=== PATIENT | female | born 1985 | race Caucasian/White ===

== ENCOUNTER 2016-10-06 11:32 | Emergency (ER) | payer OTHER ==
[~2016-10-06] VITALS: Ht 157.5 cm; Wt 101.8 kg
[2016-10-06 11:32] VITALS: TEMP 36.9; Ht 157.5 cm; Wt 101.8 kg
[~2016-10-06 11:32] MED LIST: AMLO-110 PO; APR25 PO; CLON1TAB3 PO; FLUO40CA8 PO; LABE1TAB28 PO; LEVO150T9 PO; NRN600 PO; RXC5 PO; SM350 PO
[2016-10-06] MEDS ORDERED: OXYCODONE HCL IR 5 MG TAB (IMMEDIATE RELEASE) PO STA (12:50)
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
[2016-10-06] MEDS ORDERED: AMOX875T PO (14:43)
[2016-10-06] MEDS ORDERED: AMLODIPINE BESYLATE 5 MG TAB PO ONE (15:00)
[2016-10-06] MEDS ORDERED: LABETALOL HCL 100 MG TAB PO ONE (15:00)
[2016-10-06 15:27] VITALS: BP 172/124; PULSE 74; O2SAT 99
[2016-10-10] MEDS ORDERED: AMLO10TA2 PO (18:34)
[2016-10-10] MEDS ORDERED: LABE200T24 PO (18:34)
[2016-10-10] MEDS ORDERED: APR/25 PO (18:34)
[2016-10-10] MEDS ORDERED: FLUO20CA34 PO (18:34)
[2016-10-10] MEDS ORDERED: LSN20 PO (19:38)
[2016-11-21] MEDS ORDERED: VNCS250 PO (17:27)
[2016-11-29] MEDS ORDERED: VNCS250 PO (11:02)
[2016-11-29] MEDS ORDERED: FRCT/ PO ×2 (11:02→19:37)
[2016-11-29] MEDS ORDERED: APR25 PO ×2 (11:02→13:22)
[2016-11-29] MEDS ORDERED: LBT200 PO (13:19)
[2016-11-29] MEDS ORDERED: CTP1 PO ×3 (13:19→13:22)
[2016-11-29] MEDS ORDERED: METR-163 PO ×2 (13:23→19:48)
[2016-12-02] MEDS ORDERED: ZLF50 PO ×2 (08:57→09:30)
[2016-12-02] MEDS ORDERED: BSP5 PO (09:06)
[2016-12-02] MEDS ORDERED: HYDR-3126 PO (09:17)
[2017-02-01] MEDS ORDERED: NRV5 PO (16:43)
[2017-02-01] MEDS ORDERED: DXY100 PO (16:45)
[2017-02-01] MEDS ORDERED: NRN600 PO (18:14)
== END 2016-10-06 15:28 | disposition home or self-care (01) ==
LOC: EDBD 11:32 → C.EDA 11:33
DX: S16.1XXA Strain of muscle, fascia and tendon at neck level, initial encounter (principal); S30.0XXA Contusion of lower back and pelvis, initial encounter; J32.9 Chronic sinusitis, unspecified; S80.01XA Contusion of right knee, initial encounter; I10 Essential (primary) hypertension; R51 Headache; K21.9 Gastro-esophageal reflux disease without esophagitis; E03.9 Hypothyroidism, unspecified; K58.9 Irritable bowel syndrome, unspecified; Z91.14 Patient's other noncompliance with medication regimen; E66.01 Morbid (severe) obesity due to excess calories; Z68.41 Body mass index [BMI] 40.0-44.9, adult; G47.33 Obstructive sleep apnea (adult) (pediatric); M17.11 Unilateral primary osteoarthritis, right knee; Z87.891 Personal history of nicotine dependence; M51.86 Other intervertebral disc disorders, lumbar region; V49.50XA Passenger injured in collision with unspecified motor vehicles in traffic accident, initial encounter; Y93.89 Activity, other specified; Y92.89 Other specified places as the place of occurrence of the external cause; Y99.8 Other external cause status

== ENCOUNTER 2016-10-09 09:42 | Emergency (ER) | payer OTHER ==
[~2016-10-09] VITALS: Ht 157.5 cm; Wt 99.2 kg
[~2016-10-09 09:42] MED LIST changes: +AMOX875T PO
[2016-10-09 09:47] VITALS: TEMP 36.6; Ht 157.5 cm; Wt 99.2 kg
[2016-10-09] MEDS ORDERED: IBUPROFEN 200 MG TAB PO STA (10:07)
[2016-10-09] MEDS ORDERED: ACETAMINOPHEN 500 MG TAB PO STA (10:07)
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
[2016-10-09 10:35] LABS: BASO % 0.5 %; BASO ABS # 0.03 K/uL (0-0.2); COMPLETE YES; EOS % 3.3 %; HEMATOCRIT 40.9 % (37-47); IG% 0.4 %; LYMPH % 31.3 %; LYMPH ABS # 1.72 K/uL (1.2-3.4); MEAN CORPUSCULAR HEMOGLOBIN 28.5 pg (25-34); MEAN PLATELET VOLUME 10.9 fL (7.4-10.4); MONO % 15.1 %; NEUT % 49.4 %; PLATELET COUNT 195 K/uL (130-400); RED BLOOD COUNT 4.87 M/uL (4.2-5.4); WHITE BLOOD COUNT 5.49 K/uL (4.8-10.8)
[2016-10-09] MEDS ORDERED: SODIUM CHLORIDE 0.9% 1000ML 2,000 ML IV STA (10:44)
[2016-10-09 10:51] LABS: BUN/CREATININE RATIO 14.9 (10-20); CALCIUM 9.1 mg/dl (8.5-10.1); CREATININE 1.7 mg/dl (0.60-1.20); POTASSIUM 4.1 mmol/L (3.5-5.1)
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
[2016-10-09 13:43] LABS: URINE APPEARANCE CLOUDY (CLEAR); URINE BILIRUBIN NEG (NEG); URINE COLOR DK YELLOW; URINE EPITHELIAL CELL AUTO >30 /lpf (0-5); URINE NITRITE NEG (NEG); URINE SPECIFIC GRAVITY 1.029 (1.000-1.030); UROBILINOGEN NEG (NEG); ZZUR CULT IF INDIC CLEAN CATCH NO
[2016-10-09 13:46] LABS: MANUAL MICROSCOPIC REQUIRED? NO; REVIEW REQ? YES
[2016-10-09 13:53] VITALS: BP 127/85; PULSE 80; O2SAT 97
[2016-10-09 14:09] LABS: BENZODIAZEPINE, URINE NEG (NEG); COCAINE,URINE NEG (NEG); PHENCYCLIDINE, URINE NEG (NEG)
[2016-10-10] MEDS ORDERED: LABE200T24 PO (18:34)
[2016-10-10] MEDS ORDERED: APR/25 PO (18:34)
[2016-10-10] MEDS ORDERED: AMLO10TA2 PO (18:34)
[2016-10-10] MEDS ORDERED: FLUO20CA34 PO (18:34)
[2016-10-10] MEDS ORDERED: LSN20 PO (19:38)
[2016-11-21] MEDS ORDERED: VNCS250 PO (17:27)
[2016-11-29] MEDS ORDERED: VNCS250 PO (11:02)
[2016-11-29] MEDS ORDERED: FRCT/ PO ×2 (11:02→19:37)
[2016-11-29] MEDS ORDERED: APR25 PO ×2 (11:02→13:22)
[2016-11-29] MEDS ORDERED: LBT200 PO (13:19)
[2016-11-29] MEDS ORDERED: CTP1 PO ×3 (13:19→13:22)
[2016-11-29] MEDS ORDERED: METR-163 PO ×2 (13:23→19:48)
[2016-12-02] MEDS ORDERED: ZLF50 PO ×2 (08:57→09:30)
[2016-12-02] MEDS ORDERED: BSP5 PO (09:06)
[2016-12-02] MEDS ORDERED: HYDR-3126 PO (09:17)
[2017-02-01] MEDS ORDERED: NRV5 PO (16:43)
[2017-02-01] MEDS ORDERED: DXY100 PO (16:45)
[2017-02-01] MEDS ORDERED: NRN600 PO (18:14)
== END 2016-10-09 14:03 | disposition home or self-care (01) ==
LOC: C.EDB 09:44
DX: R51 Headache (principal); M54.2 Cervicalgia; V43.62XA Car passenger injured in collision with other type car in traffic accident, initial encounter; I95.1 Orthostatic hypotension; E86.0 Dehydration; I10 Essential (primary) hypertension; E03.9 Hypothyroidism, unspecified; F32.9 Major depressive disorder, single episode, unspecified; K21.9 Gastro-esophageal reflux disease without esophagitis; I25.10 Atherosclerotic heart disease of native coronary artery without angina pectoris; F41.9 Anxiety disorder, unspecified; K58.9 Irritable bowel syndrome, unspecified; G47.33 Obstructive sleep apnea (adult) (pediatric); E28.2 Polycystic ovarian syndrome; Z90.710 Acquired absence of both cervix and uterus; Z90.49 Acquired absence of other specified parts of digestive tract; Z98.890 Other specified postprocedural states; F17.200 Nicotine dependence, unspecified, uncomplicated; Z79.899 Other long term (current) drug therapy; Z88.2 Allergy status to sulfonamides; Z88.8 Allergy status to other drugs, medicaments and biological substances; Z80.9 Family history of malignant neoplasm, unspecified; Z83.3 Family history of diabetes mellitus; Z82.49 Family history of ischemic heart disease and other diseases of the circulatory system; Z83.79 Family history of other diseases of the digestive system; Z84.1 Family history of disorders of kidney and ureter

== ENCOUNTER 2016-11-19 06:37 | Observation (INO) | payer OTHER ==
[~2016-11-19] VITALS: Ht 157.5 cm; Wt 99.7 kg
[~2016-11-19 06:37] MED LIST changes: -AMLO-110 PO; +AMLO10TA2 PO; -AMOX875T PO; +APR/25 PO; -APR25 PO; +FLUO20CA34 PO; -FLUO40CA8 PO; -LABE1TAB28 PO; +LABE200T24 PO
[2016-11-19 06:46] VITALS: Ht 157.5 cm; Wt 99.7 kg
[2016-11-19] MEDS ORDERED: SODIUM CHLORIDE 0.9% 1000ML 1,000 ML IV STA (07:10)
[2016-11-19] MEDS ORDERED: PROMETHAZINE HCL INJ 25 MG/ML 1 ML VIAL IV STA (07:10)
[2016-11-19 07:37] LABS: BASO % 0.1 %; BASO ABS # 0.03 K/uL (0-0.2); COMPLETE YES; EOS % 9.8 %; HEMATOCRIT 43.7 % (37-47); IG% 0.4 %; LYMPH % 9.7 %; LYMPH ABS # 2.01 K/uL (1.2-3.4); MEAN CELL VOLUME 79.6 fL (80-100); MEAN CORPUSCULAR HEMOGLOBIN 28.8 pg (25-34); MEAN CORPUSCULAR HGB CONC 36.2 g/dl (32-36); MEAN PLATELET VOLUME 10.3 fL (7.4-10.4); MONO % 3.9 %; NEUT % 76.1 %; PLATELET COUNT 230 K/uL (130-400); RED BLOOD COUNT 5.49 M/uL (4.2-5.4); WHITE BLOOD COUNT 20.77 K/uL (4.8-10.8)
[2016-11-19 07:54] LABS: BUN/CREATININE RATIO 12.2 (10-20); CALCIUM 8.5 mg/dl (8.5-10.1); CREATININE 1.5 mg/dl (0.60-1.20); POTASSIUM 3.3 mmol/L (3.5-5.1)
[2016-11-19] MEDS ORDERED: PROMETHAZINE HCL INJ 25 MG in SODIUM CHLORIDE 0.9% 50ML 50 ML IV ONE (08:00)
[2016-11-19] MEDS ORDERED: HYDR-5688 PO (08:09)
[2016-11-19 08:33] LABS: MAGNESIUM 1.8 mg/dl (1.8-2.4); PHOSPHORUS 3.1 mg/dl (2.5-4.9)
[2016-11-19] MEDS ORDERED: OXYCODONE HCL IR 5 MG TAB (IMMEDIATE RELEASE) PO STA (08:48)
[2016-11-19] MEDS ORDERED: LABETALOL HCL 200 MG TAB PO STA (08:48)
[2016-11-19] MEDS ORDERED: AMLODIPINE BESYLATE 5 MG TAB PO ONE (09:00)
[2016-11-19] MEDS ORDERED: PROM25TA9 PO (10:54)
[2016-11-19 10:59] LABS: PREG INTERNAL NEGATIVE QC NEG CLEAR BACKGROUND; PREG INTERNAL POSITIVE QC POS CONTROL LINE
[2016-11-19] MEDS ORDERED: ZLF50 PO (11:39)
[2016-11-19] MEDS ORDERED: ATOR-54 PO (11:39)
[2016-11-19] MEDS ORDERED: NRN/300 PO (11:39)
[2016-11-19] MEDS ORDERED: POTASSIUM CHLORIDE 20 MEQ TABCR PO ONE (11:45)
[2016-11-19] MEDS ORDERED: ACETAMINOPHEN 325 MG TAB PO PRN (11:45)
--- NOTE | 2016-11-19 12:15 | History and Physical ---
History & Physical Date & Time of Service: Nov 19, 2016 at 11:48 Chief Complaint: Ibs,Diarrhea Primary Care Physician: Norah Bailey D.O. History of Present Illness Source: patient, clinic records, hospital records Patient seen and examined. 31 year old female with PMHx of HTN, HLD, IGNACIO, CKD stage 3, and depression presents to the ED complaining of vomiting and diarrhea x 1 day. Patient reports she has had 30+ episodes of diarrhea and at least 10 episodes of vomiting. She states she has associated lower abdominal pain described as crampy/sharp and rated as an 9/10. She tried Perkins and Soma with minimal relief. She denies fevers, chills, URI symptoms, chest pain, SOB, dysuria, calf pain and edema. She reports she vomited her morning meds this morning. She states she was on Augmentin about a month ago for a sinus infection. She denies history of C.diff. She denies sick contacts, new or unusual foods/water sources. She denies any other Abx use. In the ED patient was initially hypertensive and tachycardic. She was given her morning BP meds and VS have normalized. WBC count is 20K. She has not been able to give a stool sample. She received IVFs, Phenergan. She is resting comfortably. She will be observed for further workup and treatment. Past Medical/Surgical History Medical Problems: (1) Anxiety Status: Chronic (2) Anxiety and depression Status: Chronic (3) GERD (gastroesophageal reflux disease) Status: Chronic (4) Hypertension Status: Chronic (5) Hypothyroidism Status: Chronic (6) IBS (irritable bowel syndrome) Status: Chronic (7) Left ventricular hypertrophy Permanent Comment: severe concentric LVH, IVSd 2.3 cm 06/18/16 Status: Chronic (8) Lumbago Status: Chronic (9) Lumbar disc disorder Status: Chronic (10) Migraine Status: Chronic (11) Morbid Obesity Status: Chronic (12) Non-occlusive coronary artery disease Status: Chronic (13) Noncompliance with medications Status: Chronic (14) IGNACIO (obstructive sleep apnea) Status: Chronic (15) Polycystic ovarian syndrome Status: Chronic Surgical Problems: (1) Adrenal tumor removed Status: Chronic (2) H/O arthroscopic knee surgery Status: Chronic (3) H/O hemorrhoidectomy Status: Chronic (4) History of carpal tunnel surgery Status: Chronic (5) History of hysterectomy Status: Chronic (6) Hx of appendectomy Status: Chronic (7) Hx of cholecystectomy Status: Chronic (8) Hx of decompressive lumbar laminectomy Status: Chronic (9) Hx of hemorrhoidectomy Status: Chronic (10) Hx of partial thyroidectomy Status: Chronic (11) S/p removal adrenal gland tumor Status: Chronic (12) S/P tonsillectomy and adenoidectomy Status: Chronic Family History Cancer Diabetes mellitus FHx: ME FHx: blood clots FHx: heart disease Gallbladder disease Heart disease Hypertension Kidney disease Lung disease Social History Smoking Status: Never Smoker Alcohol Use: socially Drug Use: none Marital Status: single, in relationship Housing status: lives with significant other Occupational Status: disabled Immunizations History of Influenza Vaccine: Yes Influenza Vaccine Date: Jul 14, 2015 Allergies Coded Allergies: Sulfa Antibiotics (Verified Allergy, Severe, RASH, DIFFICULTY BREATHING, HAD LASIX OK PREV.ADM., 11/19/16) NSAIDs (Verified Adverse Reaction, Unknown, KIDNEY FAILURE, 11/19/16) PATIENT REPORTS ASSESSMENT EXPERT TOLD PATIENT TO STAY AWAY FROM DUE TO KIDNEY FUNCTION Tramadol (Verified Adverse Reaction, Unknown, "MAKES ME DIZZY", 11/19/16) Home Medications Scheduled Amlodipine Besylate (Norvasc), 10 MG PO DAILY Atorvastatin (Lipitor), 20 MG PO DAILY Gabapentin (Neurontin), 1 CAP PO TID Hydralazine HCl (Hydralazine HCl), 12.5 MG PO TID Labetalol Hcl (Labetalol Hcl), 200 MG PO TID Levothyroxine Sodium (Levothyroxine Sodium), 1 TAB PO 6XWK Levothyroxine Sodium (Levothyroxine Sodium), 300 MCG PO WK Sertraline HCl (Sertraline HCl), 1 TAB PO DAILY Scheduled PRN Carisoprodol (Carisoprodol), 350 MG PO TID PRN for Muscle Spasms Hydrocodone/Acetaminophen 5MG/325MG ([place] 5MG/325MG), 1 TABLET PO DAILY PRN for Pain Review of Systems Constitutional: No chills, No fever Eyes: No worsening of vision ENT: No nasal symptoms Respiratory: No cough, No shortness of breath Cardiovascular: No chest pain, No edema Abdomen: + diarrhea, + nausea, + pain, + vomiting, No GI bleeding, No constipation Musculoskeletal: No calf pain, No swelling Genitourinary - Female: No dysuria Neurologic: No numbness/tingling, No vertigo Psychiatric: No anxiety Endocrine: No excessive thirst, No fatigue Hematologic / Lymphatic: No abnormal bleeding/bruising, No clotting problems Integumentary: No itch, No rash Allergic / Immunologic: No environmental allergies Physical Exam Vital Signs Date Time Temp Pulse Resp B/P Pulse Ox O2 Delivery O2 Flow Rate FiO2 11/19/16 11:37 78 20 136/88 99 Room Air 11/19/16 10:14 104 20 160/117 94 Room Air 11/19/16 09:16 104 16 197/147 96 11/19/16 08:40 97 20 190/110 97 Room Air 11/19/16 07:51 107 16 168/117 100 11/19/16 06:46 37.0 117 20 178/133 96 Room Air General Appearance: + pertinent finding (WD/WN 31 year old female lying in bed in NAD ) Head: normocephalic, atraumatic Eyes: PERRL, EOMI, sclerae normal ENT: hearing grossly normal, pharynx normal Neck: supple, no JVD Respiratory/Chest: chest non-tender, lungs clear, normal breath sounds, no respiratory distress, no accessory muscle use Cardiovascular: regular rate, rhythm, no edema, no gallop, no JVD, no murmur, normal peripheral pulses Abdomen/GI: normal bowel sounds, non tender, soft Back: normal inspection, no CVA tenderness, no muscle spasm Extremities/Musculoskelatal: no calf tenderness, normal capillary refill, no pedal edema Neurologic/Psych: alert, oriented x 3, + pertinent finding (no motor or sensory deficits noted on gross exam ) Skin: normal color, warm/dry, no rash Lymphatic: no adenopathy Diagnostics Laboratory Results Results Past 24 Hours Test 11/19/16 07:25 11/19/16 07:35 Range/Units White Blood Count 20.77 4.8-10.8 K/uL Red Blood Count 5.49 4.2-5.4 M/uL Hemoglobin 15.8 12.0-16.0 g/dL Hematocrit 43.7 37-47 % Mean Corpuscular Volume 79.6 80-100 fL Mean Corpuscular Hemoglobin 28.8 25-34 pg Mean Corpuscular Hemoglobin Concent 36.2 32-36 g/dl Platelet Count 230 130-400 K/uL Mean Platelet Volume 10.3 7.4-10.4 fL Neutrophils (%) (Auto) 76.1 % Lymphocytes (%) (Auto) 9.7 % Monocytes (%) (Auto) 3.9 % Eosinophils (%) (Auto) 9.8 % Basophils (%) (Auto) 0.1 % Neutrophils # (Auto) 15.80 1.4-6.5 K/uL Lymphocytes # (Auto) 2.01 1.2-3.4 K/uL Monocytes # (Auto) 0.81 0.11-0.59 K/uL Eosinophils # (Auto) 2.03 0-0.5 K/uL Basophils # (Auto) 0.03 0-0.2 K/uL RDW Standard Deviation 41.8 36.4-46.3 fL RDW Coefficient of Variation 14.7 11.5-14.5 % Immature Granulocyte % (Auto) 0.4 % Immature Granulocyte # (Auto) 0.09 0.00-0.02 K/uL Sodium Level 139 136-145 mmol/L Potassium Level 3.3 3.5-5.1 mmol/L Chloride Level 104 98-107 mmol/L Carbon Dioxide Level 24 21-32 mmol/L Anion Gap 11.0 3-11 mmol/L Blood Urea Nitrogen 18 7-18 mg/dl Creatinine 1.50 0.60-1.20 mg/dl Est Creatinine Clear Calc Drug Dose 58.9 ml/min Estimated GFR () 52.5 Estimated GFR (Non- 45.3 BUN/Creatinine Ratio 12.2 10-20 Random Glucose 139 70-99 mg/dl Calcium Level 8.5 8.5-10.1 mg/dl Phosphorus Level 3.1 2.5-4.9 mg/dl Magnesium Level 1.8 1.8-2.4 mg/dl Total Bilirubin 0.6 0.2-1 mg/dl Direct Bilirubin 0.1 0-0.2 mg/dl Aspartate Amino Transf (AST/SGOT) 12 15-37 U/L Alanine Aminotransferase (ALT/SGPT) 21 12-78 U/L Alkaline Phosphatase 102 45-117 U/L Total Protein 7.1 6.4-8.2 gm/dl Albumin 3.4 3.4-5.0 gm/dl Lipase 297 73-393 U/L Human Chorionic Gonadotropin, Qual NEG NEG Impression Assessment and Plan 31 year old female presents to the ED complaining of 30 episodes of diarrhea, 10 episodes of vomiting in last 24 hours. Has not had vomiting or diarrhea since arrival. INTRACTABLE ABDOMINAL PAIN/NAUSEA/VOMITING -Observation med/surg -LFTs, lipase unremarkable -has not been able to give stool sample, -R/O C.diff was on Augmentin last month -stool culture -UA pending -IVF hydration -Zofran prn -morphine prn severe pain [place] prescription monitoring program reviewed- has used 3 pharmacies and 10 prescribers in the past -Check Tox screen -clear liquid diet -CBC, PRP, Mg in AM LEUKOCYTOSIS -20K, ? cause -check Stool culture, c.diff, UA -afebrile -no indication for Abx at this time HYPOKALEMIA -mild, likely secondary to GI losses replace -follow daily HTN -stable after home meds -continue Labetalol, hydralazine, amlodipine HYPOTHYROIDISM -continue Synthroid HLD -hold statin for GI upset IGNACIO -does not tolerate CPAP DEPRESSION -continue Zoloft CHRONIC PAIN -continue Perkins, Soma DVT PROPHYLAXIS: SCDs, Ambulation CODE STATUS: FULL CODE DISPO:observation pending further workup Patient seen in collaboration with Dr. Garcia VTE Prophylaxis VTE Risk Assessment Done? Y/N: Yes Risk Level: Low Given or contraindicated: SCD's Note ATTENDING ADDENDUM Record reviewed. Patient interviewed and examined. Care coordinated with Sweta Queen PA-C. Please refer to her documentation for patient's history. Briefly, 31 YO female who presented to ED with nausea, vomiting, several episodes of loose stools over past 24 hours. No fever. Crampy abdominal pain. Recent course of Augmentin. EXAM: General- no acute distress VS- as noted HEENT- anicteric Lungs- clear Heart- RRR Abdomen- + BS, soft, nondistended, nontender Extremities- no pretibial edema or calf tenderness Neuro- alert DATA: WBC 20,770. BUN / creat 18 / 1.5. K 3.3. LFT's normal. Other lab studies as noted. ASSESSMENT AND PLAN: Nausea, vomiting, diarrhea. Consider viral gastroenteritis, C diff, other enteric pathogens. IV fluids. Check stools for C diff and routine enteric pathogens. UA shows trace leukocyte esterase, 10-30 WBC's, 5-10 RBC's, hyaline casts, granular casts, many epithelial cells. Suspect that urine contaminated specimen. No urinary symptoms. Urine culture pending. Will not start antibiotics at this time in light of possible C diff and no definite UTI. Please refer to TRICIA Queen's documentation for discussion of other issues. David Garcia MD .
[2016-11-19 12:36] VITALS: O2SAT 96
[2016-11-19 12:52] LABS: URINE APPEARANCE TURBID (CLEAR); URINE COLOR DK YELLOW; URINE EPITHELIAL CELL AUTO >30 /lpf (0-5); URINE NITRITE NEG (NEG); URINE PH 5.5 (4.5-7.5); URINE SPECIFIC GRAVITY 1.038 (1.000-1.030); UROBILINOGEN NEG (NEG); ZZUR CULT IF INDIC CLEAN CATCH YES
[2016-11-19 13:05] LABS: MANUAL MICROSCOPIC REQUIRED? NO; REVIEW REQ? YES; URINE BILIRUBIN NEG (NEG)
[2016-11-19 13:29] LABS: URINE PATH CASTS 0-3 GRANULAR CASTS /lpf (0)
--- NOTE | 2016-11-19 13:43 | EMERGENCY ROOM VISIT NOTE ---
History First contact with patient: 07:03 Chief Complaint: DIARRHEA Stated Complaint: IBS,DIARRHEA History of Present Illness The patient is a 31 year old female who presents to the Emergency Room with complaints of an IBS flare with nausea, vomiting and profuse watery diarrhea since midnight. The patient denies eating any unusual foods. She denies any other known sick contacts. Rates her overall discomfort an 10 out of 10. Review of Systems HEENT: Denies dizziness, visual problems, hearing loss, tinnitus. Denies difficulty swallowing or oral lesions. PULMONARY: Denies cough, shortness of breath, sputum production or hemoptysis. CARDIOVASCULAR: Denies chest pain, palpitations, dyspnea on exertion, orthopnea or peripheral edema. GASTROINTESTINAL: See history of present illness. GENITOURINARY: Denies dysuria, frequency, urgency or nocturia. NEUROLOGIC: Denies history of epilepsy, CVA, TIA or chronic headaches. MUSCULOSKELETAL: Denies history of joint tenderness/swelling. SKIN: Denies rashes or lesions. PSYCHIATRIC: History of anxiety and depression. ENDOCRINE: Denies history of diabetes. Patient has a history of hypothyroidism. Past Medical/Surgical History Medical Problems: (1) Abdominal pain (2) Anxiety (3) Anxiety and depression (4) Depression (5) Depression (6) Dizzy (7) GERD (gastroesophageal reflux disease) (8) GERD (gastroesophageal reflux disease) (9) Headache (10) HTN (hypertension) (11) Hypertension (12) Hypothyroidism (13) Hypothyroidism (14) IBS (irritable bowel syndrome) (15) Left ventricular hypertrophy (16) Lumbago (17) Lumbar disc disorder (18) Migraine (19) Migraine (20) Morbid Obesity (21) Non-occlusive coronary artery disease (22) Noncompliance with medications (23) IGNACIO (obstructive sleep apnea) (24) IGNACIO (obstructive sleep apnea) (25) Polycystic ovarian syndrome Surgical Problems: (1) Adrenal tumor removed (2) H/O arthroscopic knee surgery (3) H/O arthroscopic knee surgery (4) H/O hemorrhoidectomy (5) H/O: hysterectomy (6) History of carpal tunnel surgery (7) History of carpal tunnel surgery (8) History of hysterectomy (9) Hx of appendectomy (10) Hx of cholecystectomy (11) Hx of decompressive lumbar laminectomy (12) Hx of hemorrhoidectomy (13) Hx of partial thyroidectomy (14) S/P appendectomy (15) S/P cholecystectomy (16) S/p removal adrenal gland tumor (17) S/P tonsillectomy and adenoidectomy (18) S/P tonsillectomy and adenoidectomy Family History Cancer Diabetes mellitus FHx: [place] FHx: blood clots FHx: heart disease Gallbladder disease Heart disease Hypertension Kidney disease Lung disease Social History Smoking Status: Never Smoker Alcohol Use: none Drug Use: none Marital Status: single, in relationship Housing Status: lives with family Occupation Status: disabled Current/Historical Medications Scheduled Amlodipine Besylate (Norvasc), 10 MG PO DAILY Atorvastatin (Lipitor), 20 MG PO DAILY Gabapentin (Neurontin), 1 CAP PO TID Hydralazine HCl (Hydralazine HCl), 12.5 MG PO TID Labetalol Hcl (Labetalol Hcl), 200 MG PO TID Levothyroxine Sodium (Levothyroxine Sodium), 1 TAB PO 6XWK Levothyroxine Sodium (Levothyroxine Sodium), 300 MCG PO WK Sertraline HCl (Sertraline HCl), 1 TAB PO DAILY Scheduled PRN Carisoprodol (Carisoprodol), 350 MG PO TID PRN for Muscle Spasms Hydrocodone/Acetaminophen 5MG/325MG ([place] 5MG/325MG), 1 TABLET PO DAILY PRN for Pain Allergies Coded Allergies: Sulfa Antibiotics (Verified Allergy, Severe, RASH, DIFFICULTY BREATHING, HAD LASIX OK PREV.ADM., 11/19/16) NSAIDs (Verified Adverse Reaction, Unknown, KIDNEY FAILURE, 11/19/16) PATIENT REPORTS ENVIRONMENTAL FIELD SERVICES TECHNICIAN TOLD PATIENT TO STAY AWAY FROM DUE TO KIDNEY FUNCTION Tramadol (Verified Adverse Reaction, Unknown, "MAKES ME DIZZY", 11/19/16) Physical Exam Vital Signs Date Time Temp Pulse Resp B/P Pulse Ox O2 Delivery O2 Flow Rate FiO2 11/19/16 11:37 78 20 136/88 99 Room Air 11/19/16 10:14 104 20 160/117 94 Room Air 11/19/16 09:16 104 16 197/147 96 11/19/16 08:40 97 20 190/110 97 Room Air 11/19/16 07:51 107 16 168/117 100 11/19/16 06:46 37.0 117 20 178/133 96 Room Air Physical Exam CONSTITUTIONAL: Healthy and well nourished. Alert and oriented X 3 with a flat affect. HEENT: Normocephalic, atraumatic. Pupils equal, round and reactive. Ears and nares are clear. OROPHARYNX: Mucous memories are moist. No tonsillar hypertrophy or exudates. NECK: Full active range of motion without discomfort. RESPIRATORY: Clear to auscultation bilaterally with no wheezing, crackles, rhonchi or stridor. CARDIOVASCULAR: Regular rate and rhythm with no murmurs, rubs or gallops. GASTROINTESTINAL: Bowel sounds present in all quadrants. And has diffuse, generalized and nonfocal tenderness to palpation. Negative CVA tenderness. No rigidity, guarding or rebound. MUSCULOSKELETAL: Full range of motion of all joints without discomfort. INTEGUMENTARY: No rash or other significant dermatologic conditions noted. HEMATOLOGIC: No ecchymosis or petechiae appreciated. NEUROLOGIC: No focal neurologic deficits noted. Medical Decision & Procedures Laboratory Results 11/19/16 07:25 Red Blood Count 5.49, Mean Corpuscular Volume 79.6, Mean Corpuscular Hemoglobin 28.8, Mean Corpuscular Hemoglobin Concent 36.2, Mean Platelet Volume 10.3, Neutrophils (%) (Auto) 76.1, Lymphocytes (%) (Auto) 9.7, Monocytes (%) (Auto) 3.9, Eosinophils (%) (Auto) 9.8, Basophils (%) (Auto) 0.1, Neutrophils # (Auto) 15.80, Lymphocytes # (Auto) 2.01, Monocytes # (Auto) 0.81, Eosinophils # (Auto) 2.03, Basophils # (Auto) 0.03 11/19/16 07:25 Test 11/19/16 07:25 11/19/16 07:35 White Blood Count 20.77 K/uL (4.8-10.8) Red Blood Count 5.49 M/uL (4.2-5.4) Hemoglobin 15.8 g/dL (12.0-16.0) Hematocrit 43.7 % (37-47) Mean Corpuscular Volume 79.6 fL (80-100) Mean Corpuscular Hemoglobin 28.8 pg (25-34) Mean Corpuscular Hemoglobin Concent 36.2 g/dl (32-36) Platelet Count 230 K/uL (130-400) Mean Platelet Volume 10.3 fL (7.4-10.4) Neutrophils (%) (Auto) 76.1 % Lymphocytes (%) (Auto) 9.7 % Monocytes (%) (Auto) 3.9 % Eosinophils (%) (Auto) 9.8 % Basophils (%) (Auto) 0.1 % Neutrophils # (Auto) 15.80 K/uL (1.4-6.5) Lymphocytes # (Auto) 2.01 K/uL (1.2-3.4) Monocytes # (Auto) 0.81 K/uL (0.11-0.59) Eosinophils # (Auto) 2.03 K/uL (0-0.5) Basophils # (Auto) 0.03 K/uL (0-0.2) RDW Standard Deviation 41.8 fL (36.4-46.3) RDW Coefficient of Variation 14.7 % (11.5-14.5) Immature Granulocyte % (Auto) 0.4 % Immature Granulocyte # (Auto) 0.09 K/uL (0.00-0.02) Anion Gap 11.0 mmol/L (3-11) Est Creatinine Clear Calc Drug Dose 58.9 ml/min Estimated GFR () 52.5 Estimated GFR (Non- 45.3 BUN/Creatinine Ratio 12.2 (10-20) Calcium Level 8.5 mg/dl (8.5-10.1) Phosphorus Level 3.1 mg/dl (2.5-4.9) Magnesium Level 1.8 mg/dl (1.8-2.4) Total Bilirubin 0.6 mg/dl (0.2-1) Direct Bilirubin 0.1 mg/dl (0-0.2) Aspartate Amino Transf (AST/SGOT) 12 U/L (15-37) Alanine Aminotransferase (ALT/SGPT) 21 U/L (12-78) Alkaline Phosphatase 102 U/L (45-117) Total Protein 7.1 gm/dl (6.4-8.2) Albumin 3.4 gm/dl (3.4-5.0) Lipase 297 U/L (73-393) Urine Color DK YELLOW Urine Appearance TURBID (CLEAR) Urine pH 5.5 (4.5-7.5) Urine Specific [place] 1.038 (1.000-1.030) Urine Protein 3+ (NEG) Urine Glucose (UA) NEG (NEG) Urine Ketones NEG (NEG) Urine Occult Blood NEG (NEG) Urine Nitrite NEG (NEG) Urine Bilirubin NEG (NEG) Urine Urobilinogen NEG (NEG) Urine Leukocyte Esterase TRACE (NEG) Urine WBC (Auto) 10-30 /hpf (0-5) Urine RBC (Auto) 5-10 /hpf (0-4) Urine Hyaline Casts (Auto) 10-30 /lpf (0-5) Urine Epithelial Cells (Auto) >30 /lpf (0-5) Urine Bacteria (Auto) 4+ (NEG) Urine Renal Epithelial Cells 0-5 /lpf (0-5) Urine Crystals URIC ACID (NONE PRSENT) Urine Pathogenic Casts 0-3 GRANULAR CASTS /lpf (0) Human Chorionic Gonadotropin, Qual NEG (NEG) The above labs were reviewed. The patient has a markedly leukocytosis with left shift and bandemia. Creatinine is 1.5. Potassium 3.3. LFTs and lipase are normal. Urine is negative. Urinalysis shows a contaminated sample without hematuria or nitrites. Urine culture was ordered and is pending. Medications Administered Medications (Trade) Dose Ordered Sig/Randi Route Start Time Stop Time Status Last Admin Dose Admin Sodium Chloride 1,000 ml @ 999 mls/hr Q1H1M STAT IV 11/19/16 07:10 11/19/16 08:10 DC 11/19/16 07:45 999 MLS/HR Promethazine HCl/ Sodium Chloride (Phenergan Inj/ Nss 50ml) 51 ml @ 204 mls/hr TODAY@0800 ONCE IV 11/19/16 08:00 11/19/16 08:14 DC 11/19/16 07:45 204 MLS/HR Oxycodone HCl (Roxicodone Immediate Rel Tab) 5 mg NOW STAT PO 11/19/16 08:48 11/19/16 08:50 DC 11/19/16 09:14 5 MG Amlodipine Besylate (Norvasc Tab) 10 mg NOW ONCE PO 11/19/16 09:00 11/19/16 09:01 DC 11/19/16 09:13 10 MG Labetalol HCl (Normodyne Tab) 200 mg ONE STAT PO 11/19/16 08:48 11/19/16 08:50 DC 11/19/16 09:14 200 MG Hydralazine HCl (Apresoline Tab) 25 mg NOW STAT PO 11/19/16 08:48 11/19/16 08:50 DC 11/19/16 09:15 25 MG Procedure 1. IV hydration: The patient received a liter normal saline bolus 2. IV medications: The patient was initially administered Phenergan 25 mg IVP. ED Course Patient history and physical exam were performed. Nurse's notes were reviewed. Vital signs were reviewed, showing an elevated blood pressure of 178/133. She is tachycardic. The patient is afebrile. IV access was established, and labs were drawn. The patient was hydrated with normal saline, and received IV medications as discussed in the previous Procedure section. Review of labs shows a markedly leukocytosis with left shift and bandemia. Creatinine 1.5 with potassium 3.3. Urinalysis is not suggestive of infection. Urine cultures were ordered. Urine is negative. After the patient received IV Phenergan, she slept through the remainder of her ER evaluation. Upon reevaluation, the patient still continued to complain of abdominal pain. When the patient denied any further nausea, she was administered her typical morning hypertension medications, along with OxyIR 5 mg orally. The patient continued to sleep in her room. I did discuss hospitalist evaluation with the patient. She initially agreed to this. When [facility] hospitalist service evaluated the patient, she refused admission. The patient was then evaluated by Dr. Holliday, and the patient changed her mind yet again, and agreed to hospice reevaluation. Please see hospitalist notes for further treatment and final disposition. Medical Decision Patient presents to the emergency department for evaluation of nausea, vomiting , diarrhea and abdominal pain. The patient's pain did seem to be exaggerated throughout her evaluation as she was sleeping comfortably the remainder of her time in the emergency department. The patient does have a significant leukocytosis with bandemia and left shift. The patient has had multiple imaging studies in the past, therefore I don't feel that the patient needs a CT at this time. She also does not have a bowel obstruction given her profuse diarrhea. The patient is status post appendectomy, cholecystectomy and hysterectomy. She has no peritoneal signs on exam. Clinical exam is not suggestive of pyelonephritis. Remaining labs are not suggestive of pancreatitis or hepatitis. Impression Primary Impression: Nausea, vomiting, and diarrhea Additional Impression: Abdominal pain Departure Information Referrals No Doctor, Assigned (PCP) Patient Instructions [facility] Problem Qualifiers Additional Impression: Abdominal pain Abdominal location: generalized Qualified Codes: R10.84 - Generalized abdominal pain
[2016-11-19] MEDS: NSS + 20MEQ KCL 1000ML 1,000 ML IV SCH ×2 (13:45→22:25)
[2016-11-19] MEDS ORDERED: IV FLUIDS COMPLETED PRN (13:45)
[2016-11-19] MEDS: LABETALOL HCL 200 MG TAB PO SCH ×2 (13:46→19:50)
[2016-11-19] MEDS: HYDROCODONE/ACETAMOPHEN 5/325MG TAB PO PRN (13:46)
[2016-11-19] MEDS: GABAPENTIN 300 MG CAP PO SCH ×2 (13:46→19:45)
[2016-11-19] MEDS ORDERED: PANTOprazole INJ 40 MG in SYRINGE 0 ML IV ONE (15:00)
[2016-11-19 15:01] VITALS: BP 128/89; PULSE 99; TEMP 36.7; O2SAT 97
[2016-11-19] MEDS: MoRPHine SULFATE 2 MG/ML CARP IV PRN ×2 (15:03→19:42)
--- NOTE | 2016-11-19 15:05 | EMERGENCY ROOM VISIT NOTE ---
ED Visit Note First contact with patient: 07:03 I have personally evaluated this patient examined her and reviewed the pertinent labs and data. I have discussed the case with Phani Leal, the physician computer assistant and agree with the plan. Please refer to the PA note. This patient comes in with diarrhea and abdominal discomfort she's also had some nausea. IV access established her abdomen is mildly diffusely tender and I am concerned that her white count is 20,000. She's had multiple admissions and visits before for various infections and other etiologies. She was feeling better after receiving fluids but still not well nothing to home. I do think that it is reasonable to observe her in the hospital and hydrate her did a urine her elevated white count. The [facility] group saw her in the ER.
[2016-11-19] MEDS: ONDANSETRON INJ 2 MG/ML 2 ML VIAL IV PRN (15:08)
[2016-11-19] MEDS: CARISOPRODOL 350 MG TAB PO PRN (18:37)
[2016-11-19 23:49] VITALS: BP 149/74; PULSE 79; TEMP 36.5; O2SAT 100
[2016-11-20] MEDS ORDERED: ZOLPIDEM TARTRATE 5 MG TAB PO ONE (01:00)
[2016-11-20] MEDS: MoRPHine SULFATE 2 MG/ML CARP IV PRN ×5 (01:05→19:48)
[2016-11-20] MEDS ORDERED: VANCOMYCIN HCL 250 MG/5 ML SOLN PO ONE (04:00)
[2016-11-20] MEDS ORDERED: RASPBERRY SYRUP 5 ML UDP PO ONE (04:00)
[2016-11-20] MEDS: NSS + 20MEQ KCL 1000ML 1,000 ML IV SCH ×3 (05:05→19:55)
[2016-11-20] MEDS: LEVOTHYROXINE 150 MCG TAB PO SCH (05:39)
[2016-11-20] MEDS: ONDANSETRON INJ 2 MG/ML 2 ML VIAL IV PRN ×3 (05:39→21:57)
[2016-11-20 06:23] LABS: HEMATOCRIT 37.2 % (37-47); MEAN CELL VOLUME 84.9 fL (80-100); MEAN CORPUSCULAR HGB CONC 34.1 g/dl (32-36); MEAN PLATELET VOLUME 10.6 fL (7.4-10.4); PLATELET COUNT 231 K/uL (130-400); RED BLOOD COUNT 4.38 M/uL (4.2-5.4); WHITE BLOOD COUNT 12.25 K/uL (4.8-10.8)
[2016-11-20 06:49] LABS: BUN/CREATININE RATIO 8.8 (10-20); CALCIUM 7.5 mg/dl (8.5-10.1); CREATININE 1.3 mg/dl (0.60-1.20); MAGNESIUM 1.8 mg/dl (1.8-2.4); POTASSIUM 3.7 mmol/L (3.5-5.1)
[2016-11-20 07:29] VITALS: BP 162/88; PULSE 83; TEMP 36.3; O2SAT 95
[2016-11-20] MEDS: LABETALOL HCL 200 MG TAB PO SCH ×3 (07:58→19:54)
[2016-11-20] MEDS: AMLODIPINE BESYLATE 5 MG TAB PO SCH (07:58)
[2016-11-20] MEDS: SERTRALINE HCL 50 MG TAB PO SCH (07:59)
[2016-11-20] MEDS: PANTOprazole SOD 40 MG TAB PO SCH (07:59)
[2016-11-20] MEDS: RASPBERRY SYRUP 5 ML UDP PO SCH ×4 (07:59→19:47)
[2016-11-20] MEDS: GABAPENTIN 300 MG CAP PO SCH ×3 (07:59→19:51)
[2016-11-20] MEDS: VANCOMYCIN HCL 250 MG/5 ML SOLN PO SCH ×4 (08:00→19:46)
[2016-11-20] MEDS: CARISOPRODOL 350 MG TAB PO PRN (09:56)
[2016-11-20 15:02] VITALS: BP 134/83; PULSE 79; TEMP 36.7; O2SAT 93
[2016-11-20] MEDS: HYDROmorphone INJ 0.5 MG/0.5 ML SYR IV PRN (21:57)
--- NOTE | 2016-11-20 22:04 | Progress Note ---
Internal Med Progress Note Date of Service: Nov 20, 2016. Provider Documentation: SUBJECTIVE: complains of rt upper quadrant pain sharp 7/10 cramps no nausea diarrhea has improved no fever or chills OBJECTIVE: Vital Signs-as noted below Exam: General-no sign of distress, Eyes-sclera non icteric ENT-NAD Neck-no thyromegaly Lungs-CTA Heart-regular S1/S2 Abdomen-soft, RUQ tenderness, no rebound, bowel sound active Extremities-trace bilat lower ext edema Neuro-AAO x3, no focal deficit Lab data as noted below. ASSESSMENT & PLAN: C DIFF COLITIS : presented with abdominal pain nausea , diarrhea leukocytosis stool + ve C diff started on PO vancomycin , complete total 10 days course -able to keep clear liquid down ok to advance diet to solid LEUKOCYTOSIS -due to above -improved cont IV hydration , PO Vanco - HYPOKALEMIA replaced -mild, likely secondary to GI losses replace -follow daily HTN -stable -continue Labetalol, hydralazine, amlodipine HYPOTHYROIDISM -continue Synthroid JAVED : due to dehydration , nausea , diarrhea cont IV hydration follow PRP IGNACIO -does not tolerate CPAP DEPRESSION -continue Zoloft CHRONIC PAIN -continue [place], [place] DVT PROPHYLAXIS: SCDs, Ambulation CODE STATUS: FULL CODE DISPOSITION Discharge home when medically stable Vital Signs: Date Time Temp Pulse Resp B/P Pulse Ox O2 Delivery O2 Flow Rate FiO2 11/20/16 16:00 Room Air 11/20/16 15:02 36.7 79 18 134/83 93 11/20/16 08:00 Room Air 11/20/16 07:29 36.3 83 18 162/88 95 11/20/16 00:00 Room Air 11/19/16 23:49 36.5 79 20 149/74 100 Room Air Lab Results: Results Past 24 Hours Test 11/20/16 05:18 Range/Units White Blood Count 12.25 4.8-10.8 K/uL Red Blood Count 4.38 4.2-5.4 M/uL Hemoglobin 12.7 12.0-16.0 g/dL Hematocrit 37.2 37-47 % Mean Corpuscular Volume 84.9 80-100 fL Mean Corpuscular Hemoglobin 29.0 25-34 pg Mean Corpuscular Hemoglobin Concent 34.1 32-36 g/dl RDW Standard Deviation 48.6 36.4-46.3 fL RDW Coefficient of Variation 15.9 11.5-14.5 % Platelet Count 231 130-400 K/uL Mean Platelet Volume 10.6 7.4-10.4 fL Sodium Level 145 136-145 mmol/L Potassium Level 3.7 3.5-5.1 mmol/L Chloride Level 111 98-107 mmol/L Carbon Dioxide Level 25 21-32 mmol/L Anion Gap 9.0 3-11 mmol/L Blood Urea Nitrogen 11 7-18 mg/dl Creatinine 1.30 0.60-1.20 mg/dl Est Creatinine Clear Calc Drug Dose 68.0 ml/min Estimated GFR () 62.4 Estimated GFR (Non- 53.9 BUN/Creatinine Ratio 8.8 10-20 Random Glucose 91 70-99 mg/dl Calcium Level 7.5 8.5-10.1 mg/dl Magnesium Level 1.8 1.8-2.4 mg/dl
[2016-11-20 23:20] VITALS: BP 150/85; PULSE 73; TEMP 36.7; O2SAT 93
[2016-11-21] MEDS: MoRPHine SULFATE 2 MG/ML CARP IV PRN ×3 (00:27→15:08)
[2016-11-21] MEDS ORDERED: ZOLPIDEM TARTRATE 5 MG TAB PO PRN (01:45)
[2016-11-21] MEDS: NSS + 20MEQ KCL 1000ML 1,000 ML IV SCH ×2 (03:38→13:16)
[2016-11-21] MEDS: LEVOTHYROXINE 150 MCG TAB PO SCH (05:20)
[2016-11-21] MEDS: HYDROmorphone INJ 0.5 MG/0.5 ML SYR IV PRN ×2 (05:20→11:34)
[2016-11-21 06:17] LABS: HEMATOCRIT 36.1 % (37-47); MEAN CELL VOLUME 86.6 fL (80-100); MEAN CORPUSCULAR HEMOGLOBIN 28.3 pg (25-34); MEAN CORPUSCULAR HGB CONC 32.7 g/dl (32-36); MEAN PLATELET VOLUME 10.5 fL (7.4-10.4); PLATELET COUNT 192 K/uL (130-400); RED BLOOD COUNT 4.17 M/uL (4.2-5.4); WHITE BLOOD COUNT 10.45 K/uL (4.8-10.8)
[2016-11-21 06:53] LABS: BUN/CREATININE RATIO 4.7 (10-20); CALCIUM 8.1 mg/dl (8.5-10.1); CREATININE 1.3 mg/dl (0.60-1.20); MAGNESIUM 1.8 mg/dl (1.8-2.4); POTASSIUM 3.9 mmol/L (3.5-5.1)
[2016-11-21 07:28] VITALS: BP 154/85; PULSE 86; TEMP 36.8; O2SAT 99
[2016-11-21] MEDS: AMLODIPINE BESYLATE 5 MG TAB PO SCH (07:36)
[2016-11-21] MEDS: LABETALOL HCL 200 MG TAB PO SCH ×2 (07:37→15:07)
[2016-11-21] MEDS: LACTOBACILLUS ACIDOPHILUS (FLORANEX) TAB PO SCH ×2 (07:37→11:33)
[2016-11-21] MEDS: SERTRALINE HCL 50 MG TAB PO SCH (07:37)
[2016-11-21] MEDS: GABAPENTIN 300 MG CAP PO SCH ×2 (07:38→15:07)
[2016-11-21] MEDS: PANTOprazole SOD 40 MG TAB PO SCH (07:38)
[2016-11-21] MEDS: RASPBERRY SYRUP 5 ML UDP PO SCH ×2 (07:38→11:35)
[2016-11-21] MEDS: VANCOMYCIN HCL 250 MG/5 ML SOLN PO SCH ×2 (07:39→11:42)
[2016-11-21] MEDS: CARISOPRODOL 350 MG TAB PO PRN ×2 (07:39→15:09)
[2016-11-21] MEDS: HYDROCODONE/ACETAMOPHEN 5/325MG TAB PO PRN (07:40)
[2016-11-21] MEDS: ONDANSETRON INJ 2 MG/ML 2 ML VIAL IV PRN (07:41)
[2016-11-21] MEDS ORDERED: LORAZEPAM 2 MG/ML 1 ML VIAL ONE (11:28)
[2016-11-21] MEDS ORDERED: LORAZEPAM 2 MG/ML 1 ML VIAL IV PRN (11:30)
[2016-11-21] MEDS ORDERED: HYDROCODONE/ACETAMOPHEN 5/325MG TAB PO PRN (12:00)
[2016-11-21 14:51] VITALS: BP 139/85; PULSE 82; TEMP 36.6; O2SAT 98
[2016-11-21] MEDS ORDERED: VNCS250 PO (17:27)
[2016-11-21 17:30] VITALS: BP 139/85; PULSE 82; TEMP 36.6; O2SAT 98
--- NOTE | 2016-11-21 17:30 | Discharge Instructions ---
Discharge Instructions Admission Reason for Admission: Abdominal Pain, Nausea, Vomiting, And Diarrhea Discharge Discharge Diagnosis / Problem: ABDOMINAL PAIN /C DIFF COLITIS /DEHYDRATION / ACUTE RENAL FAILURE Discharge Goals Goal(s): Decrease discomfort Activity Recommendations Activity Limitations: resume your previous activity . Instructions / Follow-Up Instructions / Follow-Up HOSPITAL FOLLOW UP WITH DR ALICEA IN A WEEK , OFFICE WILL CALL WITH APPOINTMENT DRINK PLENTY OF FLUID DO NOT TAKE , ADVIL , MOTRIN , NAPROXEN , IBUPROFEN TILL YOUR RENAL FUNCTION NORMALIZES LAB WORK : BASIC METABOLIC PANEL WITH NEXT PHYSICIAN VISIT Current Hospital Diet Patient's current hospital diet: Low Lactose Diet Discharge Diet Recommended Diet: Regular Diet Pending Studies Studies pending at discharge: no Medical Emergencies . Who to Call and When: Medical Emergencies: If at any time you feel your situation is an emergency, please call 911 immediately. . Non-Emergent Contact Non-Emergency issues call your: Primary Care Provider . . "Provider Documentation" section prepared by Carmella Adams. VTE Core Measure Inpt VTE Proph given/why not?: SCD's
[2016-11-24] MEDS ORDERED: LEVOTHYROXINE 150 MCG TAB PO SCH (06:30)
--- NOTE | 2016-11-27 07:16 | Discharge Summary ---
Discharge Summary Date of Service Nov 27, 2016. Discharge Summary Admission Date: Nov 19, 2016 at 11:41 Discharge Date: Nov 21, 2016 Discharge Disposition: Home Principal Diagnosis: ABDOMINAL PAIN /C DIFF COLITIS /DEHYDRATION /ACUTE RENAL FAILURE Medication Reconciliation Continued Medications: Amlodipine Besylate (Norvasc) 10 Mg Tab 10 MG PO DAILY, TAB Atorvastatin (Lipitor) 20 Mg Tab 20 MG PO DAILY, TAB Carisoprodol (Carisoprodol) 350 Mg Tab 350 MG PO TID PRN for Muscle Spasms Gabapentin (Neurontin) 300 Mg Cap 1 CAP PO TID for 30 Days, #90 CAP 3 Refills Hydralazine HCl (Hydralazine HCl) 25 Mg Tab 12.5 MG PO TID Hydrocodone/Acetaminophen 5MG/325MG ([place] 5MG/325MG) Tab 1 TABLET PO DAILY PRN for Pain, TAB PRN PAIN Labetalol Hcl (Labetalol Hcl) 200 Mg Tab 200 MG PO TID, TAB Levothyroxine Sodium (Levothyroxine Sodium) 150 Mcg Tab 1 TAB PO 6XWK, TAB 3 Refills EVERY DAY EXCEPT TUESDAY Levothyroxine Sodium (Levothyroxine Sodium) 150 Mcg Tab 300 MCG PO WK EVERY TUESDAY Sertraline HCl (Sertraline HCl) 50 Mg Tab 1 TAB PO DAILY for 30 Days, #30 TAB 5 Refills Admission Information HPI (per Admitting provider): Patient seen and examined. 31 year old female with PMHx of HTN, HLD, IGNACIO, CKD stage 3, and depression presents to the ED complaining of vomiting and diarrhea x 1 day. Patient reports she has had 30+ episodes of diarrhea and at least 10 episodes of vomiting. She states she has associated lower abdominal pain described as crampy/sharp and rated as an 9/10. She tried [place] and Soma with minimal relief. She denies fevers, chills, URI symptoms, chest pain, SOB, dysuria, calf pain and edema. She reports she vomited her morning meds this morning. She states she was on Augmentin about a month ago for a sinus infection. She denies history of C.diff. She denies sick contacts, new or unusual foods/water sources. She denies any other Abx use. In the ED patient was initially hypertensive and tachycardic. She was given her morning BP meds and VS have normalized. WBC count is 20K. She has not been able to give a stool sample. She received IVFs, Phenergan. She is resting comfortably. She will be observed for further workup and treatment. Physical Exam (per Admitting): General Appearance: + pertinent finding (WD/WN 31 year old female lying in bed in NAD ) Head: normocephalic, atraumatic Eyes: PERRL, EOMI, sclerae normal ENT: hearing grossly normal, pharynx normal Neck: supple, no JVD Respiratory/Chest: chest non-tender, lungs clear, normal breath sounds, no respiratory distress, no accessory muscle use Cardiovascular: regular rate, rhythm, no edema, no gallop, no JVD, no murmur , normal peripheral pulses Abdomen/GI: normal bowel sounds, non tender, soft Back: normal inspection, no CVA tenderness, no muscle spasm Extremities/Musculoskelatal: no calf tenderness, normal capillary refill, no pedal edema Neurologic/Psych: alert, oriented x 3, + pertinent finding (no motor or sensory deficits noted on gross exam ) Skin: normal color, warm/dry, no rash Lymphatic: no adenopathy Hospital Course C DIFF COLITIS : presented with abdominal pain nausea , diarrhea leukocytosis , improved stool + ve C diff started on PO vancomycin , complete total 10 days course diet advanced to solid -tolerating well LEUKOCYTOSIS -due to above -improved cont IV hydration , PO Vanco - HYPOKALEMIA replaced -mild, likely secondary to GI losses replace -follow daily HTN -stable -continue Labetalol, hydralazine, amlodipine HYPOTHYROIDISM -continue Synthroid JAVED : due to dehydration , nausea , diarrhea renal function improved with IV fluids follow PRP IGNACIO -does not tolerate CPAP DEPRESSION -continue Zoloft CHRONIC PAIN -continue [place], Soma DVT PROPHYLAXIS: SCDs, Ambulation CODE STATUS: FULL CODE DISPOSITION Discharge home today Discharge Instructions DI: Medical v4 Discharge Instructions Admission Reason for Admission: Abdominal Pain, Nausea, Vomiting, And Diarrhea Discharge Discharge Diagnosis / Problem: ABDOMINAL PAIN /C DIFF COLITIS /DEHYDRATION / ACUTE RENAL FAILURE Discharge Goals Goal(s): Decrease discomfort Activity Recommendations Activity Limitations: resume your previous activity . Instructions / Follow-Up Instructions / Follow-Up HOSPITAL FOLLOW UP WITH DR ALICEA IN A WEEK , OFFICE WILL CALL WITH APPOINTMENT DRINK PLENTY OF FLUID DO NOT TAKE , ADVIL , MOTRIN , NAPROXEN , IBUPROFEN TILL YOUR RENAL FUNCTION NORMALIZES LAB WORK : BASIC METABOLIC PANEL WITH NEXT PHYSICIAN VISIT Current Hospital Diet Patient's current hospital diet: Low Lactose Diet Discharge Diet Recommended Diet: Regular Diet Pending Studies Studies pending at discharge: no Medical Emergencies . Who to Call and When: Medical Emergencies: If at any time you feel your situation is an emergency, please call 911 immediately. . Non-Emergent Contact Non-Emergency issues call your: Primary Care Provider . . "Provider Documentation" section prepared by Carmella Adams. VTE Core Measure Inpt VTE Proph given/why not?: SCD's
[2016-12-02] MEDS ORDERED: ZLF50 PO ×2 (08:57→09:30)
[2016-12-02] MEDS ORDERED: BSP5 PO (09:06)
[2016-12-02] MEDS ORDERED: HYDR-3126 PO (09:17)
[2017-01-30] MEDS ORDERED: BUSP-8 PO (19:23)
[2017-01-30] MEDS ORDERED: TIZA4CAP PO (19:26)
[2017-04-24] MEDS ORDERED: NRN600 PO (16:57)
[2017-05-14] MEDS ORDERED: APR25 PO (08:31)
[2017-06-24] MEDS ORDERED: SERT-234 PO (08:13)
[2017-06-24] MEDS ORDERED: KLN1X PO (08:13)
== END 2016-11-21 19:10 | disposition home or self-care (01) ==
LOC: ENRESERVDT → ENRESERVTM → C.EDB 06:38 → C.4E 11:41 → EDBEDREQ 11:58
PROVIDERS: ADMIT Hospitalist; ATTEND Hospitalist
DX: A04.7 Enterocolitis due to Clostridium difficile (principal); E87.6 Hypokalemia; E03.9 Hypothyroidism, unspecified; N17.9 Acute kidney failure, unspecified; G47.33 Obstructive sleep apnea (adult) (pediatric); F32.9 Major depressive disorder, single episode, unspecified; G89.29 Other chronic pain; Z83.3 Family history of diabetes mellitus; Z82.49 Family history of ischemic heart disease and other diseases of the circulatory system; I12.9 Hypertensive chronic kidney disease with stage 1 through stage 4 chronic kidney disease, or unspecified chronic kidney disease; E86.0 Dehydration

== ENCOUNTER 2016-11-25 18:20 | Inpatient (IN) | payer OTHER ==
[~2016-11-25] VITALS: Ht 157.5 cm; Wt 110.0 kg
[~2016-11-25 18:20] MED LIST changes: +ATOR-54 PO; -CLON1TAB3 PO; -FLUO20CA34 PO; +HYDR-5688 PO; +NRN/300 PO; -NRN600 PO; -RXC5 PO; +VNCS250 PO; +ZLF50 PO
[2016-11-25] MEDS ORDERED: HALOPERIDOL LACTATE 5 MG/ML 1 ML VIAL ONE (18:29)
[2016-11-25] MEDS ORDERED: LORAZEPAM 2 MG/ML 1 ML VIAL ONE (18:29)
[2016-11-25] MEDS ORDERED: SODIUM CHLORIDE 0.9% 1000ML 500 ML IV STA (18:30)
[2016-11-25] MEDS ORDERED: SODIUM CHLORIDE 0.9% 1000ML 1,000 ML IV STA (18:30)
--- NOTE | 2016-11-25 18:37 | EMERGENCY ROOM VISIT NOTE ---
History Report prepared by Gabriele: Phani Norman Under the Supervision of: Dr. Bashir Gallardo M.D. First contact with patient: 18:30 Chief Complaint: OVERDOSE (INTENTIONAL) Stated Complaint: OVERDOSE/ MEDS History of Present Illness The patient is a 31 year old female who presents to the Emergency Room with complaints of an episode of intentional overdose occurring about 40 minutes ago. Per the nurse and the police, she took 12 Ambien 5 mg, and 12 Gabapentin 600 mg, and has been combative and uncooperative. The patient's boyfriend summoned the police. She has been awake since the police arrived. History is limited secondary to the patient's uncooperative state. Source of History: police, nursing staff Onset: about 40 minutes ago Position: other (global) Quality: other (intentional overdose) Timing: other (episode) Review of Systems ROS limited secondary to patient's uncooperative state. Past Medical & Surgical Medical Problems: (1) Abdominal pain (2) Anxiety (3) Anxiety and depression (4) Depression (5) Depression (6) GERD (gastroesophageal reflux disease) (7) GERD (gastroesophageal reflux disease) (8) Headache (9) HTN (hypertension) (10) Hypertension (11) Hypothyroidism (12) Hypothyroidism (13) IBS (irritable bowel syndrome) (14) Left ventricular hypertrophy (15) Lumbago (16) Lumbar disc disorder (17) Migraine (18) Migraine (19) Morbid Obesity (20) Non-occlusive coronary artery disease (21) Noncompliance with medications (22) IGNACIO (obstructive sleep apnea) (23) IGNACIO (obstructive sleep apnea) (24) Polycystic ovarian syndrome Surgical Problems: (1) Adrenal tumor removed (2) H/O arthroscopic knee surgery (3) H/O arthroscopic knee surgery (4) H/O hemorrhoidectomy (5) H/O: hysterectomy (6) History of carpal tunnel surgery (7) History of carpal tunnel surgery (8) History of hysterectomy (9) Hx of appendectomy (10) Hx of cholecystectomy (11) Hx of decompressive lumbar laminectomy (12) Hx of hemorrhoidectomy (13) Hx of partial thyroidectomy (14) S/P appendectomy (15) S/P cholecystectomy (16) S/p removal adrenal gland tumor (17) S/P tonsillectomy and adenoidectomy (18) S/P tonsillectomy and adenoidectomy Family History Cancer Diabetes mellitus FHx: IN FHx: blood clots FHx: heart disease Gallbladder disease Heart disease Hypertension Kidney disease Lung disease Social History Smoking Status: Never Smoker Alcohol Use: none Drug Use: none Marital Status: single, in relationship Housing Status: lives with family Occupation Status: disabled Current/Historical Medications Scheduled Amlodipine Besylate (Norvasc), 10 MG PO DAILY Atorvastatin (Lipitor), 20 MG PO DAILY Gabapentin (Neurontin), 1 CAP PO TID Hydralazine HCl (Hydralazine HCl), 12.5 MG PO TID Labetalol Hcl (Labetalol Hcl), 200 MG PO TID Levothyroxine Sodium (Levothyroxine Sodium), 1 TAB PO 6XWK Levothyroxine Sodium (Levothyroxine Sodium), 300 MCG PO WK Sertraline HCl (Sertraline HCl), 1 TAB PO DAILY Zolpidem Tartrate (Ambien), 5 MG PO HS Scheduled PRN Carisoprodol (Carisoprodol), 350 MG PO TID PRN for Muscle Spasms Hydrocodone/Acetaminophen 5MG/325MG ([place] 5MG/325MG), 1 TABLET PO DAILY PRN for Pain Allergies Coded Allergies: Sulfa Antibiotics (Verified Allergy, Severe, RASH, DIFFICULTY BREATHING, HAD LASIX OK PREV.ADM., 11/25/16) NSAIDs (Verified Adverse Reaction, Unknown, KIDNEY FAILURE, 11/25/16) PATIENT REPORTS FILM PRODUCER TOLD PATIENT TO STAY AWAY FROM DUE TO KIDNEY FUNCTION Tramadol (Verified Adverse Reaction, Unknown, "MAKES ME DIZZY", 11/25/16) Physical Exam Vital Signs Date Time Temp Pulse Resp B/P Pulse Ox O2 Delivery O2 Flow Rate FiO2 11/25/16 22:07 127 24 219/169 11/25/16 21:59 248/182 11/25/16 21:44 130 22 245/153 11/25/16 21:40 125 24 95 Nasal Cannula 3.0 11/25/16 21:20 249/176 11/25/16 21:19 135 22 261/182 93 Nasal Cannula 3.0 11/25/16 20:29 129 21 93 Nasal Cannula 3.0 11/25/16 20:19 164 18 285/195 92 Nasal Cannula 3.0 11/25/16 20:04 142 27 88 11/25/16 19:54 140 23 265/185 93 Room Air 11/25/16 19:45 146 24 262/181 95 Room Air 11/25/16 19:37 145 23 251/178 92 Room Air 11/25/16 19:30 147 26 240/217 91 Room Air 11/25/16 19:25 133 25 91 Room Air 11/25/16 19:20 137 22 94 Room Air 11/25/16 19:15 151 16 94 Room Air 11/25/16 19:10 134 26 98 Room Air 11/25/16 19:05 134 18 96 Room Air 11/25/16 19:04 236/143 11/25/16 19:00 134 22 96 Room Air 11/25/16 18:58 216/203 11/25/16 18:50 130 22 216/203 96 Nasal Cannula 2.0 11/25/16 18:47 144 11/25/16 18:46 Nasal Cannula 2.0 11/25/16 18:45 214/180 11/25/16 18:25 36.9 143 22 214/180 94 Room Air Physical Exam GENERAL: Patient is uncooperative, combative, and being help by the police. HEENT: No acute trauma, normocephalic atraumatic, mucous membranes moist, no nasal congestion, no scleral icterus. NECK: No stridor, no adenopathy, no meningismus, trachea is midline. LUNGS: Clear to auscultation bilaterally, no wheeze, no rhonchi, breath sounds equal. HEART: Without murmurs gallops or rubs, regular rate and rhythm. ABDOMEN: Soft, nontender, bowel sounds positive, no hernias, no peritonitis. EXTREMITIES: No cyanosis or edema, full range of motion of all the joints without pain or difficulty, no signs for acute trauma. NEUROLOGIC: Oriented x 3, no acute motor or sensory deficits, no focal weakness. SKIN: No rash, no jaundice, no diaphoresis. PSYCH: Patient is uncooperative and combative. By report, the patient overdosed on multiple medications prior to arrival. Medical Decision & Procedures Laboratory Results 11/25/16 20:46 11/25/16 19:13 Test 11/25/16 19:13 11/25/16 20:46 Anion Gap 12.0 mmol/L (3-11) Estimated GFR () 45.1 Estimated GFR (Non- 38.9 BUN/Creatinine Ratio 11.7 (10-20) Calcium Level 9.8 mg/dl (8.5-10.1) Total Bilirubin 0.5 mg/dl (0.2-1) Aspartate Amino Transf (AST/SGOT) 17 U/L (15-37) Alanine Aminotransferase (ALT/SGPT) 22 U/L (12-78) Alkaline Phosphatase 97 U/L (45-117) Total Protein 7.8 gm/dl (6.4-8.2) Albumin 3.8 gm/dl (3.4-5.0) Globulin 4.0 gm/dl (2.5-4.0) Albumin/Globulin Ratio 1.0 (0.9-2) Free Thyroxine 0.91 ng/dl (0.80-1.60) Salicylates Level < 1.7 mg/dl (2.8-20) Acetaminophen Level < 2 ug/ml (10-30) Ethyl Alcohol mg/dL < 3.0 mg/dl (0-3) Red Blood Count 5.16 M/uL (4.2-5.4) Mean Corpuscular Volume 79.8 fL (80-100) Mean Corpuscular Hemoglobin 28.7 pg (25-34) Mean Corpuscular Hemoglobin Concent 35.9 g/dl (32-36) RDW Standard Deviation 40.9 fL (36.4-46.3) RDW Coefficient of Variation 14.2 % (11.5-14.5) Mean Platelet Volume 10.4 fL (7.4-10.4) Prothrombin Time 10.7 SECONDS (9.0-12.0) Prothromb Time International Ratio 1.0 (0.9-1.1) Activated Partial Thromboplast Time 26.1 SECONDS (21.0-31.0) Partial Thromboplastin Ratio 1.0 Human Chorionic Gonadotropin, Qual NEG (NEG) Laboratory results reviewed by me. Medications Administered Medications (Trade) Dose Ordered Sig/Randi Route Start Time Stop Time Status Last Admin Dose Admin Lorazepam (Ativan Inj) 2 mg STK-MED ONCE .ROUTE 11/25/16 18:29 11/25/16 18:31 DC 11/25/16 18:35 2 MG Haloperidol Lactate 10 mg 10 mg STK-MED ONCE .ROUTE 11/25/16 18:29 11/25/16 18:31 DC 11/25/16 18:35 10 MG Sodium Chloride 500 ml @ 999 mls/hr Q31M STAT IV 11/25/16 18:30 11/25/16 19:00 DC 11/25/16 19:30 999 MLS/HR Sodium Chloride (Nss 1000ml) 1,000 ml @ 125 mls/hr Q8H STAT IV 11/25/16 18:30 11/26/16 00:36 DC 11/25/16 21:30 125 MLS/HR Labetalol HCl (Normodyne IV) 20 mg NOW STAT IV 11/25/16 22:08 11/25/16 22:09 DC 11/25/16 22:25 20 MG ECG Indication: other (overdose) Rate (beats per minute): 132 Rhythm: sinus tachycardia Findings: T-wave inversion (diffuse, possibly consistent with rate), no ectopy , other (no acute IN) Comparison ECG Date: October 13, 2016 Change: T wave change appears chronic, but rate has increase. ED Course 1827: The patient was evaluated in room A9. A complete history and physical exam was performed. 1829:Ordered NSS 1,000 ml @ 125 mls/hr IV, and NSS 500 ml @ 999 mls/hr IV. 1836: I spoke with Poison Control. They noted any drowsiness and hypotension should be corrected with fluids. They questioned what she took as she should be drowsy, and I am in agreement. 1951: I reassessed the patient, and she is currently snoring. 2039: I updated Poison Control 2102: Discussed the patient's case with Dr. Prince. The patient will be evaluated for further management. Medical Decision Differentials include suicidal ideation, depression or anxiety, alcohol or drug abuse, electrolyte imbalance, anemia, and thyroid disorder. There is a mild leukocytosis which could be consistent with infection or the stress of her presentation. No concerning anemia. Renal panel testing shows some mild renal insufficiency/dehydration. There was no hepatitis. The patient appears to be in a euthyroid state. testing is negative. Urinalysis does not show infection. Aspirin, Tylenol and alcohol levels were undetectable. Urine tox is pending. EKG shows a sinus tachycardia with some T- wave changes which seem chronic. ABG did not show acidosis or hypoxia, CO2 was slightly elevated. The patient presents with a possible multidrug overdose. I did contact the poison center, no specific recommendations other than symptom control were advised. The patient received IV saline, because of her combative nature, she was briefly placed in restraints, she was given IM Haldol and IM Ativan for chemical sedation. The patient has remained tachycardic and hypertensive. Initially, I felt the vital sign abnormalities may have been from her agitation and combative nature. As she has become more sedate from the meds given, her vital signs have improved slightly but she remains quite hypertensive and somewhat tachycardic. Admission/observation is warranted. I did speak with case management and the on -call hospitalist. A 302 petition has been filled out, the warrant is not signed. The patient requires a medical admission for now, the psychiatric aspect of this case can be addressed once she is medically clear. Consults Time Called: 1834 Consulting Physician: Poison Control Returned Call: 1836 I spoke with Poison Control. They noted any drowsiness and hypotension should be corrected with fluids. They questioned what she took as she should be drowsy , and I am in agreement. Additional Consults: Time Called: [phone] Consulted Physician: Dr. Prince - [facility] Returned Call: [phone] Additional Comments: Discussed the patient's case with Dr. Prince. The patient will be evaluated for further management. Impression Primary Impression: Suicidal ideation Additional Impressions: Multiple drug overdose Combative behavior Critical Care I have personally spent greater than 35 minutes of critical care time in the direct management of this patient. This includes bedside care, interpretation of diagnostic studies, and testing, discussion with consultants, patient, and family members, and other required patient management activities. This 35 minutes is in excess of all separately billable procedures. Scribe Attestation The scribe's documentation has been prepared under my direction and personally reviewed by me in its entirety. I confirm that the note above accurately reflects all work, treatment, procedures, and medical decision making performed by me. Departure Information Dispostion Being Evaluated By Hospitalist Referrals Norah Bailey D.O. (PCP) Patient Instructions [facility] Problem Qualifiers
[2016-11-25] MEDS ORDERED: ZOLP5TAB PO (19:00)
[2016-11-25 19:49] LABS: ACETAMINOPHEN < 2 ug/ml (10-30)
[2016-11-25 20:33] LABS: ALT/SGPT 22 U/L (12-78); AST/SGOT 17 U/L (15-37); BLOOD UREA NITROGEN 20 mg/dl (7-18); BUN/CREATININE RATIO 11.7 (10-20); CALCIUM 9.8 mg/dl (8.5-10.1); CARBON DIOXIDE 27 mmol/L (21-32); CHLORIDE 102 mmol/L (98-107); GLUCOSE 124 mg/dl (70-99); POTASSIUM 3.7 mmol/L (3.5-5.1); SODIUM 141 mmol/L (136-145)
[2016-11-25 20:36] LABS: ALKALINE PHOSPHATASE 97 U/L (45-117)
[2016-11-25 21:01] LABS: HEMATOCRIT 41.2 % (37-47); MEAN CELL VOLUME 79.8 fL (80-100); MEAN CORPUSCULAR HEMOGLOBIN 28.7 pg (25-34); MEAN CORPUSCULAR HGB CONC 35.9 g/dl (32-36); MEAN PLATELET VOLUME 10.4 fL (7.4-10.4); PLATELET COUNT 194 K/uL (130-400); RED BLOOD COUNT 5.16 M/uL (4.2-5.4); WHITE BLOOD COUNT 13.09 K/uL (4.8-10.8)
[2016-11-25 21:17] LABS: PROTHROMBIN TIME (PATIENT) 10.7 SECONDS (9.0-12.0)
[2016-11-25 21:51] LABS: PREG INTERNAL NEGATIVE QC NEG CLEAR BACKGROUND; PREG INTERNAL POSITIVE QC POS CONTROL LINE
--- NOTE | 2016-11-25 21:59 | History and Physical ---
History & Physical Date & Time of Service: Nov 25, 2016 at 21:59 . Chief Complaint: overdose . Primary Care Physician: Dr. Bailey . History of Present Illness Source: clinic records, hospital records 31 [address]O female followed by Dr[address] Bailey. History of hypertension, anxiety, depression. Admitted to [facility] 11/19/16 with C difficile colitis. Discharged to home on 11/21/16. Reportedly had a fight with her boyfriend today and reportedly ingested twelve 5 mg tablets of zolpidem and twelve 300 mg capsules of gabapentin. Brought to ED. Very agitated in ED. Received IV lorazepam and IM haloperidol. Very sedated at time of my assessment and unable to provide any additional history. . Past Medical/Surgical History Chronic and Resolved Medical Problems: (1) Anxiety Status: Chronic (3) Depression Status: Chronic (5) GERD (gastroesophageal reflux disease) Status: Chronic (8) Hypertension Status: Chronic (9) Hypothyroidism Status: Chronic (11) IBS (irritable bowel syndrome) Status: Chronic (12) Left ventricular hypertrophy Permanent Comment: severe concentric LVH, IVSd 2.3 cm 06/18/16 Status: Chronic (14) Lumbar disc disorder Status: Chronic (15) Migraine Status: Chronic (17) Morbid Obesity Status: Chronic (18) Non-occlusive coronary artery disease Status: Chronic (20) IGNACIO (obstructive sleep apnea) Status: Chronic (22) Polycystic ovarian syndrome Status: Chronic Surgical Problems: (1) Adrenal tumor removed Status: Chronic (2) H/O arthroscopic knee surgery Status: Chronic (3) H/O arthroscopic knee surgery Status: Chronic (4) H/O hemorrhoidectomy Status: Chronic (5) H/O: hysterectomy Status: Chronic (6) History of carpal tunnel surgery Status: Chronic (7) History of carpal tunnel surgery Status: Chronic (8) History of hysterectomy Status: Chronic (9) Hx of appendectomy Status: Chronic (10) Hx of cholecystectomy Status: Chronic (11) Hx of decompressive lumbar laminectomy Status: Chronic (12) Hx of hemorrhoidectomy Status: Chronic (13) Hx of partial thyroidectomy Status: Chronic (14) S/P appendectomy Status: Chronic (15) S/P cholecystectomy Status: Chronic (16) S/p removal adrenal gland tumor Status: Chronic (17) S/P tonsillectomy and adenoidectomy Status: Chronic (18) S/P tonsillectomy and adenoidectomy Status: Chronic . Family History Cancer Diabetes mellitus FHx: [place] FHx: blood clots FHx: heart disease Gallbladder disease Heart disease Hypertension Kidney disease Lung disease Social History Smoking Status: Current Every Day Smoker Drug Use: none Marital Status: single, in relationship Housing status: lives with significant other Occupational Status: disabled Immunizations History of Influenza Vaccine: Yes Allergies Coded Allergies: Sulfa Antibiotics (Verified Allergy, Severe, RASH, DIFFICULTY BREATHING, HAD LASIX OK PREV.ADM., 11/25/16) NSAIDs (Verified Adverse Reaction, Unknown, KIDNEY FAILURE, 11/25/16) PATIENT REPORTS MERCHANT TAILOR TOLD PATIENT TO STAY AWAY FROM DUE TO KIDNEY FUNCTION Tramadol (Verified Adverse Reaction, Unknown, "MAKES ME DIZZY", 11/25/16) Home Medications Scheduled Amlodipine Besylate (Norvasc), 10 MG PO DAILY Atorvastatin (Lipitor), 20 MG PO DAILY Gabapentin (Neurontin), 1 CAP PO TID Hydralazine HCl (Hydralazine HCl), 12.5 MG PO TID Labetalol Hcl (Labetalol Hcl), 200 MG PO TID Levothyroxine Sodium (Levothyroxine Sodium), 1 TAB PO 6XWK Levothyroxine Sodium (Levothyroxine Sodium), 300 MCG PO WK Sertraline HCl (Sertraline HCl), 1 TAB PO DAILY Zolpidem Tartrate (Ambien), 5 MG PO HS Scheduled PRN Carisoprodol (Carisoprodol), 350 MG PO TID PRN for Muscle Spasms Hydrocodone/Acetaminophen 5MG/325MG ([place] 5MG/325MG), 1 TABLET PO DAILY PRN for Pain Review of Systems Unable to obtain due to patient's condition. . Physical Exam Vital Signs Date Time Temp Pulse Resp B/P Pulse Ox O2 Delivery O2 Flow Rate FiO2 11/25/16 21:20 249/176 11/25/16 21:19 135 22 261/182 93 Nasal Cannula 3.0 11/25/16 20:29 129 21 93 Nasal Cannula 3.0 11/25/16 20:19 164 18 285/195 92 Nasal Cannula 3.0 11/25/16 20:04 142 27 88 11/25/16 19:54 140 23 265/185 93 Room Air 11/25/16 19:45 146 24 262/181 95 Room Air 11/25/16 19:37 145 23 251/178 92 Room Air 11/25/16 19:30 147 26 240/217 91 Room Air 11/25/16 19:25 133 25 91 Room Air 11/25/16 19:20 137 22 94 Room Air 11/25/16 19:15 151 16 94 Room Air 11/25/16 19:10 134 26 98 Room Air 11/25/16 19:05 134 18 96 Room Air 11/25/16 19:04 236/143 11/25/16 19:00 134 22 96 Room Air 11/25/16 18:58 216/203 11/25/16 18:50 130 22 216/203 96 Nasal Cannula 2.0 11/25/16 18:47 144 11/25/16 18:46 Nasal Cannula 2.0 11/25/16 18:45 214/180 11/25/16 18:25 36.9 143 22 214/180 94 Room Air General Appearance: + obese, + pertinent finding (obtunded) Head: normocephalic, atraumatic, + pertinent finding (several piercings) Eyes: normal inspection, PERRL (pupils ~ 3 mm, reactive), sclerae normal, + pertinent finding (patient unable to cooperate with funduscopic exam) ENT: + pertinent finding (patient unable to cooperate with exam) Neck: supple, no adenopathy, thyroid normal, trachea midline, + pertinent finding (superficial lacerations) Respiratory/Chest: + rhonchi, + pertinent finding (transmitted upper airway sounds) Cardiovascular: regular rate, rhythm, no JVD, + tachycardia, + gallop/S4, + pertinent finding Abdomen/GI: non tender, soft, no organomegaly, + pertinent finding (obese, quiet bowel sounds) Extremities/Musculoskelatal: no calf tenderness, normal capillary refill, no pedal edema, + pertinent finding (superfical lacerations LUE and LLE) Neurologic/Psych: section maintainer II-XII nml as tested (pupils reactive), + pertinent finding (obtunded; unable to cooperate with exam) Skin: normal color, warm/dry, no rash, + pertinent finding (superfical lacerations neck, LUE, LLE; multiple tatoos ) Lymphatic: no adenopathy Diagnostics Laboratory Results Results Past 24 Hours Test 11/25/16 18:30 11/25/16 19:13 11/25/16 20:46 Range/Units Sodium Level 141 136-145 mmol/L Potassium Level 3.7 3.5-5.1 mmol/L Chloride Level 102 98-107 mmol/L Carbon Dioxide Level 27 21-32 mmol/L Anion Gap 12.0 3-11 mmol/L Blood Urea Nitrogen 20 7-18 mg/dl Creatinine 1.70 0.60-1.20 mg/dl Estimated GFR () 45.1 Estimated GFR (Non- 38.9 BUN/Creatinine Ratio 11.7 10-20 Random Glucose 124 70-99 mg/dl Calcium Level 9.8 8.5-10.1 mg/dl Total Bilirubin 0.5 0.2-1 mg/dl Aspartate Amino Transf (AST/SGOT) 17 15-37 U/L Alanine Aminotransferase (ALT/SGPT) 22 12-78 U/L Alkaline Phosphatase 97 45-117 U/L Total Protein 7.8 6.4-8.2 gm/dl Albumin 3.8 3.4-5.0 gm/dl Globulin 4.0 2.5-4.0 gm/dl Albumin/Globulin Ratio 1.0 0.9-2 Free Thyroxine 0.91 0.80-1.60 ng/dl Salicylates Level < 1.7 2.8-20 mg/dl Acetaminophen Level < 2 10-30 ug/ml Ethyl Alcohol mg/dL < 3.0 0-3 mg/dl White Blood Count 13.09 4.8-10.8 K/uL Red Blood Count 5.16 4.2-5.4 M/uL Hemoglobin 14.8 12.0-16.0 g/dL Hematocrit 41.2 37-47 % Mean Corpuscular Volume 79.8 80-100 fL Mean Corpuscular Hemoglobin 28.7 25-34 pg Mean Corpuscular Hemoglobin Concent 35.9 32-36 g/dl RDW Standard Deviation 40.9 36.4-46.3 fL RDW Coefficient of Variation 14.2 11.5-14.5 % Platelet Count 194 130-400 K/uL Mean Platelet Volume 10.4 7.4-10.4 fL Prothrombin Time 10.7 9.0-12.0 SECONDS Prothromb Time International Ratio 1.0 0.9-1.1 Activated Partial Thromboplast Time 26.1 21.0-31.0 SECONDS Partial Thromboplastin Ratio 1.0 Human Chorionic Gonadotropin, Qual NEG NEG Diagnostic Radiology Chest x-ray (preliminary interpretation by undersigned): cardiomegaly; no infiltrates, effusions, CHF . EKG EKG performed at 19:[address] at 130 / minute, QTc 586 msec, LVH, inverted T-waves I, avL, V1-V6, 1-[address] depression inferolaterally. Compared to tracing performed 10/13/16, T-wave changes more pronounced, rate increased. . Impression Assessment and Plan REPORTED POLYDRUG OVERDOSE / SUICIDAL BEHAVIOR Reported ingestion of about twelve 5 mg tablets of zolpidem and twelve 300 mg capsules of gabapentin. Ingestion, however, neither witnessed nor confirmed. Tox screen pending. Multiple superficial lacerations. ED staff discussed case with Poison Control Center. Monitoring. Supportive care. Lorazepam PRN recommended. HYPERTENSIVE URGENCY History of hypertension, sometimes labile. Managed with labetalol and hydralazine at home. Uncertain when last doses of antihypertensive meds were taken. BP's markedly elevated in ED, although some were felt not to be accurate due to movement. Initial management will consist of labetalol boluses + infusion and topical NTG ointment. Follow and titrate Rx. PROLONGED QTc Avoid QT-prolonging meds when possible. ACUTE KIDNEY INJURY Serum creatinine 1.7, compared to recent baseline of 1.3. Management of hypertensive urgency as noted above. IV fluids. Follow. DEPRESSION / SUICIDAL BEHAVIOR Suicide precautions. Consult Psychiatry when medically stable and able to interact with staff. RECENT C DIFFICILE COLITIS Contact precautions. Resume enteral vancomycin when able to take PO meds. HYPOTHYROIDISM Resume levothyroxine when able to take PO meds. GI PROPHYLAXIS Pantoprazole. VTE PROPHYLAXIS No anticoagulants due to markedly elevated BP's. SCD's. Ambulate when able. DISPOSITION Admit to ICU. Discharge disposition to be determined. Family Medicine follow-up with Dr. Bailey. . VTE Prophylaxis Given or contraindicated: SCD's Note Total Time: Critical Care 30 - 74 minutes (At least 45 min critical care time spent on direct patient care.)
[2016-11-25] MEDS ORDERED: LABETALOL HCL IV 5 MG/ML 20ML IV STA (22:08)
[2016-11-25] MEDS ORDERED: LORAZEPAM 2 MG/ML 1 ML VIAL IV PRN ×2 (22:15→23:19)
--- NOTE | 2016-11-25 22:16 | DIAGNOSTIC IMAGING REPORT ---
CHEST ONE VIEW PORTABLE CLINICAL HISTORY: overdose COMPARISON STUDY: 10/10/2016 FINDINGS: The heart is enlarged. There is no lobar consolidation. Mild vascular prominence, likely relates to technical factors given the patient's body habitus. There are no significant pleural effusions.[ IMPRESSION: Cardiomegaly. No evidence of focal pulmonary consolidation. Electronically signed by: Romain Valencia M.D. 11/25/2016 10:15 PM Dictated Date/Time: 11/25/2016 10:14 PM
[2016-11-25 23:43] LABS: ALLEN TEST POS (POS); ARTERIAL BLD GAS O2 SATURATION 97.9 % (90-95); ARTERIAL BLOOD GAS BASE EXCESS 4.7 mEq/L (-9-1.8); ARTERIAL BLOOD GAS HCO3 31 mmol/L (19-24); ARTERIAL BLOOD GAS PO2 109 mm/Hg (80-95); ARTERIAL BLOOD GAS pH 7.39 (7.35-7.45); O2 ADMINISTRATION 3L
[2016-11-26] VITALS (28 sets, daily range): BP systolic 112–211; BP diastolic 63–152; PULSE 77–103; TEMP 36.7–37.2; O2SAT 92–99; Ht 157.5 cm; Wt 110.0 kg
[2016-11-26 00:32] LABS: URINE APPEARANCE CLEAR (CLEAR); URINE BILIRUBIN NEG (NEG); URINE COLOR YELLOW; URINE EPITHELIAL CELL AUTO >30 /lpf (0-5); URINE NITRITE NEG (NEG); URINE SPECIFIC GRAVITY 1.011 (1.000-1.030); UROBILINOGEN NEG (NEG); ZZURINE CULT IF INDIC CATH NO
[2016-11-26 00:35] LABS: MANUAL MICROSCOPIC REQUIRED? NO; REVIEW REQ? YES
[2016-11-26] MEDS ORDERED: NITROGLYCERIN OINT 2% 1GM PACKET EXT STA (00:37)
[2016-11-26] MEDS: D5W AND LACTATED RINGERS 1,000 ML IV SCH ×2 (00:51→11:00)
[2016-11-26] MEDS: LABETALOL HCL IV PRN ×2 (00:56→03:33)
[2016-11-26] MEDS: DEXTROSE 5% IV PRN ×2 (00:56→03:33)
[2016-11-26 01:06] LABS: BENZODIAZEPINE, URINE NEG (NEG); COCAINE,URINE NEG (NEG); PHENCYCLIDINE, URINE NEG (NEG)
[2016-11-26 05:47] LABS: BASO % 0.2 %; BASO ABS # 0.02 K/uL (0-0.2); COMPLETE YES; EOS % 7.1 %; IG% 0.2 %; LYMPH % 20.5 %; LYMPH ABS # 2.27 K/uL (1.2-3.4); MEAN CELL VOLUME 82.4 fL (80-100); MEAN CORPUSCULAR HGB CONC 35.1 g/dl (32-36); MEAN PLATELET VOLUME 10.2 fL (7.4-10.4); MONO % 7.9 %; NEUT % 64.1 %; PLATELET COUNT 202 K/uL (130-400); RED BLOOD COUNT 4.49 M/uL (4.2-5.4); WHITE BLOOD COUNT 11.08 K/uL (4.8-10.8)
[2016-11-26 06:23] LABS: BUN/CREATININE RATIO 12.2 (10-20); CALCIUM 8.4 mg/dl (8.5-10.1); CREATININE 1.5 mg/dl (0.60-1.20); POTASSIUM 3.6 mmol/L (3.5-5.1)
[2016-11-26] MEDS: NITROGLYCERIN OINT 2% 1GM PACKET EXT SCH ×2 (06:28→11:00)
[2016-11-26] MEDS ORDERED: PANTOprazole INJ 40 MG in SYRINGE 0 ML IV SCH (09:00)
--- NOTE | 2016-11-26 10:03 | Psychiatric Progress Notes ---
Psychiatric Progress Note Date of Service Nov 26, 2016. Notes attempted to see patient to complete consult but she is quite sedated. Chart reviewed as well as 302 petition by boyfriend. Patient brought to ED by police based content assistant from boyfriend. She had repeated attempts to self harm (cut) in 24-48 hours leading up to OD of 5 Ambien and 12 of 300 mg Neurontin and presented with acute agitation in ED requiring Ativan and Haldol. QTc prolonged at 507 so if in need or prn for agitation in ICU would recommend Ativan. If patient should attempt to leave hospital, she should be held pending [facility] warrant as likely need for involuntary commitment for significant suicide attempt/repeated gestures.
--- NOTE | 2016-11-26 13:20 | CRITICAL CARE CONSULTATION ---
DATE OF CONSULTATION: 11/26/2016 CHIEF COMPLAINT: Overdose. HISTORY OF PRESENT ILLNESS: Kayleen St is a 31-year-old woman with multiple medical problems including anxiety and depression. She presented to the Emergency Department yesterday after her boyfriend called police and there was a report of overdose with Ambien and gabapentin. Per Emergency Department report, she took 12 tablets of Ambien 5 mg and 12 tablets of gabapentin 600 mg. She was very agitated when she arrived in the Emergency Department and received 10 mg of IM Haldol and 2 mg of IM Ativan. She also had an EKG done and was given normal saline. A 302 petition was started. When I talked to her today, she tells me that she and her boyfriend had a fight and that she "just wanted to go to sleep." She denies taking any gabapentin and says she took a handful of Ambien. She denies suicidal ideation or suicidal attempt. In the Emergency Department, her blood pressure was 214/180 initially and eventually, she was started on labetalol and fusion. She tells me that she does not take her blood pressure medications at home because when she takes them, her blood pressure drops and she ends up in the hospital. She was recently hospitalized between November 19 and November 21, at which time she was diagnosed with C. diff colitis and was discharged on a 10-day course of vancomycin. She does not have any specific complaints today. She denies chest pain and is drowsy. She denies shortness of breath or abdominal pain. She denies intentional overdose. PAST MEDICAL HISTORY: Hypertension, depression, anxiety, hypothyroidism, gastroesophageal reflux disease, severe chronic obstructive pulmonary disease, intolerant to CPAP, chronic pain, migraine headaches, and noncompliance. PAST SURGICAL HISTORY: Status post hysterectomy, carpal tunnel release, appendectomy, cholecystectomy, lumbar laminectomy, partial thyroidectomy, tonsillectomy and adenoidectomy, and adrenal gland removal. ALLERGIES: NSAIDS, SULFA ANTIBIOTICS AND TRAMADOL. OUTPATIENT MEDICATIONS: Amlodipine 10 mg daily, Lipitor 20 mg daily, carisoprodol 350 mg p.o. t.i.d. p.r.n., gabapentin 300 mg t.i.d., hydralazine 12.5 mg t.i.d., [place] 1 tablet daily as needed, labetalol 200 mg t.i.d., levothyroxine 150 mcg 1 tab p.o. 6 times per week, levothyroxine 300 mcg every Tuesday, sertraline 50 mg daily, and Ambien 5 mg at bedtime. SOCIAL HISTORY: She drinks alcohol socially and does not smoke. FAMILY HISTORY: Significant for cancer and diabetes. REVIEW OF SYSTEMS: Somewhat limited by her drowsiness, although I think she really just does not want to talk to me because she can carry on a conversation if she wants to. She essentially denies any symptoms that I asked her. PHYSICAL EXAMINATION: VITAL SIGNS: Temperature 36.9, heart rate 80, respiratory rate 24, blood pressure 144/103, and oxygen saturation 95% on room air. GENERAL: She will awaken and open her eyes to talk to me. She was around the bed without difficulty. HEENT: Pupils are approximately 10 mm, round and reactive bilaterally. Oral mucosa is moist. She has a big face and neck. NECK: No adenopathy. LUNGS: Clear to auscultation bilaterally. No rales, rhonchi or wheezes. HEART: Distant regular rate and rhythm. ABDOMEN: Obese, firm, nondistended, and nontender. Active bowel sounds. EXTREMITIES: Warm. No edema. SKIN: Shows multiple superficial lateral cuts over both anterior thighs. LABORATORY DATA: White blood cell count 11.08, hemoglobin 13, hematocrit 37, and platelet 202. Sodium 142, potassium 3.6, chloride 104, CO2 of 30, BUN 15, and creatinine 1.5. PT, PTT, and INR are within normal limits. ABG reviewed. Toxicology screen negative. Salicylate less than 1.7. Acetaminophen less than 2. Alcohol less than 3. Urinalysis with trace blood and greater than 30 epithelial cells. Chest x-ray shows cardiomegaly and no evidence of infiltrate. PRESENT MEDICATIONS: D5LR 100 mL per hour, labetalol as needed, Ativan as needed, nitroglycerin ointment q. 6 hours, and Protonix 10 mg daily. EKGs were reviewed. Most recent EKG shows normal sinus rhythm, left ventricular hypertrophy, nonspecific ST-T wave changes, and prolonged corrected QT interval. IMPRESSION: 1. Possible overdose with Ambien and gabapentin. It's peculiar to me that she was agitated rather than somnolent. She required restraints for a short period of time in the Emergency Department as well. She is not the best of historians. Nonetheless, her mental status has certainly improved compared to what it was last night after her Haldol and Ativan. 2. Hypertensive urgency treated with labetalol, now improved. 3. Acute agitation, resolved. 4. Prolonged corrected QT interval, which supports the possibility of drug toxicity. 5. Possible acute kidney injury. Creatinine is better today. It seems to run between 1.2 and 1.4. 6. Possible suicide attempt. 7. History of hypothyroidism. 8. Severe obstructive sleep apnea. PLAN: 1. Avoid sedatives. 2. Follow up the corrected QT interval. 3. Use Ativan if she becomes agitated, particularly secondary to the prolonged QTc. 4. Provided diet. 5. Provide DVT and GI prophylaxis. 6. Resume outpatient antihypertensives. 7. Psychiatry consult. Many thanks to them for their assistance in her care. Right now if she were to try to leave, we are to hold her until the 302 is formally addressed. 8. Begin oral vancomycin. I will check with pharmacy to see how many doses she received prior to her discharge. I think she will be stable for transfer from the intensive care unit later today. The [place] has been discontinued. MTDD
[2016-11-26] MEDS ORDERED: NURSING VERBAL MED ORDER ONE ×2 (14:00→16:45)
[2016-11-26] MEDS: HYDROCODONE/ACETAMOPHEN 5/325MG TAB PO PRN (14:29)
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
[2016-11-26] MEDS: VANCOMYCIN HCL 250 MG/5 ML SOLN PO SCH ×2 (16:39→21:06)
[2016-11-26] MEDS: RASPBERRY SYRUP 5 ML UDP PO SCH ×2 (16:39→21:06)
[2016-11-26] MEDS: AMLODIPINE BESYLATE 5 MG TAB PO SCH (17:52)
[2016-11-26] MEDS: LABETALOL HCL IV 5 MG/ML 20ML IV PRN ×3 (20:01→22:07)
[2016-11-26] MEDS ORDERED: LABETALOL HCL 200 MG TAB PO SCH (21:00)
[2016-11-26] MEDS ORDERED: LABETALOL HCL 200 MG TAB PO ONE (23:15)
[2016-11-27] VITALS (9 sets, daily range): BP systolic 131–189; BP diastolic 80–109; PULSE 69–93; TEMP 36.4–37; O2SAT 92–97
[2016-11-27 05:53] LABS: BASO % 0.3 %; BASO ABS # 0.04 K/uL (0-0.2); COMPLETE YES; EOS % 12.9 %; HEMATOCRIT 37.2 % (37-47); IG% 0.2 %; LYMPH % 21.2 %; LYMPH ABS # 2.57 K/uL (1.2-3.4); MEAN CELL VOLUME 83.4 fL (80-100); MEAN CORPUSCULAR HEMOGLOBIN 29.4 pg (25-34); MEAN CORPUSCULAR HGB CONC 35.2 g/dl (32-36); MEAN PLATELET VOLUME 10.8 fL (7.4-10.4); MONO % 8.9 %; NEUT % 56.5 %; PLATELET COUNT 173 K/uL (130-400); RED BLOOD COUNT 4.46 M/uL (4.2-5.4); WHITE BLOOD COUNT 12.12 K/uL (4.8-10.8)
[2016-11-27 06:15] LABS: BUN/CREATININE RATIO 10.9 (10-20); CALCIUM 8.2 mg/dl (8.5-10.1); CREATININE 1.4 mg/dl (0.60-1.20); MAGNESIUM 2.3 mg/dl (1.8-2.4); POTASSIUM 3.8 mmol/L (3.5-5.1)
[2016-11-27 06:26] LABS: THYROID STIMULATING HORMONE 1.46 uIu/ml (0.300-4.500)
[2016-11-27] MEDS ORDERED: LEVOTHYROXINE 150 MCG TAB PO SCH (06:30)
--- NOTE | 2016-11-27 07:32 | DIAGNOSTIC IMAGING REPORT ---
CHEST ONE VIEW PORTABLE CLINICAL HISTORY: overdose, hypertensive urgency COMPARISON STUDY: 11/25/2016 FINDINGS: The heart remains enlarged. There is no lobar consolidation. There is mild central vascular prominence a finding which may be accentuated by the patient's body habitus. There are no significant pleural effusions.[ IMPRESSION: Stable mild cardiomegaly. No evidence of focal pulmonary consolidation Electronically signed by: Romain Valencia M.D. 11/27/2016 7:31 AM Dictated Date/Time: 11/27/2016 7:30 AM
[2016-11-27] MEDS ORDERED: CLONIDINE HCL 0.1 MG TAB PO PRN (08:00)
[2016-11-27] MEDS ORDERED: CLONIDINE HCL 0.1 MG TAB PO ONE (08:00)
[2016-11-27] MEDS: LABETALOL HCL 200 MG TAB PO SCH ×3 (08:01→21:49)
[2016-11-27] MEDS: PANTOprazole SOD 40 MG TAB PO SCH (08:01)
[2016-11-27] MEDS: RASPBERRY SYRUP 5 ML UDP PO SCH ×4 (08:03→21:50)
[2016-11-27] MEDS: VANCOMYCIN HCL 250 MG/5 ML SOLN PO SCH ×4 (08:04→21:51)
[2016-11-27] MEDS: ACETAMINOPHEN 325 MG TAB PO PRN (08:05)
[2016-11-27] MEDS: AMLODIPINE BESYLATE 5 MG TAB PO SCH (09:24)
[2016-11-27] MEDS: HYDROCODONE/ACETAMOPHEN 5/325MG TAB PO PRN (09:29)
--- NOTE | 2016-11-27 10:10 | Psychiatric Consultation ---
Consultation Identifying Data 31 yo female from [place] who was admitted on 11/25/16, unable to complete consult yesterday due to sedation. 302 petition by boyfriend. Patient brought to ED by police based ground operations superintendent from boyfriend. Boyfriend reported she had repeated attempts to self harm (cut) in 24-48 hours leading up to OD of 5 Ambien and 12 of 300 mg Neurontin and presented with acute agitation in ED requiring Ativan and Haldol. QTc prolonged at 507. Chief Complaint "I'm angry at my aunt". History of Present Illness Cassandra notes significant stressor of 10 yo daughter being under custody of aunt since age 1 and tries to control their interactions during visits or makes comments about her not visiting enough when weeks ago her car didn't work and doesn't have transportation to pick her up. She states that she has a history of scratching herself to relieve stress and has superficial abrasions several inches long (vertical) on her left forearm. She states that she wasn't suicidal at the time of the cuts. She admits that she doesn't remember much about her OD. She states she wanted to sleep and for her boyfriend to leave her alone as he had given her an ultimatum about leaving. Reviewed that her BP has been persistently elevated. She tells me her psychiatrist is Dr. Dawson and that she usually takes Klonopin 1 mg TID. Reviewed that not on her med req and hasn't been receiving here so likely having some withdrawal. She denies misuse of other substances. Past Psychiatric History Current OP Treatment: psychiatrist ([facility]) Prior Psych Hospitalizations: [facility] (1999), other ([facility] 1 year ago) hx of cutting as suicidal gesture states diagnoses of depression, anxiety and Borderline personality disorder Past Medical/Surgical History Problem List: (1) IGNACIO (obstructive sleep apnea) (2) Left ventricular hypertrophy (3) Non-occlusive coronary artery disease (4) IBS (irritable bowel syndrome) (5) Lumbar disc disorder (6) GERD (gastroesophageal reflux disease) (7) Hypothyroidism (8) Migraine (9) Hypertension (10) Polycystic ovarian syndrome (11) Hypertensive urgency (12) S/P appendectomy (13) H/O: hysterectomy (14) S/P cholecystectomy (15) S/P tonsillectomy and adenoidectomy (16) H/O hemorrhoidectomy (17) H/O arthroscopic knee surgery (18) History of carpal tunnel surgery (19) S/p removal adrenal gland tumor (20) Hx of partial thyroidectomy Allergies Allergies: Coded Allergies: Sulfa Antibiotics (Verified Allergy, Severe, RASH, DIFFICULTY BREATHING, HAD LASIX OK PREV.ADM., 11/25/16) NSAIDs (Verified Adverse Reaction, Unknown, KIDNEY FAILURE, 11/25/16) PATIENT REPORTS DIGESTER CAPPER TOLD PATIENT TO STAY AWAY FROM DUE TO KIDNEY FUNCTION Tramadol (Verified Adverse Reaction, Unknown, "MAKES ME DIZZY", 11/25/16) Home Medications Scheduled Amlodipine Besylate (Norvasc), 10 MG PO DAILY Atorvastatin (Lipitor), 20 MG PO DAILY Gabapentin (Neurontin), 1 CAP PO TID Hydralazine HCl (Hydralazine HCl), 12.5 MG PO TID Labetalol Hcl (Labetalol Hcl), 200 MG PO TID Levothyroxine Sodium (Levothyroxine Sodium), 1 TAB PO 6XWK Levothyroxine Sodium (Levothyroxine Sodium), 300 MCG PO WK Sertraline HCl (Sertraline HCl), 1 TAB PO DAILY Zolpidem Tartrate (Ambien), 5 MG PO HS Scheduled PRN Carisoprodol (Carisoprodol), 350 MG PO TID PRN for Muscle Spasms Hydrocodone/Acetaminophen 5MG/325MG (Stanley 5MG/325MG), 1 TABLET PO DAILY PRN for Pain Family History Cancer Diabetes mellitus FHx: NH FHx: blood clots FHx: heart disease Gallbladder disease Heart disease Hypertension Kidney disease Lung disease denies family psych history Alcohol Use Alcohol Use In Past 12 Months: No Substance History denies but does smoke daily and takes norco at times chronically for back pain Personal History Work History: on disability Relationship History: never Children: 2--son age 14 lives with her mother, mando 12 with aunt Spiritual Affiliation: denied Legal History: none (denied) Abuse History: none (denied) Review of Systems Psych: denies symptoms other than stated above Constitutional: denied Cardiovascular: denied GI: denied Neurologic: denied Remainder of 10 body systems also reviewed and denied other than noted above. Examination Vital Signs Vital Signs Past 12 Hours Date Time Temp Pulse Resp B/P Pulse Ox O2 Delivery O2 Flow Rate FiO2 2/25/17 04:00 Room Air 11/27/16 04:00 37.0 79 18 172/103 94 Room Air 11/27/16 01:00 78 163/104 92 Room Air 11/26/16 23:45 Room Air 11/26/16 22:55 94 185/121 11/26/16 22:00 94 197/119 Laboratory Results Last 24 Hours Test 11/27/16 05:36 White Blood Count 12.12 K/uL Red Blood Count 4.46 M/uL Hemoglobin 13.1 g/dL Hematocrit 37.2 % Mean Corpuscular Volume 83.4 fL Mean Corpuscular Hemoglobin 29.4 pg Mean Corpuscular Hemoglobin Concent 35.2 g/dl Platelet Count 173 K/uL Mean Platelet Volume 10.8 fL Neutrophils (%) (Auto) 56.5 % Lymphocytes (%) (Auto) 21.2 % Monocytes (%) (Auto) 8.9 % Eosinophils (%) (Auto) 12.9 % Basophils (%) (Auto) 0.3 % Neutrophils # (Auto) 6.84 K/uL Lymphocytes # (Auto) 2.57 K/uL Monocytes # (Auto) 1.08 K/uL Eosinophils # (Auto) 1.56 K/uL Basophils # (Auto) 0.04 K/uL RDW Standard Deviation 43.6 fL RDW Coefficient of Variation 14.2 % Immature Granulocyte % (Auto) 0.2 % Immature Granulocyte # (Auto) 0.03 K/uL Sodium Level 140 mmol/L Potassium Level 3.8 mmol/L Chloride Level 103 mmol/L Carbon Dioxide Level 32 mmol/L Anion Gap 5.0 mmol/L Blood Urea Nitrogen 15 mg/dl Creatinine 1.40 mg/dl Est Creatinine Clear Calc Drug Dose 66.8 ml/min Estimated GFR () 57.1 Estimated GFR (Non- 49.2 BUN/Creatinine Ratio 10.9 Random Glucose 103 mg/dl Calcium Level 8.2 mg/dl Magnesium Level 2.3 mg/dl Thyroid Stimulating Hormone (TSH) 1.460 uIu/ml Mental Examination During interview pt is: alert and oriented Appearance: appropriately groomed Eye contact is: fair Motor behavior is: no abnormal motor movements Speech: normal in rate, rhythm & volume Affect: constricted Mood is: other ("I'm fine now") Thought process: clear, coherent Thought content: reality based without delusions Suicidal thought are: denied Homicidal thoughts are: denied Hallucinations: denies auditory, denies visual Cognition: attention grossly intact, language grossly intact Intelligence estimated to be: average Insight: limited Judgement: limited Impression / Recommendations Impression 31 yo female with history of recurrent SIB, prior dx of unspecified depression and personality disorder, presents on 302 warrant s/p Ambien and Neurontin OD. Now denies SI but reports relationship stressors, possible homelessness and risks also include chronic rx of benzo and norco. Risk Factors Assessment Access to guns: No (denied) Recommendations after meeting with patient I attempted to confirm her Klonopin rx on the [place] database--query showed Klonopin 1 mg TID filled on 11/16 by a TR[facility]IA Ames in [place]. No prescriptions from Dr. Dawson since June as well as hydrocoone and carisoprodol from various prescribers in past few months. Liaison to complete ROIs for Klonopin prescriber and Dr. Dawson. patient would benefit from inpatient mental health admission, she is minimizing her issues as would prefer to leave when medically cleared. Reviewed that given self harm gesture she would likely be committed involuntarily if unwilling to sign 201. She agreed that she would rather sign in. Again, if would attempt to leave prior to medical clearance, commitment process should be completed immediately. no female bed current available at [facility], unclear when would be medically cleared given HTN which is likely benzodiazepine withdrawal. Would also need to confirm level of contact precautions needed given recent Cdif. Denies active diarrhea but may require MNPR and/or status complicate bedsearch. Should not resume Ambien. Zoloft can be reinitiated at 50 mg when QTc trending down. Resume Klonopin 1 mg BID now, only to address withdrawal and then taper due to risks of respiratory depression with opiates.
[2016-11-27] MEDS: CLONAZEPAM 1 MG TAB PO SCH ×2 (10:27→21:49)
--- NOTE | 2016-11-27 18:51 | Progress Note ---
Internal Med Progress Note Date of Service: Nov 27, 2016. Provider Documentation: SUBJECTIVE: awake and alert offers no complain mentions that she only took /overdosed on Ambien to seek attention form her Boyfriend understands that it could have been a life threatening episode willing to go to Psych unit when bed available no diarrhea OBJECTIVE: Vital Signs-as noted below Exam: General-no sign of distress Eyes-sclera non icteric ENT-NAD Neck-no thyromegaly Lungs-CTA Heart-regular S1/S2 Abdomen-soft, non tender Extremities-no lower ext rash or deformity Neuro-no focal deficit Lab data as noted below. ASSESSMENT & PLAN: Intentional Overdose/Suicidal Ideation ingested multiple tablets of Ambien and Neurontin intentionally after argument with boyfriend u-tox negative pt is awake and alert denies of a taking Neurontin mentions that she took multiple dose of Ambien after having and Argument with her Boyfriend psychiatry consulted and appreciate their input pt will be transferred to [address] [place] [address] for further psychiatric eval and therapy pt is willing to go to Psych unit voluntarily Hypertensive Urgency resolved possibly due to BDZ withdrawl pt 's out pt dose resumed -Klonopin 1 mg PO BID on multiple antihypertensives -Norvasc , Hydralazine , Labetalol BP improved to 130;s stable to be transferred to medical floor cont to monitor Hypothyroidism resumed out pt meds Prolonged QTc Avoid QT-prolonging meds when possible. daily EKG Acute Kidney Injury on CKD stage 3 possible hypertensive kidney disease cr improved to baseline after IV fluids avoid nephrotoxic agents when able Recent C. Diff Colitis no diarrhea on PO vancomycin repeat Stool C diff assay ordered DVT ppx SCDs DISPOSITION Transfer to [address] [place] [address] Unit when medically stable Vital Signs: Date Time Temp Pulse Resp B/P Pulse Ox O2 Delivery O2 Flow Rate FiO2 11/27/16 19:50 36.4 80 16 150/91 97 Room Air 11/27/16 16:00 Room Air 11/27/16 16:00 36.9 79 20 152/92 94 Room Air 11/27/16 13:30 69 131/80 11/27/16 12:00 36.9 70 20 133/91 93 Room Air 11/27/16 12:00 Room Air 11/27/16 10:40 72 166/102 11/27/16 09:10 83 189/109 11/27/16 08:00 Room Air 11/27/16 08:00 36.9 93 18 189/103 97 Room Air 11/27/16 04:00 Room Air 11/27/16 04:00 37.0 79 18 172/103 94 Room Air 11/27/16 01:00 78 163/104 92 Room Air 11/26/16 23:45 Room Air 11/26/16 22:55 94 185/121 11/26/16 22:00 94 197/119 11/26/16 21:00 85 180/107 94 Room Air Lab Results: Results Past 24 Hours Test 11/27/16 05:36 Range/Units White Blood Count 12.12 4.8-10.8 K/uL Red Blood Count 4.46 4.2-5.4 M/uL Hemoglobin 13.1 12.0-16.0 g/dL Hematocrit 37.2 37-47 % Mean Corpuscular Volume 83.4 80-100 fL Mean Corpuscular Hemoglobin 29.4 25-34 pg Mean Corpuscular Hemoglobin Concent 35.2 32-36 g/dl Platelet Count 173 130-400 K/uL Mean Platelet Volume 10.8 7.4-10.4 fL Neutrophils (%) (Auto) 56.5 % Lymphocytes (%) (Auto) 21.2 % Monocytes (%) (Auto) 8.9 % Eosinophils (%) (Auto) 12.9 % Basophils (%) (Auto) 0.3 % Neutrophils # (Auto) 6.84 1.4-6.5 K/uL Lymphocytes # (Auto) 2.57 1.2-3.4 K/uL Monocytes # (Auto) 1.08 0.11-0.59 K/uL Eosinophils # (Auto) 1.56 0-0.5 K/uL Basophils # (Auto) 0.04 0-0.2 K/uL RDW Standard Deviation 43.6 36.4-46.3 fL RDW Coefficient of Variation 14.2 11.5-14.5 % Immature Granulocyte % (Auto) 0.2 % Immature Granulocyte # (Auto) 0.03 0.00-0.02 K/uL Sodium Level 140 136-145 mmol/L Potassium Level 3.8 3.5-5.1 mmol/L Chloride Level 103 98-107 mmol/L Carbon Dioxide Level 32 21-32 mmol/L Anion Gap 5.0 3-11 mmol/L Blood Urea Nitrogen 15 7-18 mg/dl Creatinine 1.40 0.60-1.20 mg/dl Est Creatinine Clear Calc Drug Dose 66.8 ml/min Estimated GFR () 57.1 Estimated GFR (Non- 49.2 BUN/Creatinine Ratio 10.9 10-20 Random Glucose 103 70-99 mg/dl Calcium Level 8.2 8.5-10.1 mg/dl Magnesium Level 2.3 1.8-2.4 mg/dl Thyroid Stimulating Hormone (TSH) 1.460 0.300-4.500 uIu/ml
[2016-11-27] MEDS: LORAZEPAM INJ 1 MG in SYRINGE 0.5 ML IV PRN (19:32)
[2016-11-27] MEDS ORDERED: ONDANSETRON INJ 2 MG/ML 2 ML VIAL IV PRN (20:30)
[2016-11-27] MEDS: BUTALBITAL/ACETAMIN/CAFFEINE TAB PO PRN (22:11)
[2016-11-28] MEDS: LORAZEPAM INJ 1 MG in SYRINGE 0.5 ML IV PRN (04:09)
[2016-11-28] MEDS: ACETAMINOPHEN 325 MG TAB PO PRN ×3 (04:09→17:18)
[2016-11-28] MEDS ORDERED: LEVOTHYROXINE 150 MCG TAB PO SCH (06:30)
[2016-11-28 06:47] LABS: BASO % 0.4 %; BASO ABS # 0.04 K/uL (0-0.2); COMPLETE YES; EOS % 20.5 %; HEMATOCRIT 35.9 % (37-47); IG% 0.2 %; LYMPH ABS # 2.54 K/uL (1.2-3.4); MEAN CELL VOLUME 82.5 fL (80-100); MEAN CORPUSCULAR HEMOGLOBIN 28.7 pg (25-34); MEAN CORPUSCULAR HGB CONC 34.8 g/dl (32-36); MEAN PLATELET VOLUME 11.1 fL (7.4-10.4); MONO % 6.1 %; NEUT % 46.8 %; PLATELET COUNT 172 K/uL (130-400); RED BLOOD COUNT 4.35 M/uL (4.2-5.4); WHITE BLOOD COUNT 9.76 K/uL (4.8-10.8)
[2016-11-28 07:15] LABS: BUN/CREATININE RATIO 13.3 (10-20); CALCIUM 8.7 mg/dl (8.5-10.1); CREATININE 1.2 mg/dl (0.60-1.20); POTASSIUM 3.8 mmol/L (3.5-5.1)
[2016-11-28 07:36] VITALS: BP 145/96; PULSE 74; TEMP 36.5; O2SAT 95
[2016-11-28] MEDS: CLONAZEPAM 1 MG TAB PO SCH ×2 (08:11→20:26)
[2016-11-28] MEDS: VANCOMYCIN HCL 250 MG/5 ML SOLN PO SCH ×4 (08:11→20:30)
[2016-11-28] MEDS: LABETALOL HCL 200 MG TAB PO SCH ×3 (08:12→20:30)
[2016-11-28] MEDS: PANTOprazole SOD 40 MG TAB PO SCH (08:12)
[2016-11-28] MEDS: AMLODIPINE BESYLATE 5 MG TAB PO SCH (08:12)
[2016-11-28] MEDS: RASPBERRY SYRUP 5 ML UDP PO SCH ×4 (08:12→20:29)
[2016-11-28] MEDS: HYDROCODONE/ACETAMOPHEN 5/325MG TAB PO PRN (09:29)
[2016-11-28] MEDS: LORAZEPAM 0.5 MG TAB PO PRN ×2 (10:20→16:23)
[2016-11-28 13:18] VITALS: BP 134/87; PULSE 76
--- NOTE | 2016-11-28 14:49 | Progress Note ---
Internal Med Progress Note Date of Service: Nov 28, 2016. Provider Documentation: SUBJECTIVE: remains anxious wants to have some pain meds for her chronic back pain Tylenol not working pt is counselled to avoid narcotic pain medication ordered for Lidoderm patch OBJECTIVE: Vital Signs-as noted below Exam: General-no sign of distress , awake and alert Eyes-sclera non icteric ENT-NAD Neck-no thyromegaly Lungs-CTA Heart-regular S1/S2 Abdomen-soft, non tender Extremities-no lower ext rash or deformity Neuro-no focal deficit Lab data as noted below. ASSESSMENT & PLAN: Intentional Overdose/Suicidal Ideation ingested multiple tablets of Ambien and Neurontin intentionally after argument with boyfriend urine -tox negative pt is awake and alert denies of a taking Neurontin mentions that she took multiple dose of Ambien after having and Argument with her Boyfriend psychiatry consulted and appreciate their input pt will be transferred to [address] [place] [address] for further psychiatric eval and therapy pt is willing to go to Psych unit voluntarily Hypertensive Urgency resolved possible due to anxiety /agitation has known Hypertension with multiple antihypertensive , difficult to control BP at baseline pt remains asymptomatic no chest pain or SOB , no dizzy spell BP stable in 120-130's pt 's out pt dose resumed -Klonopin 1 mg PO BID for ongoing anxiety on multiple antihypertensives -Norvasc , Hydralazine dose increased , cont on Labetalol 200 mg TID prn PO Clonidine added cont to monitor Hypothyroidism resumed out pt meds Prolonged QTc Avoid QT-prolonging meds Zofran D /patrick avoid Haldol EKG today shows improvement of Qtc 484 ( Qtc 507 on 11/26/16 ) repeat EKG in AM Acute Kidney Injury on CKD stage 3 possible underlying hypertensive kidney disease resolved cr 1.2 -baseline given IV fluids avoid nephrotoxic agents when able Recent C. Diff Colitis stoo C diff + ve on 11/19/16 no diarrhea was on PO vancomycin for total 10 days ( last day of tx 11/29/16 ) repeat Stool C diff assay returns positive concerned for compliance of PO vanco on discharge cont PO Abx 5 more days Changed to PO Flagyl as pt mentions her insurance does not cover for PO Flagyl cont contact precaution pt is counselled for hand hygiene -wash hand with soap and water after using bathroom and before eating DVT ppx SCDs DISPOSITION Transfer to [address] [place] [address] when bed available Vital Signs: Date Time Temp Pulse Resp B/P Pulse Ox O2 Delivery O2 Flow Rate FiO2 11/29/16 12:51 36.3 78 22 135/80 98 Room Air 11/29/16 11:29 36.3 75 18 98 Room Air 11/29/16 11:04 164/119 11/29/16 08:00 Room Air 11/29/16 07:05 36.3 75 18 171/102 98 11/29/16 00:22 36.9 75 18 154/106 98 Room Air 11/28/16 23:59 Room Air 11/28/16 20:31 81 148/103 11/28/16 20:00 Room Air 11/28/16 16:05 36.7 75 18 140/90 97 Room Air 11/28/16 15:11 Room Air Lab Results: Results Past 24 Hours Test 11/29/16 05:00 Range/Units White Blood Count 10.27 4.8-10.8 K/uL Red Blood Count 4.63 4.2-5.4 M/uL Hemoglobin 13.2 12.0-16.0 g/dL Hematocrit 38.3 37-47 % Mean Corpuscular Volume 82.7 80-100 fL Mean Corpuscular Hemoglobin 28.5 25-34 pg Mean Corpuscular Hemoglobin Concent 34.5 32-36 g/dl Platelet Count 195 130-400 K/uL Mean Platelet Volume 10.8 7.4-10.4 fL Neutrophils (%) (Auto) 55.0 % Lymphocytes (%) (Auto) 23.1 % Monocytes (%) (Auto) 5.9 % Eosinophils (%) (Auto) 15.3 % Basophils (%) (Auto) 0.5 % Neutrophils # (Auto) 5.65 1.4-6.5 K/uL Lymphocytes # (Auto) 2.37 1.2-3.4 K/uL Monocytes # (Auto) 0.61 0.11-0.59 K/uL Eosinophils # (Auto) 1.57 0-0.5 K/uL Basophils # (Auto) 0.05 0-0.2 K/uL RDW Standard Deviation 42.9 36.4-46.3 fL RDW Coefficient of Variation 14.3 11.5-14.5 % Immature Granulocyte % (Auto) 0.2 % Immature Granulocyte # (Auto) 0.02 0.00-0.02 K/uL Sodium Level 135 136-145 mmol/L Potassium Level 4.2 3.5-5.1 mmol/L Chloride Level 98 98-107 mmol/L Carbon Dioxide Level 32 21-32 mmol/L Anion Gap 5.0 3-11 mmol/L Blood Urea Nitrogen 18 7-18 mg/dl Creatinine 1.40 0.60-1.20 mg/dl Est Creatinine Clear Calc Drug Dose 66.8 ml/min Estimated GFR () 57.1 Estimated GFR (Non- 49.2 BUN/Creatinine Ratio 12.5 10-20 Random Glucose 96 70-99 mg/dl Calcium Level 9.0 8.5-10.1 mg/dl Microbiology Results 11/28/16 C.difficile Toxin B Gene (PCR) - Final, Complete Positive for C. difficile toxin B gene
[2016-11-28 16:05] VITALS: BP 140/90; PULSE 75; TEMP 36.7; O2SAT 97
[2016-11-28] MEDS: BUTALBITAL/ACETAMIN/CAFFEINE TAB PO PRN (16:24)
[2016-11-28 20:31] VITALS: BP 148/103; PULSE 81
[2016-11-28] MEDS ORDERED: LORAZEPAM 2 MG/ML 1 ML VIAL IV PRN (22:00)
[2016-11-28] MEDS: LIDODERM (LIDOCAINE) PATCH 5% TD SCH (22:45)
[2016-11-28] MEDS: LORAZEPAM INJ 0.5 MG in SYRINGE 0.75 ML IV PRN (22:45)
[2016-11-29 00:22] VITALS: BP 154/106; PULSE 75; TEMP 36.9; O2SAT 98
[2016-11-29] MEDS: LORAZEPAM INJ 0.5 MG in SYRINGE 0.75 ML IV PRN (04:37)
[2016-11-29 06:12] LABS: BASO % 0.5 %; BASO ABS # 0.05 K/uL (0-0.2); COMPLETE YES; EOS % 15.3 %; HEMATOCRIT 38.3 % (37-47); IG% 0.2 %; LYMPH % 23.1 %; LYMPH ABS # 2.37 K/uL (1.2-3.4); MEAN CELL VOLUME 82.7 fL (80-100); MEAN CORPUSCULAR HEMOGLOBIN 28.5 pg (25-34); MEAN CORPUSCULAR HGB CONC 34.5 g/dl (32-36); MEAN PLATELET VOLUME 10.8 fL (7.4-10.4); MONO % 5.9 %; PLATELET COUNT 195 K/uL (130-400); RED BLOOD COUNT 4.63 M/uL (4.2-5.4); WHITE BLOOD COUNT 10.27 K/uL (4.8-10.8)
--- NOTE | 2016-11-29 06:18 | Clinical Documentation Query ---
Dr. LADD [facility] : CLINICAL DOCUMENTATION QUERY Patient is a 31 year old female admitted for evaluation and treatment of an intentional overdose of Ambien and Neurontin. Patient described as "combative" and "uncooperative" by ED provider, requiring Ativan, Haldol, and restraints. She has been treated symptomatically, monitored in ICU, and seen by consultation by psychiatry. Mental status has returned to baseline and anticipate discharge and voluntary admission to the mental health unit. In your clinical opinion is this patient being managed for: (x ) Toxic encephalopathy POA, secondary to intentional overdose of Ambien and Neurontin, resolved. ( ) Other explanation of clinical findings (Please Explain) ( ) Unable to determine (Please Define) ( ) Need to Discuss ( ) Not Agree The medical record reflects the following clinical findings, treatment, and risk factors. Clinical Indicators: As above Treatment: Supportive care; IVF, serial assessments, labs, psychiatric and chief lock operator consultation. Risk Factors: Anxiety, depression, access to drugs Please clarify and document your clinical opinion in the progress notes and discharge summary. Terms such as "probable", "suspected", "likely", "questionable", "possible", or "still to be ruled out" are acceptable. IF IN AGREEMENT, YOU MUST DOCUMENT ABOVE DIAGNOSTIC STATEMENT IN DAILY PROGRESS NOTES AND DISCHARGE SUMMARY. This document is not part of the patient's record. Thank You, Phani Valdez RN [phone]
[2016-11-29 06:36] LABS: BUN/CREATININE RATIO 12.5 (10-20); CREATININE 1.4 mg/dl (0.60-1.20); POTASSIUM 4.2 mmol/L (3.5-5.1)
[2016-11-29 07:05] VITALS: BP 171/102; PULSE 75; TEMP 36.3; O2SAT 98
[2016-11-29] MEDS: CLONAZEPAM 1 MG TAB PO SCH (08:31)
[2016-11-29] MEDS: LABETALOL HCL 200 MG TAB PO SCH (08:31)
[2016-11-29] MEDS: AMLODIPINE BESYLATE 5 MG TAB PO SCH (08:32)
[2016-11-29] MEDS: PANTOprazole SOD 40 MG TAB PO SCH (08:33)
[2016-11-29] MEDS: VANCOMYCIN HCL 250 MG/5 ML SOLN PO SCH ×2 (08:34→12:13)
[2016-11-29] MEDS: RASPBERRY SYRUP 5 ML UDP PO SCH ×2 (08:34→12:13)
[2016-11-29] MEDS: LIDODERM (LIDOCAINE) PATCH 5% TD SCH (09:34)
--- NOTE | 2016-11-29 10:41 | Psychiatric Progress Notes ---
Psychiatric Progress Note Date of Service Nov 29, 2016. Notes ID: Patient reviewed with liaison nurse. Interim progress reviewed following initial consult on 11/27/16. CC: "I just want to go home, I'll be fine" HPI: seen with liaison nurse, 1-on-1 at bedside. Continues to deny SI, represents that boyfriend wants her home and will secure meds. Liaison spoke with boyfriend after obtaining ARNEL as reviewed with patient I remain concerned about her benzo use and suspect she is minimizing access to pain medications as well as hx of self mutilation leading up to attempt with seems to have worsened underlying QTc issue and BP remains elevated even with restart of Klonopin at lower dose (2 mg day rather than 3 mg). ARNEL completed for Dr. Dawson, she confirms that she sees his PA here in [place], not [place]. willing to add outpatient therapy. ROS: denies D. MSE: alert, cooperative, affect remains blunted, thoughts organized, denies SI/ HI/baez Imp: unspecified depression, borderline personality disorder Plan: I continue to recommend inpatient psychiatric hospitalization when medically cleared (stable BP, clarification of necessary contact precautions to determine if MNPR) liaison suspects boyfriend coached and/or no longer wants to be 302 petitioner, if unwilling to sign 201 will consider 2 physician 302.
[2016-11-29] MEDS ORDERED: FRCT/ PO ×2 (11:02→19:37)
[2016-11-29] MEDS ORDERED: APR25 PO ×2 (11:02→13:22)
[2016-11-29] MEDS ORDERED: VNCS250 PO (11:02)
[2016-11-29 11:04] VITALS: BP 164/119
--- NOTE | 2016-11-29 11:04 | Discharge Instructions ---
Discharge Instructions Admission Reason for Admission: Hypertensive Urgency, Multiple Drug Overdose Discharge Discharge Diagnosis / Problem: INTENTIONAL DRUG OVERDOSE/HTN /C DIFF Discharge Goals Goal(s): Increase independence, Improve disease control, Therapeutic intervention Activity Recommendations Activity Limitations: resume your previous activity . Instructions / Follow-Up Instructions / Follow-Up FOLLOW UP WITH FAMILY PHYSICIAN AFTER DISCHARGE [facility] COMPLETE 5 MORE DAYS OF PO FLAGYL CONTACT PRECAUTION FOR 7 MORE DAYS PLEASE WASH YOUR HAND WITH SOAP AND WATER EVERY TIME AFTER USING BATHROOM REPEAT EKG TOMORROW AM TO ASSESS IMPROVEMENT OF QTc QTc today 483 AVOID MEDICATIONS THAT CAN CAUSE QTc PROLONGATION Current Hospital Diet Patient's current hospital diet: Regular Diet Discharge Diet Recommended Diet: AHA Diet (Heart Healthy), Low Sodium Diet (2gm Na) Pending Studies Studies pending at discharge: no Medical Emergencies . Who to Call and When: Medical Emergencies: If at any time you feel your situation is an emergency, please call 911 immediately. . Non-Emergent Contact Non-Emergency issues call your: Primary Care Provider . . "Provider Documentation" section prepared by Carmella Adams. VTE Core Measure Inpt VTE Proph given/why not?: Patrica Whyte, SCD's
[2016-11-29 11:29] VITALS: BP 164/119; PULSE 75; TEMP 36.3; O2SAT 98
[2016-11-29] MEDS ORDERED: CLONIDINE HCL 0.1 MG TAB PO PRN (12:00)
[2016-11-29 12:51] VITALS: BP 135/80; PULSE 78; TEMP 36.3; O2SAT 98
[2016-11-29] MEDS ORDERED: LBT200 PO (13:19)
[2016-11-29] MEDS ORDERED: CTP1 PO ×3 (13:19→13:22)
[2016-11-29] MEDS ORDERED: METR-163 PO ×2 (13:23→19:48)
--- NOTE | 2016-11-29 13:44 | Progress Note ---
Internal Med Progress Note Date of Service: Nov 29, 2016. Provider Documentation: SUBJECTIVE: was anxious this AM last night got agitated -locked herself in bathroom 1: 1 sitter present no diarrhea or abdominal pain no fever or chills BP was elevated improved to 130's after getting Ativan and PRN Clonidine OBJECTIVE: Vital Signs-as noted below Exam: General-no sign of distress , awake and alert Eyes-sclera non icteric ENT-NAD Neck-no thyromegaly Lungs-CTA Heart-regular S1/S2 Abdomen-soft, non tender Extremities-no lower ext rash or deformity Neuro-no focal deficit Lab data as noted below. ASSESSMENT & PLAN: Intentional Overdose/Suicidal Ideation ingested multiple tablets of Ambien and Neurontin intentionally after argument with boyfriend urine -tox negative pt is awake and alert denies of a taking Neurontin mentions that she took multiple dose of Ambien after having and Argument with her Boyfriend psychiatry consulted and appreciate their input pt will be transferred to [address] [place] [address] for further psychiatric eval and therapy pt is willing to go to Psych unit voluntarily Hypertensive Urgency possible due to anxiety /agitation has known Hypertension with multiple antihypertensive , difficult to control BP at baseline pt remains asymptomatic no chest pain or SOB , no dizzy spell pt 's out pt dose resumed -Klonopin 1 mg PO BID for ongoing anxiety on multiple antihypertensives -Norvasc , Hydralazine dose increased , cont on Labetalol 200 mg TID prn PO Clonidine added Hypothyroidism resumed out pt meds Prolonged QTc Avoid QT-prolonging meds Zofran D /patrick avoid Haldol EKG today s of Qtc 483 ( Qtc 507 on 11/26/16 ) repeat EKG in AM Acute Kidney Injury on CKD stage 3 possible underlying hypertensive kidney disease resolved cr 1.2 -baseline given IV fluids avoid nephrotoxic agents when able Recent C. Diff Colitis stoo C diff + ve on 11/19/16 no diarrhea was on PO vancomycin for total 10 days ( last day of tx 11/29/16 ) repeat Stool C diff assay returns positive concerned for compliance of PO vanco on discharge cont PO Abx 5 more days Changed to PO Flagyl as pt mentions her insurance does not cover for PO Flagyl cont contact precaution pt is counselled for hand hygiene -wash hand with soap and water after using bathroom and before eating DVT ppx SCDs DISPOSITION Transfer to [address] [place] [address] today Vital Signs: Date Time Temp Pulse Resp B/P Pulse Ox O2 Delivery O2 Flow Rate FiO2 11/29/16 12:51 36.3 78 22 135/80 98 Room Air 11/29/16 11:29 36.3 75 18 98 Room Air 11/29/16 11:04 164/119 11/29/16 08:00 Room Air 11/29/16 07:05 36.3 75 18 171/102 98 11/29/16 00:22 36.9 75 18 154/106 98 Room Air 11/28/16 23:59 Room Air 11/28/16 20:31 81 148/103 11/28/16 20:00 Room Air 11/28/16 16:05 36.7 75 18 140/90 97 Room Air 11/28/16 15:11 Room Air Lab Results: Results Past 24 Hours Test 11/29/16 05:00 Range/Units White Blood Count 10.27 4.8-10.8 K/uL Red Blood Count 4.63 4.2-5.4 M/uL Hemoglobin 13.2 12.0-16.0 g/dL Hematocrit 38.3 37-47 % Mean Corpuscular Volume 82.7 80-100 fL Mean Corpuscular Hemoglobin 28.5 25-34 pg Mean Corpuscular Hemoglobin Concent 34.5 32-36 g/dl Platelet Count 195 130-400 K/uL Mean Platelet Volume 10.8 7.4-10.4 fL Neutrophils (%) (Auto) 55.0 % Lymphocytes (%) (Auto) 23.1 % Monocytes (%) (Auto) 5.9 % Eosinophils (%) (Auto) 15.3 % Basophils (%) (Auto) 0.5 % Neutrophils # (Auto) 5.65 1.4-6.5 K/uL Lymphocytes # (Auto) 2.37 1.2-3.4 K/uL Monocytes # (Auto) 0.61 0.11-0.59 K/uL Eosinophils # (Auto) 1.57 0-0.5 K/uL Basophils # (Auto) 0.05 0-0.2 K/uL RDW Standard Deviation 42.9 36.4-46.3 fL RDW Coefficient of Variation 14.3 11.5-14.5 % Immature Granulocyte % (Auto) 0.2 % Immature Granulocyte # (Auto) 0.02 0.00-0.02 K/uL Sodium Level 135 136-145 mmol/L Potassium Level 4.2 3.5-5.1 mmol/L Chloride Level 98 98-107 mmol/L Carbon Dioxide Level 32 21-32 mmol/L Anion Gap 5.0 3-11 mmol/L Blood Urea Nitrogen 18 7-18 mg/dl Creatinine 1.40 0.60-1.20 mg/dl Est Creatinine Clear Calc Drug Dose 66.8 ml/min Estimated GFR () 57.1 Estimated GFR (Non- 49.2 BUN/Creatinine Ratio 12.5 10-20 Random Glucose 96 70-99 mg/dl Calcium Level 9.0 8.5-10.1 mg/dl Microbiology Results 11/28/16 C.difficile Toxin B Gene (PCR) - Final, Complete Positive for C. difficile toxin B gene
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
[2016-11-29] MEDS ORDERED: CTP1X PO ×2 (19:41→19:42)
[2016-11-29] MEDS ORDERED: HYDR-4717 PO (19:48)
[2016-12-02] MEDS ORDERED: ZLF50 PO ×2 (08:57→09:30)
[2016-12-02] MEDS ORDERED: BSP5 PO (09:06)
[2016-12-02] MEDS ORDERED: HYDR-3126 PO (09:17)
[2017-01-30] MEDS ORDERED: BUSP-8 PO (19:23)
[2017-01-30] MEDS ORDERED: TIZA4CAP PO (19:26)
[2017-04-24] MEDS ORDERED: NRN600 PO (16:57)
[2017-05-14] MEDS ORDERED: APR25 PO (08:31)
[2017-06-24] MEDS ORDERED: KLN1X PO (08:13)
[2017-06-24] MEDS ORDERED: SERT-234 PO (08:13)
== END 2016-11-29 13:30 | DRG 918 ==
LOC: ENRESERVTM → ENRESERVDT → CANRESERV → EDBD 18:20 → C.EDA 18:22 → C.MSICU 22:10 → UNDOADMIN 22:10 → CANBEDREQ 11-26 18:21 → C.4E 11-27 19:02
PROVIDERS: ADMIT Hospitalist; ATTEND Hospitalist
DX: T42.6X2A Poisoning by other antiepileptic and sedative-hypnotic drugs, intentional self-harm, initial encounter (principal); R45.851 Suicidal ideations; A04.7 Enterocolitis due to Clostridium difficile; N17.9 Acute kidney failure, unspecified; Z68.41 Body mass index [BMI] 40.0-44.9, adult; Q61.3 Polycystic kidney, unspecified; T42.6X1A Poisoning by other antiepileptic and sedative-hypnotic drugs, accidental (unintentional), initial encounter; F41.9 Anxiety disorder, unspecified; E03.9 Hypothyroidism, unspecified; F32.9 Major depressive disorder, single episode, unspecified; F17.210 Nicotine dependence, cigarettes, uncomplicated; G47.33 Obstructive sleep apnea (adult) (pediatric); N18.3 Chronic kidney disease, stage 3 (moderate); I16.0 Hypertensive urgency; K21.9 Gastro-esophageal reflux disease without esophagitis; J44.9 Chronic obstructive pulmonary disease, unspecified; I13.10 Hypertensive heart and chronic kidney disease without heart failure, with stage 1 through stage 4 chronic kidney disease, or unspecified chronic kidney disease; I45.81 Long QT syndrome; F60.3 Borderline personality disorder; G43.909 Migraine, unspecified, not intractable, without status migrainosus; K58.9 Irritable bowel syndrome, unspecified; M54.5 Low back pain; M51.36 Other intervertebral disc degeneration, lumbar region; E66.01 Morbid (severe) obesity due to excess calories; I25.10 Atherosclerotic heart disease of native coronary artery without angina pectoris; R45.1 Restlessness and agitation; G89.29 Other chronic pain; Z91.19 Patient's noncompliance with other medical treatment and regimen; Z91.5 Personal history of self-harm; Z79.899 Other long term (current) drug therapy; Z79.891 Long term (current) use of opiate analgesic

== ENCOUNTER 2016-11-29 14:30 | Inpatient (IN) | payer OTHER ==
[~2016-11-29] VITALS: Ht 158.8 cm; Wt 99.6 kg
[~2016-11-29 14:30] MED LIST changes: +APR25 PO; +CTP1 PO; +FRCT/ PO; +LBT200 PO; +METR-163 PO; +ZOLP5TAB PO
[2016-11-29] MEDS ORDERED: CLONIDINE HCL 0.1 MG TAB PO PRN (15:15)
[2016-11-29] MEDS ORDERED: SODIUM CHLORIDE 0.65% NA SOLN 45 ML (OCEAN) PRN (15:15)
[2016-11-29] MEDS ORDERED: MAGNESIUM HYDROXIDE SUSP 30 ML UDC PO PRN (15:15)
[2016-11-29] MEDS ORDERED: BISMUTH SUBSALICYLATE PER ML OMNICELL CHARGE PO PRN (15:15)
[2016-11-29] MEDS ORDERED: ALUMINUM/MAGNESIUM SUSP 30 ML UDC PO PRN (15:15)
[2016-11-29] MEDS ORDERED: ACETAMINOPHEN 325 MG TAB PO PRN (15:15)
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
[2016-11-29 16:50] VITALS: BP 151/93; PULSE 95; TEMP 36.4; Ht 158.8 cm; Wt 99.6 kg
[2016-11-29] MEDS ORDERED: FRCT/ PO (19:37)
[2016-11-29] MEDS ORDERED: CTP1X PO ×2 (19:41→19:42)
[2016-11-29] MEDS ORDERED: HYDR-4717 PO (19:48)
[2016-11-29] MEDS ORDERED: METR-163 PO (19:48)
[2016-11-29 21:07] VITALS: BP 175/136; PULSE 91
[2016-11-29] MEDS: CARISOPRODOL 350 MG TAB PO PRN (21:48)
[2016-11-29] MEDS: CLONAZEPAM 0.5 MG TAB PO SCH (21:48)
[2016-11-29] MEDS: CLONIDINE HCL 0.1 MG TAB PO SCH (21:49)
[2016-11-29] MEDS: LABETALOL HCL 200 MG TAB PO SCH (21:49)
[2016-11-29] MEDS: METRONIDAZOLE 500 MG TAB PO SCH (21:49)
[2016-11-29] MEDS ORDERED: LABETALOL HCL 200 MG TAB PO SCH (22:00)
[2016-11-30] MEDS: hydrOXYzine HCL 25 MG TAB PO PRN ×4 (00:43→21:45)
[2016-11-30 06:57] VITALS: BP_SYST 157; BP_SYST 161; BP_DIAS 105; BP_DIAS 92; PULSE 90; PULSE 93; TEMP 36.6
[2016-11-30] MEDS: CARISOPRODOL 350 MG TAB PO PRN ×2 (07:32→21:45)
[2016-11-30] MEDS: LEVOTHYROXINE 150 MCG TAB PO SCH (07:35)
[2016-11-30] MEDS: CLONIDINE HCL 0.1 MG TAB PO SCH ×2 (08:22→21:45)
[2016-11-30] MEDS: METRONIDAZOLE 500 MG TAB PO SCH ×3 (08:22→21:45)
[2016-11-30] MEDS: LABETALOL HCL 200 MG TAB PO SCH ×3 (08:23→21:45)
[2016-11-30] MEDS: CLONAZEPAM 0.5 MG TAB PO SCH ×3 (08:23→21:45)
[2016-11-30] MEDS: ATORVASTATIN 20 MG TAB PO SCH (08:23)
[2016-11-30] MEDS: AMLODIPINE BESYLATE 5 MG TAB PO SCH (08:24)
[2016-11-30 09:34] VITALS: BP 139/82; PULSE 102
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
[2016-11-30] MEDS ORDERED: SERTRALINE HCL 50 MG TAB PO ONE (10:45)
[2016-11-30 13:53] VITALS: BP 125/81; PULSE 106
[2016-11-30] MEDS: BUTALBITAL/ACETAMIN/CAFFEINE TAB PO PRN (19:30)
[2016-11-30 21:38] VITALS: BP 163/113; PULSE 83
[2016-11-30 22:35] VITALS: BP 155/103; PULSE 86
[2016-11-30] MEDS ORDERED: BUTALBITAL/ACETAMIN/CAFFEINE TAB PO ONE (22:45)
[2016-11-30] MEDS ORDERED: NURSING VERBAL MED ORDER ONE (22:45)
[2016-12-01] MEDS: hydrOXYzine HCL 25 MG TAB PO PRN ×3 (00:48→22:02)
[2016-12-01 01:05] VITALS: BP 152/108; PULSE 76
[2016-12-01] MEDS ORDERED: NURSING VERBAL MED ORDER ONE (02:00)
[2016-12-01] MEDS ORDERED: ONDANSETRON 4 MG TAB PO ONE (02:45)
[2016-12-01 07:09] VITALS: BP_SYST 139; BP_SYST 140; BP_DIAS 85; BP_DIAS 88; PULSE 92; PULSE 93; TEMP 36.8
[2016-12-01] MEDS ORDERED: LEVOTHYROXINE 150 MCG TAB PO SCH (08:00)
[2016-12-01] MEDS: LABETALOL HCL 200 MG TAB PO SCH ×3 (08:12→21:13)
[2016-12-01] MEDS: AMLODIPINE BESYLATE 5 MG TAB PO SCH (08:12)
[2016-12-01] MEDS: SERTRALINE HCL 50 MG TAB PO SCH (08:12)
[2016-12-01] MEDS: ATORVASTATIN 20 MG TAB PO SCH (08:12)
[2016-12-01] MEDS: CLONAZEPAM 0.5 MG TAB PO SCH ×3 (08:12→21:12)
[2016-12-01] MEDS: CLONIDINE HCL 0.1 MG TAB PO SCH ×2 (08:13→21:12)
[2016-12-01] MEDS: METRONIDAZOLE 500 MG TAB PO SCH ×3 (08:13→21:12)
[2016-12-01] MEDS: BUTALBITAL/ACETAMIN/CAFFEINE TAB PO PRN ×3 (10:08→22:03)
[2016-12-01] MEDS: CARISOPRODOL 350 MG TAB PO PRN ×2 (10:08→18:40)
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
[2016-12-01 13:54] VITALS: BP 127/82; PULSE 94
[2016-12-01 20:59] VITALS: BP 138/97; PULSE 83
[2016-12-02] MEDS: hydrOXYzine HCL 25 MG TAB PO PRN (01:37)
[2016-12-02 07:04] VITALS: BP_SYST 124; BP_SYST 131; BP_DIAS 79; BP_DIAS 83; PULSE 73; PULSE 78; TEMP 36.6
[2016-12-02] MEDS: LEVOTHYROXINE 150 MCG TAB PO SCH (07:33)
[2016-12-02] MEDS: CLONIDINE HCL 0.1 MG TAB PO SCH (07:34)
[2016-12-02] MEDS: ATORVASTATIN 20 MG TAB PO SCH (07:34)
[2016-12-02] MEDS: CLONAZEPAM 0.5 MG TAB PO SCH (07:34)
[2016-12-02] MEDS: METRONIDAZOLE 500 MG TAB PO SCH (07:34)
[2016-12-02] MEDS: LABETALOL HCL 200 MG TAB PO SCH (07:35)
[2016-12-02] MEDS: AMLODIPINE BESYLATE 5 MG TAB PO SCH (07:35)
[2016-12-02] MEDS: SERTRALINE HCL 50 MG TAB PO SCH (07:36)
[2016-12-02] MEDS ORDERED: ZLF50 PO ×2 (08:57→09:30)
[2016-12-02] MEDS ORDERED: BSP5 PO (09:06)
[2016-12-02] MEDS ORDERED: HYDR-3126 PO (09:17)
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
[2016-12-02] MEDS ORDERED: DESTROY THIS MEDICATION ONE (09:30)
[2016-12-02] MEDS: CARISOPRODOL 350 MG TAB PO PRN (09:48)
[2016-12-02] MEDS ORDERED: DESTROY THIS MEDICATION SCH (10:41)
[2017-01-30] MEDS ORDERED: BUSP-8 PO (19:23)
[2017-01-30] MEDS ORDERED: TIZA4CAP PO (19:26)
[2017-02-01] MEDS ORDERED: NRV5 PO (16:43)
[2017-02-01] MEDS ORDERED: DXY100 PO (16:45)
[2017-02-01] MEDS ORDERED: NRN600 PO (18:14)
[2017-04-24] MEDS ORDERED: NRN600 PO (16:57)
[2017-05-14] MEDS ORDERED: APR25 PO (08:31)
[2017-06-24] MEDS ORDERED: SERT-234 PO (08:13)
[2017-06-24] MEDS ORDERED: KLN1X PO (08:13)
== END 2016-12-02 10:41 | disposition home or self-care (01) | DRG 918 ==
LOC: C.MHU 14:30
PROVIDERS: ADMIT Psychiatry & Neurology Psychiatry; ATTEND Psychiatry & Neurology Psychiatry
DX: T42.6X2A Poisoning by other antiepileptic and sedative-hypnotic drugs, intentional self-harm, initial encounter (principal); A04.7 Enterocolitis due to Clostridium difficile; F32.9 Major depressive disorder, single episode, unspecified; R00.0 Tachycardia, unspecified; G43.909 Migraine, unspecified, not intractable, without status migrainosus; F60.3 Borderline personality disorder; F41.9 Anxiety disorder, unspecified; F19.10 Other psychoactive substance abuse, uncomplicated; I12.9 Hypertensive chronic kidney disease with stage 1 through stage 4 chronic kidney disease, or unspecified chronic kidney disease; N18.9 Chronic kidney disease, unspecified; E03.9 Hypothyroidism, unspecified; E78.5 Hyperlipidemia, unspecified; M51.9 Unspecified thoracic, thoracolumbar and lumbosacral intervertebral disc disorder; I25.10 Atherosclerotic heart disease of native coronary artery without angina pectoris; G47.33 Obstructive sleep apnea (adult) (pediatric); E66.9 Obesity, unspecified; Z68.39 Body mass index [BMI] 39.0-39.9, adult; Z91.5 Personal history of self-harm; Z79.899 Other long term (current) drug therapy

== ENCOUNTER 2017-01-30 18:12 | Inpatient (IN) | payer OTHER ==
[~2017-01-30] VITALS: Ht 157.5 cm; Wt 105.7 kg
[~2017-01-30 18:12] MED LIST changes: -APR/25 PO; -APR25 PO; +BSP5 PO; -CTP1 PO; +CTP1X PO; +HYDR-3126 PO; +HYDR-4717 PO; -HYDR-5688 PO; -LBT200 PO; -NRN/300 PO; -VNCS250 PO; -ZOLP5TAB PO
[2017-01-30] MEDS ORDERED: MoRPHine SULFATE 10 MG/ML CARP/VIAL IV STA (18:32)
[2017-01-30] MEDS ORDERED: ONDANSETRON INJ 2 MG/ML 2 ML VIAL IV STA (18:32)
--- NOTE | 2017-01-30 18:57 | DIAGNOSTIC IMAGING REPORT ---
CHEST ONE VIEW PORTABLE CLINICAL HISTORY: Evaluate for pneumonia. COMPARISON STUDY: Chest radiograph November 27, 2016. FINDINGS: Moderate cardiomegaly is unchanged. No pneumothorax or pleural effusion is present. There are no areas of consolidation to suggest pneumonia. There is no evidence of pulmonary edema. IMPRESSION: 1. No acute cardiopulmonary findings. 2. Stable moderate cardiomegaly. Electronically signed by: Pancho Altman M.D. 01/30/2017 6:56 PM Dictated Date/Time: 01/30/2017 6:55 PM
[2017-01-30 18:59] LABS: BASO % 0.2 %; BASO ABS # 0.02 K/uL (0-0.2); COMPLETE YES; EOS % 2.5 %; HEMATOCRIT 41.7 % (37-47); IG% 0.5 %; LYMPH % 23.8 %; LYMPH ABS # 2.94 K/uL (1.2-3.4); MEAN CELL VOLUME 81.6 fL (80-100); MEAN CORPUSCULAR HEMOGLOBIN 29.4 pg (25-34); MEAN PLATELET VOLUME 10.6 fL (7.4-10.4); MONO % 5.5 %; NEUT % 67.5 %; PLATELET COUNT 182 K/uL (130-400); RED BLOOD COUNT 5.11 M/uL (4.2-5.4); WHITE BLOOD COUNT 12.36 K/uL (4.8-10.8)
[2017-01-30 19:09] LABS: PROTHROMBIN TIME (PATIENT) 10.5 SECONDS (9.0-12.0)
[2017-01-30 19:16] LABS: BUN/CREATININE RATIO 10.4 (10-20); CALCIUM 9.4 mg/dl (8.5-10.1); CREATININE 1.6 mg/dl (0.60-1.20); POTASSIUM 3.9 mmol/L (3.5-5.1)
[2017-01-30] MEDS ORDERED: AMOX500C3 PO (19:17)
[2017-01-30] MEDS ORDERED: SERT50TA PO (19:17)
[2017-01-30] MEDS ORDERED: LABETALOL HCL IV 5 MG/ML 20ML IV STA ×2 (19:19→20:33)
[2017-01-30] MEDS ORDERED: ABL/5 PO (19:26)
[2017-01-30] MEDS ORDERED: OPTIRAY 320 IV PRN (19:30)
[2017-01-30] MEDS ORDERED: MoRPHine SULFATE 4 MG/ML 1 ML CARP\\VIAL IV STA (19:44)
[2017-01-30] MEDS ORDERED: SODIUM CHLORIDE 0.9% 1000ML 1,000 ML IV STA (20:03)
--- NOTE | 2017-01-30 20:50 | DIAGNOSTIC IMAGING REPORT ---
CT ANGIOGRAPHY OF THE CHEST, PULMONARY EMBOLUS PROTOCOL CLINICAL HISTORY: Chest pain. Elevated d-dimer. Congestion. COMPARISON STUDY: Chest CT June 16, 2016. TECHNIQUE: Following IV administration of 84 mL of Optiray-320, helical axial images of the chest were obtained utilizing the pulmonary embolus protocol. Maximal intensity projections and sagittal and coronal reformats were viewed on an independent 3D workstation. IV contrast was administered without complication. CT DOSE: 730.74 mGy.cm FINDINGS: No pulmonary emboli are identified. There is moderate to marked cardiomegaly with marked concentric left ventricular hypertrophy. There is a trace pericardial effusion. Central airways are patent. There is no pneumothorax or pleural effusion. There are scattered tree-in-bud nodular densities within the lungs, most pronounced within the right upper lobe. There is no significant abnormalities of the bony thorax. The gallbladder is surgically absent. There is no evidence for thoracic aortic dissection. IMPRESSION: 1. No pulmonary emboli identified. 2. Scattered tree-in-bud nodules within the lungs which represent an infectious process and could reflect bronchopneumonia or bronchiolitis. 3. No change in moderate to marked cardiomegaly with marked concentric left ventricular hypertrophy. Electronically signed by: Pancho Altman M.D. 01/30/2017 8:48 PM Dictated Date/Time: 01/30/2017 8:41 PM
[2017-01-30] MEDS ORDERED: LEVAQUIN 750MG / 150ML D5W IV STA (20:53)
--- NOTE | 2017-01-30 20:53 | EMERGENCY ROOM VISIT NOTE ---
History Report prepared by Gabriele: Rei Gary Under the Supervision of: Dr. Fidencio Cowart M.D. First contact with patient: 18:21 Chief Complaint: CONGESTION Stated Complaint: CHEST PAIN,CLAMY SWEATS,NAUSEA,HEAD/NECK PAIN History of Present Illness The patient is a 31 year old female who presents to the Emergency Room with complaints of intermittent left-sided chest pain beginning two days prior to arrival. She describes the pain as tightness and currently rates her discomfort as an 8/10 in severity. The patient states she is on amoxicillin for a cold that she began six days ago. She notes she had a follow up appointment with her PCP, and her provider attributed her chest pain to a pulled muscle. The patient denies having an EKG or chest x-ray at that time. She associates a cough, intermittent dizziness, and intermittent diaphoresis with today's symptoms. The patient notes she experiences the dizziness and diaphoresis with exertion. She states her blood pressure was 130/80 at the doctor's office two days ago, and it was 190/100 today. The patient notes she has experienced improved cold symptoms except for her chest pain. She states she has been taking her blood pressure medication. The patient notes she experienced a pain in her left arm with her chest pain yesterday. She states her son was recently diagnosed with mono but she tested negative for this. The patient denies a history of a blood clot in her leg or lung. She denies a fever, leg swelling, and recent long travel or immobility. 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 Review of Systems See HPI for pertinent positives & negatives. A total of 10 systems reviewed and were otherwise negative. Past Medical & Surgical Medical Problems: (1) Abdominal pain (2) Anxiety (3) Anxiety and depression (4) Borderline personality disorder (5) C. difficile colitis (6) Depression (7) Depression (8) Drug overdose, intentional (9) GERD (gastroesophageal reflux disease) (10) GERD (gastroesophageal reflux disease) (11) Headache (12) HTN (hypertension) (13) Hyperlipidemia (14) Hypertension (15) Hypothyroidism (16) Hypothyroidism (17) IBS (irritable bowel syndrome) (18) Left ventricular hypertrophy (19) Lumbago (20) Lumbar disc disorder (21) Migraine (22) Migraine (23) Morbid Obesity (24) Non-occlusive coronary artery disease (25) Noncompliance with medications (26) Obesity (27) IGNACIO (obstructive sleep apnea) (28) IGNACIO (obstructive sleep apnea) (29) Overdose (30) Past Psych Med (31) Polycystic ovarian syndrome Surgical Problems: (1) Adrenal tumor removed (2) H/O arthroscopic knee surgery (3) H/O arthroscopic knee surgery (4) H/O hemorrhoidectomy (5) H/O: hysterectomy (6) History of carpal tunnel surgery (7) History of carpal tunnel surgery (8) History of hysterectomy (9) Hx of appendectomy (10) Hx of cholecystectomy (11) Hx of decompressive lumbar laminectomy (12) Hx of hemorrhoidectomy (13) Hx of partial thyroidectomy (14) S/P appendectomy (15) S/P cholecystectomy (16) S/p removal adrenal gland tumor (17) S/P tonsillectomy and adenoidectomy (18) S/P tonsillectomy and adenoidectomy Family History Cancer Diabetes mellitus FHx: ME FHx: blood clots FHx: heart disease Gallbladder disease Heart disease Hypertension Kidney disease Lung disease Social History Smoking Status: Current Every Day Smoker Alcohol Use: none Drug Use: none Marital Status: single, in relationship Housing Status: lives with family Occupation Status: disabled Current/Historical Medications Scheduled Amoxicillin (Amoxil), 500 MG PO TID Aripiprazole (Abilify), 1 TAB PO DAILY Buspirone Hcl (Buspirone Hcl), 10 MG PO BID Hydralazine Hcl (Apresoline), 0.5 TAB PO TID Labetalol Hcl (Labetalol Hcl), 200 MG PO TID Levothyroxine Sodium (Levothyroxine Sodium), 1 TAB PO 6XWK Levothyroxine Sodium (Levothyroxine Sodium), 300 MCG PO WK Sertraline (Zoloft), 75 MG PO DAILY Scheduled PRN Clonidine HCl (Clonidine HCl), 0.1 TAB PO BID PRN for Blood Pressure Hydroxyzine Hcl (Atarax), 2 TAB PO HS PRN for Insomnia Tizanidine (Zanaflex), 4 MG PO TID PRN for Muscle Spasms Allergies Coded Allergies: Sulfa Antibiotics (Verified Allergy, Severe, RASH, DIFFICULTY BREATHING, HAD LASIX OK PREV.ADM., 11/25/16) NSAIDs (Verified Adverse Reaction, Unknown, KIDNEY FAILURE, 11/25/16) 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 Hypertensive 230/170. Eyes: Pupils are equal round reactive to light. Conjunctiva are noninjected. ENT: Pharynx is clear without erythema or exudate. Mucous membranes are moist. Neck supple without meningeal signs. Respiratory: Clear to auscultation bilaterally. Breath sounds are equal bilaterally. Cardiovascular: Tachycardic rate and rhythm. No rubs or gallops. GI: Soft, nondistended and nontender. Bowel sounds are present. Musculoskeletal: No peripheral edema. No lower extremity tenderness. Integumentary: No cyanosis. Neurological: The patient is awake and alert. No focal deficits. Psychiatric: Normal affect. Medical Decision & Procedures ER Provider Diagnostic Interpretation: Radiology results as stated below per my review and the radiologist's interpretation: CHEST ONE VIEW PORTABLE CLINICAL HISTORY: Evaluate for pneumonia. COMPARISON STUDY: Chest radiograph November 27, 2016. FINDINGS: Moderate cardiomegaly is unchanged. No pneumothorax or pleural effusion is present. There are no areas of consolidation to suggest pneumonia. There is no evidence of pulmonary edema. IMPRESSION: 1. No acute cardiopulmonary findings. 2. Stable moderate cardiomegaly. Electronically signed by: Pancho Altman M.D. 01/30/2017 6:[address] ANGIOGRAPHY OF THE CHEST, PULMONARY EMBOLUS PROTOCOL CLINICAL HISTORY: Chest pain. Elevated d-dimer. Congestion. COMPARISON STUDY: Chest CT June 16, 2016. TECHNIQUE: Following IV administration of 84 mL of [id number]-320, helical axial images of the chest were obtained utilizing the pulmonary embolus protocol. Maximal intensity projections and sagittal and coronal reformats were viewed on an independent 3D workstation. IV contrast was administered without complication. CT DOSE: 730.74 mGy.cm FINDINGS: No pulmonary emboli are identified. There is moderate to marked cardiomegaly with marked concentric left ventricular hypertrophy. There is a trace pericardial effusion. Central airways are patent. There is no pneumothorax or pleural effusion. There are scattered tree-in-bud nodular densities within the lungs, most pronounced within the right upper lobe. There is no significant abnormalities of the bony thorax. The gallbladder is surgically absent. There is no evidence for thoracic aortic dissection. IMPRESSION: 1. No pulmonary emboli identified. 2. Scattered tree-in-bud nodules within the lungs which represent an infectious process and could reflect bronchopneumonia or bronchiolitis. 3. No change in moderate to marked cardiomegaly with marked concentric left ventricular hypertrophy. Laboratory Results 01/30/17 18:38 Red Blood Count 5.11, Mean Corpuscular Volume 81.6, Mean Corpuscular Hemoglobin 29.4, Mean Corpuscular Hemoglobin Concent 36.0, Mean Platelet Volume 10.6, Neutrophils (%) (Auto) 67.5, Lymphocytes (%) (Auto) 23.8, Monocytes (%) (Auto) 5.5, Eosinophils (%) (Auto) 2.5, Basophils (%) (Auto) 0.2, Neutrophils # (Auto) 8.35, Lymphocytes # (Auto) 2.94, Monocytes # (Auto) 0.68, Eosinophils # (Auto) 0.31, Basophils # (Auto) 0.02 01/30/17 18:38 Test 01/30/17 18:38 01/30/17 18:48 White Blood Count 12.36 K/uL (4.8-10.8) Red Blood Count 5.11 M/uL (4.2-5.4) Hemoglobin 15.0 g/dL (12.0-16.0) Hematocrit 41.7 % (37-47) Mean Corpuscular Volume 81.6 fL (80-100) Mean Corpuscular Hemoglobin 29.4 pg (25-34) Mean Corpuscular Hemoglobin Concent 36.0 g/dl (32-36) Platelet Count 182 K/uL (130-400) Mean Platelet Volume 10.6 fL (7.4-10.4) Neutrophils (%) (Auto) 67.5 % Lymphocytes (%) (Auto) 23.8 % Monocytes (%) (Auto) 5.5 % Eosinophils (%) (Auto) 2.5 % Basophils (%) (Auto) 0.2 % Neutrophils # (Auto) 8.35 K/uL (1.4-6.5) Lymphocytes # (Auto) 2.94 K/uL (1.2-3.4) Monocytes # (Auto) 0.68 K/uL (0.11-0.59) Eosinophils # (Auto) 0.31 K/uL (0-0.5) Basophils # (Auto) 0.02 K/uL (0-0.2) RDW Standard Deviation 40.0 fL (36.4-46.3) RDW Coefficient of Variation 13.5 % (11.5-14.5) Immature Granulocyte % (Auto) 0.5 % Immature Granulocyte # (Auto) 0.06 K/uL (0.00-0.02) Prothrombin Time 10.5 SECONDS (9.0-12.0) Prothromb Time International Ratio 1.0 (0.9-1.1) Activated Partial Thromboplast Time 24.8 SECONDS (21.0-31.0) Partial Thromboplastin Ratio 1.0 Anion Gap 7.0 mmol/L (3-11) Est Creatinine Clear Calc Drug Dose 56.0 ml/min Estimated GFR () 48.6 Estimated GFR (Non- 41.9 BUN/Creatinine Ratio 10.4 (10-20) Calcium Level 9.4 mg/dl (8.5-10.1) Bedside D-Dimer > 450 ng/mlFEU (0-450) Bedside Troponin I 0.040 ng/ml (0-0.045) Laboratory results as reviewed by me. Medications Administered Medications (Trade) Dose Ordered Sig/Randi Route Start Time Stop Time Status Last Admin Dose Admin Morphine Sulfate (MoRPHine SULFATE INJ) 6 mg NOW STAT IV 01/30/17 18:32 01/30/17 18:33 DC 01/30/17 18:43 6 MG Ondansetron HCl (Zofran Inj) 4 mg NOW STAT IV 01/30/17 18:32 01/30/17 18:33 DC 01/30/17 18:43 4 MG Labetalol HCl (Normodyne IV) 10 mg NOW STAT IV 01/30/17 19:19 01/30/17 19:20 DC 01/30/17 19:28 10 MG Morphine Sulfate 4 mg 4 mg NOW STAT IV 01/30/17 19:44 01/30/17 19:45 DC 01/30/17 20:34 4 MG Sodium Chloride (Nss 1000ml) 1,000 ml @ 999 mls/hr Q1H1M STAT IV 01/30/17 20:03 01/30/17 21:03 01/30/17 20:34 999 MLS/HR Labetalol HCl (Normodyne IV) 10 mg NOW STAT IV 01/30/17 20:33 01/30/17 20:34 DC 01/30/17 20:39 10 MG ECG Indication: chest pain Rate (beats per minute): 113 Rhythm: sinus tachycardia Findings: T-wave inversion (V4-V6 and one in aVL and lead II), no ectopy, other (LVH) Comparison ECG Date: 11/29/2016 Change: no significant change ED Course 1823: The patient was evaluated in room B9. A complete history and physical exam was performed. 1831: Ordered Zofran Inj 4 mg IV, Morphine Sulfate 6 mg IV. 1916: Reevaluated and updated the patient at this time, and talked about her elevated D-Dimer. She agrees to a CT scan and understands there is a risk of kidney problems with the dye. The patient is still tachycardic and her blood pressure is 240/160. 1918: Ordered Labetalol HCl 10 mg IV. 1942: Reevaluated the patient at this time, and she is requesting more pain medication. 1943: Ordered Morphine Sulfate 4 mg IV. 2002: Ordered Sodium Chloride 1,000 ml @ 999 mls/hr IV. 2029: Reevaluated the patient at this time, and her blood pressure is 207/159. 2032: Ordered Labetalol HCl 10 mg IV. 2042: I spoke to Dr. Ramila Hartmann (Hospitalist) about the patient's case, and he will follow the patient for further evaluation. Medical Decision This is a 31-year-old female who presents with hypertension, chest pain and cold symptoms. Differential diagnosis includes pneumonia, bronchitis, medication noncompliance, hypertensive urgency, myocarditis, pericarditis, pulmonary embolism. I did perform a limited focused review of portions of the patient's old chart on the electronic medical record. The patient was admitted in August 2016 for chest pain and hypertensive urgency with headaches. Mildly elevated troponin was seen by cardiology, who felt her pain was likely pleuritic. A cardiac cath in March revealed mild nonobtrusive disease. CT of chest, abdomen, and pelvis did not show any acute abnormality of the vasculature. I did evaluate the patient as noted above. IV access was established. The patient was placed on a continuous campus monitor. The patient is severely hypertensive. She complains of left sided chest pain. She was given IV morphine and Zofran. I did also treat her with IV labetalol. She had continued pain and was given IV morphine again. I did order and personally review the patient's 12-lead EKG and chest x-ray as described above. She has an abnormal EKG but no significant change from her prior EKG. Her chest x-ray does not show pneumonia. I did order and review the patient's blood work as noted in the electronic medical record. Troponin is not elevated. Her d-dimer is elevated. Creatinine is 1.6 which is baseline. I did have a discussion with her regarding her test results. I did discuss risks and benefits of CT scanning of the chest to rule out PE given she has had chest pain short of breath and tachycardia. She did agree to the CAT scan. I did order a CT of the chest. I did review the images myself as well as the radiology report as described above. The patient remained persistently hypertensive. She is given a additional labetalol IV. The patient was given IV antibiotics and will be hospitalized. Consults Time Called: 2037 Consulting Physician: Dr. Ramila Hartmann (Hospitalist) Returned Call: [address] Ramila Hartmann (Hospitalist) about the patient's case, and he will follow the patient for further evaluation. Impression Primary Impression: Hypertensive emergency Additional Impressions: Left sided chest pain Pneumonia Scribe Attestation The scribe's documentation has been prepared under my direct and personally reviewed by me in its entirety. I confirm that the note above accurately reflects all work, treatment, procedures, and medical decision making performed by me. Departure Information Dispostion Being Evaluated By Hospitalist (Dr. Ramila Hartmann (Hospitalist)) Referrals No Doctor, Assigned (PCP) Problem Qualifiers Additional Impressions: Pneumonia Pneumonia type: due to unspecified organism Laterality: unspecified laterality Lung location: unspecified part of lung Qualified Codes: J18.9 - Pneumonia, unspecified organism
[2017-01-30] MEDS ORDERED: ATOR-54 PO (21:12)
[2017-01-30] MEDS ORDERED: METOPROLOL TARTRATE 1 MG/ML VIAL IV PRN (21:30)
[2017-01-30] MEDS ORDERED: NITROGLYCERIN OINT 2% 1GM PACKET EXT STA (21:41)
[2017-01-30] MEDS ORDERED: hydrOXYzine HCL 25 MG TAB PO PRN (21:45)
--- NOTE | 2017-01-30 22:01 | History and Physical ---
History & Physical Date & Time of Service: Jan 30, 2017 at 21:11 Chief Complaint: Chest Pain,Clamy Sweats,Nausea,Head/Neck Pain Primary Care Physician: No Doctor, Assigned History of Present Illness Source: patient, clinic records, hospital records Patient seen and examined. 31 year old female with PMHx of IGNACIO, HTN, CKD stage 3 , HLD, hypothyroidism, anxiety/depression presents to the ED complaining of chest pain x 2 days. She states she has been having off and on chest pain described as tightness with occasional sharp qualities. She states it will last for about 20 minutes and then go away. She reports associated "cold clammy sweaty feeling." She also reports occasional radiation to the left arm. She also reports nausea, and cough with yellow sputum production. She reports headache not different from her migraines. She denies fevers, chills, SOB, vomiting, diarrhea, dysuria, calf pain and edema. She denies illicit drug use. She saw her PCP 2 days ago at which time her BP was 130/80. She was given amoxicillin for a respiratory infection. In the ED BP >200/150, she is tachycardic, EKG is unchanged, Troponin is negative, DDimer is elevated CTA chest is negative for PE but shows possible pneumonia. She received IV labetalol 10mg x 2 doses, and 10mg total of IV morphine. Elevated BP persists. She will be admitted for further workup and treatment. Past Medical/Surgical History Medical Problems: (1) Anxiety Status: Chronic (2) Anxiety and depression Status: Chronic (3) Depression Status: Chronic (4) Depression Status: Chronic (5) GERD (gastroesophageal reflux disease) Status: Chronic (6) GERD (gastroesophageal reflux disease) Status: Chronic (7) HTN (hypertension) Status: Chronic (8) Hypertension Status: Chronic (9) Hypothyroidism Status: Chronic (10) Hypothyroidism Status: Chronic (11) IBS (irritable bowel syndrome) Status: Chronic (12) Left ventricular hypertrophy Permanent Comment: severe concentric LVH, IVSd 2.3 cm 06/18/16 Status: Chronic (13) Lumbago Status: Chronic (14) Lumbar disc disorder Status: Chronic (15) Migraine Status: Chronic (16) Migraine Status: Chronic (17) Morbid Obesity Status: Chronic (18) Non-occlusive coronary artery disease Status: Chronic (19) Noncompliance with medications Status: Chronic (20) Obesity Status: Chronic (21) IGNACIO (obstructive sleep apnea) Status: Chronic (22) IGNACIO (obstructive sleep apnea) Status: Chronic (23) Polycystic ovarian syndrome Status: Chronic Surgical Problems: (1) Adrenal tumor removed Status: Chronic (2) H/O arthroscopic knee surgery Status: Chronic (3) H/O arthroscopic knee surgery Status: Chronic (4) H/O hemorrhoidectomy Status: Chronic (5) H/O: hysterectomy Status: Chronic (6) History of carpal tunnel surgery Status: Chronic (7) History of carpal tunnel surgery Status: Chronic (8) History of hysterectomy Status: Chronic (9) Hx of appendectomy Status: Chronic (10) Hx of cholecystectomy Status: Chronic (11) Hx of decompressive lumbar laminectomy Status: Chronic (12) Hx of hemorrhoidectomy Status: Chronic (13) Hx of partial thyroidectomy Status: Chronic (14) S/P appendectomy Status: Chronic (15) S/P cholecystectomy Status: Chronic (16) S/p removal adrenal gland tumor Status: Chronic (17) S/P tonsillectomy and adenoidectomy Status: Chronic (18) S/P tonsillectomy and adenoidectomy Status: Chronic Family History Cancer Diabetes mellitus FHx: IA FHx: blood clots FHx: heart disease Gallbladder disease Heart disease Hypertension Kidney disease Lung disease Social History Smoking Status: Current Every Day Smoker Drug Use: none Marital Status: single, in relationship Housing status: lives with significant other Occupational Status: disabled Immunizations History of Influenza Vaccine: Yes Allergies Coded Allergies: Sulfa Antibiotics (Verified Allergy, Severe, RASH, DIFFICULTY BREATHING, HAD LASIX OK PREV.ADM., 11/25/16) NSAIDs (Verified Adverse Reaction, Unknown, KIDNEY FAILURE, 11/25/16) 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 STAY AWAY FROM DUE TO KIDNEY FUNCTION Tramadol (Verified Adverse Reaction, Unknown, "MAKES ME DIZZY", 11/25/16) Home Medications Scheduled Amoxicillin (Amoxil), 500 MG PO TID Aripiprazole (Abilify), 5 MG PO DAILY Atorvastatin (Lipitor), 20 MG PO DAILY Buspirone Hcl (Buspirone Hcl), 10 MG PO BID Hydralazine Hcl (Apresoline), 0.5 TAB PO TID Labetalol Hcl (Labetalol Hcl), 200 MG PO TID Levothyroxine Sodium (Levothyroxine Sodium), 1 TAB PO [id number] Levothyroxine Sodium (Levothyroxine Sodium), 300 MCG PO WK Sertraline (Zoloft), 50 MG PO DAILY Scheduled PRN Clonidine HCl (Clonidine HCl), 0.1 TAB PO BID PRN for Blood Pressure Hydroxyzine Hcl (Atarax), 2 TAB PO HS PRN for Insomnia Tizanidine (Zanaflex), 4 MG PO TID PRN for Muscle Spasms Review of Systems Constitutional: + sweats, No chills, No fever Eyes: No worsening of vision ENT: No nasal symptoms Respiratory: + cough, + sputum, No shortness of breath Cardiovascular: + chest pain, No edema, No palpitations Abdomen: No constipation, No diarrhea, No nausea, No pain, No vomiting Musculoskeletal: No swelling Genitourinary - Female: + urinary frequency, No dysuria Neurologic: No numbness/tingling, No vertigo Psychiatric: No anxiety Endocrine: No excessive thirst, No fatigue Hematologic / Lymphatic: No abnormal bleeding/bruising, No clotting problems Integumentary: No itch, No rash Allergic / Immunologic: No environmental allergies Physical Exam Vital Signs Date Time Temp Pulse Resp B/P Pulse Ox O2 Delivery O2 Flow Rate FiO2 01/30/17 20:37 97 19 207/159 01/30/17 19:45 95 14 236/156 96 Room Air 01/30/17 19:33 96 21 223/152 92 Room Air 01/30/17 19:15 240/160 01/30/17 18:49 113 01/30/17 18:37 95 Room Air 01/30/17 18:25 230/170 01/30/17 18:15 36.7 118 20 97 Room Air General Appearance: + pertinent finding (Obese 31 year old female sitting in bed in NAD ) Head: normocephalic, atraumatic Eyes: EOMI, sclerae normal ENT: hearing grossly normal, pharynx normal Neck: supple, no JVD Respiratory/Chest: chest non-tender, lungs clear, normal breath sounds, no respiratory distress, no accessory muscle use Cardiovascular: no edema, no gallop, no JVD, no murmur, normal peripheral pulses, + tachycardia Abdomen/GI: normal bowel sounds, non tender, soft (obese) Extremities/Musculoskelatal: no calf tenderness, normal capillary refill, no pedal edema Neurologic/Psych: no motor/sensory deficits, alert, oriented x 3 Skin: normal color, warm/dry, no rash Lymphatic: no adenopathy Diagnostics Laboratory Results Results Past 24 Hours Test 01/30/17 18:38 01/30/17 18:48 Range/Units White Blood Count 12.36 4.8-10.8 K/uL Red Blood Count 5.11 4.2-5.4 M/uL Hemoglobin 15.0 12.0-16.0 g/dL Hematocrit 41.7 37-47 % Mean Corpuscular Volume 81.6 80-100 fL Mean Corpuscular Hemoglobin 29.4 25-34 pg Mean Corpuscular Hemoglobin Concent 36.0 32-36 g/dl Platelet Count 182 130-400 K/uL Mean Platelet Volume 10.6 7.4-10.4 fL Neutrophils (%) (Auto) 67.5 % Lymphocytes (%) (Auto) 23.8 % Monocytes (%) (Auto) 5.5 % Eosinophils (%) (Auto) 2.5 % Basophils (%) (Auto) 0.2 % Neutrophils # (Auto) 8.35 1.4-6.5 K/uL Lymphocytes # (Auto) 2.94 1.2-3.4 K/uL Monocytes # (Auto) 0.68 0.11-0.59 K/uL Eosinophils # (Auto) 0.31 0-0.5 K/uL Basophils # (Auto) 0.02 0-0.2 K/uL RDW Standard Deviation 40.0 36.4-46.3 fL RDW Coefficient of Variation 13.5 11.5-14.5 % Immature Granulocyte % (Auto) 0.5 % Immature Granulocyte # (Auto) 0.06 0.00-0.02 K/uL Prothrombin Time 10.5 9.0-12.0 SECONDS Prothromb Time International Ratio 1.0 0.9-1.1 Activated Partial Thromboplast Time 24.8 21.0-31.0 SECONDS Partial Thromboplastin Ratio 1.0 Sodium Level 144 136-145 mmol/L Potassium Level 3.9 3.5-5.1 mmol/L Chloride Level 102 98-107 mmol/L Carbon Dioxide Level 35 21-32 mmol/L Anion Gap 7.0 3-11 mmol/L Blood Urea Nitrogen 17 7-18 mg/dl Creatinine 1.60 0.60-1.20 mg/dl Est Creatinine Clear Calc Drug Dose 56.0 ml/min Estimated GFR () 48.6 Estimated GFR (Non- 41.9 BUN/Creatinine Ratio 10.4 10-20 Random Glucose 112 70-99 mg/dl Calcium Level 9.4 8.5-10.1 mg/dl Bedside D-Dimer > 450 0-450 ng/mlFEU Bedside Troponin I 0.040 0-0.045 ng/ml Microbiology Results 01/30/17 Blood Culture, Xavier Batch Pending 01/30/17 Blood Culture, Xavier Batch Pending Diagnostic Radiology CXR Per radiologist read: IMPRESSION: 1. No acute cardiopulmonary findings. 2. Stable moderate cardiomegaly. CTA CHEST Per radiologist read: IMPRESSION: 1. No pulmonary emboli identified. 2. Scattered tree-in-bud nodules within the lungs which represent an infectious process and could reflect bronchopneumonia or bronchiolitis. 3. No change in moderate to marked cardiomegaly with marked concentric left ventricular hypertrophy. EKG Sinus Tachycardia 113 BPM, LVH, T wave inversion noted, QTc 485 Impression Assessment and Plan 31 year old female presents to the ED complaining of chest pain x 2 days. BP > 200/150s. HYPERTENSIVE URGENCY -Admit to tele -? cause, has history of noncompliance in the past, ? secondary hypertension as patient is young and on multiple agents. Noncompliance with CPAP in IGNACIO likely major contributing factor -Receive Labetalol 10mg IV x 2 dose in ED -No signs of end-organ damage, Crea 1.6 which is baseline -Continue home po Labetalol, Hydralazine -Resume po Amlodipine - unsure when this was stopped, patient unsure about most of her home meds -Add nitropaste 1in q6h -IV Lopressor 5mg prn SBP >180, HR >110 -Will hold prn clonidine for now as patient has not been taking this at home so doubtful that withdrawal is causing rebound hypertension -Check for secondary causes - Renal artery US pending to r/o stenosis -Plasma Metanephrine ordered- reference lab -Check echo -Monitor closely in tele -CBC, PRP, Mg daily COMMUNITY ACQUIRED PNEUMONIA -mild leukocytosis 12K, afebrile -check sputum culture, blood culture -empirically treat with Levaquin CHEST PAIN -likely secondary to hypertensive urgency, R/O ACS -No PE on CTA -Troponin negative x 1 -Serial JUSTIN, EKGs -update echo -Nitro-paste 1in q6h -monitor in tele ELEVATED DDIMER -CTA chest negative for PE -check BLLE dopplers IGNACIO -noncompliant with CPAP d/t intolerance -likely contributing to HTN CKD STAGE 3 -Crea 1.6 which is near baseline -avoid nephrotoxic agents as able -follow PRP HLD -continue Statin HYPOTHYROIDISM -check TSH -continue Synthroid ANXIETY/DEPRESSION -continue Abilify, Zoloft DVT PROPHYLAXIS: Sq heparin CODE STATUS: FULL CODE DISPO:In my clinical judgment this beneficiary meets acute admission criteria, established by [facility], that includes being hospitalized through two midnights. Patient seen in collaboration with Dr. Mcgrath Attending Note: Patient is a 31 yr old female with PMH of HTN, CKD III, IGNACIO (not on CPAP secondary to intolerance) and other problems presents with history of intermittent, self limiting left sided chest pain since 2 days. Associated with nausea, diaphoresis and intermittent dizziness. Also has yellowish productive cough and is being treated by her PCP for possible URI since 5 days. In ED patient was found to have hypertensive Urgency. Physical Exam: Vitals signs as noted above General Appearance:Obese, mild distress Head: normocephalic, Atraumatic Eyes: normal inspection, EOMI, PERRL Neck: supple, Trachea midline Respiratory/Chest: Normal breath sounds, CTA Cardiovascular: S1, S2, + sinus tachycardia, No murmur Abdomen/GI:Soft, Non tender, Bowel sounds present Extremities/Musculoskelatal:normal inspection, no edema Neurologic/Psych:AAOX3, grossly no focal neurological deficits Skin:normal color,warm Assessment and Plan: Hypertensive Urgency: Rule out secondary causes: Renal artery stenosis, Pheo ? Compliance check ECHO Restart home meds Lopressor PRN, Nitropaste Q6H Elevated D-dimer: No PE on CTA Check Venous Doppler I personally reviewed the record. Patient is interviewed and examined at bedside. Patient's care is coordinated with wSeta Queen PA-C. Please refer to the documentation above for details of patient's presentation and for discussion of other issues.
[2017-01-30 22:27] VITALS: BP 191/141; PULSE 94; TEMP 36.7; O2SAT 94; Ht 157.5 cm; Wt 105.7 kg
[2017-01-30 23:59] VITALS: O2SAT 94
[2017-01-31] VITALS (7 sets, daily range): BP systolic 125–201; BP diastolic 79–139; PULSE 81–91; TEMP 36.5–37; O2SAT 94–96
[2017-01-31 00:52] LABS: CKMB/CK RATIO 1.7 (0-3.0)
[2017-01-31] MEDS: ACETAMINOPHEN 325 MG TAB PO PRN ×3 (00:55→15:48)
[2017-01-31] MEDS: ONDANSETRON INJ 2 MG/ML 2 ML VIAL IV PRN ×4 (01:31→23:57)
[2017-01-31] MEDS ORDERED: HYDROmorphone INJ 1 MG/ML SYR IV ONE (01:45)
[2017-01-31] MEDS: NITROGLYCERIN OINT 2% 1GM PACKET EXT SCH ×2 (03:48→10:00)
[2017-01-31] MEDS ORDERED: ENALAPRILAT IV 2.5 MG in DEXTROSE 5% 25ML 25 ML IV ONE (05:00)
[2017-01-31] MEDS ORDERED: HYDROmorphone INJ 0.5 MG/0.5 ML SYR IV ONE (05:15)
[2017-01-31] MEDS: LEVOTHYROXINE 150 MCG TAB PO SCH (06:00)
[2017-01-31] MEDS ORDERED: HEPARIN SOD 5000 UNIT/0.5 ML CARP SQ SCH (06:00)
--- NOTE | 2017-01-31 06:40 | DIAGNOSTIC IMAGING REPORT ---
CT HEAD WITHOUT CONTRAST (CT) CLINICAL HISTORY: Severe headache, possible stroke. COMPARISON STUDY: 10/10/2016 TECHNIQUE: Axial CT of the brain is performed from the vertex to the skull base. IV contrast was not administered for this examination. CT DOSE: 537.48 mGy.cm FINDINGS: No intra or extra-axial mass lesions are visualized. There is no CT evidence of acute cortical infarction. There is no evidence of midline shift. There is no acute hemorrhage. No calvarial fractures are visualized. There is no evidence of pathologic ventricular dilatation. There is no evidence of acute sinusitis IMPRESSION: No acute intracranial findings Electronically signed by: Romain Valencia M.D. 01/31/2017 6:39 AM Dictated Date/Time: 01/31/2017 6:29 AM
--- NOTE | 2017-01-31 06:40 | DIAGNOSTIC IMAGING REPORT ---
BILATERAL LOWER EXTREMITY VENOUS DOPPLER HISTORY: Chest pain. Dyspnea. elevated ddi claudia COMPARISON STUDY: None. FINDINGS: There is normal compressibility, flow, and augmentation within the bilateral lower extremity deep venous systems. IMPRESSION: No DVT within the right or left lower extremity. Electronically signed by: Virgilio Garcia M.D. 01/31/2017 6:39 AM Dictated Date/Time: 01/31/2017 6:39 AM
--- NOTE | 2017-01-31 06:57 | DIAGNOSTIC IMAGING REPORT ---
RENAL ARTERY DUPLEX ULTRASOUND CLINICAL HISTORY: hypertensive urgency COMPARISON STUDY: CT scan dated 08/12/2016 FINDINGS: The right kidney measures 11.3 cm in length. The left kidney measured 10.6 cm in length. The peak systolic velocity within the aorta was 119 cm/s. The peak systolic velocity within the left renal artery was 173 cm/s. Peak systolic velocity within the left renal artery was 113 cm/s. IMPRESSION: No evidence of renal artery stenosis. Electronically signed by: Romain Valencia M.D. 01/31/2017 6:55 AM Dictated Date/Time: 01/31/2017 6:54 AM
[2017-01-31 07:00] LABS: HEMATOCRIT 39.7 % (37-47); MEAN CELL VOLUME 82.9 fL (80-100); MEAN CORPUSCULAR HEMOGLOBIN 28.4 pg (25-34); MEAN CORPUSCULAR HGB CONC 34.3 g/dl (32-36); MEAN PLATELET VOLUME 10.3 fL (7.4-10.4); PLATELET COUNT 165 K/uL (130-400); RED BLOOD COUNT 4.79 M/uL (4.2-5.4); WHITE BLOOD COUNT 13.51 K/uL (4.8-10.8)
[2017-01-31 07:49] LABS: BUN/CREATININE RATIO 14.8 (10-20); CALCIUM 8.8 mg/dl (8.5-10.1); CREATININE 1.4 mg/dl (0.60-1.20); MAGNESIUM 2.4 mg/dl (1.8-2.4); POTASSIUM 4.3 mmol/L (3.5-5.1)
[2017-01-31 07:55] LABS: CHOLESTEROL/HDL RATIO 6.5; CKMB/CK RATIO 1.5 (0-3.0)
[2017-01-31] MEDS: LABETALOL HCL 200 MG TAB PO SCH ×3 (08:08→19:27)
[2017-01-31] MEDS: ATORVASTATIN 20 MG TAB PO SCH (08:09)
[2017-01-31] MEDS: AMLODIPINE BESYLATE 5 MG TAB PO SCH (08:09)
[2017-01-31] MEDS: SERTRALINE HCL 50 MG TAB PO SCH (08:09)
[2017-01-31] MEDS: ARIPIprazole TAB 5 MG TAB PO SCH (08:10)
[2017-01-31] MEDS ORDERED: PERFLUTREN LIPID MICROSPHERE (DEFINITY) IV ONE (09:08)
--- NOTE | 2017-01-31 09:51 | Progress Note ---
Medicine Progress Note Date & Time of Visit: January 31, 2017 at 09:36. Subjective patient seen with NISHA Santana at bedside sleeping but easily rousable reports left sided chest discomfort, improving compared to last night denies shortness of breath, nausea, dizziness denies cough, sputum production but reports chills at home reports generalized headache that started last night, no focal neuro symptoms Objective Last 8 Hrs Date Time Temp Pulse Resp B/P Pulse Ox O2 Delivery O2 Flow Rate FiO2 01/31/17 09:26 125/80 01/31/17 08:01 36.7 88 18 155/117 94 Room Air 01/31/17 04:02 36.8 84 22 201/139 96 Room Air 01/31/17 04:00 94 Room Air Physical Exam: General- oriented x 3, not in distress, speaks in sentences with no effort Eyes- PERRL, EOMI, anicteric ENT- oropharynx clear Neck- supple, no JVD, no adenopathy, no thyromegaly;no bruits appreciated Lungs- clear breath sounds bilaterally,no rales/wheezes Heart- regular rhythm; no murmur, normal rate Abdomen- normal bowel sounds, soft, nontender Extremities- no pretibial edema, no calf tenderness Neuro- alert, oriented x 3; no gross focal deficits Skin- warm & dry Laboratory Results: Last 24 Hours Test 01/30/17 18:38 01/30/17 18:48 01/30/17 21:45 01/31/17 00:16 White Blood Count 12.36 K/uL Red Blood Count 5.11 M/uL Hemoglobin 15.0 g/dL Hematocrit 41.7 % Mean Corpuscular Volume 81.6 fL Mean Corpuscular Hemoglobin 29.4 pg Mean Corpuscular Hemoglobin Concent 36.0 g/dl Platelet Count 182 K/uL Mean Platelet Volume 10.6 fL Neutrophils (%) (Auto) 67.5 % Lymphocytes (%) (Auto) 23.8 % Monocytes (%) (Auto) 5.5 % Eosinophils (%) (Auto) 2.5 % Basophils (%) (Auto) 0.2 % Neutrophils # (Auto) 8.35 K/uL Lymphocytes # (Auto) 2.94 K/uL Monocytes # (Auto) 0.68 K/uL Eosinophils # (Auto) 0.31 K/uL Basophils # (Auto) 0.02 K/uL RDW Standard Deviation 40.0 fL RDW Coefficient of Variation 13.5 % Immature Granulocyte % (Auto) 0.5 % Immature Granulocyte # (Auto) 0.06 K/uL Prothrombin Time 10.5 SECONDS Prothromb Time International Ratio 1.0 Activated Partial Thromboplast Time 24.8 SECONDS Partial Thromboplastin Ratio 1.0 Sodium Level 144 mmol/L Potassium Level 3.9 mmol/L Chloride Level 102 mmol/L Carbon Dioxide Level 35 mmol/L Anion Gap 7.0 mmol/L Blood Urea Nitrogen 17 mg/dl Creatinine 1.60 mg/dl Est Creatinine Clear Calc Drug Dose 56.0 ml/min Estimated GFR () 48.6 Estimated GFR (Non- 41.9 BUN/Creatinine Ratio 10.4 Random Glucose 112 mg/dl Calcium Level 9.4 mg/dl Magnesium Level 2.4 mg/dl Thyroid Stimulating Hormone (TSH) 3.900 uIu/ml Bedside D-Dimer > 450 ng/mlFEU Bedside Troponin I 0.040 ng/ml Total Creatine Kinase 99 U/L Creatine Kinase MB 1.7 ng/ml Creatine Kinase MB Ratio 1.7 Troponin I 0.052 ng/ml Test 01/31/17 06:24 01/31/17 09:23 White Blood Count 13.51 K/uL Red Blood Count 4.79 M/uL Hemoglobin 13.6 g/dL Hematocrit 39.7 % Mean Corpuscular Volume 82.9 fL Mean Corpuscular Hemoglobin 28.4 pg Mean Corpuscular Hemoglobin Concent 34.3 g/dl RDW Standard Deviation 40.8 fL RDW Coefficient of Variation 13.6 % Platelet Count 165 K/uL Mean Platelet Volume 10.3 fL Sodium Level 138 mmol/L Potassium Level 4.3 mmol/L Chloride Level 101 mmol/L Carbon Dioxide Level 33 mmol/L Anion Gap 4.0 mmol/L Blood Urea Nitrogen 21 mg/dl Creatinine 1.40 mg/dl Est Creatinine Clear Calc Drug Dose 65.3 ml/min Estimated GFR () 57.1 Estimated GFR (Non- 49.2 BUN/Creatinine Ratio 14.8 Random Glucose 128 mg/dl Calcium Level 8.8 mg/dl Magnesium Level 2.4 mg/dl Total Creatine Kinase 123 U/L Creatine Kinase MB 1.9 ng/ml Creatine Kinase MB Ratio 1.5 Troponin I 0.043 ng/ml Triglycerides Level 267 mg/dl Cholesterol Level 242 mg/dl HDL Cholesterol 37 mg/dl LDL Cholesterol, Calculated 152 mg/dl VLDL Cholesterol, Calculated 53 mg/dl Cholesterol/HDL Ratio 6.5 Date/Time Source Procedure Growth Status 01/30/17 21:10 Blood Blood Culture Pending Received 01/30/17 21:05 Blood Blood Culture Pending Received Assessment & Plan 31 year old female with Hypertension, CKD, IGNACIO presenting with chest pain. HYPERTENSIVE URGENCY - patient apparently not aware that she needs to also take Amlodipine, taking PRN Clonidine instead has history of IGNACIO - presented with systolic bp 230 - given Nitropaste, PRN Enalaprilat, Labetalol -- Amlodipine resumed Labetalol, Hydralazine continued - BP now improved to systolic 125 d/c Nitropaste continue PO Amlodipine, Hydralazine, Labetalol -- plasma metanephrine, echo ordered renal US: no renal artery stenosis CHEST PAIN -likely secondary to hypertensive urgency, R/O ACS -No PE on CTA - had 1 troponin level of 0.05 ekg: non specific t wave depression in the inferior lead echo pending - last cath in 2016 - diffuse atherosclerosis 20%, severe LVH - Cardiology consulted HEADACHE likely from Hypertensive Urgency, Nitropaste, Underlying Pneumonia also has history of chronic headaches, possible migraine - d/c Nitropaste - avoid Narcotics to prevent precipitous drop in BP, rebound headache, also has history of drug seeking behavior PRN Tylenol for now no NSAIDs due to CKD per Neurology notes in 2016, may use Gabapentin for headache prophylaxis COMMUNITY ACQUIRED PNEUMONIA - afebrile, but WBC 13k - CT chest: (+) right upper and lower lobe pneumonia - continue Levaquin Day 2 ELEVATED DDIMER -CTA chest negative for PE -BLLE dopplers: negative IGNACIO -noncompliant with CPAP d/t intolerance -likely contributing to HTN CKD STAGE 3 -Crea 1.4-1.6which is near baseline HLD -continue Statin HYPOTHYROIDISM -normal TSH -continue Synthroid ANXIETY/DEPRESSION -continue Abilify, Zoloft mood stable as per patient DVT PROPHYLAXIS: heparin on hold due to hypertensive urgency resume when BP stable CODE STATUS: FULL CODE DISPO pending anticipate d/c home when medically stable Current Inpatient Medications: Current Inpatient Medications Medications (Trade) Dose Ordered Sig/Randi Route Start Time Stop Time Status Last Admin Dose Admin Ioversol (Optiray 320) 100 ml UD PRN IV 01/30/17 19:30 02/03/17 19:29 Acetaminophen (Tylenol Tab) 650 mg Q4H PRN PO 01/30/17 21:30 03/01/17 21:29 01/31/17 07:33 650 MG Ondansetron HCl (Zofran Inj) 4 mg Q6H PRN IV 01/30/17 21:30 03/01/17 21:29 01/31/17 07:34 4 MG Nitroglycerin (Nitroglycerin 2% Oint) 1 inch Q6H EXT 01/31/17 04:00 03/02/17 03:59 01/31/17 03:48 1 INCH Metoprolol Tartrate (Lopressor Iv) 5 mg Q6 PRN IV 01/30/17 21:30 03/01/17 21:29 01/31/17 00:16 5 MG Atorvastatin Calcium (Lipitor Tab) 20 mg DAILY PO 01/31/17 09:00 03/02/17 08:59 01/31/17 08:09 20 MG Hydralazine HCl (Apresoline Tab) 25 mg TID PO 01/31/17 09:00 03/02/17 08:59 01/31/17 08:11 25 MG Hydroxyzine HCl (Vistaril Tab) 100 mg HS PRN PO 01/30/17 21:45 03/01/17 21:44 Labetalol HCl (Normodyne Tab) 200 mg TID PO 01/31/17 09:00 03/02/17 08:59 01/31/17 08:08 200 MG Levothyroxine Sodium (Synthroid Tab) 150 mcg SuMoTuThFrSa@0600 PO 01/31/17 06:00 03/02/17 05:59 Levothyroxine Sodium (Synthroid Tab) 300 mcg We@0600 PO 02/02/17 06:00 03/04/17 05:59 Sertraline HCl (Zoloft Tab) 50 mg DAILY PO 01/31/17 09:00 03/02/17 08:59 01/31/17 08:09 50 MG Aripiprazole (Abilify Tab) 5 mg DAILY PO 01/31/17 09:00 03/02/17 08:59 01/31/17 08:10 5 MG Buspirone HCl (Buspar Tab) 10 mg BID PO 01/31/17 09:00 03/02/17 08:59 01/31/17 04:43 10 MG Tizanidine HCl (Zanaflex Tab) 4 mg TID PRN PO 01/30/17 21:45 03/01/17 21:44 01/31/17 04:12 4 MG Amlodipine Besylate 10 mg 10 mg QAM PO 01/31/17 09:00 03/02/17 08:59 01/31/17 08:09 10 MG Levofloxacin/Prmx (Levaquin / D5W/ Premixed D5W) 150 ml @ 100 mls/hr Q24H IV 01/31/17 22:00 02/06/17 21:59
[2017-01-31 10:03] LABS: URINE APPEARANCE CLEAR (CLEAR); URINE BILIRUBIN NEG (NEG); URINE COLOR YELLOW; URINE EPITHELIAL CELL AUTO >30 /lpf (0-5); URINE NITRITE NEG (NEG); URINE PH 5.5 (4.5-7.5); URINE SPECIFIC GRAVITY 1.037 (1.000-1.030); UROBILINOGEN NEG (NEG); ZZUR CULT IF INDIC CLEAN CATCH NO
[2017-01-31 10:12] LABS: MANUAL MICROSCOPIC REQUIRED? NO; REVIEW REQ? NO
--- NOTE | 2017-01-31 10:50 | Cardiology Consultation ---
Cardiology Consultation Date of Consultation: January 31, 2017 Requesting Physician: Garrett Attending Steam Drier Tender: Josy (Virgilio Keenan PA-C) History of Present Illness History of Present Illness: Cassandra St is a complex 31 year old female who is being seen at the request of Dr. Tucker. Reason for consultation is chest pain. Ms. St presented to the [facility] ER on 01/30/2017 with complaints of chest pain, diaphoresis, nausea, and migraine headache. Blood pressure on presentation was 240/160. She notes having a tightness and/or sharp discomfort in her left chest for the past two days. Symptoms are similar to her prior episodes of hypertensive urgency. Symptoms are not brought on by activity , seemingly radiating to the left arm transiently on Tuesday, without aggravating or alleviating factors identified. She notes having a migraine, feeling cold and clammy. She notes seeing Dr. Rosa on 01/27/2017, prescribed amoxicillin 500 mg twice a day for a URI, son recently with strep throat and mono. EKG on presentation showed no acute changes from her baseline. Initial point of care troponin was negative at 0.040 ng/mL. Troponin I 0.052 ng/mL then normalizing to 0.043 ng/mL. Given the tachycardia on presentation along with an elevated DDimer she was referred for a CTA of the chest which was negative for PE, possibly revealing bronchopneumonia or bronchiolitis. There was no change in moderate to marked cardiomegaly with marked concentric left ventricular hypertrophy. There was no evidence of pericardial effusion on chest CT. The patient received IV labetalol and nitro past along with reinstitution of her prior antihypertensive regimen resulting in normalization of her blood pressure this morning. At the time of my evaluation she notes ongoing issues with a migraine headache. (Virgilio Keenan PA-C) History Past Medical/Surgical History Severe hypertension Hypertensive heart disease. Stage III chronic kidney disease Mild nonobstructive coronary artery disease Obstructive sleep apnea Anxiety and depression Gastroesophageal reflux disease Hypothyroidism Irritable bowel syndrome Lumbar disc disorder, lumbago, status post lumbar laminectomy Migraine headaches Morbid Obesity Chart history of noncompliance with medications Polycystic ovarian syndrome Adrenal tumor removed Arthroscopic right knee surgery in October 2016 Hemorrhoidectomy Hysterectomy Bilateral carpal tunnel surgery Appendectomy Cholecystectomy Partial thyroidectomy Tonsillectomy and adenoidectomy x 2. Family History: Father with CAD, ICD. Mother is without cardiac issues. Only child. Social History: Reformed smoker, quit in 2001. Boyfriend smokes. No alcohol. Denies illegal drug use. Disabled secondary to anxiety and depression. (Virgilio Keenan PA-C) Review Of Systems General: + Headaches. Chills. Mild sweats. No soaking night sweats. Denies fever. Head: Migraine headaches. No head trauma. Cardiovascular: See above. Stable MASON. No orthopnea. No edema. No syncope. Pulmonary: + Cough. + Chest congestion. No hemoptysis. See above. Gastrointestinal: Nausea. No vomiting. No diarrhea. Skin: No rash. No recent tattoos or piercings. Tattoos on left ankle and both shoulders. Right eyebrow, chin, tongue, and nipple piercing bilaterally. Musculoskeletal: Back pain. Knee pain. Neurological: Denies history of stroke or seizure Complete review of systems is as stated above, negative, or noncontributory. 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 TOLD PATIENT TO STAY AWAY FROM DUE TO KIDNEY FUNCTION Tramadol (Verified Adverse Reaction, Unknown, "MAKES ME DIZZY", 11/25/16) Medications Reported Home Medications Medications Dose Route/Sig Max Daily Dose Days Date Category Dose Instructions Lipitor (Atorvastatin) 20 Mg Tab 20 Mg PO DAILY 01/30/17 Reported Abilify (Aripiprazole) Unknown Strength Tab 5 Mg PO DAILY 01/30/17 Reported Zanaflex (Tizanidine HCl) 4 Mg Cap 4 Mg PO TID PRN 01/30/17 Reported Buspirone Hcl 10 Mg Tab 10 Mg PO BID 01/30/17 Reported Zoloft (Sertraline HCl) 50 Mg Tab 50 Mg PO DAILY 01/30/17 Reported Amoxil (Amoxicillin) 500 Mg Cap 500 Mg PO TID 01/30/17 Reported Atarax (Hydroxyzine Hcl) 50 Mg Tab 2 Tab PO HS PRN 15 12/02/16 Rx Apresoline (Hydralazine Hcl) 50 Mg Tab 0.5 Tab PO TID 30 11/29/16 Reported Clonidine HCl 0.1 Mg Tab 0.1 Tab PO BID PRN 11/29/16 Reported Labetalol Hcl 200 Mg Tab 200 Mg PO TID 10/10/16 Reported Levothyroxine Sodium 150 Mcg Tab 300 Mcg PO WK 08/07/16 Reported EVERY TUESDAY Levothyroxine Sodium 150 Mcg Tab 1 Tab PO [id number] 08/07/16 Reported EVERY DAY EXCEPT TUESDAY (Virgilio Keenan PA-C) Physical Exam Vital Signs (Last 8hrs): Last 8 Hrs Date Time Temp Pulse Resp B/P Pulse Ox O2 Delivery O2 Flow Rate FiO2 01/31/17 09:26 125/80 01/31/17 08:01 36.7 88 18 155/117 94 Room Air 01/31/17 08:00 Room Air 01/31/17 04:02 36.8 84 22 201/139 96 Room Air 01/31/17 04:00 94 Room Air General Appearance: Older than physiologic age. Alert and Oriented x3. NAD. Elevated BMI. Head: Normocephalic Atraumatic. Eyes: PER, EOMI, Conjunctiva and sclera injected. No icterus. Neck: No carotid bruits. No JVD. Respiratory: Clear anteriorly. Cardiovascular: RRR, 76 bpm. Soft systolic ejection murmur. No diastolic murmur. No rub. Abdomen: +BS. No abdominal bruits. Soft. Nontender. Extremities: No clubbing, cyanosis, or peripheral edema, Distal pulses 2-3/4 bilaterally. Neuro: No focal deficits. Psychiatric: Flat affect. (Virgilio Keenan PA-C) Data Last 24 Hours Test 01/30/17 18:38 01/30/17 18:48 01/30/17 21:45 01/31/17 00:16 White Blood Count 12.36 K/uL Red Blood Count 5.11 M/uL Hemoglobin 15.0 g/dL Hematocrit 41.7 % Mean Corpuscular Volume 81.6 fL Mean Corpuscular Hemoglobin 29.4 pg Mean Corpuscular Hemoglobin Concent 36.0 g/dl Platelet Count 182 K/uL Mean Platelet Volume 10.6 fL Neutrophils (%) (Auto) 67.5 % Lymphocytes (%) (Auto) 23.8 % Monocytes (%) (Auto) 5.5 % Eosinophils (%) (Auto) 2.5 % Basophils (%) (Auto) 0.2 % Neutrophils # (Auto) 8.35 K/uL Lymphocytes # (Auto) 2.94 K/uL Monocytes # (Auto) 0.68 K/uL Eosinophils # (Auto) 0.31 K/uL Basophils # (Auto) 0.02 K/uL RDW Standard Deviation 40.0 fL RDW Coefficient of Variation 13.5 % Immature Granulocyte % (Auto) 0.5 % Immature Granulocyte # (Auto) 0.06 K/uL Prothrombin Time 10.5 SECONDS Prothromb Time International Ratio 1.0 Activated Partial Thromboplast Time 24.8 SECONDS Partial Thromboplastin Ratio 1.0 Sodium Level 144 mmol/L Potassium Level 3.9 mmol/L Chloride Level 102 mmol/L Carbon Dioxide Level 35 mmol/L Anion Gap 7.0 mmol/L Blood Urea Nitrogen 17 mg/dl Creatinine 1.60 mg/dl Est Creatinine Clear Calc Drug Dose 56.0 ml/min Estimated GFR () 48.6 Estimated GFR (Non- 41.9 BUN/Creatinine Ratio 10.4 Random Glucose 112 mg/dl Calcium Level 9.4 mg/dl Magnesium Level 2.4 mg/dl Thyroid Stimulating Hormone (TSH) 3.900 uIu/ml Bedside D-Dimer > 450 ng/mlFEU Bedside Troponin I 0.040 ng/ml Total Creatine Kinase 99 U/L Creatine Kinase MB 1.7 ng/ml Creatine Kinase MB Ratio 1.7 Troponin I 0.052 ng/ml Test 01/31/17 06:24 01/31/17 08:00 White Blood Count 13.51 K/uL Red Blood Count 4.79 M/uL Hemoglobin 13.6 g/dL Hematocrit 39.7 % Mean Corpuscular Volume 82.9 fL Mean Corpuscular Hemoglobin 28.4 pg Mean Corpuscular Hemoglobin Concent 34.3 g/dl RDW Standard Deviation 40.8 fL RDW Coefficient of Variation 13.6 % Platelet Count 165 K/uL Mean Platelet Volume 10.3 fL Sodium Level 138 mmol/L Potassium Level 4.3 mmol/L Chloride Level 101 mmol/L Carbon Dioxide Level 33 mmol/L Anion Gap 4.0 mmol/L Blood Urea Nitrogen 21 mg/dl Creatinine 1.40 mg/dl Est Creatinine Clear Calc Drug Dose 65.3 ml/min Estimated GFR () 57.1 Estimated GFR (Non- 49.2 BUN/Creatinine Ratio 14.8 Random Glucose 128 mg/dl Calcium Level 8.8 mg/dl Magnesium Level 2.4 mg/dl Total Creatine Kinase 123 U/L Creatine Kinase MB 1.9 ng/ml Creatine Kinase MB Ratio 1.5 Troponin I 0.043 ng/ml Triglycerides Level 267 mg/dl Cholesterol Level 242 mg/dl HDL Cholesterol 37 mg/dl LDL Cholesterol, Calculated 152 mg/dl VLDL Cholesterol, Calculated 53 mg/dl Cholesterol/HDL Ratio 6.5 Urine Color YELLOW Urine Appearance CLEAR Urine pH 5.5 Urine Specific [place] 1.037 Urine Protein 2+ Urine Glucose (UA) NEG Urine Ketones NEG Urine Occult Blood NEG Urine Nitrite NEG Urine Bilirubin NEG Urine Urobilinogen NEG Urine Leukocyte Esterase NEG Urine WBC (Auto) 1-5 /hpf Urine RBC (Auto) 0-4 /hpf Urine Hyaline Casts (Auto) 1-5 /lpf Urine Epithelial Cells (Auto) >30 /lpf Urine Bacteria (Auto) NEG November 20, 2015 diagnostic cardiac catheterization by Dr. Walters at [facility] revealed right dominant coronary anatomy with mild diffuse coronary atherosclerosis of 20% or less throughout all major vessels. Small vessel disease with distal narrowing of branch vessels and competitive flow within the left ventricular septal branches consistent with severe left ventricular hypertrophy. Hyperdynamic ejection fractions, EF greater than 70%. Elevated left ventricular end diastolic pressures. Admission CXR: No acute cardiopulmonary findings. Stable moderate cardiomegaly. As per Dr. Altman EKG on presentation was poor in data quality, revealing sinus tachycardia at 113 bpm, left atrial enlargement, left ventricular hypertrophy with repolarization abnormality. Cannot rule out Septal infarct. EKG this morning reveals sinus rhythm at [address]-T wave abnormality consistent with history of severe LVH. QTc 508 ms. Telemetry: Sinus/sinus tachycardia. No pauses. No atrial or ventricular arrhythmias. Chest CTA: See above. Renal duplex showed no evidence of renal artery stenosis as per Dr. Valencia. Venous duplex was negative for DVT bilaterally as per Dr. Garcia Head CT showed no acute intracranial findings as per Dr. Valencia. (Virgilio Keenan PA-C) Assessment & Plan Complex 31 year old female with history of marked hypertension, severe hypertensive heart disease, multiple underlying medical issues listed above. Patient presents this admission with chest pain associated with hypertensive urgency, responding well to initial treatments in the ER as well as resumption of her prior antihypertensive regimen. Elevated troponin observed transiently, likely in association with marked hypertension in the setting of severe hypertensive heart disease, suspect medication noncompliance, less likely rebound from PRN Clonidine use. Agree with use of labetalol and amlodipine. Would advise caution with the use of afterload reduction agents, hydralazine as well as diuretics, noting observed hyperdynamic systolic function on prior echocardiography. Evaluation for secondary causes ordered. Aggressive medical therapy advised including risk factor and life style modification. No further cardiac workup anticipated this admission though resting echo is pending as is evaluation by Dr. Ferris. (Virgilio Keenan PA-C) CARDIOLOGY ATTENDING ADDENDUM: The patient was seen and personally examined. Agree with Virgilio Keenan PA-C's findings and plans as documented above. I discussed with the patient the need for lifestyle changes which she desperately needs. (Jeronimo Ferris, DO)
[2017-01-31] MEDS ORDERED: GABAPENTIN 600 MG TAB PO ONE (12:00)
[2017-01-31] MEDS ORDERED: NURSING VERBAL MED ORDER ONE (12:00)
--- NOTE | 2017-01-31 15:10 | ECHOCARDIOGRAM REPORT ---
*NOTICE TO RECEIVING [employer] AGENCY This information is strictly Confidential and protected under [place] law. [place] law prohibits you from making any further disclosure of this information unless further disclosure is expressly permitted by the written consent of the person to whom it pertains or is authorized by law. A general authorization for the release of medical or other information is not sufficient for this purpose. Hospital accepts no responsibility if the information is made available to any other person, INCLUDING THE PATIENT. Interpretation Summary * Name: YANA CUBA Study Date: 01/31/2017 08:20 AM BP: 155/117 mmHg * Patient Location: .2E\S\E208\S\1 HR: 88 * : 1985 (M/d/yyyy) Gender: Female Height: 62 in * Age: 31 yrs Ethnicity: CA Weight: 225 lb * Ordering Physician: Sweta Queen * Referring Physician: Self, Referred * Performed By: Kelsie Garcia RDCS * * Reason For Study: HTN URGENCY * BSA: 2.0 m2 * -- Conclusions -- * There is severe concentric left ventricular hypertrophy. * The left ventricular cavity is small. * Echo findings are not consistent with left ventricular outflow obstruction. * Ejection Fraction = >70 %. * Grade I diastolic dysfunction, (abnormal relaxation pattern). * The right ventricular systolic function is normal. * The left atrial size is normal. * Right atrial size is normal. * No systolic anterior motion of the mitral valve. Procedure Details * A contrast injection of Definity was performed to improve assessment of LV function. * Contrast was injected into an intravenous site in the left arm. * One vial of Definity ultrasound contrast was diluted in normal saline to a total volume of 10 ml. A total of '2' ml of solution was administered during imaging. * Lot # [id number] of Definity utilized for procedure. * Expiration date JAN 18. * The attending nurse who injected the contrast agent was KEVAN RIOS RN. Left Ventricle * The left ventricular cavity is small. * There is severe concentric left ventricular hypertrophy. * Echo findings are not consistent with left ventricular outflow obstruction. * Ejection Fraction = >70 %. Right Ventricle * The right ventricle is normal size. * The right ventricular systolic function is normal. Atria * The left atrial size is normal. * Right atrial size is normal. * The interatrial septum is intact with no evidence for an atrial septal defect. Mitral Valve * The mitral valve anatomy is normal. * No systolic anterior motion of the mitral valve. * Significant mitral regurgitation is absent. Tricuspid Valve * The tricuspid valve anatomy is normal. * Significant tricuspid regurgitation is absent. Aortic Valve * The aortic valve is tricuspid. The leaflet thickness if normal. There is no aortic stenosis, and no significant insufficiency. * Aortic stenosis is absent. * There is no significant aortic regurgitation. Pulmonic Valve * The pulmonic valve is not well visualized. * There is no significant pulmonary regurgitation. Pericardium/Pleural * There is no pericardial effusion. Left Ventricular Diastolic Function * Grade I diastolic dysfunction, (abnormal relaxation pattern). MMode 2D Measurements and Calculations IVSd 2.2 cm IVSs 2.4 cm LVIDd 3.7 cm LVIDs 2.2 cm LVPWd 2.7 cm LVPWs 3.2 cm IVS/LVPW 0.82 FS 40.6 % EDV(Teich) 59.3 ml ESV(Teich) 16.5 ml EF(Teich) 72.2 % EDV(cubed) 51.9 ml ESV(cubed) 10.9 ml EF(cubed) 79.0 % % IVS thick 11.6 % % LVPW thick 20.0 % LV mass(C)d 481.1 grams LV mass(C)dI 239.4 grams/m\S\2 LV mass(C)s 392.5 grams LV mass(C)sI 195.3 grams/m\S\2 SV(Teich) 42.8 ml SI(Teich) 21.3 ml/m\S\2 SV(cubed) 41.0 ml SI(cubed) 20.4 ml/m\S\2 Ao root diam 3.1 cm Ao root area 7.8 cm\S\2 LA dimension 4.2 cm LA/Ao 1.3 LVAd ap4 27.8 cm\S\2 LVLd ap4 9.0 cm EDV(MOD-sp4) 71.0 ml LVAs ap4 12.6 cm\S\2 LVLs ap4 6.7 cm ESV(MOD-sp4) 22.0 ml EF(MOD-sp4) 69.0 % LVAd ap2 24.8 cm\S\2 LVLd ap2 9.4 cm EDV(MOD-sp2) 56.9 ml LVAs ap2 11.0 cm\S\2 LVLs ap2 7.4 cm ESV(MOD-sp2) 15.3 ml EF(MOD-sp2) 73.1 % SV(MOD-sp4) 49.0 ml SI(MOD-sp4) 24.4 ml/m\S\2 SV(MOD-sp2) 41.6 ml SI(MOD-sp2) 20.7 ml/m\S\2 Doppler Measurements and Calculations MV E max álvaro 65.0 cm/sec MV A max álvaro 77.6 cm/sec MV E/A 0.84 MV dec time 0.15 sec Ao V2 max 199.1 cm/sec Ao max PG 15.9 mmHg Ao max PG (full) 2.3 mmHg LV V1 max PG 13.5 mmHg LV V1 max 183.9 cm/sec
[2017-01-31] MEDS ORDERED: NITROGLYCERIN 2% OINTMENT 30GM TUBE EXT SCH (16:00)
[2017-01-31] MEDS: GABAPENTIN 600 MG TAB PO SCH (18:06)
[2017-01-31] MEDS ORDERED: HYDROmorphone INJ 0.5 MG/0.5 ML SYR IV STA (20:58)
[2017-01-31] MEDS ORDERED: LEVOFLOXACIN / D5W 750 MG in PREMIXED IN D5W 150 ML IV SCH (22:00)
[2017-02-01] VITALS: BP 137/91; PULSE 85; TEMP 36.7; O2SAT 95
[2017-02-01 03:41] VITALS: BP 135/84; PULSE 75; TEMP 36.7; O2SAT 95
[2017-02-01] MEDS: LEVOTHYROXINE 150 MCG TAB PO SCH (05:56)
[2017-02-01 08:07] VITALS: BP 129/58; PULSE 79; TEMP 36.9; O2SAT 99
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
[2017-02-01] MEDS: GABAPENTIN 600 MG TAB PO SCH ×2 (09:28→13:23)
[2017-02-01] MEDS: ARIPIprazole TAB 5 MG TAB PO SCH (09:29)
[2017-02-01] MEDS: LABETALOL HCL 200 MG TAB PO SCH ×2 (09:30→13:23)
[2017-02-01] MEDS: SERTRALINE HCL 50 MG TAB PO SCH (09:30)
[2017-02-01] MEDS: AMLODIPINE BESYLATE 5 MG TAB PO SCH (09:30)
[2017-02-01] MEDS: ATORVASTATIN 20 MG TAB PO SCH (09:30)
[2017-02-01 11:36] VITALS: BP 120/78; PULSE 69; TEMP 36.8; O2SAT 95
[2017-02-01 15:31] VITALS: BP 146/95; PULSE 81; TEMP 37.1; O2SAT 95
[2017-02-01] MEDS ORDERED: NRV5 PO (16:43)
[2017-02-01] MEDS ORDERED: DXY100 PO (16:45)
--- NOTE | 2017-02-01 16:46 | Progress Note ---
Internal Med Progress Note Date of Service: February 01, 2017. Provider Documentation: SUBJECTIVE: feels fine today . no SOB or MASON BP much improved SBP in 130-140 mentions having occasional achy sensation on left side of chest , but thinks it is due to muscle pull eager to go home OBJECTIVE: Vital Signs-as noted below Exam: General-young female , no sign of discomfort Eyes-sclera non icteric Lungs-CTA Heart-regular S1/S2 Abdomen-soft, non tender Extremities-no lower ext edema Neuro-AAO x3 ,no focal neurological deficit Lab data as noted below. ASSESSMENT & PLAN: 31 year old female with hx of chronic Hypertension poorly controlled , CKD stage 3 , hx of depression , chronic migraine headache IGNACIO presented with chest pain. in the ED found to be in Hypertensive urgency SBP > 200 HYPERTENSIVE URGENCY -possible due to not taking antihypertensives appropriately - patient was apparently not aware that she needs to also take Amlodipine, was taking PRN Clonidine instead has history of IGNACIO - presented with systolic bp 230 - given Nitrosate, PRN Enalaprilat, Labetalol -- Amlodipine resumed-on Norvasc 10 mg daily Labetalol, Hydralazine -home medications continued - BP now improved to systolic 125-130 continue PO Amlodipine, Hydralazine, Labetalol renal US: no renal artery stenosis -- plasma metanephrine ordered-reference lab ECHO shows : There is severe concentric left ventricular hypertrophy. The left ventricular cavity is small. Echo findings are not consistent with left ventricular outflow obstruction. Ejection Fraction = >70 %. Grade I diastolic dysfunction, (abnormal relaxation pattern). The right ventricular systolic function is normal. appreciate input from Cardiology hypertensive urgency resolved with reinstitution of her previously prescribed antihypertensive regimen pt can be discharged home with prior home medications in agreement with Norvasc 10 mg /Labetalol 200 mg TID dose given evidence of severe Hypertensive Heart disease /with hyperdynamic systolic function Caution with the use of afterload reduction agents, hydralazine as well as diuretics CHEST PAIN symptom has resolved -likely secondary to hypertensive urgency, no evidence of ACS -No PE on CTA on cheat - mild elevation of troponin due to cardiac strain , CKD stge 3 - last cath in 2016 - diffuse atherosclerosis 20%, severe LVH ECHO as above ; no wall motion abnormality noted - Cardiology consulted-appreciate input pt to continue all her out pt BP meds -out pt follow up with Dr Noel as per schedule HEADACHE likely from Hypertensive Urgency, Nitropaste, Underlying Pneumonia -symptom has resoled after Nitropaste D/patrick has history of chronic headaches/ migraine - follows with [facility] Neurology pt was seen by Valerie HERNANDEZ -was given detail information regarding migranine headache , prophylaxis pt does not have insurance coverage for Fioricet not a candidate for Imitrex due to risk of multiple drug interaction /has chronic prolong Qtc per Neurology notes in 2016, may use Gabapentin for headache prophylaxis pt started on Gabapentin 600 mg TID will need continued follow up with Neurology COMMUNITY ACQUIRED PNEUMONIA - afebrile, no cough - CT chest: (+) right upper and lower lobe pneumonia - will D/c Levaquin; Qtc > 500 -PO Doxycycline for 5 more days ELEVATED DDIMER -due to above -infection /pneumonia -CTA chest negative for PE -BLLE dopplers: negative IGNACIO -noncompliant with CPAP d/t intolerance -likely contributing to HTN CKD STAGE 3 due to hypertensive nephrosclerosis -Crea 1.4-1.6 which is near baseline HLD -continue Statin HYPOTHYROIDISM -normal TSH -continue Synthroid ANXIETY/DEPRESSION -continue Abilify, Zoloft mood stable as per patient DVT PROPHYLAXIS: low risk ambulate CODE STATUS: FULL CODE DISPOSITION discharge home today Vital Signs: Date Time Temp Pulse Resp B/P Pulse Ox O2 Delivery O2 Flow Rate FiO2 02/01/17 15:31 37.1 81 20 146/95 95 Room Air 02/01/17 12:00 Room Air 02/01/17 12:00 Room Air 02/01/17 11:36 36.8 69 16 120/78 95 02/01/17 08:07 36.9 79 18 129/58 99 02/01/17 08:00 Room Air 02/01/17 04:00 Room Air 02/01/17 03:41 36.7 75 22 135/84 95 Room Air 02/01/17 00:00 36.7 85 22 137/91 95 Room Air 01/31/17 23:59 Room Air 01/31/17 20:00 Room Air 01/31/17 19:29 37.0 91 18 152/98 96 Room Air
--- NOTE | 2017-02-01 16:54 | Discharge Instructions ---
Discharge Instructions Date of Service February 01, 2017. Admission Reason for Admission: Hypertensive Urgency Discharge Discharge Diagnosis / Problem: HYPERTENSIVE URGENCY Discharge Goals Goal(s): Decrease discomfort, Improve disease control, Learn about illness, Diagnostic testing Activity Recommendations Activity Limitations: resume your previous activity . Instructions / Follow-Up Instructions / Follow-Up HOSPITAL FOLLOW UP ON 02/07/2017 @ 2:[address] Norah Bailey, DO [facility] CARDIOLOGY FOLLOW UP ON 02/11/2017 @9:[address] Drake Noel Jr., DO Cardiology, [facility] IT IS VERY IMPORTANT TO TAKE ALL YOUR MEDICATIONS INCLUDING FOR BLOOD PRESSURE CONTROL PRESCRIBED PLEASE CHECK BLOOD PRESSURE AT LEAST 2 -3 TIMES A WEEK AND KEEP LOG TO BRING IN NEXT APPOINTMENT AVOID SALT IN YOUR DIET -WILL CAUSE BLOOD PRESSURE TO GO HIGH PLEASE CHECK BLOOD PRESSURE IN MORNING FOR ACCURATE MEASUREMENT CHECK BLOOD PRESSURES AFTER HAVING BREAKFAST , TAKE ALL YOUR MEDICATIONS , AFTER RESTING FOR [address] BAILEY'S OFFICE IF YOUR BLOOD PRESSURE SYSTOLIC /UPPER NUMBER IS ABOVE 160 OR HAVING CHEST HEAVINESS, SHORTNESS OF BREATH OR DIASTOLIC PRESSURE /BELOW NUMBER ABOVE 100 AND HAVING SIMILAR SYMPTOMS Current Hospital Diet Patient's current hospital diet: AHA Diet (Heart Healthy) Discharge Diet Recommended Diet: AHA Diet (Heart Healthy) Pending Studies Studies pending at discharge: no Laboratory Results Lipid Panel Test 01/31/17 06:24 Range/Units Triglycerides Level 267 H 0-150 mg/dl Cholesterol Level 242 H 0-200 mg/dl HDL Cholesterol 37 mg/dl Cholesterol/HDL Ratio 6.5 LDL Cholesterol, Calculated 152 mg/dl Medical Emergencies . Who to Call and When: Medical Emergencies: If at any time you feel your situation is an emergency, please call 911 immediately. . Non-Emergent Contact Non-Emergency issues call your: Primary Care Provider, Machine Greaser . . "Provider Documentation" section prepared by Carmella Adams. . VTE Core Measure Inpt VTE Proph given/why not?: Enoxaparin (Lovenox)SQ
[2017-02-01] MEDS ORDERED: DOXYCYCLINE HYCLATE 100 MG CAP PO ONE (17:00)
[2017-02-01] MEDS ORDERED: NRN600 PO (18:14)
--- NOTE | 2017-02-01 18:21 | Discharge Summary ---
Discharge Summary Date of Service February 01, 2017. Discharge Summary Admission Date: Jan 30, 2017 at 21:27 Discharge Date: February 01, 2017 Discharge Disposition: Home Principal Diagnosis: HYPERTENSIVE URGENCY Procedures: CARDIAC MONITORING ECHO 01/31/17 : There is severe concentric left ventricular hypertrophy. The left ventricular cavity is small. Echo findings are not consistent with left ventricular outflow obstruction. Ejection Fraction = >70 %. Grade I diastolic dysfunction, (abnormal relaxation pattern). The right ventricular systolic function is normal. The left atrial size is normal. Right atrial size is normal. No systolic anterior motion of the mitral valve. CT CHEST WITH CONTRAST : 1. No pulmonary emboli identified. 2. Scattered tree-in-bud nodules within the lungs which represent an infectious process and could reflect bronchopneumonia or bronchiolitis. 3. No change in moderate to marked cardiomegaly with marked concentric left ventricular hypertrophy. Consultations: [facility] CARDIOLOGY Medication Reconciliation New Medications: Doxycycline Hyclate (Doxycycline Hyclate) 100 Mg Cap 1 CAP PO BID for 5 Days, #10 CAP Amlodipine Besylate (Amlodipine Besylate) 5 Mg Tab 10 MG PO QAM for 30 Days, #60 TAB 1 Refill Gabapentin (Gabapentin) 600 Mg Tab 600 MG PO TID for 30 Days, #90 TAB 2 Refills Continued Medications: Aripiprazole (Abilify) Unknown Strength Tab 5 MG PO DAILY, TAB Atorvastatin (Lipitor) 20 Mg Tab 20 MG PO DAILY, TAB Buspirone Hcl (Buspirone Hcl) 10 Mg Tab 10 MG PO BID, TAB Hydralazine Hcl (Apresoline) 50 Mg Tab 0.5 TAB PO TID for 30 Days, #90 TAB 5 Refills Hydroxyzine Hcl (Atarax) 50 Mg Tab 2 TAB PO HS PRN for Insomnia for 15 Days, #30 TAB Labetalol Hcl (Labetalol Hcl) 200 Mg Tab 200 MG PO TID, TAB Levothyroxine Sodium (Levothyroxine Sodium) 150 Mcg Tab 1 TAB PO 6XWK, TAB 3 Refills EVERY DAY EXCEPT TUESDAY Levothyroxine Sodium (Levothyroxine Sodium) 150 Mcg Tab 300 MCG PO WK EVERY TUESDAY Sertraline (Zoloft) 50 Mg Tab 50 MG PO DAILY, TAB Tizanidine (Zanaflex) 4 Mg Cap 4 MG PO TID PRN for Muscle Spasms, CAP Discontinued Medications: Amoxicillin (Amoxil) 500 Mg Cap 500 MG PO TID, #20 Clonidine HCl (Clonidine HCl) 0.1 Mg Tab 0.1 TAB PO BID PRN for Blood Pressure Referrals At Discharge Follow up Referrals: Business Solutions Architect Referral - 02/11/17 with Drake Noel D.O. Physician Referral - 02/07/17 with Norah Bailey D.O. Admission Information HPI (per Admitting provider): Patient seen and examined. 31 year old female with PMHx of IGNACIO, HTN, CKD stage 3 , HLD, hypothyroidism, anxiety/depression presents to the ED complaining of chest pain x 2 days. She states she has been having off and on chest pain described as tightness with occasional sharp qualities. She states it will last for about 20 minutes and then go away. She reports associated "cold clammy sweaty feeling." She also reports occasional radiation to the left arm. She also reports nausea, and cough with yellow sputum production. She reports headache not different from her migraines. She denies fevers, chills, SOB, vomiting, diarrhea, dysuria, calf pain and edema. She denies illicit drug use. She saw her PCP 2 days ago at which time her BP was 130/80. She was given amoxicillin for a respiratory infection. In the ED BP >200/150, she is tachycardic, EKG is unchanged, Troponin is negative, DDimer is elevated CTA chest is negative for PE but shows possible pneumonia. She received IV labetalol 10mg x 2 doses, and 10mg total of IV morphine. Elevated BP persists. She will be admitted for further workup and treatment. Physical Exam (per Admitting): General Appearance: + pertinent finding (Obese 31 year old female sitting in bed in NAD ) Head: normocephalic, atraumatic Eyes: EOMI, sclerae normal ENT: hearing grossly normal, pharynx normal Neck: supple, no JVD Respiratory/Chest: chest non-tender, lungs clear, normal breath sounds, no respiratory distress, no accessory muscle use Cardiovascular: no edema, no gallop, no JVD, no murmur, normal peripheral pulses, + tachycardia Abdomen/GI: normal bowel sounds, non tender, soft (obese) Extremities/Musculoskelatal: no calf tenderness, normal capillary refill, no pedal edema Neurologic/Psych: no motor/sensory deficits, alert, oriented x 3 Skin: normal color, warm/dry, no rash Lymphatic: no adenopathy Hospital Course 31 year old female with hx of chronic Hypertension poorly controlled , CKD stage 3 , hx of depression , chronic migraine headache IGNACIO presented with chest pain. in the ED found to be in Hypertensive urgency SBP > 200 HYPERTENSIVE URGENCY -possible due to not taking antihypertensives appropriately - patient was apparently not aware that she needs to also take Amlodipine, was taking PRN Clonidine instead has history of IGNACIO - presented with systolic bp 230 - given Nitrosate, PRN Enalaprilat, Labetalol -- Amlodipine resumed-on Norvasc 10 mg daily Labetalol, Hydralazine -home medications continued - BP now improved to systolic 125-130 continue PO Amlodipine, Hydralazine, Labetalol renal US: no renal artery stenosis -- plasma metanephrine ordered-reference lab ECHO shows : There is severe concentric left ventricular hypertrophy. The left ventricular cavity is small. Echo findings are not consistent with left ventricular outflow obstruction. Ejection Fraction = >70 %. Grade I diastolic dysfunction, (abnormal relaxation pattern). The right ventricular systolic function is normal. appreciate input from Cardiology hypertensive urgency resolved with reinstitution of her previously prescribed antihypertensive regimen pt can be discharged home with prior home medications in agreement with Norvasc 10 mg /Labetalol 200 mg TID dose given evidence of severe Hypertensive Heart disease /with hyperdynamic systolic function Caution with the use of afterload reduction agents, hydralazine as well as diuretics CHEST PAIN symptom has resolved -likely secondary to hypertensive urgency, no evidence of ACS -No PE on CTA on cheat - mild elevation of troponin due to cardiac strain , CKD stge 3 - last cath in 2016 - diffuse atherosclerosis 20%, severe LVH ECHO as above ; no wall motion abnormality noted - Cardiology consulted-appreciate input pt to continue all her out pt BP meds -out pt follow up with Dr Noel as per schedule HEADACHE likely from Hypertensive Urgency, Nitropaste, Underlying Pneumonia -symptom has resoled after Nitropaste D/patrick has history of chronic headaches/ migraine - follows with [facility] Neurology pt was seen by Valerie HERNANDEZ -was given detail information regarding migranine headache , prophylaxis pt does not have insurance coverage for Fioricet not a candidate for Imitrex due to risk of multiple drug interaction /has chronic prolong Qtc per Neurology notes in 2016, may use Gabapentin for headache prophylaxis pt started on Gabapentin 600 mg TID will need continued follow up with Neurology COMMUNITY ACQUIRED PNEUMONIA - afebrile, no cough - CT chest: (+) right upper and lower lobe pneumonia - will D/c Levaquin; Qtc > 500 -PO Doxycycline for 5 more days ELEVATED DDIMER -due to above -infection /pneumonia -CTA chest negative for PE -BLLE dopplers: negative IGNACIO -noncompliant with CPAP d/t intolerance -likely contributing to HTN CKD STAGE 3 due to hypertensive nephrosclerosis -Crea 1.4-1.6 which is near baseline HLD -continue Statin HYPOTHYROIDISM -normal TSH -continue Synthroid ANXIETY/DEPRESSION -continue Abilify, Zoloft mood stable as per patient DVT PROPHYLAXIS: low risk ambulate CODE STATUS: FULL CODE DISPOSITION discharge home today Total time spent on discharge = 40 MINS This includes examination of the patient, discharge planning, medication reconciliation, and communication with other providers. Discharge Instructions Discharge Instructions Date of Service February 01, 2017. Admission Reason for Admission: Hypertensive Urgency Discharge Discharge Diagnosis / Problem: HYPERTENSIVE URGENCY Discharge Goals Goal(s): Decrease discomfort, Improve disease control, Learn about illness, Diagnostic testing Activity Recommendations Activity Limitations: resume your previous activity . Instructions / Follow-Up Instructions / Follow-Up HOSPITAL FOLLOW UP ON 02/07/2017 @ 2:[address] Norah Bailey, [facility] CARDIOLOGY FOLLOW UP ON 02/11/2017 @9:[address] Drake Noel Jr., DO Cardiology, [facility] IT IS VERY IMPORTANT TO TAKE ALL YOUR MEDICATIONS INCLUDING FOR BLOOD PRESSURE CONTROL PRESCRIBED PLEASE CHECK BLOOD PRESSURE AT LEAST 2 -3 TIMES A WEEK AND KEEP LOG TO BRING IN NEXT APPOINTMENT AVOID SALT IN YOUR DIET -WILL CAUSE BLOOD PRESSURE TO GO HIGH PLEASE CHECK BLOOD PRESSURE IN MORNING FOR ACCURATE MEASUREMENT CHECK BLOOD PRESSURES AFTER HAVING BREAKFAST , TAKE ALL YOUR MEDICATIONS , AFTER RESTING FOR [address] BAILEY'S OFFICE IF YOUR BLOOD PRESSURE SYSTOLIC /UPPER NUMBER IS ABOVE 160 OR HAVING CHEST HEAVINESS, SHORTNESS OF BREATH OR DIASTOLIC PRESSURE /BELOW NUMBER ABOVE 100 AND HAVING SIMILAR SYMPTOMS Current Hospital Diet Patient's current hospital diet: AHA Diet (Heart Healthy) Discharge Diet Recommended Diet: AHA Diet (Heart Healthy) Pending Studies Studies pending at discharge: no Laboratory Results Lipid Panel Test 01/31/17 06:24 Range/Units Triglycerides Level 267 H 0-150 mg/dl Cholesterol Level 242 H 0-200 mg/dl HDL Cholesterol 37 mg/dl Cholesterol/HDL Ratio 6.5 LDL Cholesterol, Calculated 152 mg/dl Medical Emergencies . Who to Call and When: Medical Emergencies: If at any time you feel your situation is an emergency, please call 911 immediately. . Non-Emergent Contact Non-Emergency issues call your: Primary Care Provider, Business Solutions Architect . . "Provider Documentation" section prepared by Carmella Adams. . VTE Core Measure Inpt VTE Proph given/why not?: Enoxaparin (Lovenox)SQ Additional Copies To Norah Bailey D.O. Drake Noel D.O.
[2017-02-01 18:25] VITALS: BP 146/95; PULSE 81; TEMP 37.1; O2SAT 95
[2017-02-02] MEDS ORDERED: LEVOTHYROXINE 150 MCG TAB PO SCH (06:00)
[2017-02-03 14:29] LABS: NORMETANEPHRINE PLASMA 282 pg/mL (<=148); TOTAL METANEPHRINE PLASMA 309 pg/mL (<=205)
== END 2017-02-01 19:07 | disposition home or self-care (01) | DRG 304 ==
LOC: ENRESERVDT → ENRESERVTM → C.EDB 18:12 → C.2E 21:27
PROVIDERS: ADMIT Internal Medicine; ATTEND Hospitalist
DX: I16.0 Hypertensive urgency (principal); J18.9 Pneumonia, unspecified organism; Z68.41 Body mass index [BMI] 40.0-44.9, adult; R07.9 Chest pain, unspecified; G43.909 Migraine, unspecified, not intractable, without status migrainosus; R79.1 Abnormal coagulation profile; G47.33 Obstructive sleep apnea (adult) (pediatric); E66.01 Morbid (severe) obesity due to excess calories; I51.7 Cardiomegaly; N18.3 Chronic kidney disease, stage 3 (moderate); E78.5 Hyperlipidemia, unspecified; E03.9 Hypothyroidism, unspecified; E28.2 Polycystic ovarian syndrome; I12.9 Hypertensive chronic kidney disease with stage 1 through stage 4 chronic kidney disease, or unspecified chronic kidney disease; F41.9 Anxiety disorder, unspecified; F17.210 Nicotine dependence, cigarettes, uncomplicated; F32.9 Major depressive disorder, single episode, unspecified; I25.10 Atherosclerotic heart disease of native coronary artery without angina pectoris; K21.9 Gastro-esophageal reflux disease without esophagitis; K58.9 Irritable bowel syndrome, unspecified; M54.5 Low back pain; Z98.1 Arthrodesis status; Z91.14 Patient's other noncompliance with medication regimen; Z91.19 Patient's noncompliance with other medical treatment and regimen; Z79.899 Other long term (current) drug therapy

== ENCOUNTER 2017-04-24 16:18 | Emergency (ER) | payer OTHER ==
[~2017-04-24] VITALS: Ht 157.5 cm; Wt 108.2 kg
[~2017-04-24 16:18] MED LIST changes: +ABL/5 PO; -AMLO10TA2 PO; -BSP5 PO; -CTP1X PO; +DXY100 PO; -FRCT/ PO; -METR-163 PO; +NRN600 PO; +NRV5 PO; +SERT50TA PO; -SM350 PO; -ZLF50 PO
[2017-04-24 16:25] VITALS: TEMP 37.1; Ht 157.5 cm; Wt 108.2 kg
[2017-04-24] MEDS ORDERED: MoRPHine SULFATE 10 MG/ML CARP/VIAL IV STA (16:35)
[2017-04-24] MEDS ORDERED: SODIUM CHLORIDE 0.9% 1000ML 2,000 ML IV STA (16:35)
[2017-04-24] MEDS ORDERED: ONDANSETRON INJ 2 MG/ML 2 ML VIAL IV STA (16:35)
[2017-04-24] MEDS ORDERED: AMLO-110 PO (16:57)
[2017-04-24] MEDS ORDERED: DOXY100C76 PO (16:57)
[2017-04-24] MEDS ORDERED: HYDR-3126 PO (16:57)
[2017-04-24 16:58] LABS: BASO % 0.1 %; BASO ABS # 0.01 K/uL (0-0.2); COMPLETE YES; EOS % 8.9 %; HEMATOCRIT 40.7 % (37-47); IG% 0.4 %; LYMPH % 20.5 %; LYMPH ABS # 2.36 K/uL (1.2-3.4); MEAN CORPUSCULAR HEMOGLOBIN 29.3 pg (25-34); MEAN CORPUSCULAR HGB CONC 36.6 g/dl (32-36); MEAN PLATELET VOLUME 9.9 fL (7.4-10.4); NEUT % 64.1 %; PLATELET COUNT 213 K/uL (130-400); RED BLOOD COUNT 5.09 M/uL (4.2-5.4); WHITE BLOOD COUNT 11.51 K/uL (4.8-10.8)
[2017-04-24 17:19] LABS: URINE APPEARANCE CLOUDY (CLEAR); URINE BILIRUBIN NEG (NEG); URINE COLOR DK YELLOW; URINE EPITHELIAL CELL AUTO >30 /lpf (0-5); URINE NITRITE NEG (NEG); URINE SPECIFIC GRAVITY 1.024 (1.000-1.030); UROBILINOGEN NEG (NEG); ZZUR CULT IF INDIC CLEAN CATCH YES
[2017-04-24 17:22] LABS: MANUAL MICROSCOPIC REQUIRED? NO; REVIEW REQ? NO
[2017-04-24 17:36] LABS: BUN/CREATININE RATIO 9.7 (10-20); CALCIUM 8.8 mg/dl (8.5-10.1); CREATININE 1.5 mg/dl (0.60-1.20); POTASSIUM 3.9 mmol/L (3.5-5.1)
[2017-04-24] MEDS ORDERED: MoRPHine SULFATE 4 MG/ML 1 ML CARP\\VIAL IV STA (17:36)
[2017-04-24] MEDS ORDERED: LABETALOL HCL IV 5 MG/ML 20ML IV STA (17:50)
[2017-04-24] MEDS ORDERED: OPTIRAY 320 IV PRN (18:00)
--- NOTE | 2017-04-24 18:09 | DIAGNOSTIC IMAGING REPORT ---
CT ABD/PELVIS IV CONTRAST ONLY CLINICAL HISTORY: Diffuse lower abdominal pain, vomiting, cramping. COMPARISON STUDY: 08/12/2016 TECHNIQUE: Following the IV administration of 93 mL of Optiray-320, CT scan of the abdomen and pelvis was performed from the lung bases to the proximal femurs. Images are reviewed in the axial, sagittal, and coronal planes. IV contrast was administered without complication. A dose lowering technique was utilized adhering to the principles of ALARA. CT DOSE: 1627.46 mGy.cm FINDINGS: Lower chest: The heart is borderline enlarged. There is no focal pulmonary consolidation. There is trace pericardial fluid. Liver: There is mild hepatic steatosis. No focal masses are visualized. Gallbladder: Surgically absent Spleen: The spleen is mildly enlarged measuring 12.5 cm Pancreas: Unremarkable. Adrenal glands: Unremarkable. Kidneys: There is a lower pole left renal scar versus 1 cm angiomyolipoma Bowel: There are no transition zones to indicate bowel obstruction. There is no acute diverticulitis. The appendix is surgically absent. Peritoneum: There is no intraperitoneal free air or abdominal ascites. Vasculature: The abdominal aorta is normal in course and caliber. Adenopathy: None. Pelvic viscera: The uterus is surgically absent. There is a stable vaginal wall cyst Skeletal structures: There are postsurgical changes of a lumbar spinal fusion IMPRESSION: 1. No evidence of bowel obstruction. No evidence of free air 2. No acute inflammatory changes 3. Mild splenomegaly 4. 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 Stable right-sided vaginal wall cyst Electronically signed by: Romain Valencia M.D. 04/24/2017 6:08 PM Dictated Date/Time: 04/24/2017 6:02 PM
[2017-04-24 18:18] VITALS: O2SAT 96
[2017-04-24] MEDS ORDERED: ONDA4TAB65 PO (18:34)
[2017-04-24 18:48] VITALS: BP 172/113; PULSE 90; O2SAT 92
--- NOTE | 2017-04-24 19:32 | EMERGENCY ROOM VISIT NOTE ---
History Report prepared by Lilianaibmariza: Gurvinder Troy Under the Supervision of: Dr. Te Rose D.O. First contact with patient: 16:29 Chief Complaint: GI ASSESSMENT Stated Complaint: VOMITING,ABD CRAMPS,BLOOD IN STOOL History of Present Illness The patient is a 31 year old female who presents to the Emergency Room with complaints of persistent abdominal "cramping" beginning four days ago. The patient states that her pain radiates into her lower back. Pain is diffuse throughout the entirety of her lower abdomen. She admits to a history of a previous appendectomy, cholecystectomy and hysterectomy. She also complains of rectal bleeding and vomiting. She notes that over the past 4 days she has noticed a small amount of blood on the toilet paper when she wipes. . Her vomiting began yesterday. Today when she had a bowel movement she noticed a small amount of clot in the toilet bowl. There is no blood in her stool. No dark tarry stool. She denies any vaginal bleeding. Pt denies headache, change in vision, fevers, chest pain, shortness of breath, diarrhea, or pain with urination. Source of History: patient Onset: Four days ago Position: abdomen Timing: other (persistent) Associated Symptoms: + vomiting, No fevers, No headache, No chest pain, No SOB, No urinary symptoms Note: The patient also complains of rectal bleeding. Review of Systems See HPI for pertinent positives & negatives. A total of 10 systems reviewed and were otherwise negative. Past Medical & Surgical Medical Problems: (1) Abdominal pain (2) Anxiety (3) Anxiety and depression (4) Borderline personality disorder (5) C. difficile colitis (6) Depression (7) Depression (8) Drug overdose, intentional (9) GERD (gastroesophageal reflux disease) (10) GERD (gastroesophageal reflux disease) (11) Headache (12) HTN (hypertension) (13) Hyperlipidemia (14) Hypertension (15) Hypothyroidism (16) Hypothyroidism (17) IBS (irritable bowel syndrome) (18) Left ventricular hypertrophy (19) Lumbago (20) Lumbar disc disorder (21) Migraine (22) Migraine (23) Morbid Obesity (24) Non-occlusive coronary artery disease (25) Noncompliance with medications (26) Obesity (27) IGNACIO (obstructive sleep apnea) (28) IGNACIO (obstructive sleep apnea) (29) Overdose (30) Past Psych Med (31) Polycystic ovarian syndrome Surgical Problems: (1) Adrenal tumor removed (2) H/O arthroscopic knee surgery (3) H/O arthroscopic knee surgery (4) H/O hemorrhoidectomy (5) H/O: hysterectomy (6) History of carpal tunnel surgery (7) History of carpal tunnel surgery (8) History of hysterectomy (9) Hx of appendectomy (10) Hx of cholecystectomy (11) Hx of decompressive lumbar laminectomy (12) Hx of hemorrhoidectomy (13) Hx of partial thyroidectomy (14) S/P appendectomy (15) S/P cholecystectomy (16) S/p removal adrenal gland tumor (17) S/P tonsillectomy and adenoidectomy (18) S/P tonsillectomy and adenoidectomy Family History Cancer Diabetes mellitus FHx: NE FHx: blood clots FHx: heart disease Gallbladder disease Heart disease Hypertension Kidney disease Lung disease Social History Smoking Status: Never Smoker Alcohol Use: none Drug Use: none Marital Status: single, in relationship Housing Status: lives with family Occupation Status: disabled Current/Historical Medications Scheduled Amlodipine (Norvasc), 10 MG PO QAM Aripiprazole (Abilify), 5 MG PO DAILY Buspirone Hcl (Buspirone Hcl), 10 MG PO TID Doxycycline Monohydrate (Monodox), 100 MG PO BID Gabapentin (Gabapentin), 600 MG PO TID Labetalol Hcl (Labetalol Hcl), 200 MG PO TID Levothyroxine Sodium (Levothyroxine Sodium), 1 TAB PO [id number] Levothyroxine Sodium (Levothyroxine Sodium), 300 MCG PO WK Ondansetron Hcl (Zofran), 4 MG PO PRN Sertraline (Zoloft), 50 MG PO DAILY Scheduled PRN Hydroxyzine Hcl (Atarax), 100 MG PO HS PRN for Insomnia Tizanidine (Zanaflex), 4 MG PO TID PRN for Muscle Spasms Allergies Coded Allergies: Sulfa Antibiotics (Verified Allergy, Severe, RASH, DIFFICULTY BREATHING, HAD LASIX OK PREV.ADM., 04/24/17) NSAIDs (Verified Adverse Reaction, Unknown, KIDNEY FAILURE, 04/24/17) PATIENT REPORTS BUFFING WHEEL FORMER MACHINE TOLD PATIENT TO STAY AWAY FROM DUE TO KIDNEY FUNCTION Tramadol (Verified Adverse Reaction, Unknown, "MAKES ME DIZZY", 04/24/17) Physical Exam Vital Signs Date Time Temp Pulse Resp B/P (MAP) Pulse Ox O2 Delivery O2 Flow Rate FiO2 04/24/17 18:48 90 16 172/113 92 04/24/17 18:32 88 18 177/123 93 Room Air 04/24/17 18:18 96 Nasal Cannula 2.0 04/24/17 18:14 89 18 171/121 93 Room Air 04/24/17 18:10 90 20 177/118 93 Room Air 04/24/17 17:31 97 16 214/137 93 Room Air 04/24/17 16:25 37.1 111 20 209/130 96 Room Air Physical Exam GENERAL: disheveled, morbidly obese, chronically ill appearing, sitting up in bed EYE EXAM: normal conjunctiva OROPHARYNX: no exudate, no erythema, lips, buccal mucosa, and tongue normal and mucous membranes are moist NECK: supple, no nuchal rigidity, no adenopathy, non-tender LUNGS: Clear to auscultation. Normal chest wall mechanics HEART: no murmurs, S1 normal and S2 normal ABDOMEN: abdomen soft, normo-active bowel sounds, no masses, no rebound or guarding. Faint diffuse abdominal discomfort. BACK: Back is symmetrical on inspection and there is no deformity, no midline tenderness, no CVA tenderness. RECTAL: External hemorrhoid with a tear at 6 o'clock. Heme-negative stool. SKIN: no rashes and no bruising UPPER EXTREMITIES: upper extremities are grossly normal. LOWER EXTREMITIES: No pitting edema. NEURO EXAM: Normal sensorium, cranial nerves II-XII grossly intact, normal speech, no gross weakness of arms, no gross weakness of legs. Medical Decision & Procedures ER Provider Diagnostic Interpretation: CT:Per my review, radiologist interpretation. CT ABD/PELVIS IV CONTRAST ONLY FINDINGS: Lower chest: The heart is borderline enlarged. There is no focal pulmonary consolidation. There is trace pericardial fluid. Liver: There is mild hepatic steatosis. No focal masses are visualized. Gallbladder: Surgically absent Spleen: The spleen is mildly enlarged measuring 12.5 cm Pancreas: Unremarkable. Adrenal glands: Unremarkable. Kidneys: There is a lower pole left renal scar versus 1 cm angiomyolipoma Bowel: There are no transition zones to indicate bowel obstruction. There is no acute diverticulitis. The appendix is surgically absent. Peritoneum: There is no intraperitoneal free air or abdominal ascites. Vasculature: The abdominal aorta is normal in course and caliber. Adenopathy: None. Pelvic viscera: The uterus is surgically absent. There is a stable vaginal wall cyst Skeletal structures: There are postsurgical changes of a lumbar spinal fusion IMPRESSION: 1. No evidence of bowel obstruction. No evidence of free air 2. No acute inflammatory changes 3. Mild splenomegaly 4. 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 Stable right-sided vaginal wall cyst Electronically signed by: Romain Valencia M.D. Laboratory Results 04/24/17 16:49 Red Blood Count 5.09, Mean Corpuscular Volume 80.0, Mean Corpuscular Hemoglobin 29.3, Mean Corpuscular Hemoglobin Concent 36.6, Mean Platelet Volume 9.9, Neutrophils (%) (Auto) 64.1, Lymphocytes (%) (Auto) 20.5, Monocytes (%) (Auto) 6.0, Eosinophils (%) (Auto) 8.9, Basophils (%) (Auto) 0.1, Neutrophils # (Auto) 7.38, Lymphocytes # (Auto) 2.36, Monocytes # (Auto) 0.69, Eosinophils # (Auto) 1.02, Basophils # (Auto) 0.01 04/24/17 16:49 Test 04/24/17 16:49 04/24/17 16:51 04/24/17 17:40 White Blood Count 11.51 K/uL (4.8-10.8) Red Blood Count 5.09 M/uL (4.2-5.4) Hemoglobin 14.9 g/dL (12.0-16.0) Hematocrit 40.7 % (37-47) Mean Corpuscular Volume 80.0 fL (80-100) Mean Corpuscular Hemoglobin 29.3 pg (25-34) Mean Corpuscular Hemoglobin Concent 36.6 g/dl (32-36) Platelet Count 213 K/uL (130-400) Mean Platelet Volume 9.9 fL (7.4-10.4) Neutrophils (%) (Auto) 64.1 % Lymphocytes (%) (Auto) 20.5 % Monocytes (%) (Auto) 6.0 % Eosinophils (%) (Auto) 8.9 % Basophils (%) (Auto) 0.1 % Neutrophils # (Auto) 7.38 K/uL (1.4-6.5) Lymphocytes # (Auto) 2.36 K/uL (1.2-3.4) Monocytes # (Auto) 0.69 K/uL (0.11-0.59) Eosinophils # (Auto) 1.02 K/uL (0-0.5) Basophils # (Auto) 0.01 K/uL (0-0.2) RDW Standard Deviation 38.6 fL (36.4-46.3) RDW Coefficient of Variation 13.4 % (11.5-14.5) Immature Granulocyte % (Auto) 0.4 % Immature Granulocyte # (Auto) 0.05 K/uL (0.00-0.02) Anion Gap 7.0 mmol/L (3-11) Est Creatinine Clear Calc Drug Dose 61.8 ml/min Estimated GFR () 52.5 Estimated GFR (Non- 45.3 BUN/Creatinine Ratio 9.7 (10-20) Calcium Level 8.8 mg/dl (8.5-10.1) Total Bilirubin 0.6 mg/dl (0.2-1) Direct Bilirubin 0.1 mg/dl (0-0.2) Aspartate Amino Transf (AST/SGOT) 21 U/L (15-37) Alanine Aminotransferase (ALT/SGPT) 27 U/L (12-78) Alkaline Phosphatase 90 U/L (45-117) Total Protein 7.3 gm/dl (6.4-8.2) Albumin 3.5 gm/dl (3.4-5.0) Lipase 312 U/L (73-393) Urine Color DK YELLOW Urine Appearance CLOUDY (CLEAR) Urine pH 5.0 (4.5-7.5) Urine Specific [place] 1.024 (1.000-1.030) Urine Protein 3+ (NEG) Urine Glucose (UA) NEG (NEG) Urine Ketones NEG (NEG) Urine Occult Blood NEG (NEG) Urine Nitrite NEG (NEG) Urine Bilirubin NEG (NEG) Urine Urobilinogen NEG (NEG) Urine Leukocyte Esterase NEG (NEG) Urine WBC (Auto) 1-5 /hpf (0-5) Urine RBC (Auto) 0-4 /hpf (0-4) Urine Hyaline Casts (Auto) 10-30 /lpf (0-5) Urine Epithelial Cells (Auto) >30 /lpf (0-5) Urine Bacteria (Auto) 1+ (NEG) Urine Test NEG (NEG) Lactic Acid Level 0.9 mmol/L (0.4-2.0) Laboratory results per my review. Medications Administered Medications (Trade) Dose Ordered Sig/Randi Route Start Time Stop Time Status Last Admin Dose Admin Sodium Chloride 2,000 ml @ 999 mls/hr Q2H1M STAT IV 04/24/17 16:35 04/24/17 18:35 DC 04/24/17 16:53 999 MLS/HR Ondansetron HCl (Zofran Inj) 4 mg NOW STAT IV 04/24/17 16:35 04/24/17 16:37 DC 04/24/17 16:53 4 MG Morphine Sulfate (MoRPHine SULFATE INJ) 6 mg NOW STAT IV 04/24/17 16:35 04/24/17 16:37 DC 04/24/17 16:53 6 MG Morphine Sulfate (MoRPHine SULFATE INJ) 4 mg NOW STAT IV 04/24/17 17:36 04/24/17 17:37 DC 04/24/17 17:43 4 MG Labetalol HCl (Normodyne IV) 20 mg NOW STAT IV 04/24/17 17:50 04/24/17 17:51 DC 04/24/17 18:13 20 MG ED Course ED COURSE: Vital signs were reviewed and showed hypertensive, and tachycardic. The patients medical record was reviewed The above diagnostic studies were performed and reviewed. ED treatments and interventions as stated above. 1631: The patient was evaluated in room C11B. A complete history and physical examination was performed. 1635: Ordered Morphine Sulfate 6 mg IV, Zofran Inj 4 mg IV, Sodium Chloride 2000 ml @ 999 mls/hr IV. 1736: Ordered Morphine Sulfate 4 mg IV. 1750: Ordered Normodyne 20 mg IV. 1825: I reassessed the patient. Her oxygen saturation is 98% on room air. She notes that she is supposed to wear CPAP while sleeping but has not been doing that recently. 1835: Upon reevaluation, the patient is resting comfortably. I discussed my findings with the patient and she understands and agrees with the treatment plan. Based on the patients age, coexisting illnesses, exam and lab findings the decision to treat as an outpatient was made. The patient remained stable while under my care. The patient appeared well at the time of discharge. Medical Decision Differential diagnoses includes but is not limited to gastritis, peptic ulcer disease, GERD, gallbladder disease, pancreatitis, small bowel obstruction, acute coronary syndrome, pericarditis, ischemic bowel, irritable bowel disease, irritable bowel syndrome, appendicitis, diverticulitis, malignancy, hernia, urinary tract infection, torsion, /ectopic , perforation, trauma, infectious. Patient is a 31-year-old female who presents the ER for diffuse lower abdominal cramping. Labs show a mild leukocytosis of 11,000. No anemia. BMP along with LFTs, bilirubin and lipase was unremarkable. Lactic acid was normal at 0.9. Creatinine appears to be at baseline 1.5. UA was unremarkable. was negative. CT of abdomen and pelvis was benign. Rectal was heme negative but did show an external hemorrhoid at 6:00 with a tear which I favor is the likely cause of the bleeding on wiping. The clot that she passed could have been an internal hemorrhoid. I did discuss findings with GI and they agreed with having the patient follow-up as an outpatient. She was extremely hypertensive with systolic pressures in the 200s upon arrival. She has an extensive history of hypertension. She notes that she threw up her nighttime meds following taking them and I do believe this is the cause of her hypertension. She was given IV dose of labetalol. She was also given 2 doses of morphine. While sleeping she required a small amount of nasal cannula which patient notes is normal for her as she should be wearing CPAP at night but does not. On multiple re-evaluations she was sleeping in bed. Abdominal exam was benign. There is no signs peritonitis. She was updated regards to findings and she is discharged follow-up with her PCP. No driving, working, drinking alcohol, taking narcotics or any other benzos for the remainder of the night. She will follow-up with her primary care doctor in regards to her hypertension. Discussed with Pt concerning signs and symptoms to watch out for. Pt was instructed to follow up with their PCP and discussed with the patient their option to return to the ED at anytime for persistent or worsening symptoms. The appropriate anticipatory guidance and out-patient management, including indications for return to the emergency department, were explained at length to the patient and understood. Medication Reconcilliation Current Medication List: was personally reviewed by me Blood Pressure Screening Patient's blood pressure: Elevated blood pressure Blood pressure disposition: Referred to PCP Consults Time Called: 1814 Consulting Physician: Dr. Paredes -GI Returned Call: [phone] I reviewed the patient's case with Dr. Paredes. He recommends outpatient follow up. Impression Primary Impression: Acute hemorrhoid Additional Impressions: Bleeding external hemorrhoids Hypertension Scribe Attestation The scribe's documentation has been prepared under my direction and personally reviewed by me in its entirety. I confirm that the note above accurately reflects all work, treatment, procedures, and medical decision making performed by me. Departure Information Dispostion Home / Self-Care Prescriptions Ondansetron Hcl (ZOFRAN) 4 Mg Tab 4 MG PO PRN for Nausea, #30 TAB Prov: Te Rose, DO 04/24/17 Referrals No Doctor, Assigned (PCP) Forms HOME CARE DOCUMENTATION FORM, IMPORTANT VISIT INFORMATION Patient Instructions Abdominal Pain - [facility], Bleeding Rectal, ED Hypertension Conf Out Of Control, GI Bleeding - [place], Hypertension Control, [facility] Additional Instructions Please follow up with your primary care doctor or if you are a student, [facility] with in the next 24 hours. Any worsening of your symptoms, please return to the ED immediately. This includes any fevers greater than 100.4, increased blood with bowel movements, dark tarry stools, blood in yourr stool, worsening pain, chest pain, shortness breath, persistent nausea, vomiting, unable to eat or drink, or any other concerning signs or symptoms from your standpoint. You were given medications during this visit that will inhibit your ability to drive, operate machinery and work. Please do NOT drive, operate machinery, drink alcohol or work for the next 12hrs. You were found to have a blood pressure greater than 120 systolic over 90 diastolic. This is likely secondary to you vomiting your medications. Please follow-up with your primary care doctor in regards to these findings. Please use Colace or Senokot as needed to reduce constipation. Please do not strain while going to the bathroom. Problem Qualifiers Additional Impressions: Hypertension Hypertension type: unspecified Qualified Codes: I10 - Essential (primary) hypertension
== END 2017-04-24 18:49 | disposition home or self-care (01) ==
LOC: C.EDB 16:19 → C.EDC 18:49
DX: K64.4 Residual hemorrhoidal skin tags (principal); I10 Essential (primary) hypertension; R11.10 Vomiting, unspecified; I25.10 Atherosclerotic heart disease of native coronary artery without angina pectoris; E28.2 Polycystic ovarian syndrome; F32.9 Major depressive disorder, single episode, unspecified; F41.9 Anxiety disorder, unspecified; E89.0 Postprocedural hypothyroidism; Z90.710 Acquired absence of both cervix and uterus; Z90.49 Acquired absence of other specified parts of digestive tract; Z90.89 Acquired absence of other organs; Z98.890 Other specified postprocedural states; Z83.3 Family history of diabetes mellitus; Z82.49 Family history of ischemic heart disease and other diseases of the circulatory system; Z79.899 Other long term (current) drug therapy

== ENCOUNTER 2017-05-14 08:07 | Emergency (ER) | payer OTHER ==
[~2017-05-14] VITALS: Ht 157.5 cm; Wt 107.5 kg
[~2017-05-14 08:07] MED LIST changes: +AMLO-110 PO; -ATOR-54 PO; +DOXY100C76 PO; -DXY100 PO; -HYDR-4717 PO; -NRN600 PO; -NRV5 PO
[2017-05-14 08:10] VITALS: TEMP 37.3; Ht 157.5 cm; Wt 107.5 kg
[2017-05-14] MEDS ORDERED: ZLF/100 PO (08:31)
[2017-05-14] MEDS ORDERED: KLN5X PO (08:31)
[2017-05-14] MEDS ORDERED: PROMETHAZINE HCL INJ 25 MG in SODIUM CHLORIDE 0.9% 50ML 50 ML IV STA (08:42)
[2017-05-14] MEDS ORDERED: DiphenhydrAMINE HCL 50 MG/ML VIAL IV STA (08:42)
--- NOTE | 2017-05-14 08:47 | EMERGENCY ROOM VISIT NOTE ---
History Report prepared by Gabriele: Selena Cruz Under the Supervision of: Dr. Arben Gutiérrez M.D. First contact with patient: 08:35 Chief Complaint: ABDOMINAL PAIN Stated Complaint: IBS ATTACK, DIZZY, LIGHTHEADED TINGLING IN RT EXT Nursing Triage Summary: Pt states, "I am having a really bad IBS attack. I have a lot of pain in my lower abd and have n/v/d. I am having tingling in my right arm and I feel lightheaded." Sx began this morning. History of Present Illness The patient is a 31 year old female who presents to the Emergency Room with complaints of am IBS attack beginning this morning. The patient reports that she felt dizzy and had tingling down her arm and numbness in her right hand. She states that she took a muscle relaxer for her symptoms. She also complains of diarrhea, vomiting, and back pain. The patient denies having a fever, shortness of breath, and blood in her stool. She reports no drug or alcohol use or any recent falls or injuries. Source of History: patient Onset: this morning Position: abdomen Quality: other (IBS attack ) Associated Symptoms: + vomiting, + back pain, + diarrhea, No fevers, No SOB , No hematochezia Review of Systems See HPI for pertinent positives & negatives. A total of 10 systems reviewed and were otherwise negative. Past Medical & Surgical Medical Problems: (1) Abdominal pain (2) Anxiety (3) Anxiety and depression (4) Borderline personality disorder (5) C. difficile colitis (6) Depression (7) Depression (8) Drug overdose, intentional (9) GERD (gastroesophageal reflux disease) (10) GERD (gastroesophageal reflux disease) (11) Headache (12) HTN (hypertension) (13) Hyperlipidemia (14) Hypertension (15) Hypothyroidism (16) Hypothyroidism (17) IBS (irritable bowel syndrome) (18) Left ventricular hypertrophy (19) Lumbago (20) Lumbar disc disorder (21) Migraine (22) Migraine (23) Morbid Obesity (24) Non-occlusive coronary artery disease (25) Noncompliance with medications (26) Obesity (27) IGNACIO (obstructive sleep apnea) (28) IGNACIO (obstructive sleep apnea) (29) Overdose (30) Past Psych Med (31) Polycystic ovarian syndrome Surgical Problems: (1) Adrenal tumor removed (2) H/O arthroscopic knee surgery (3) H/O arthroscopic knee surgery (4) H/O hemorrhoidectomy (5) H/O: hysterectomy (6) History of carpal tunnel surgery (7) History of carpal tunnel surgery (8) History of hysterectomy (9) Hx of appendectomy (10) Hx of cholecystectomy (11) Hx of decompressive lumbar laminectomy (12) Hx of hemorrhoidectomy (13) Hx of partial thyroidectomy (14) S/P appendectomy (15) S/P cholecystectomy (16) S/p removal adrenal gland tumor (17) S/P tonsillectomy and adenoidectomy (18) S/P tonsillectomy and adenoidectomy Family History Cancer Diabetes mellitus FHx: NE FHx: blood clots FHx: heart disease Gallbladder disease Heart disease Hypertension Kidney disease Lung disease Social History Smoking Status: Never Smoker Alcohol Use: none Drug Use: none Marital Status: single, in relationship Housing Status: lives with family Occupation Status: disabled Current/Historical Medications Scheduled Amlodipine (Norvasc), 10 MG PO QAM Aripiprazole (Abilify), 5 MG PO DAILY Buspirone Hcl (Buspirone Hcl), 10 MG PO TID Gabapentin (Gabapentin), 600 MG PO TID Hydralazine Hcl (Apresoline), 25 MG PO TID Labetalol Hcl (Labetalol Hcl), 200 MG PO TID Levothyroxine Sodium (Levothyroxine Sodium), 150 MCG PO 6XWK Levothyroxine Sodium (Levothyroxine Sodium), 300 MCG PO WK Sertraline HCl (Sertraline HCl), 200 MG PO DAILY Scheduled PRN Clonazepam (Clonazepam), 0.5 MG PO BID PRN for Anxiety Dicyclomine Hcl (Bentyl), 1 TAB PO TID PRN for Pain Promethazine Hcl (Phenergan), 25 MG PO Q6H PRN for Nausea Tizanidine (Zanaflex), 4 MG PO TID PRN for Muscle Spasms Allergies Coded Allergies: Sulfa Antibiotics (Verified Allergy, Severe, RASH, DIFFICULTY BREATHING, HAD LASIX OK PREV.ADM., 05/14/17) NSAIDs (Verified Adverse Reaction, Unknown, KIDNEY FAILURE, 05/14/17) PATIENT REPORTS TOBACCO BALER TOLD PATIENT TO STAY AWAY FROM DUE TO KIDNEY FUNCTION Tramadol (Verified Adverse Reaction, Unknown, "MAKES ME DIZZY", 05/14/17) Physical Exam Vital Signs Date Time Temp Pulse Resp B/P (MAP) Pulse Ox O2 Delivery O2 Flow Rate FiO2 05/14/17 10:03 93 22 168/102 97 Room Air 05/14/17 08:10 37.3 104 20 145/83 94 Room Air Physical Exam GENERAL: Patient is mildly anxious appearing and in minimal distress. HEENT: No acute trauma, normocephalic atraumatic, mucous membranes moist, no nasal congestion, no scleral icterus. NECK: No stridor, no adenopathy, no meningismus, trachea is midline. LUNGS: No dyspnea. Clear to auscultation and equal bilaterally. No wheeze, no rhonchi. HEART: Regular rate and rhythm. No murmurs, rubs, gallops appreciated. ABDOMEN: Vague lower tenderness to palpation. Bowel sounds positive, no masses appreciated, no peritonitis. BACK: No midline tenderness, no CVA tenderness EXTREMITIES: Normal motion all extremities, no cyanosis, no edema. NEUROLOGIC: Alert and oriented, no acute motor or sensory deficits, no focal weakness, cranial nerves grossly intact. SKIN: No rash, no jaundice, no diaphoresis. Medical Decision & Procedures Laboratory Results 05/14/17 08:55 Red Blood Count 4.52, Mean Corpuscular Volume 82.1, Mean Corpuscular Hemoglobin 28.5, Mean Corpuscular Hemoglobin Concent 34.8, Mean Platelet Volume 10.8, Neutrophils (%) (Auto) 77.7, Lymphocytes (%) (Auto) 11.7, Monocytes (%) (Auto) 7.6, Eosinophils (%) (Auto) 2.6, Basophils (%) (Auto) 0.1, Neutrophils # (Auto) 9.86, Lymphocytes # (Auto) 1.49, Monocytes # (Auto) 0.96, Eosinophils # (Auto) 0.33, Basophils # (Auto) 0.01 05/14/17 08:55 Test 05/14/17 08:55 White Blood Count 12.69 K/uL (4.8-10.8) Red Blood Count 4.52 M/uL (4.2-5.4) Hemoglobin 12.9 g/dL (12.0-16.0) Hematocrit 37.1 % (37-47) Mean Corpuscular Volume 82.1 fL (80-100) Mean Corpuscular Hemoglobin 28.5 pg (25-34) Mean Corpuscular Hemoglobin Concent 34.8 g/dl (32-36) Platelet Count 162 K/uL (130-400) Mean Platelet Volume 10.8 fL (7.4-10.4) Neutrophils (%) (Auto) 77.7 % Lymphocytes (%) (Auto) 11.7 % Monocytes (%) (Auto) 7.6 % Eosinophils (%) (Auto) 2.6 % Basophils (%) (Auto) 0.1 % Neutrophils # (Auto) 9.86 K/uL (1.4-6.5) Lymphocytes # (Auto) 1.49 K/uL (1.2-3.4) Monocytes # (Auto) 0.96 K/uL (0.11-0.59) Eosinophils # (Auto) 0.33 K/uL (0-0.5) Basophils # (Auto) 0.01 K/uL (0-0.2) RDW Standard Deviation 41.7 fL (36.4-46.3) RDW Coefficient of Variation 14.1 % (11.5-14.5) Immature Granulocyte % (Auto) 0.3 % Immature Granulocyte # (Auto) 0.04 K/uL (0.00-0.02) Anion Gap 6.0 mmol/L (3-11) Est Creatinine Clear Calc Drug Dose 65.9 ml/min Estimated GFR () 57.1 Estimated GFR (Non- 49.2 BUN/Creatinine Ratio 13.0 (10-20) Calcium Level 8.3 mg/dl (8.5-10.1) Total Bilirubin 0.8 mg/dl (0.2-1) Direct Bilirubin 0.1 mg/dl (0-0.2) Aspartate Amino Transf (AST/SGOT) 18 U/L (15-37) Alanine Aminotransferase (ALT/SGPT) 24 U/L (12-78) Alkaline Phosphatase 68 U/L (45-117) C-Reactive Protein 1.06 mg/dl (0-0.29) Total Protein 6.1 gm/dl (6.4-8.2) Albumin 2.9 gm/dl (3.4-5.0) Lipase 207 U/L (73-393) Laboratory results as reviewed by me. Medications Administered Medications (Trade) Dose Ordered Sig/Randi Route Start Time Stop Time Status Last Admin Dose Admin Diphenhydramine HCl (Benadryl Inj) 50 mg NOW STAT IV 05/14/17 08:42 05/14/17 08:44 DC 05/14/17 08:54 50 MG Promethazine HCl 25 mg/Sodium Chloride 51 ml @ 204 mls/hr NOW STAT IV 05/14/17 08:42 05/14/17 08:56 DC 05/14/17 08:54 204 MLS/HR Dicyclomine HCl (Bentyl Tab) 20 mg NOW STAT PO 05/14/17 09:54 05/14/17 09:55 DC 05/14/17 10:06 20 MG ED Course 0838: The patient was evaluated in room A12. A complete history and physical exam was performed. 0842: Ordered Promethazine HCl 25 mg/Sodium Chloride 51 ml @ 204 mls/hr IV, Benadryl Inj 50 mg IV. 0954: Ordered Bentyl Tab 20 mg PO. 0956: The patient is feeling better and she notes using Bentyl with good results , so we will use a Bentyl tablet. 1040: She is feeling better and will try Phenergan and Bentyl as needed. 1100: Reevaluated the patient. Discussed results and discharge instructions: She verbalized understanding and agreement. The patient is ready for discharge. Medical Decision Differential: Appendicitis, Diverticulitis, PUD/Gastritis, Biliary Pathology, UTI, Pyelonephritis, Renal Colic, Bowel Obstruction, Aortic Pathology, Acute Coronary Syndrome, amongst other pathologies entertained. 31 yr old female very well known to department for variety of issues arrives with primary complaint of lower abdominal discomfort. Many other complaints though she does not look in any way in distress. Exam is benign with vague lower abdominal pain. Given benadryl/phenergan for nausea and then some bentyl for pain which she notes works well. Repeat evals and usually sleeping though easily awoken. Labs with WBC mildly above normal range, however this is a normal level for her and without fevers, tachycardia, nor other findings I do not feel there is over infection. At this time her abdominal exam is non- surgical. She makes clear this pain and symptoms are secondary to her IBS. CRP just faintly elevated though review notes it has been in past as well. She is stable, breathing comfortably and in no distress. I feel discharge is reasonable. Bentyl/Phenergan. Stressed dangers of sedative medications. Stressed Follow up with PCP and if worsening, RTED. Medication Reconcilliation Current Medication List: was personally reviewed by me Blood Pressure Screening Patient's blood pressure: Elevated blood pressure Blood pressure disposition: Referred to PCP Impression Primary Impression: Bilateral lower abdominal discomfort Scribe Attestation The scribe's documentation has been prepared under my direction and personally reviewed by me in its entirety. I confirm that the note above accurately reflects all work, treatment, procedures, and medical decision making performed by me. Departure Information Dispostion Home / Self-Care Prescriptions Promethazine Hcl (Phenergan) 25 Mg Tab 25 MG PO Q6H Y for Nausea, #15 TAB Prov: Arben Gutiérrez M.D. 05/14/17 Dicyclomine Hcl (BENTYL) 20 Mg Tab 1 TAB PO TID Y for Pain, #20 TAB Prov: Arben Gutiérrez M.D. 05/14/17 Patient Instructions Abdominal Pain - [facility], My [facility] Additional Instructions You have been examined and treated today on an emergency basis only. This is not a substitute for, or an effort to provide, complete comprehensive medical care. It is impossible to recognize and treat all injuries or illnesses in a single emergency department visit. It is therefore important that you follow up closely with your Primary Physician or [facility]. Call as soon as possible for an appointment so you can review all labs, imaging and other testing that you had. Return to Emergency Department, call 911 or seek immediate medical attention if you feel your symptoms are worsening.
[2017-05-14 09:15] LABS: BASO % 0.1 %; BASO ABS # 0.01 K/uL (0-0.2); COMPLETE YES; EOS % 2.6 %; HEMATOCRIT 37.1 % (37-47); IG% 0.3 %; LYMPH % 11.7 %; LYMPH ABS # 1.49 K/uL (1.2-3.4); MEAN CELL VOLUME 82.1 fL (80-100); MEAN CORPUSCULAR HEMOGLOBIN 28.5 pg (25-34); MEAN CORPUSCULAR HGB CONC 34.8 g/dl (32-36); MEAN PLATELET VOLUME 10.8 fL (7.4-10.4); MONO % 7.6 %; NEUT % 77.7 %; PLATELET COUNT 162 K/uL (130-400); RED BLOOD COUNT 4.52 M/uL (4.2-5.4); WHITE BLOOD COUNT 12.69 K/uL (4.8-10.8)
[2017-05-14 09:32] LABS: C-REACTIVE PROTEIN 1.06 mg/dl (0-0.29); CALCIUM 8.3 mg/dl (8.5-10.1); CREATININE 1.4 mg/dl (0.60-1.20); POTASSIUM 3.8 mmol/L (3.5-5.1)
[2017-05-14] MEDS ORDERED: DICYCLOMINE HCL 20 MG TAB PO STA (09:54)
[2017-05-14 10:03] VITALS: BP 168/102; PULSE 93; O2SAT 97
[2017-05-14] MEDS ORDERED: DICY20TA35 PO (10:46)
[2017-05-14] MEDS ORDERED: PROM25TA9 PO (10:46)
== END 2017-05-14 11:15 | disposition home or self-care (01) ==
LOC: C.EDB 08:08 → C.EDA 11:15
DX: R10.30 Lower abdominal pain, unspecified (principal); R42 Dizziness and giddiness; I10 Essential (primary) hypertension; I25.10 Atherosclerotic heart disease of native coronary artery without angina pectoris; E28.2 Polycystic ovarian syndrome; F32.9 Major depressive disorder, single episode, unspecified; F41.9 Anxiety disorder, unspecified; E89.0 Postprocedural hypothyroidism; Z90.710 Acquired absence of both cervix and uterus; Z90.49 Acquired absence of other specified parts of digestive tract; Z90.89 Acquired absence of other organs; Z98.890 Other specified postprocedural states; Z83.3 Family history of diabetes mellitus; Z82.49 Family history of ischemic heart disease and other diseases of the circulatory system; Z79.899 Other long term (current) drug therapy

== ENCOUNTER 2017-06-03 11:46 | Emergency (ER) | payer OTHER ==
[~2017-06-03] VITALS: Ht 157.5 cm; Wt 108.6 kg
[~2017-06-03 11:46] MED LIST changes: -DOXY100C76 PO; -HYDR-3126 PO; +KLN5X PO; +PROM25TA9 PO; -SERT50TA PO; +ZLF/100 PO
[2017-06-03 11:51] VITALS: TEMP 37; Ht 157.5 cm; Wt 108.6 kg
[2017-06-03] MEDS ORDERED: DiphenhydrAMINE HCL 50 MG/ML VIAL IV STA (12:09)
[2017-06-03] MEDS ORDERED: SODIUM CHLORIDE 0.9% 1000ML 1,000 ML IV STA (12:09)
[2017-06-03] MEDS ORDERED: METOCLOPRAMIDE HCL INJ 5 MG/ML 2 ML VIAL IV STA (12:09)
[2017-06-03] MEDS ORDERED: MAGNESIUM SULFATE 1GM / D5W 1 GM BAG IV STA (12:09)
[2017-06-03] MEDS ORDERED: METOPROLOL TARTRATE 1 MG/ML VIAL IV STA (12:17)
[2017-06-03 12:56] VITALS: O2SAT 97
--- NOTE | 2017-06-03 12:59 | DIAGNOSTIC IMAGING REPORT ---
CHEST ONE VIEW PORTABLE CLINICAL HISTORY: Atypical chest pain COMPARISON STUDY: 01/30/2017 FINDINGS: The cardiac silhouette remains enlarged. There is no focal pulmonary consolidation. There are no pleural effusions. There is no overt failure.[ IMPRESSION: Stable cardiomegaly. No acute findings. Electronically signed by: Romani Valencia M.D. 06/03/2017 12:57 PM Dictated Date/Time: 06/03/2017 12:56 PM
[2017-06-03 13:10] LABS: BASO % 0.2 %; BASO ABS # 0.02 K/uL (0-0.2); COMPLETE YES; EOS % 4.1 %; HEMATOCRIT 39.8 % (37-47); IG% 0.3 %; LYMPH % 16.9 %; LYMPH ABS # 1.98 K/uL (1.2-3.4); MEAN CELL VOLUME 84.7 fL (80-100); MEAN CORPUSCULAR HEMOGLOBIN 28.3 pg (25-34); MEAN CORPUSCULAR HGB CONC 33.4 g/dl (32-36); MEAN PLATELET VOLUME 10.8 fL (7.4-10.4); MONO % 6.7 %; NEUT % 71.8 %; PLATELET COUNT 203 K/uL (130-400); WHITE BLOOD COUNT 11.71 K/uL (4.8-10.8)
[2017-06-03] MEDS ORDERED: LABETALOL HCL 200 MG TAB PO STA (13:19)
[2017-06-03 13:26] LABS: CALCIUM 8.8 mg/dl (8.5-10.1); CREATININE 1.5 mg/dl (0.60-1.20); MAGNESIUM 2.1 mg/dl (1.8-2.4); POTASSIUM 3.7 mmol/L (3.5-5.1)
[2017-06-03 13:36] LABS: THYROID STIMULATING HORMONE 2.6 uIu/ml (0.300-4.500)
[2017-06-03] MEDS ORDERED: ACETAMINOPHEN 500 MG TAB PO STA (15:11)
[2017-06-03] MEDS ORDERED: TRAMADOL HCL 50 MG TAB PO STA (15:11)
--- NOTE | 2017-06-03 15:14 | EMERGENCY ROOM VISIT NOTE ---
History Report prepared by Gabriele: Gurvinder Troy Under the Supervision of: Dr. Timothy Kemp M.D. First contact with patient: 11:56 Chief Complaint: HYPERTENSION Stated Complaint: CHEST TIGHTNESS, PAIN IN NECK, AB, WEAKNESS, SOB, History of Present Illness The patient is a 32 year old white female with a past medical history of HTN who presents to the ED with a cc of intermittent "sharp" centralized chest pain beginning a few hours ago. Positive dizziness, weakness, vomiting, headache, neck pain, facial numbness, and nausea. Negative cough, leg swelling, fever, SOB , or chills. She took her blood pressure prior to arrival and found her systolic pressure to be above 200. On multiple medications for HTN. Had episode of dizziness and blurred vision yesterday. History of multiple abdominal surgeries. S/p cardiac catheterization which was without stent placement in 2016. No history of blood clots. No recent hospitalization. No recent travel. Not on control. She is supposed to be on thyroid medication, but has not taken it for "a long time". Source of History: patient Onset: A few hours ago Position: chest (central) Quality: sharp Timing: intermittent Associated Symptoms: + headache, + neck pain, + nausea, + vomiting, + weakness, + numbness (facial), No fevers, No chills, No cough, No SOB Note: Positive: dizziness. Negative: leg swelling. Review of Systems See HPI for pertinent positives and negatives. A total of ten systems were reviewed and were otherwise negative. Past Medical & Surgical Medical Problems: (1) Abdominal pain (2) Anxiety (3) Anxiety and depression (4) Borderline personality disorder (5) C. difficile colitis (6) Depression (7) Depression (8) Drug overdose, intentional (9) GERD (gastroesophageal reflux disease) (10) GERD (gastroesophageal reflux disease) (11) Headache (12) HTN (hypertension) (13) Hyperlipidemia (14) Hypertension (15) Hypothyroidism (16) Hypothyroidism (17) IBS (irritable bowel syndrome) (18) Left ventricular hypertrophy (19) Lumbago (20) Lumbar disc disorder (21) Migraine (22) Migraine (23) Morbid Obesity (24) Non-occlusive coronary artery disease (25) Noncompliance with medications (26) Obesity (27) IGNACIO (obstructive sleep apnea) (28) IGNACIO (obstructive sleep apnea) (29) Overdose (30) Past Psych Med (31) Polycystic ovarian syndrome Surgical Problems: (1) Adrenal tumor removed (2) H/O arthroscopic knee surgery (3) H/O arthroscopic knee surgery (4) H/O hemorrhoidectomy (5) H/O: hysterectomy (6) History of carpal tunnel surgery (7) History of carpal tunnel surgery (8) History of hysterectomy (9) Hx of appendectomy (10) Hx of cholecystectomy (11) Hx of decompressive lumbar laminectomy (12) Hx of hemorrhoidectomy (13) Hx of partial thyroidectomy (14) S/P appendectomy (15) S/P cholecystectomy (16) S/p removal adrenal gland tumor (17) S/P tonsillectomy and adenoidectomy (18) S/P tonsillectomy and adenoidectomy Family History Cancer Diabetes mellitus FHx: [place] FHx: blood clots FHx: heart disease Gallbladder disease Heart disease Hypertension Kidney disease Lung disease Social History Smoking Status: Never Smoker Alcohol Use: none Drug Use: none Marital Status: single, in relationship Housing Status: lives with family Occupation Status: disabled Current/Historical Medications Scheduled Amlodipine (Norvasc), 10 MG PO QAM Aripiprazole (Abilify), 5 MG PO DAILY Buspirone Hcl (Buspirone Hcl), 10 MG PO TID Gabapentin (Gabapentin), 600 MG PO TID Hydralazine Hcl (Apresoline), 25 MG PO TID Labetalol Hcl (Labetalol Hcl), 200 MG PO TID Levothyroxine Sodium (Levothyroxine Sodium), 150 MCG PO [id number] Levothyroxine Sodium (Levothyroxine Sodium), 300 MCG PO WK Sertraline HCl (Sertraline HCl), 200 MG PO DAILY Scheduled PRN Clonazepam (Clonazepam), 0.5 MG PO BID PRN for Anxiety Tizanidine (Zanaflex), 4 MG PO TID PRN for Muscle Spasms Allergies Coded Allergies: Sulfa Antibiotics (Verified Allergy, Severe, RASH, DIFFICULTY BREATHING, HAD LASIX OK PREV.ADM., 06/03/17) NSAIDs (Verified Adverse Reaction, Unknown, KIDNEY FAILURE, 06/03/17) PATIENT REPORTS COUGAR HUNTER TOLD PATIENT TO STAY AWAY FROM DUE TO KIDNEY FUNCTION Tramadol (Verified Adverse Reaction, Unknown, "MAKES ME DIZZY", 06/03/17) Physical Exam Vital Signs Date Time Temp Pulse Resp B/P (MAP) Pulse Ox O2 Delivery O2 Flow Rate FiO2 06/03/17 15:23 99 20 136/95 97 Room Air 06/03/17 14:40 97 22 233/145 100 Room Air 06/03/17 13:50 98 20 228/162 100 Room Air 06/03/17 12:56 97 Nasal Cannula 3.0 06/03/17 12:56 98 24 218/154 87 Room Air 06/03/17 12:36 107 06/03/17 12:34 108 204/125 06/03/17 12:29 108 204/125 06/03/17 11:51 37.0 113 20 220/155 95 Room Air Physical Exam GENERAL: Awake, alert, well-appearing, NAD HENT: Normocephalic, atraumatic. Cushingoid facies. Facial pallor secondary to cosmetics. EYES: Normal conjunctiva. Sclera non-icteric. NECK: Supple. No nuchal rigidity. FROM. RESPIRATORY: CTAB, no rhonchi, wheezing, crackles CARDIAC: Tachycardic rate with a regular rhythm, no MRG ABDOMEN: Soft, NTND, BS+ MSK: No chest wall TTP. Trace 1+ lower extremity pitting edema, no asymmetry, no calf pain, no erythema, no calor. NEURO: GCS 15, CN 2-12 intact, moves all 4s on command SKIN: No rash or jaundice noted. Medical Decision & Procedures ER Provider Diagnostic Interpretation: X-ray: Per my interpretation, radiologist review. CHEST ONE VIEW PORTABLE FINDINGS: The cardiac silhouette remains enlarged. There is no focal pulmonary consolidation. There are no pleural effusions. There is no overt failure.[ IMPRESSION: Stable cardiomegaly. No acute findings. Electronically signed by: Romain Valencia M.D. Laboratory Results 06/03/17 12:25 Red Blood Count 4.70, Mean Corpuscular Volume 84.7, Mean Corpuscular Hemoglobin 28.3, Mean Corpuscular Hemoglobin Concent 33.4, Mean Platelet Volume 10.8, Neutrophils (%) (Auto) 71.8, Lymphocytes (%) (Auto) 16.9, Monocytes (%) (Auto) 6.7, Eosinophils (%) (Auto) 4.1, Basophils (%) (Auto) 0.2, Neutrophils # (Auto) 8.41, Lymphocytes # (Auto) 1.98, Monocytes # (Auto) 0.79, Eosinophils # (Auto) 0.48, Basophils # (Auto) 0.02 06/03/17 12:25 Test 06/03/17 12:25 06/03/17 12:42 06/03/17 15:17 White Blood Count 11.71 K/uL (4.8-10.8) Red Blood Count 4.70 M/uL (4.2-5.4) Hemoglobin 13.3 g/dL (12.0-16.0) Hematocrit 39.8 % (37-47) Mean Corpuscular Volume 84.7 fL (80-100) Mean Corpuscular Hemoglobin 28.3 pg (25-34) Mean Corpuscular Hemoglobin Concent 33.4 g/dl (32-36) Platelet Count 203 K/uL (130-400) Mean Platelet Volume 10.8 fL (7.4-10.4) Neutrophils (%) (Auto) 71.8 % Lymphocytes (%) (Auto) 16.9 % Monocytes (%) (Auto) 6.7 % Eosinophils (%) (Auto) 4.1 % Basophils (%) (Auto) 0.2 % Neutrophils # (Auto) 8.41 K/uL (1.4-6.5) Lymphocytes # (Auto) 1.98 K/uL (1.2-3.4) Monocytes # (Auto) 0.79 K/uL (0.11-0.59) Eosinophils # (Auto) 0.48 K/uL (0-0.5) Basophils # (Auto) 0.02 K/uL (0-0.2) RDW Standard Deviation 44.3 fL (36.4-46.3) RDW Coefficient of Variation 14.6 % (11.5-14.5) Immature Granulocyte % (Auto) 0.3 % Immature Granulocyte # (Auto) 0.03 K/uL (0.00-0.02) Anion Gap 7.0 mmol/L (3-11) Est Creatinine Clear Calc Drug Dose 61.3 ml/min Estimated GFR () 52.1 Estimated GFR (Non- 45.0 BUN/Creatinine Ratio 10.0 (10-20) Calcium Level 8.8 mg/dl (8.5-10.1) Magnesium Level 2.1 mg/dl (1.8-2.4) Total Bilirubin 0.6 mg/dl (0.2-1) Direct Bilirubin 0.1 mg/dl (0-0.2) Aspartate Amino Transf (AST/SGOT) 21 U/L (15-37) Alanine Aminotransferase (ALT/SGPT) 28 U/L (12-78) Alkaline Phosphatase 85 U/L (45-117) Total Protein 6.9 gm/dl (6.4-8.2) Albumin 3.4 gm/dl (3.4-5.0) Lipase 232 U/L (73-393) Thyroid Stimulating Hormone (TSH) 2.600 uIu/ml (0.300-4.500) Bedside Troponin I 0.030 ng/ml (0-0.045) Urine Color YELLOW Urine Appearance CLEAR (CLEAR) Urine pH 6.0 (4.5-7.5) Urine Specific [place] 1.022 (1.000-1.030) Urine Protein 3+ (NEG) Urine Glucose (UA) NEG (NEG) Urine Ketones NEG (NEG) Urine Occult Blood NEG (NEG) Urine Nitrite NEG (NEG) Urine Bilirubin NEG (NEG) Urine Urobilinogen NEG (NEG) Urine Leukocyte Esterase NEG (NEG) Urine WBC (Auto) 1-5 /hpf (0-5) Urine RBC (Auto) 0-4 /hpf (0-4) Urine Hyaline Casts (Auto) 1-5 /lpf (0-5) Urine Epithelial Cells (Auto) >30 /lpf (0-5) Urine Bacteria (Auto) NEG (NEG) Laboratory results reviewed by me Medications Administered Medications (Trade) Dose Ordered Sig/Randi Route Start Time Stop Time Status Last Admin Dose Admin Metoclopramide HCl (Reglan Inj) 10 mg NOW STAT IV 06/03/17 12:09 06/03/17 12:12 DC 06/03/17 12:31 10 MG Diphenhydramine HCl (Benadryl Inj) 25 mg NOW STAT IV 06/03/17 12:09 06/03/17 12:12 DC 06/03/17 12:32 25 MG Sodium Chloride 1,000 ml @ 999 mls/hr Q1H1M STAT IV 06/03/17 12:09 06/03/17 13:09 DC 06/03/17 12:30 999 MLS/HR Magnesium Sulfate (Magnesium Sulfate) 1 gm NOW STAT IV 06/03/17 12:09 06/03/17 12:12 DC 06/03/17 12:33 1 GM Metoprolol Tartrate (Lopressor Iv) 5 mg NOW STAT IV 06/03/17 12:17 06/03/17 12:18 DC 06/03/17 12:34 5 MG Labetalol HCl (Normodyne Tab) 200 mg ONE STAT PO 06/03/17 13:19 06/03/17 13:20 DC 06/03/17 13:49 200 MG Hydralazine HCl (Apresoline Tab) 25 mg NOW STAT PO 06/03/17 14:35 06/03/17 14:36 DC 06/03/17 14:45 25 MG Acetaminophen (Tylenol Tab) 1,000 mg NOW STAT PO 06/03/17 15:11 06/03/17 15:12 DC 06/03/17 15:22 1,000 MG ECG Indication: chest pain Rate (beats per minute): 107 Rhythm: sinus tachycardia Findings: 1st degree AV block, T-wave inversion (Leads V4-V6, 1, AVL, 2, 3, and AVF. ), other (Prolonged NE. Normal QRS. ) Comparison ECG Date: February 01, 2017 Change: no significant change ED Course 1159: The patient was evaluated in room A12B. A complete history and physical exam was performed. 1209: Ordered Magnesium Sulfate 1 gm IV, Sodium Chloride 1000 ml @ 999 mls/hr IV , Benadryl Inj 25 mg IV, Reglan Inj 10 mg IV. 1217: Ordered Lopressor IV 5 mg IV. 1319: Ordered Normodyne Tab 200 mg PO. 1435: Ordered Apresoline Tab 25 mg PO. 1511: Ordered Ultram Tab 25 mg PO, Tylenol Tab 1000 mg PO. 1515: I reevaluated the patient. Discussed results and discharge instructions: she verbalized understanding and agreement. The patient is ready for discharge. Medical Decision The patient is a 32 year old white female with a past medical history of HTN who presents to the ED with a cc of intermittent "sharp" centralized chest pain beginning a few hours ago. Differential diagnosis includes but is not limited to ; migraine, hypertensive urgency, ACS, atypical chest pain, PE, and costochondritis. Patient's headache did not have any focal neuro deficits. Patient was given antihypertensives given the nature of her high blood pressure. It is unknown whether not the patient has been compliant with her medications. Patient was given a headache cocktail. Patient's headache was assuaged and improved. Patient's blood pressure also improved. Patient's tachycardia also improved those in the 90s. I spoke with the patient at length as well as with the case assistant to ensure that the patient continues to take her antihypertensive medications and follows up with her PCP. Patient stated that she will follow up with her PCP on her own. Patient's EKG is really unchanged at her baseline. Patient did have a negative troponin. CXR neg. TSH WNL. This a recent left heart cath less likely to be ACS especially w/ HEART score < 3 as no documented CAD. PE was entertained given the patient's tachycardia and chest pain the patient did not have any shortness of breath. Once pain and HTN improved, HR improved and Wells PE neg. Also counseled on diet/exercise and CPAP compliance at night. Medication Reconcilliation Current Medication List: was personally reviewed by me Blood Pressure Screening Patient's blood pressure: Elevated blood pressure Blood pressure disposition: Referred to PCP Impression Primary Impression: Headache Additional Impressions: Chest pain Hypertension Scribe Attestation The scribe's documentation has been prepared under my direction and personally reviewed by me in its entirety. I confirm that the note above accurately reflects all work, treatment, procedures, and medical decision making performed by me. Departure Information Dispostion Home / Self-Care Referrals No Doctor, Assigned (PCP) Patient Instructions Hypertension Control, Hypertension Dc, My [facility] Additional Instructions Please return to the emergency department if you have worsening or recurrent symptoms not amenable to at-home treatment. Please call for a follow-up appointment with her primary care physician. Please take your medications as prescribed. If you have other concerns and/or complaints please feel free to also call your primary care physician's office or return the ED for further evaluation, management, and treatment. Please return if you experience worsening RENE, CP, SOB, numbness, tingling, or weakness. Work Instructions Return To Work: 1 day Problem Qualifiers Primary Impression: Headache Headache type: unspecified Headache chronicity pattern: unspecified pattern Intractability: not intractable Qualified Codes: R51 - Headache Additional Impressions: Chest pain Chest pain type: unspecified Qualified Codes: R07.9 - Chest pain, unspecified Hypertension Hypertension type: essential hypertension Qualified Codes: I10 - Essential ( primary) hypertension
[2017-06-03 15:23] VITALS: BP 136/95; PULSE 99; O2SAT 97
[2017-06-03 15:30] LABS: MANUAL MICROSCOPIC REQUIRED? NO; REVIEW REQ? NO; URINE APPEARANCE CLEAR (CLEAR); URINE BILIRUBIN NEG (NEG); URINE COLOR YELLOW; URINE EPITHELIAL CELL AUTO >30 /lpf (0-5); URINE NITRITE NEG (NEG); URINE SPECIFIC GRAVITY 1.022 (1.000-1.030); UROBILINOGEN NEG (NEG); ZZUR CULT IF INDIC CLEAN CATCH NO
== END 2017-06-03 15:32 | disposition home or self-care (01) ==
LOC: C.EDB 11:49 → C.EDA 15:32
DX: R51 Headache (principal); R07.9 Chest pain, unspecified; I10 Essential (primary) hypertension; F41.9 Anxiety disorder, unspecified; F32.9 Major depressive disorder, single episode, unspecified; F60.3 Borderline personality disorder; K21.9 Gastro-esophageal reflux disease without esophagitis; E78.5 Hyperlipidemia, unspecified; E03.9 Hypothyroidism, unspecified; K58.9 Irritable bowel syndrome, unspecified; E66.01 Morbid (severe) obesity due to excess calories; I25.10 Atherosclerotic heart disease of native coronary artery without angina pectoris; G47.33 Obstructive sleep apnea (adult) (pediatric); E28.2 Polycystic ovarian syndrome; Z80.9 Family history of malignant neoplasm, unspecified; Z83.3 Family history of diabetes mellitus; Z82.49 Family history of ischemic heart disease and other diseases of the circulatory system; Z84.1 Family history of disorders of kidney and ureter; Z83.6 Family history of other diseases of the respiratory system; Z79.899 Other long term (current) drug therapy

== ENCOUNTER 2017-06-08 18:24 | Inpatient (IN) | payer OTHER ==
[~2017-06-08] VITALS: Ht 157.5 cm; Wt 111.4 kg
[~2017-06-08 18:24] MED LIST changes: -PROM25TA9 PO
[2017-06-08] MEDS ORDERED: SODIUM CHLORIDE 0.9% 1000ML 1,000 ML IV STA ×2 (18:44→19:22)
--- NOTE | 2017-06-08 19:02 | DIAGNOSTIC IMAGING REPORT ---
CHEST ONE VIEW PORTABLE CLINICAL HISTORY: Chest pain. COMPARISON STUDY: Chest CT January 30, 2017 and chest radiograph June 03, 2017 per FINDINGS: Lung volumes are normal. There is no pneumothorax or pleural effusion. No consolidation is identified. Apparent left lower lung opacity is likely artifactual. Moderate to marked cardiomegaly is unchanged. Pulmonary vascularity is normal. The appearance of the chest is unchanged. IMPRESSION: No acute cardiopulmonary findings. No change in moderate to marked cardiomegaly. Electronically signed by: Pancho Altman M.D. 06/08/2017 7:01 PM Dictated Date/Time: 06/08/2017 6:59 PM
[2017-06-08 19:12] LABS: BASO % 0.3 %; BASO ABS # 0.04 K/uL (0-0.2); COMPLETE YES; EOS % 3.2 %; HEMATOCRIT 42.6 % (37-47); IG% 0.5 %; LYMPH % 18.5 %; MEAN CELL VOLUME 82.6 fL (80-100); MEAN CORPUSCULAR HEMOGLOBIN 28.7 pg (25-34); MEAN CORPUSCULAR HGB CONC 34.7 g/dl (32-36); MEAN PLATELET VOLUME 10.7 fL (7.4-10.4); MONO % 6.9 %; NEUT % 70.6 %; PLATELET COUNT 266 K/uL (130-400); RED BLOOD COUNT 5.16 M/uL (4.2-5.4); WHITE BLOOD COUNT 14.56 K/uL (4.8-10.8)
[2017-06-08 19:33] LABS: ALT/SGPT 30 U/L (12-78); AST/SGOT 17 U/L (15-37); BLOOD UREA NITROGEN 20 mg/dl (7-18); BUN/CREATININE RATIO 8.6 (10-20); CALCIUM 8.9 mg/dl (8.5-10.1); CARBON DIOXIDE 30 mmol/L (21-32); CHLORIDE 101 mmol/L (98-107); GLUCOSE 112 mg/dl (70-99); POTASSIUM 3.8 mmol/L (3.5-5.1); SODIUM 137 mmol/L (136-145)
[2017-06-08 19:36] LABS: ALKALINE PHOSPHATASE 87 U/L (45-117)
[2017-06-08] MEDS ORDERED: MoRPHine SULFATE 4 MG/ML 1 ML CARP\\VIAL IV STA (19:49)
[2017-06-08] MEDS ORDERED: IV FLUIDS COMPLETED PRN (20:45)
[2017-06-08] MEDS ORDERED: PROMETHAZINE HCL INJ 12.5 MG in SODIUM CHLORIDE 0.9% 50ML 50 ML IV PRN (21:00)
[2017-06-08] MEDS ORDERED: HYDROCODONE/ACETAMOPHEN 5/325MG TAB PO STA (21:12)
[2017-06-08] MEDS ORDERED: ACETAMINOPHEN 325 MG TAB PO PRN (21:15)
[2017-06-08] MEDS ORDERED: PROMETHAZINE HCL INJ 12.5 MG in SODIUM CHLORIDE 0.9% 50ML 50 ML IV ONE (21:30)
[2017-06-08 21:38] LABS: CKMB/CK RATIO 0.9 (0-3.0)
[2017-06-08] MEDS: SODIUM CHLORIDE 0.9% 1000ML 1,000 ML IV SCH (22:33)
[2017-06-08 22:37] VITALS: BP 146/90; PULSE 78; TEMP 36.4; O2SAT 100; BMI 43.7
[2017-06-08 22:54] VITALS: Ht 157.5 cm; Wt 111.4 kg
--- NOTE | 2017-06-08 23:16 | History and Physical ---
History & Physical Date & Time of Service: Jun 08, 2017 at 23:16 Chief Complaint: Chest Pain Primary Care Physician: Dyan Shaver DO History of Present Illness Source: patient, clinic records, hospital records 32 year old female with history of Hypertension, Hypertensive Heart Disease, CKD 3, Chronic Migraine, IGNACIO presenting with dizziness and chest pain few hours prior to admission. Patient was in her usual state of health until around noon today when she started to have dizziness and weakness upon standing. She later on experienced chest discomfort, sharp, at the substernal region, radiating straight to the back. Denies nausea, sweating, palpitations, dyspnea. At the ER, patient was noted to have orthostatic BP. EKG no signs of acute infarcts, Trop 0.08. She was given IV NSS and Morphine with some improvement of symptoms. On exam, patient seen resting in bed, not in distress. States she still has mild-moderate chest discomfort, sharp in nature. Denies any other active symptoms. Past Medical/Surgical History Medical Problems: (1) Anxiety Status: Chronic (2) Anxiety and depression Status: Chronic (3) Depression Status: Chronic (4) Depression Status: Chronic (5) GERD (gastroesophageal reflux disease) Status: Chronic (6) GERD (gastroesophageal reflux disease) Status: Chronic (7) HTN (hypertension) Status: Chronic (8) Hypertension Status: Chronic (9) Hypothyroidism Status: Chronic (10) Hypothyroidism Status: Chronic (11) IBS (irritable bowel syndrome) Status: Chronic (12) Left ventricular hypertrophy Permanent Comment: severe concentric LVH, IVSd 2.3 cm 06/18/16 Status: Chronic (13) Lumbago Status: Chronic (14) Lumbar disc disorder Status: Chronic (15) Migraine Status: Chronic (16) Migraine Status: Chronic (17) Morbid Obesity Status: Chronic (18) Non-occlusive coronary artery disease Status: Chronic (19) Noncompliance with medications Status: Chronic (20) Obesity Status: Chronic (21) IGNACIO (obstructive sleep apnea) Status: Chronic (22) IGNACIO (obstructive sleep apnea) Status: Chronic (23) Polycystic ovarian syndrome Status: Chronic Surgical Problems: (1) Adrenal tumor removed Status: Chronic (2) H/O arthroscopic knee surgery Status: Chronic (3) H/O arthroscopic knee surgery Status: Chronic (4) H/O hemorrhoidectomy Status: Chronic (5) H/O: hysterectomy Status: Chronic (6) History of carpal tunnel surgery Status: Chronic (7) History of carpal tunnel surgery Status: Chronic (8) History of hysterectomy Status: Chronic (9) Hx of appendectomy Status: Chronic (10) Hx of cholecystectomy Status: Chronic (11) Hx of decompressive lumbar laminectomy Status: Chronic (12) Hx of hemorrhoidectomy Status: Chronic (13) Hx of partial thyroidectomy Status: Chronic (14) S/P appendectomy Status: Chronic (15) S/P cholecystectomy Status: Chronic (16) S/p removal adrenal gland tumor Status: Chronic (17) S/P tonsillectomy and adenoidectomy Status: Chronic (18) S/P tonsillectomy and adenoidectomy Status: Chronic Family History Cancer Diabetes mellitus FHx: [place] FHx: blood clots FHx: heart disease Gallbladder disease Heart disease Hypertension Kidney disease Lung disease Social History Smoking Status: Current Every Day Smoker Smokeless Tobacco Use: No Alcohol Use: none Drug Use: none Marital Status: single, in relationship Housing status: lives with significant other Occupational Status: disabled Immunizations History of Influenza Vaccine: Yes Allergies Coded Allergies: Sulfa Antibiotics (Verified Allergy, Severe, RASH, DIFFICULTY BREATHING, HAD LASIX OK PREV.ADM., 06/08/17) NSAIDs (Verified Adverse Reaction, Unknown, KIDNEY FAILURE, 06/08/17) PATIENT REPORTS LINE PATROLMAN TOLD PATIENT TO STAY AWAY FROM DUE TO KIDNEY FUNCTION Tramadol (Verified Adverse Reaction, Unknown, "MAKES ME DIZZY", 06/08/17) Home Medications Scheduled Amlodipine (Norvasc), 10 MG PO QAM Aripiprazole (Abilify), 5 MG PO DAILY Buspirone Hcl (Buspirone Hcl), 10 MG PO TID Gabapentin (Gabapentin), 600 MG PO TID Hydralazine Hcl (Apresoline), 25 MG PO TID Labetalol Hcl (Labetalol Hcl), 200 MG PO TID Levothyroxine Sodium (Levothyroxine Sodium), 150 MCG PO 6XWK Levothyroxine Sodium (Levothyroxine Sodium), 300 MCG PO WK Sertraline HCl (Sertraline HCl), 200 MG PO DAILY Scheduled PRN Clonazepam (Clonazepam), 0.5 MG PO BID PRN for Anxiety Tizanidine (Zanaflex), 4 MG PO TID PRN for Muscle Spasms Review of Systems Constitutional- no fever; no weight loss Eyes- no acute visual changes ENT- no sinus drainage; no pharyngitis Pulmonary- no cough, no wheezing, no shortness of breath Cardiac-(+) as noted above GI- no nausea, no vomiting, no diarrhea, no melena, no hematochezia - no dysuria, no hematuria Musculoskeletal- no arthralgias, no myalgias Derm- no rashes, no new skin lesions, no changing skin lesions Hematologic- no unusual bruising, no unusual bleeding Lymphatics- no adenopathy Endocrine- no polyuria or polydipsia; no heat or cold intolerance Neuro- no headaches, no focal neurologic symptoms Psych- no anxiety, no depression Physical Exam Vital Signs Date Time Temp Pulse Resp B/P (MAP) Pulse Ox O2 Delivery O2 Flow Rate FiO2 06/08/17 22:37 36.4 78 20 146/90 100 Room Air 06/08/17 21:24 83 15 151/101 100 06/08/17 21:01 81 17 162/97 98 Nasal Cannula 2.0 06/08/17 20:31 81 17 161/108 100 Nasal Cannula 2.0 06/08/17 20:02 94 Nasal Cannula 2.0 06/08/17 20:02 83 18 150/101 100 Nasal Cannula 2.0 06/08/17 19:55 88 Room Air 06/08/17 19:05 82 24 107/76 98 Room Air 06/08/17 19:02 80 125/79 83 103/86 83 90/61 06/08/17 18:56 Room Air 06/08/17 18:48 82 06/08/17 18:37 98 Room Air 06/08/17 18:29 36.6 84 18 93/59 98 Room Air General Appearance: no apparent distress, + obese Head: normocephalic, atraumatic Eyes: normal inspection, EOMI, sclerae normal ENT: normal ENT inspection, hearing grossly normal, pharynx normal Neck: supple, no adenopathy, thyroid normal, no JVD, trachea midline Respiratory/Chest: chest non-tender, lungs clear, normal breath sounds, no respiratory distress, no accessory muscle use Cardiovascular: regular rate, rhythm, no edema, no JVD, no murmur, normal peripheral pulses Abdomen/GI: normal bowel sounds, non tender, soft, no organomegaly Back: normal inspection, no CVA tenderness Extremities/Musculoskelatal: normal inspection, no calf tenderness, no pedal edema, normal range of motion Neurologic/Psych: line clearance foreman II-XII nml as tested, no motor/sensory deficits, alert, normal mood/affect, oriented x 3 Skin: normal color, warm/dry, no rash Lymphatic: no adenopathy Diagnostics Laboratory Results Results Past 24 Hours Test 06/08/17 19:00 06/08/17 19:07 Range/Units White Blood Count 14.56 4.8-10.8 K/uL Red Blood Count 5.16 4.2-5.4 M/uL Hemoglobin 14.8 12.0-16.0 g/dL Hematocrit 42.6 37-47 % Mean Corpuscular Volume 82.6 80-100 fL Mean Corpuscular Hemoglobin 28.7 25-34 pg Mean Corpuscular Hemoglobin Concent 34.7 32-36 g/dl Platelet Count 266 130-400 K/uL Mean Platelet Volume 10.7 7.4-10.4 fL Neutrophils (%) (Auto) 70.6 % Lymphocytes (%) (Auto) 18.5 % Monocytes (%) (Auto) 6.9 % Eosinophils (%) (Auto) 3.2 % Basophils (%) (Auto) 0.3 % Neutrophils # (Auto) 10.27 1.4-6.5 K/uL Lymphocytes # (Auto) 2.70 1.2-3.4 K/uL Monocytes # (Auto) 1.01 0.11-0.59 K/uL Eosinophils # (Auto) 0.47 0-0.5 K/uL Basophils # (Auto) 0.04 0-0.2 K/uL RDW Standard Deviation 44.0 36.4-46.3 fL RDW Coefficient of Variation 14.8 11.5-14.5 % Immature Granulocyte % (Auto) 0.5 % Immature Granulocyte # (Auto) 0.07 0.00-0.02 K/uL D-Dimer 610 0-500 ug/L FEU Sodium Level 137 136-145 mmol/L Potassium Level 3.8 3.5-5.1 mmol/L Chloride Level 101 98-107 mmol/L Carbon Dioxide Level 30 21-32 mmol/L Anion Gap 6.0 3-11 mmol/L Blood Urea Nitrogen 20 7-18 mg/dl Creatinine 2.30 0.60-1.20 mg/dl Estimated GFR () 31.1 Estimated GFR (Non- 26.8 BUN/Creatinine Ratio 8.6 10-20 Random Glucose 112 70-99 mg/dl Calcium Level 8.9 8.5-10.1 mg/dl Total Bilirubin 0.8 0.2-1 mg/dl Direct Bilirubin 0.1 0-0.2 mg/dl Aspartate Amino Transf (AST/SGOT) 17 15-37 U/L Alanine Aminotransferase (ALT/SGPT) 30 12-78 U/L Alkaline Phosphatase 87 45-117 U/L Total Creatine Kinase 210 26-192 U/L Creatine Kinase MB 1.8 0.5-3.6 ng/ml Creatine Kinase MB Ratio 0.9 0-3.0 Troponin I 0.082 0-0.045 ng/ml Total Protein 6.8 6.4-8.2 gm/dl Albumin 3.3 3.4-5.0 gm/dl Lipase 168 73-393 U/L Bedside Troponin I 0.050 0-0.045 ng/ml Diagnostic Radiology CHEST ONE VIEW PORTABLE CLINICAL HISTORY: Chest pain. COMPARISON STUDY: Chest CT January 30, 2017 and chest radiograph June 03, 2017 per FINDINGS: Lung volumes are normal. There is no pneumothorax or pleural effusion. No consolidation is identified. Apparent left lower lung opacity is likely artifactual. Moderate to marked cardiomegaly is unchanged. Pulmonary vascularity is normal. The appearance of the chest is unchanged. IMPRESSION: No acute cardiopulmonary findings. No change in moderate to marked cardiomegaly. EKG HR 85, sinus rhythm, QT 561, LVH Impression Assessment and Plan 32 year old female with history of Hypertension, Hypertensive Heart Disease, CKD 3, Chronic Migraine, IGNACIO presenting with dizziness and chest pain few hours prior to admission. DIZZINESS, LIKELY FROM ORTHOSTASIS - likely from Dehydration, BP meds - hold Amlodipine, Hydralazine continue Labetalol - continue IV fluids - monitor Orthostatic VS ATYPICAL CHEST PAIN - history of hypertensive heart disease - mild troponin elevation also had some troponin elevation during previous admissions from severe LVH? - follow cardiac markers update echo - D dimer mildly elevated at 610 no dyspnea check VQ scan (low crea clearance precludes CT Angio at this time) check Doppler US Lower ext ACUTE RENAL FAILURE ON CKD 3 - likely prerenal - IV fluids started monitor crea - may need renal US if not improving PROLONGED QTC - 561 - hold Abilify, Sertraline, Zoloft - repeat EKG n AM may need Psych consult for medication management if QTc still prolonged HYPERTENSION - (+) orthostasis on admission - hold Amlodipine and Hydralazine continue Labetalol - monitor CHRONIC MIGRAINE - denies headache IGNACIO - declines CPAP HYPOTHYROIDISM - on Levothyroxine ANXIETY/DEPRESSION - qtC prolonged at 561 - hold Abilify, Sertraline, Zoloft - repeat EKG n AM may need Psych consult for medication management if QTc still prolonged DVT PROPHYLAXIS SCDs FULL CODE per patient DISPOSITION pending anticipate d/c home when medically stable Advanced Directives Existing Living Will: No Existing Power of Forestry Adviser: No VTE Prophylaxis VTE Risk Assessment Done? Y/N: Yes Risk Level: Low Given or contraindicated: SCD's
[2017-06-08] MEDS ORDERED: PANTOprazole INJ 40 MG in SYRINGE 0 ML IV STA (23:26)
[2017-06-09] VITALS (8 sets, daily range): BP systolic 147–170; BP diastolic 70–123; PULSE 76–96; TEMP 36.6–36.9; O2SAT 91–97
[2017-06-09] MEDS: MoRPHine SULFATE 4 MG/ML 1 ML CARP\\VIAL IV PRN ×3 (00:28→16:26)
--- NOTE | 2017-06-09 01:17 | EMERGENCY ROOM VISIT NOTE ---
ED Visit Note First contact with patient: 18:31 Chief Complaint: I been lightheaded all week and today I ordered having chest pain. History of Present Illness: is a 32-year-old white female who is brought into the ED via wheelchair complaining of lightheadedness and chest pain. Historically patient has multiple medical issues including hypertension, mild nonocclusive coronary artery disease, and morbid obesity. She was just brought into the hospital in January of this year for hypertensive urgency. While in the ED she did have a elevated troponin. She was seen by cardiology and felt a troponin bump was not related to a myocardial infarction. She also had an elevated d-dimer and a CT showed no pulmonary embolism. Patient reports a vaginal onset of lightheadedness that started 5 days ago. This occurs only when she moves from a sitting to standing position. She reports when this happened she feels like she is going to pass out but has not had a syncopal episode. She has not identified any other aggravating factors but rest does relieve her discomfort. She has not had this previously. She has not taken any medications for her lightheadedness prior to arrival at the hospital. Patient reports approximately one hour before she arrived in the emergency department she had an acute onset of severe chest pain. Since that time her pain has been constant. She places her discomfort in the midsternal area. She describes it as a sharp sensation. She rates her discomfort 9/10. Her pain is radiating into the thoracic back. She also has right shoulder and down the right arm and she describes this discomfort as a tingling sensation. Associated with her pain she reports she feels short of breath, sensations of heart racing, and nausea without vomiting. She does report she has chronic pulmonary edema and that has not increased and she has chronic cramping of her lower legs and that has not increased. Patient denies fevers, chills, sweats, skin eruptions, skin color changes, upper respiratory tract symptoms, wheezing, cough, orthopnea, previous clots, claudication, recent surgery/inactivity/extended travel, abdominal pain, nausea , constipation, rectal bleeding, black/tarry stools, urinary symptoms, flank pain. Review of Systems: As noted above in history of present illness. All body systems were reviewed and found to be negative as noted above. Past Medical History: As previously noted and gastroesophageal reflux, anxiety, depression, suicide attempt, borderline personality disorder, C. difficile, hypothyroidism,-year-old bowel syndrome, migraine headaches, lumbar disc disorder, obstructive sleep apnea, polycystic ovary syndrome, status post adrenal tumor removal, unspecified knee surgery, hemorrhoidectomy, hysterectomy , carpal tunnel release, appendectomy, cholecystectomy, lumbar laminectomy, partial thyroidectomy, tonsillectomy, adenoidectomy. Current Medications: Medications Dose Route/Sig Max Daily Dose Days Date Category Dose Instructions Clonazepam 0.5 Mg Tab 0.5 Mg PO BID PRN 05/14/17 Reported Sertraline HCl 100 Mg Tab 200 Mg PO DAILY 05/14/17 Reported Apresoline (Hydralazine Hcl) 25 Mg Tab 25 Mg PO TID 05/14/17 Reported Gabapentin 600 Mg Tab 600 Mg PO TID 04/24/17 Reported Norvasc (Amlodipine Besylate) 5 Mg Tab 10 Mg PO QAM 04/24/17 Reported Abilify (Aripiprazole) 5 Mg Tab 5 Mg PO DAILY 01/30/17 Reported Zanaflex (Tizanidine HCl) 4 Mg Cap 4 Mg PO TID PRN 01/30/17 Reported Buspirone Hcl 10 Mg Tab 10 Mg PO TID 01/30/17 Reported Labetalol Hcl 200 Mg Tab 200 Mg PO TID 10/10/16 Reported Levothyroxine Sodium 150 Mcg Tab 300 Mcg PO WK 08/07/16 Reported EVERY TUESDAY Levothyroxine Sodium 150 Mcg Tab 150 Mcg PO 6XWK 08/07/16 Reported EVERY DAY EXCEPT TUESDAY Allergies to Medications: NSAIDs, sulfa, tramadol. Social History: Patient is not employed; she feels safe in her home environment ; she denies tobacco and alcohol use. Physical Examination: Vital Signs: Date Time Temp Pulse Resp B/P (MAP) Pulse Ox O2 Delivery O2 Flow Rate FiO2 06/08/17 20:02 94 Nasal Cannula 2.0 06/08/17 20:02 83 18 150/101 100 Nasal Cannula 2.0 06/08/17 19:55 88 Room Air 06/08/17 19:05 82 24 107/76 98 Room Air 06/08/17 19:02 80 125/79 83 103/86 83 90/61 06/08/17 18:56 Room Air 06/08/17 18:48 82 06/08/17 18:37 98 Room Air 06/08/17 18:29 36.6 84 18 93/59 98 Room Air GENERAL: 32-year-old female in moderate distress due to pain, nontoxic-appearing , afebrile and hemodynamically stable. NEUROLOGICAL: Awake, alert and oriented to person, place and time. Answering questions appropriately and following commands. Normal gait. Good hand eye coordination. SKIN: Warm, dry and pale. No soft tissue eruptions or trauma noted. HEENT: Atraumatic and normocephalic. PERRLA. Sclera white and conjunctiva pink. Airway patent. Pharynx is nonerythematous or edematous. Speech normal. No lymphadenopathy. Trachea midline. No jugular venous distention. No carotid bruits. BACK: No tenderness over the bony spine. No CVA tenderness. THORAX: Lungs sounds are clear to auscultation and equal bilaterally with symmetrical chest wall. No wheezing, rales or rhonchi. No crepitus, tenderness , subcutaneous air or deformities noted. HEART: Regular rate and rhythm. Soft systolic murmur heard on the left sternal border. No rubs or gallops. No lifts, heaves or thrills. PMI is not displaced. ABDOMEN: Obese, soft and nontender. Positive bowel sounds in all quadrants. No guarding, rigidity or organomegaly. EXTREMITIES: Moves all extremities well on command and with purpose. All distal neurovascular statuses are intact and equal bilaterally. Mild dependent edema. No calf tenderness or cords. ED Course: Patient is assessed as noted above. Laboratory Testing: Test 06/08/17 19:00 06/08/17 19:07 Range/Units White Blood Count 14.56 4.8-10.8 K/uL Red Blood Count 5.16 4.2-5.4 M/uL Hemoglobin 14.8 12.0-16.0 g/dL Hematocrit 42.6 37-47 % Mean Corpuscular Volume 82.6 80-100 fL Mean Corpuscular Hemoglobin 28.7 25-34 pg Mean Corpuscular Hemoglobin Concent 34.7 32-36 g/dl Platelet Count 266 130-400 K/uL Mean Platelet Volume 10.7 7.4-10.4 fL Neutrophils (%) (Auto) 70.6 % Lymphocytes (%) (Auto) 18.5 % Monocytes (%) (Auto) 6.9 % Eosinophils (%) (Auto) 3.2 % Basophils (%) (Auto) 0.3 % Neutrophils # (Auto) 10.27 1.4-6.5 K/uL Lymphocytes # (Auto) 2.70 1.2-3.4 K/uL Monocytes # (Auto) 1.01 0.11-0.59 K/uL Eosinophils # (Auto) 0.47 0-0.5 K/uL Basophils # (Auto) 0.04 0-0.2 K/uL RDW Standard Deviation 44.0 36.4-46.3 fL RDW Coefficient of Variation 14.8 11.5-14.5 % Immature Granulocyte % (Auto) 0.5 % Immature Granulocyte # (Auto) 0.07 0.00-0.02 K/uL D-Dimer 610 0-500 ug/L FEU Sodium Level 137 136-145 mmol/L Potassium Level 3.8 3.5-5.1 mmol/L Chloride Level 101 98-107 mmol/L Carbon Dioxide Level 30 21-32 mmol/L Anion Gap 6.0 3-11 mmol/L Blood Urea Nitrogen 20 7-18 mg/dl Creatinine 2.30 0.60-1.20 mg/dl Estimated GFR () 31.1 Estimated GFR (Non- 26.8 BUN/Creatinine Ratio 8.6 10-20 Random Glucose 112 70-99 mg/dl Calcium Level 8.9 8.5-10.1 mg/dl Total Bilirubin 0.8 0.2-1 mg/dl Direct Bilirubin 0.1 0-0.2 mg/dl Aspartate Amino Transf (AST/SGOT) 17 15-37 U/L Alanine Aminotransferase (ALT/SGPT) 30 12-78 U/L Alkaline Phosphatase 87 45-117 U/L Total Creatine Kinase 210 26-192 U/L Creatine Kinase MB 1.8 0.5-3.6 ng/ml Creatine Kinase MB Ratio 0.9 0-3.0 Troponin I 0.082 0-0.045 ng/ml Total Protein 6.8 6.4-8.2 gm/dl Albumin 3.3 3.4-5.0 gm/dl Lipase 168 73-393 U/L Bedside Troponin I 0.050 0-0.045 ng/ml Chest X-Rays: Were read by myself and the radiologist showing no change in her moderate cardiomegaly. No consolidation, pneumothorax or pleural effusions. Pulmonary vasculature is unremarkable. No bony abnormality. EKG: Was read by myself and Dr. Khan; shows normal sinus rhythm with a ventricular rate of 85 bpm. Left atrial enlargement, left ventricular hypertrophy with repolarization abnormality. Prolonged QT. No acute ischemic changes indicating infarction. This was compared to a previous from 06/03/2017 and no acute changes were noted. Orthostatic vital signs were positive. Patient was hydrated with normal saline and she received 4 mg of morphine IV for pain. Patient's blood pressure was carefully monitored. Patient was reassessed multiple times during her stay in the emergency department. Patient's case was reviewed with Dr. Khan; we agreed on diagnostic approach, treatment, disposition and plan. Patient's case was consulted with case management and Dr. Gore, [facility] hospitalist, for medical observation/admission. Patient was educated about today's findings. Clinical Impression: Acute chest pain. Elevated troponin. Orthostatic hypotension. Decision-Making: Initially my differential diagnosis I considered pulmonary embolism, acute coronary syndrome, pneumothorax, pneumonia, gastrointestinal bleed and other causes. Disposition and Plan: Patient be brought in the hospital by the hospitalist; please see their notes and orders for final disposition and plan.
[2017-06-09 02:47] LABS: BASO % 0.1 %; BASO ABS # 0.01 K/uL (0-0.2); COMPLETE YES; EOS % 5.5 %; IG% 0.5 %; LYMPH % 26.9 %; LYMPH ABS # 3.38 K/uL (1.2-3.4); MEAN CELL VOLUME 84.6 fL (80-100); MEAN CORPUSCULAR HEMOGLOBIN 27.3 pg (25-34); MEAN CORPUSCULAR HGB CONC 32.3 g/dl (32-36); MEAN PLATELET VOLUME 10.4 fL (7.4-10.4); MONO % 6.3 %; NEUT % 60.7 %; PLATELET COUNT 192 K/uL (130-400); RED BLOOD COUNT 4.73 M/uL (4.2-5.4); WHITE BLOOD COUNT 12.55 K/uL (4.8-10.8)
[2017-06-09 03:14] LABS: CKMB/CK RATIO 1.1 (0-3.0)
[2017-06-09] MEDS: SODIUM CHLORIDE 0.9% 1000ML 1,000 ML IV SCH ×3 (06:14→21:53)
[2017-06-09] MEDS: LEVOTHYROXINE 150 MCG TAB PO SCH (06:15)
--- NOTE | 2017-06-09 06:26 | DIAGNOSTIC IMAGING REPORT ---
VENOUS DOPPLER LW EXT BILAT HISTORY: Pain. Edema. R/O DVT COMPARISON STUDY: None. FINDINGS: There is normal compressibility, flow, and augmentation within the bilateral lower extremity deep venous systems. IMPRESSION: No DVT within the right or left lower extremity. The above report was generated using voice recognition software. It may contain grammatical, syntax or spelling errors. Electronically signed by: Virgilio Garcia M.D. 06/09/2017 6:25 AM Dictated Date/Time: 06/09/2017 6:25 AM
[2017-06-09] MEDS ORDERED: IV FLUIDS COMPLETED PRN (08:00)
[2017-06-09] MEDS: LABETALOL HCL 200 MG TAB PO SCH ×3 (08:03→21:35)
[2017-06-09] MEDS: GABAPENTIN 300 MG CAP PO SCH ×2 (08:03→21:34)
[2017-06-09] MEDS ORDERED: SERTRALINE HCL 50 MG TAB PO SCH (09:00)
[2017-06-09] MEDS ORDERED: ARIPIprazole TAB 5 MG TAB PO SCH (09:00)
[2017-06-09] MEDS: AMLODIPINE BESYLATE 5 MG TAB PO SCH (09:04)
--- NOTE | 2017-06-09 10:27 | CARDIOLOGY CONSULTATION ---
DATE OF CONSULTATION: 06/09/2017 CONSULTATION REQUESTED BY: Dr. Tucker. REASON FOR CONSULTATION: Hypertension and chest pain. HISTORY OF PRESENT ILLNESS: Ms. St is a 32-year-old woman who has been seen multiple times at [facility]. She presented to [facility] on 06/08/2017 with a complaint of dizziness and chest pain a few hours prior to her arrival. Currently, the patient is lethargic in bed and the majority of the history was obtained through review of medical records. The patient is arousable. When she was aroused, she asked for morphine for her chest and headache. She states that her chest pain is exactly similar to the pain she was admitted for previously when she was found to have no significant ischemia. Apparently, the patient was started having orthostatic hypotension in the form of dizziness upon standing earlier in the day prior to presentation. When she came into the ER, her blood pressure was orthostatic. She was given IV morphine with improvement of her symptoms and she states that she is still having sharp midsternal chest discomfort that she ranked as severe, but again the patient was asleep when I entered the room. Of note, the patient has had multiple previous hospitalizations for previous symptoms and has been found to exhibit drug seeking behavior in the past. PAST SURGICAL HISTORY: 1. Adrenal tumor resection. 2. Arthroscopic knee surgeries. 3. Hemorrhoidectomy. 4. Hysterectomy. 5. Carpal tunnel surgery. 6. Appendectomy. 7. Cholecystectomy. 8. Lumbar decompression. 9. Partial thyroidectomy. MEDICAL ILLNESSES: 1. Drug seeking behavior. 2. Morbid obesity. 3. Obstructive sleep apnea, noncompliant with CPAP. 4. Recent history of a positive drug screen for clonazepam and lorazepam despite the fact that the patient is not prescribed of those drugs. 5. Hypertension. 6. Hypertensive heart disease. 7. Depression. 8. Anxiety. 9. Minimal nonocclusive coronary artery disease. FAMILY HISTORY: Noncontributory. SOCIAL HISTORY: The patient denies alcohol, tobacco or recreational drug use, but again drug screen from 05/22/2017 for benzos shows the presence of clonazepam and lorazepam. She does not work. She is on disability. REVIEW OF SYSTEMS: As per HPI. All other review of systems reviewed and negative at this time. ALLERGIES: 1. SULFA. 2. ULTRAM. MEDICATIONS AN OUTPATIENT: 1. Labetalol 200 mg 3 times a day. 2. Atorvastatin 20 mg daily. 3. Hydralazine 12.5 mg t.i.d. 4. Zoloft daily. 5. BuSpar b.i.d. 6. Zanaflex as needed. 7. Amoxicillin 3 times a day. 8. Abilify daily. PHYSICAL EXAMINATION: VITALS: Temperature 36.9, pulse 94, respiratory rate 12, and blood pressure 169/107. GENERAL: Lethargic, asleep, upon arousal states that she is in pain and asked for narcotics. In no acute distress. HEENT: Normocephalic and atraumatic. Pupils equal, round, and reactive to light and accommodation. Extraocular muscles intact. Anicteric sclerae. Moist mucous membranes. NECK: No JVD and no bruit. CARDIOVASCULAR: Regular, but distant due to body habitus. Unable to appreciate any murmurs, rubs or gallops. PULMONARY: Clear to auscultation bilaterally. No rales, rhonchi, or wheezing. ABDOMEN: Bowel sounds x4, soft. No rebound, guarding, or tenderness. No organomegaly. EXTREMITIES: No clubbing, cyanosis or edema. +2 pedal pulses bilaterally. SKIN: Warm and dry. TEST RESULTS: Most recent echocardiogram performed on 01/31/2017 was read as severe concentric left ventricular hypertrophy. Left ventricular cavity is small. Echo findings are not consistent with left ventricular outflow tract obstruction. EF greater than 70%. Grade 1 diastolic dysfunction. No significant valvular pathology. LABORATORY STUDIES OF SIGNIFICANCE: Sodium 137, potassium 3.8, BUN 20, and creatinine 2.3, which is above her baseline of about 1.3. A 12-lead EKG performed in the Emergency Department independently reviewed at this time shows normal sinus rhythm at 85 beats per minute, left atrial enlargement, left ventricular hypertrophy, prolonged QT interval with QTC of 561. Lateral ST segment depressions. No significant change compared to previous study. IMPRESSION: 1. Orthostatic hypotension. 2. Hypertension, uncontrolled. 3. Medical noncompliance. 4. Drug seeking behavior with documented history of benzodiazepine use despite not having a prescription. 5. Morbid obesity. 6. Obstructive sleep apnea, noncompliant with CPAP. 7. History of noncardiac chest pain in the setting of drug seeking. RECOMMENDATIONS: Ms. [place] was counseled from a cardiac standpoint. She states that she has been on all the medications that we previously prescribed her for her blood pressure; however, she is not. She has not been on amlodipine or lisinopril that was last prescribed to her. So at this point, her amlodipine was restarted and her labetalol will be continued. I will hold off on restarting the lisinopril given her increased creatinine, but I believe that will likely improve with fluids. She can also be given hydralazine 3 times a day. Otherwise, we will repeat an echocardiogram; however, I do not believe that any further ischemic workup will be necessary at this time. I would also recommend against providing her with any further narcotic medication.
--- NOTE | 2017-06-09 11:05 | DIAGNOSTIC IMAGING REPORT ---
LUNG IMAGING VQ CLINICAL HISTORY: Chest pain. Dyspnea. COMPARISON: None TECHNIQUE: For the ventilation portion of this exam, 32.7 mCi of DTPA was inhaled at 945. Immediately following inhalation, imaging of the chest was carried out in the anterior, posterior, left lateral, right lateral, LPO, RPO, PRYDEINIG and JACKSON projections. For the perfusion portion of exam, 5.5 mCi of technetium 99m MAA was injected IV at 1020. Immediately following injection, imaging of the chest was carried out in the same projections. FINDINGS: Normal study. Uniform perfusion and elation. No significant ventilation/perfusion mismatch IMPRESSION: Normal study The above report was generated using voice recognition software. It may contain grammatical, syntax or spelling errors. Electronically signed by: Virgilio Garcia M.D. 06/09/2017 11:04 AM Dictated Date/Time: 06/09/2017 10:58 AM
[2017-06-09 11:55] LABS: BUN/CREATININE RATIO 10.7 (10-20); CALCIUM 8.2 mg/dl (8.5-10.1); CREATININE 1.9 mg/dl (0.60-1.20); POTASSIUM 3.6 mmol/L (3.5-5.1)
--- NOTE | 2017-06-09 15:22 | ECHOCARDIOGRAM REPORT ---
*NOTICE TO RECEIVING [employer] This information is strictly Confidential and protected under [place] law. [place] law prohibits you from making any further disclosure of this information unless further disclosure is expressly permitted by the written consent of the person to whom it pertains or is authorized by law. A general authorization for the release of medical or other information is not sufficient for this purpose. Hospital accepts no responsibility if the information is made available to any other person, INCLUDING THE PATIENT. Interpretation Summary * Name: YANA CUBA Study Date: 06/09/2017 02:00 PM BP: 157/91 mmHg * Patient Location: C.ARLENE\S\E208\S\1 HR: 78 * : 1985 (M/d/yyyy) Gender: Female Height: 62 in * Age: 32 yrs Ethnicity: CA Weight: 239 lb * Ordering Physician: Avery Tucker * Referring Physician: Self, Referred * Performed By: Gustavo Pena RCS * * Reason For Study: Chest pain * BSA: 2.1 m2 * -- Conclusions -- * No change compared to previous study of 01/31/17. * Small LV chamber size with severe concentric LVH. * Hyperdynamic LV systolic function, EF >70%. * Grade II diastolic dysfunction. * No significant valvular pathology. Procedure Details * A contrast injection of Definity was performed to improve assessment of LV function. * Contrast was injected into an intravenous site in the right arm. * One vial of Definity ultrasound contrast was diluted in normal saline to a total volume of 10 ml. A total of '5' ml of solution was administered during imaging. * Lot # [id number] of Definity utilized for procedure. * Expiration date . * The attending nurse who injected the contrast agent was ED, RN. Left Ventricle * Ejection Fraction = >70 %. MMode 2D Measurements and Calculations IVSd 2.2 cm LVIDd 4.1 cm LVIDs 2.7 cm LVPWd 2.7 cm IVS/LVPW 0.80 FS 34.5 % EDV(Teich) 75.8 ml ESV(Teich) 27.2 ml EF(Teich) 64.1 % EDV(cubed) 70.7 ml ESV(cubed) 19.9 ml EF(cubed) 71.9 % LV mass(C)d 558.1 grams LV mass(C)dI 270.7 grams/m\S\2 SV(Teich) 48.5 ml SI(Teich) 23.5 ml/m\S\2 SV(cubed) 50.9 ml SI(cubed) 24.7 ml/m\S\2 Ao root diam 3.0 cm Ao root area 7.2 cm\S\2 LVOT diam 2.0 cm LVOT area 3.1 cm\S\2 LVAd ap4 13.7 cm\S\2 LVLd ap4 6.1 cm EDV(MOD-sp4) 25.8 ml EDV(sp4-el) 26.2 ml LVAs ap4 5.2 cm\S\2 LVLs ap4 5.1 cm ESV(MOD-sp4) 4.6 ml ESV(sp4-el) 4.5 ml EF(MOD-sp4) 82.1 % EF(sp4-el) 82.9 % LVAd ap2 23.5 cm\S\2 LVLd ap2 7.9 cm EDV(MOD-sp2) 60.3 ml EDV(sp2-el) 59.5 ml LVAs ap2 7.3 cm\S\2 LVLs ap2 4.5 cm ESV(MOD-sp2) 10.2 ml ESV(sp2-el) 10.0 ml EF(MOD-sp2) 83.1 % EF(sp2-el) 83.2 % LVLd %diff 22.8 % EDV(MOD-bp) 44.4 ml LVLs %diff -13.25 % ESV(MOD-bp) 7.3 ml EF(MOD-bp) 83.6 % SV(MOD-sp4) 21.2 ml SI(MOD-sp4) 10.3 ml/m\S\2 SV(MOD-sp2) 50.1 ml SI(MOD-sp2) 24.3 ml/m\S\2 SV(MOD-bp) 37.2 ml SI(MOD-bp) 18.0 ml/m\S\2 SV(sp4-el) 21.7 ml SI(sp4-el) 10.5 ml/m\S\2 SV(sp2-el) 49.5 ml SI(sp2-el) 24.0 ml/m\S\2 Doppler Measurements and Calculations MV E max álvaro 54.4 cm/sec MV A max álvaro 43.2 cm/sec MV E/A 1.3 MV P1/2t max álvaro 104.3 cm/sec MV P1/2t 62.0 msec MVA(P1/2t) 3.5 cm\S\2 MV dec slope 492.7 cm/sec\S\2 Ao V2 max 167.1 cm/sec Ao max PG 11.2 mmHg Ao max PG (full) 6.6 mmHg AYLA(V,A) 2.0 cm\S\2 AYLA(V,D) 2.0 cm\S\2 LV V1 max PG 4.6 mmHg LV V1 max 107.2 cm/sec
[2017-06-09] MEDS ORDERED: HydrALAZINE HCL 20 MG/ML VIAL IV. PRN (17:00)
--- NOTE | 2017-06-09 18:45 | Progress Note ---
Internal Med Progress Note Date of Service: Jun 09, 2017. Provider Documentation: SUBJECTIVE: complains of headache ,intermittent chest pain IV morphine does not work requesting for Dilaudid no hypoxia or SOB cardiac work up negative so far OBJECTIVE: Vital Signs-as noted below Exam: General-obese , young female, no sign of distress Eyes-sclera non icteric ENT-NAd Neck-no JVD Lungs-CTA Heart-regular S1/S2 Abdomen-soft, non tender Extremities-no lower ext edema Neuro-AAO x3, Lab data as noted below. ASSESSMENT & PLAN: ATYPICAL CHEST PAIN - history of hypertensive heart disease -ECHO shows no wall motion abnormality , grade 2 diastolic heart failure appreciate Cardiology eval no evidence of ACS no further cardiac work up indicated - D dimer mildly elevated at 610 no dyspnea VQ scan --negative for PE Doppler US Lower ext-negative DV T ACUTE RENAL FAILURE ON CKD 3 - likely prerenal - cont IVF - PROLONGED QTC - 561 - hold Abilify, Sertraline, Zoloft - repeat EKG n AM may need Psych consult for medication management if QTc still prolonged HYPERTENSION - BP elevated out pt antihypertensives resumed continue Labetalol - monitor CHRONIC MIGRAINE - complains of persistent headache IGNACIO - declines CPAP HYPOTHYROIDISM - on Levothyroxine ANXIETY/DEPRESSION - qtC prolonged at 561 - hold Abilify, Sertraline, Zoloft - repeat EKG n AM may need Psych consult for medication management if QTc still prolonged DVT PROPHYLAXIS SCDs FULL CODE per patient DISPOSITION plan to discharge home tomorrow Vital Signs: Date Time Temp Pulse Resp B/P (MAP) Pulse Ox O2 Delivery O2 Flow Rate FiO2 06/09/17 18:21 94 155/90 (111) 06/09/17 17:12 88 170/123 (139) 06/09/17 16:00 Room Air 06/09/17 15:26 36.9 76 18 169/122 (138) 97 Room Air 166/102 (123) 06/09/17 12:00 Room Air 06/09/17 11:24 36.9 82 16 148/93 (111) 95 06/09/17 08:00 Room Air 06/09/17 07:31 36.9 94 18 169/107 (127) 91 06/09/17 04:00 Room Air 06/09/17 04:00 36.9 92 20 157/91 (113) 97 Room Air 06/09/17 00:28 36.7 96 18 153/70 (97) 97 Room Air 06/09/17 00:00 Room Air 06/08/17 22:37 36.4 78 20 146/90 100 Room Air 06/08/17 21:24 83 15 151/101 100 06/08/17 21:01 81 17 162/97 98 Nasal Cannula 2.0 06/08/17 20:31 81 17 161/108 100 Nasal Cannula 2.0 06/08/17 20:02 94 Nasal Cannula 2.0 06/08/17 20:02 83 18 150/101 100 Nasal Cannula 2.0 06/08/17 19:55 88 Room Air Lab Results: Results Past 24 Hours Test 06/09/17 02:39 06/09/17 08:39 06/09/17 11:07 Range/Units White Blood Count 12.55 4.8-10.8 K/uL Red Blood Count 4.73 4.2-5.4 M/uL Hemoglobin 12.9 12.0-16.0 g/dL Hematocrit 40.0 37-47 % Mean Corpuscular Volume 84.6 80-100 fL Mean Corpuscular Hemoglobin 27.3 25-34 pg Mean Corpuscular Hemoglobin Concent 32.3 32-36 g/dl Platelet Count 192 130-400 K/uL Mean Platelet Volume 10.4 7.4-10.4 fL Neutrophils (%) (Auto) 60.7 % Lymphocytes (%) (Auto) 26.9 % Monocytes (%) (Auto) 6.3 % Eosinophils (%) (Auto) 5.5 % Basophils (%) (Auto) 0.1 % Neutrophils # (Auto) 7.62 1.4-6.5 K/uL Lymphocytes # (Auto) 3.38 1.2-3.4 K/uL Monocytes # (Auto) 0.79 0.11-0.59 K/uL Eosinophils # (Auto) 0.69 0-0.5 K/uL Basophils # (Auto) 0.01 0-0.2 K/uL RDW Standard Deviation 46.0 36.4-46.3 fL RDW Coefficient of Variation 15.0 11.5-14.5 % Immature Granulocyte % (Auto) 0.5 % Immature Granulocyte # (Auto) 0.06 0.00-0.02 K/uL Total Creatine Kinase 189 166 26-192 U/L Creatine Kinase MB 2.1 1.7 0.5-3.6 ng/ml Creatine Kinase MB Ratio 1.1 1.0 0-3.0 Troponin I 0.074 0.076 0-0.045 ng/ml Sodium Level 141 136-145 mmol/L Potassium Level 3.6 3.5-5.1 mmol/L Chloride Level 105 98-107 mmol/L Carbon Dioxide Level 31 21-32 mmol/L Anion Gap 5.0 3-11 mmol/L Blood Urea Nitrogen 20 7-18 mg/dl Creatinine 1.90 0.60-1.20 mg/dl Est Creatinine Clear Calc Drug Dose 48.3 ml/min Estimated GFR () 39.2 Estimated GFR (Non- 33.8 BUN/Creatinine Ratio 10.7 10-20 Random Glucose 127 70-99 mg/dl Calcium Level 8.2 8.5-10.1 mg/dl
[2017-06-09] MEDS ORDERED: HYDROmorphone INJ 1 MG/ML SYR IV ONE (19:00)
[2017-06-09] MEDS ORDERED: NURSING VERBAL MED ORDER ONE (19:00)
[2017-06-09] MEDS ORDERED: CLONAZEPAM 0.5 MG TAB PO PRN (19:15)
[2017-06-09] MEDS ORDERED: LABETALOL HCL 200 MG TAB PO SCH (21:00)
[2017-06-09 21:21] LABS: MANUAL MICROSCOPIC REQUIRED? NO; REVIEW REQ? NO; URINE APPEARANCE CLEAR (CLEAR); URINE BILIRUBIN NEG (NEG); URINE COLOR YELLOW; URINE EPITHELIAL CELL AUTO >30 /lpf (0-5); URINE NITRITE NEG (NEG); URINE PH 5.5 (4.5-7.5); URINE SPECIFIC GRAVITY 1.023 (1.000-1.030); UROBILINOGEN NEG (NEG)
[2017-06-10] VITALS (8 sets, daily range): BP systolic 147–178; BP diastolic 76–110; PULSE 77–88; TEMP 36.8–37.1; O2SAT 96–98
[2017-06-10] MEDS: LEVOTHYROXINE 150 MCG TAB PO SCH (06:23)
[2017-06-10] MEDS: SODIUM CHLORIDE 0.9% 1000ML 1,000 ML IV SCH (08:04)
[2017-06-10] MEDS: LABETALOL HCL 200 MG TAB PO SCH ×2 (08:05→13:28)
[2017-06-10] MEDS: GABAPENTIN 300 MG CAP PO SCH (08:05)
[2017-06-10] MEDS: AMLODIPINE BESYLATE 5 MG TAB PO SCH (08:05)
--- NOTE | 2017-06-10 09:48 | Discharge Instructions ---
Discharge Instructions Date of Service Jun 10, 2017. Admission Reason for Admission: Chest Pain Discharge Discharge Diagnosis / Problem: CHEST PAIN /NON CARDIAC Discharge Goals Goal(s): Decrease discomfort, Improve disease control, Diagnostic testing, Therapeutic intervention Activity Recommendations Activity Limitations: resume your previous activity . Instructions / Follow-Up Instructions / Follow-Up HOSPITAL FOLLOW UP : 06/15/2017 9:30 AM Norah Bailey DO [facility] NEED REPEAT EKG ON OFFICE VISIT TO ASSESS PROLONG QTc Current Hospital Diet Patient's current hospital diet: AHA Diet (Heart Healthy) Discharge Diet Recommended Diet: AHA Diet (Heart Healthy) Pending Studies Studies pending at discharge: yes List of pending studies: EKG IN OFFICE VISIT Medical Emergencies . Who to Call and When: Medical Emergencies: If at any time you feel your situation is an emergency, please call 911 immediately. . Non-Emergent Contact Non-Emergency issues call your: Primary Care Provider . . "Provider Documentation" section prepared by Carmella Adams. . VTE Core Measure Inpt VTE Proph given/why not?: Unfractionated heparin SQ
--- NOTE | 2017-06-10 15:28 | Discharge Summary ---
Discharge Summary Date of Service Jun 10, 2017. Discharge Summary Admission Date: Jun 08, 2017 at 20:26 Discharge Date: Jun 09, 2017 Discharge Disposition: Home Principal Diagnosis: CHEST PAIN /NON CARDIAC Procedures: ECHO : * No change compared to previous study of 01/31/17. * Small LV chamber size with severe concentric LVH. * Hyperdynamic LV systolic function, EF >70%. * Grade II diastolic dysfunction. * No significant valvular pathology. Consultations: CARDIOLOGY Medication Reconciliation Continued Medications: Amlodipine (Norvasc) 5 Mg Tab 10 MG PO QAM, TAB Aripiprazole (Abilify) 5 Mg Tab 5 MG PO DAILY, TAB Buspirone Hcl (Buspirone Hcl) 10 Mg Tab 10 MG PO TID, TAB Clonazepam (Clonazepam) 0.5 Mg Tab 0.5 MG PO BID PRN for Anxiety, #60 Gabapentin (Gabapentin) 600 Mg Tab 600 MG PO TID Hydralazine Hcl (Apresoline) 25 Mg Tab 25 MG PO TID, #90 Labetalol Hcl (Labetalol Hcl) 200 Mg Tab 200 MG PO TID, TAB Levothyroxine Sodium (Levothyroxine Sodium) 150 Mcg Tab 150 MCG PO 6XWK, TAB 3 Refills EVERY DAY EXCEPT TUESDAY Levothyroxine Sodium (Levothyroxine Sodium) 150 Mcg Tab 300 MCG PO WK EVERY TUESDAY Tizanidine (Zanaflex) 4 Mg Cap 4 MG PO TID PRN for Muscle Spasms, CAP Discontinued Medications: Sertraline HCl (Sertraline HCl) 100 Mg Tab 200 MG PO DAILY, #60 Admission Information HPI (per Admitting provider): 32 year old female with history of Hypertension, Hypertensive Heart Disease, CKD 3, Chronic Migraine, IGNACIO presenting with dizziness and chest pain few hours prior to admission. Patient was in her usual state of health until around noon today when she started to have dizziness and weakness upon standing. She later on experienced chest discomfort, sharp, at the substernal region, radiating straight to the back. Denies nausea, sweating, palpitations, dyspnea. At the ER, patient was noted to have orthostatic BP. EKG no signs of acute infarcts, Trop 0.08. She was given IV NSS and Morphine with some improvement of symptoms. On exam, patient seen resting in bed, not in distress. States she still has mild-moderate chest discomfort, sharp in nature. Denies any other active symptoms. Physical Exam (per Admitting): General Appearance: no apparent distress, + obese Head: normocephalic, atraumatic Eyes: normal inspection, EOMI, sclerae normal ENT: normal ENT inspection, hearing grossly normal, pharynx normal Neck: supple, no adenopathy, thyroid normal, no JVD, trachea midline Respiratory/Chest: chest non-tender, lungs clear, normal breath sounds, no respiratory distress, no accessory muscle use Cardiovascular: regular rate, rhythm, no edema, no JVD, no murmur, normal peripheral pulses Abdomen/GI: normal bowel sounds, non tender, soft, no organomegaly Back: normal inspection, no CVA tenderness Extremities/Musculoskelatal: normal inspection, no calf tenderness, no pedal edema, normal range of motion Neurologic/Psych: lever miller II-XII nml as tested, no motor/sensory deficits, alert , normal mood/affect, oriented x 3 Skin: normal color, warm/dry, no rash Lymphatic: no adenopathy Hospital Course No complain of chest pain or SOB , feels fine , very eager to be discharged home P/E: Exam: General-obese , young female, no sign of distress Eyes-sclera non icteric ENT-NAd Neck-no JVD Lungs-CTA Heart-regular S1/S2 Abdomen-soft, non tender Extremities-no lower ext edema Neuro-AAO x3, A/P: ATYPICAL CHEST PAIN Symptom now resolved - history of hypertensive heart disease -ECHO shows no wall motion abnormality , grade 2 diastolic heart failure appreciate Cardiology eval no evidence of ACS no further cardiac work up indicated stable to be discharged home today - D dimer mildly elevated at 610 no dyspnea VQ scan --negative for PE Doppler US Lower ext-negative DV T ACUTE RENAL FAILURE ON CKD 3 - likely prerenal - cr improved with IVF PROLONGED QTC - 561 - repeat EKG in AM-shows improvement of Qtc 495 d/w Pt -does not take Zoloft pt is resumed on Ability , Zanaflex PRN ( pt mentions she can not do without it -as gets severe back pain ) asked to have repeat EKG in office next with physician visit HYPERTENSION - BP stable cont out pt antihypertensives CHRONIC MIGRAINE - no complain of headache today IGNACIO - declines CPAP HYPOTHYROIDISM - on Levothyroxine DVT PROPHYLAXIS SCDs FULL CODE per patient DISPOSITION stable to be discharge home today Total time spent on discharge = 35 mins This includes examination of the patient, discharge planning, medication reconciliation, and communication with other providers. Discharge Instructions Discharge Instructions Date of Service Jun 10, 2017. Admission Reason for Admission: Chest Pain Discharge Discharge Diagnosis / Problem: CHEST PAIN /NON CARDIAC Discharge Goals Goal(s): Decrease discomfort, Improve disease control, Diagnostic testing, Therapeutic intervention Activity Recommendations Activity Limitations: resume your previous activity . Instructions / Follow-Up Instructions / Follow-Up HOSPITAL FOLLOW UP : 06/15/2017 9:30 AM Norah Bailey DO [facility] NEED REPEAT EKG ON OFFICE VISIT TO ASSESS PROLONG QTc Current Hospital Diet Patient's current hospital diet: AHA Diet (Heart Healthy) Discharge Diet Recommended Diet: AHA Diet (Heart Healthy) Pending Studies Studies pending at discharge: yes List of pending studies: EKG IN OFFICE VISIT Medical Emergencies . Who to Call and When: Medical Emergencies: If at any time you feel your situation is an emergency, please call 911 immediately. . Non-Emergent Contact Non-Emergency issues call your: Primary Care Provider . . "Provider Documentation" section prepared by Carmella Adams. . VTE Core Measure Inpt VTE Proph given/why not?: Unfractionated heparin SQ
[2017-06-15] MEDS ORDERED: LEVOTHYROXINE 150 MCG TAB PO SCH (07:00)
== END 2017-06-10 13:36 | disposition home or self-care (01) | DRG 312 ==
LOC: C.EDB 18:26 → OBSVTOIN 20:26 → C.MED 20:26 → ENRESERV 20:42
PROVIDERS: ADMIT Internal Medicine; ATTEND Hospitalist
DX: I95.1 Orthostatic hypotension (principal); N17.9 Acute kidney failure, unspecified; Z68.41 Body mass index [BMI] 40.0-44.9, adult; R07.89 Other chest pain; I13.10 Hypertensive heart and chronic kidney disease without heart failure, with stage 1 through stage 4 chronic kidney disease, or unspecified chronic kidney disease; E66.01 Morbid (severe) obesity due to excess calories; K21.9 Gastro-esophageal reflux disease without esophagitis; F32.9 Major depressive disorder, single episode, unspecified; F41.9 Anxiety disorder, unspecified; E03.9 Hypothyroidism, unspecified; G47.33 Obstructive sleep apnea (adult) (pediatric); N18.3 Chronic kidney disease, stage 3 (moderate); E86.0 Dehydration; F17.200 Nicotine dependence, unspecified, uncomplicated; Z91.19 Patient's noncompliance with other medical treatment and regimen; Z76.5 Malingerer [conscious simulation]

== ENCOUNTER 2017-06-17 11:57 | Emergency (ER) | payer OTHER ==
[~2017-06-17] VITALS: Ht 160 cm; Wt 110.0 kg
[~2017-06-17 11:57] MED LIST changes: -ZLF/100 PO
[2017-06-17 12:00] VITALS: TEMP 36.8; Ht 160 cm; Wt 110.0 kg
[2017-06-17] MEDS ORDERED: PROMETHAZINE HCL INJ 12.5 MG in SODIUM CHLORIDE 0.9% 50ML 50 ML IV STA (12:10)
[2017-06-17] MEDS ORDERED: LABETALOL HCL IV 5 MG/ML 20ML IV STA (12:10)
[2017-06-17] MEDS ORDERED: SODIUM CHLORIDE 0.9% 1000ML 500 ML IV STA (12:10)
[2017-06-17] MEDS ORDERED: MoRPHine SULFATE 10 MG/ML CARP/VIAL IV PRN (12:15)
[2017-06-17 12:30] VITALS: O2SAT 100
[2017-06-17 12:41] LABS: HEMATOCRIT 42.7 % (37-47); MEAN CELL VOLUME 81.8 fL (80-100); MEAN CORPUSCULAR HEMOGLOBIN 28.2 pg (25-34); MEAN CORPUSCULAR HGB CONC 34.4 g/dl (32-36); MEAN PLATELET VOLUME 10.6 fL (7.4-10.4); PLATELET COUNT 236 K/uL (130-400); RED BLOOD COUNT 5.22 M/uL (4.2-5.4); WHITE BLOOD COUNT 13.13 K/uL (4.8-10.8)
--- NOTE | 2017-06-17 12:41 | EMERGENCY ROOM VISIT NOTE ---
History Report prepared by Gabriele: Gurvinder Troy Under the Supervision of: Dr. Bashir Gallardo M.D. First contact with patient: 12:07 Chief Complaint: CHEST PAIN Stated Complaint: CHEST,BACK,& HEAD PAIN, NAUSEA, DIZZY, SOB History of Present Illness The patient is a 32 year old female who presents to the Emergency Room with complaints of intermittent chest pain beginning this morning. She states that she woke up with her pain, and decided to go back to sleep. She states that her pain resolved after sleeping, but she felt very dizzy upon waking. The patient states that since waking up the second time, she has had intermittent chest pain with standing up. She describes per pain as a feeling of "pressure". She also complains of vomiting, nausea, headache, and generalized weakness. The patient denies any cough, or fevers. She was admitted as an inpatient recently with similar symptoms and was told that her symptoms may have been related to dehydration. She denies any recent trauma. Source of History: patient Onset: This morning Position: chest Quality: pressure Timing: intermittent Associated Symptoms: + vomiting, + weakness, No fevers, No cough Note: Additional symptoms: dizziness. Review of Systems See HPI for pertinent positives & negatives. A total of 10 systems reviewed and were otherwise negative. Past Medical & Surgical Medical Problems: (1) Abdominal pain (2) Anxiety (3) Anxiety and depression (4) Borderline personality disorder (5) C. difficile colitis (6) Chest pain (7) Depression (8) Depression (9) Drug overdose, intentional (10) GERD (gastroesophageal reflux disease) (11) GERD (gastroesophageal reflux disease) (12) Headache (13) HTN (hypertension) (14) Hyperlipidemia (15) Hypertension (16) Hypothyroidism (17) Hypothyroidism (18) IBS (irritable bowel syndrome) (19) Left ventricular hypertrophy (20) Lumbago (21) Lumbar disc disorder (22) Migraine (23) Migraine (24) Morbid Obesity (25) Non-occlusive coronary artery disease (26) Noncompliance with medications (27) Obesity (28) IGNACIO (obstructive sleep apnea) (29) IGNACIO (obstructive sleep apnea) (30) Overdose (31) Past Psych Med (32) Polycystic ovarian syndrome Surgical Problems: (1) Adrenal tumor removed (2) H/O arthroscopic knee surgery (3) H/O arthroscopic knee surgery (4) H/O hemorrhoidectomy (5) H/O: hysterectomy (6) History of carpal tunnel surgery (7) History of carpal tunnel surgery (8) History of hysterectomy (9) Hx of appendectomy (10) Hx of cholecystectomy (11) Hx of decompressive lumbar laminectomy (12) Hx of hemorrhoidectomy (13) Hx of partial thyroidectomy (14) S/P appendectomy (15) S/P cholecystectomy (16) S/p removal adrenal gland tumor (17) S/P tonsillectomy and adenoidectomy (18) S/P tonsillectomy and adenoidectomy Family History Cancer Diabetes mellitus FHx: NV FHx: blood clots FHx: heart disease Gallbladder disease Heart disease Hypertension Kidney disease Lung disease Social History Smoking Status: Never Smoker Alcohol Use: none Drug Use: none Marital Status: single, in relationship Housing Status: lives with family Occupation Status: disabled Current/Historical Medications Scheduled Amlodipine (Norvasc), 10 MG PO QAM Buspirone Hcl (Buspirone Hcl), 10 MG PO TID Gabapentin (Gabapentin), 600 MG PO TID Hydralazine Hcl (Apresoline), 25 MG PO TID Labetalol Hcl (Labetalol Hcl), 200 MG PO TID Levothyroxine Sodium (Levothyroxine Sodium), 150 MCG PO [id number] Levothyroxine Sodium (Levothyroxine Sodium), 300 MCG PO WK Scheduled PRN Clonazepam (Clonazepam), 0.5 MG PO BID PRN for Anxiety Tizanidine (Zanaflex), 4 MG PO TID PRN for Muscle Spasms Allergies Coded Allergies: Lisinopril (Unverified Allergy, Severe, renal failure, 06/17/17) Sulfa Antibiotics (Verified Allergy, Severe, RASH, DIFFICULTY BREATHING, HAD LASIX OK PREV.ADM., 06/08/17) NSAIDs (Verified Adverse Reaction, Unknown, KIDNEY FAILURE, 06/08/17) PATIENT REPORTS PRECISION STRUCTURAL METAL FITTER TOLD PATIENT TO STAY AWAY FROM DUE TO KIDNEY FUNCTION Tramadol (Verified Adverse Reaction, Unknown, "MAKES ME DIZZY", 06/08/17) Physical Exam Vital Signs Date Time Temp Pulse Resp B/P (MAP) Pulse Ox O2 Delivery O2 Flow Rate FiO2 06/17/17 14:31 80 24 134/84 95 06/17/17 13:46 134/80 06/17/17 13:42 79 19 95 06/17/17 13:31 122/82 06/17/17 13:27 76 15 99 06/17/17 13:20 80 125/93 99 Room Air 06/17/17 13:16 125/93 06/17/17 13:12 80 26 97 06/17/17 13:01 130/81 06/17/17 12:57 79 14 98 06/17/17 12:53 79 06/17/17 12:46 118/80 06/17/17 12:43 78 20 158/92 100 06/17/17 12:43 100 Room Air 06/17/17 12:31 163/109 100 Room Air 06/17/17 12:30 100 Room Air 06/17/17 12:00 36.8 85 20 162/122 93 Room Air Physical Exam GENERAL: Patient is in no acute distress. Anxious appearing. HEENT: No acute trauma, normocephalic atraumatic, mucous membranes moist, no nasal congestion, no scleral icterus. NECK: No stridor, no adenopathy, no meningismus, trachea is midline. LUNGS: Clear to auscultation bilaterally, no wheeze, no rhonchi, breath sounds equal. HEART: Without murmurs gallops or rubs, regular rate and rhythm. CHEST: Non-tender chest wall. ABDOMEN: Soft, nontender, bowel sounds positive, no hernias, no peritonitis. EXTREMITIES: No cyanosis or edema, full range of motion of all the joints without pain or difficulty, no signs for acute trauma. NEUROLOGIC: Oriented x 3, no acute motor or sensory deficits, no focal weakness. SKIN: No rash, no jaundice, no diaphoresis. Medical Decision & Procedures ER Provider Diagnostic Interpretation: X-ray results as stated below per interpretation by me and the radiologist: CHEST ONE VIEW PORTABLE FINDINGS: There is no pneumothorax or pleural effusion. Pulmonary vascularity is normal. No consolidation is identified. Apparent left lower lung opacity is likely artifactual. Moderate to marked cardiomegaly is unchanged. IMPRESSION: 1. No acute cardiopulmonary findings. 2. No change in moderate to marked cardiomegaly. Electronically signed by: Pancho Altman M.D. Laboratory Results 06/17/17 12:30 06/17/17 12:30 Test 06/17/17 12:30 Red Blood Count 5.22 M/uL (4.2-5.4) Mean Corpuscular Volume 81.8 fL (80-100) Mean Corpuscular Hemoglobin 28.2 pg (25-34) Mean Corpuscular Hemoglobin Concent 34.4 g/dl (32-36) RDW Standard Deviation 42.1 fL (36.4-46.3) RDW Coefficient of Variation 14.2 % (11.5-14.5) Mean Platelet Volume 10.6 fL (7.4-10.4) Anion Gap 5.0 mmol/L (3-11) Est Creatinine Clear Calc Drug Dose 55.5 ml/min Estimated GFR () 44.8 Estimated GFR (Non- 38.7 BUN/Creatinine Ratio 11.3 (10-20) Calcium Level 8.8 mg/dl (8.5-10.1) Magnesium Level 2.3 mg/dl (1.8-2.4) Total Bilirubin 0.5 mg/dl (0.2-1) Aspartate Amino Transf (AST/SGOT) 18 U/L (15-37) Alanine Aminotransferase (ALT/SGPT) 23 U/L (12-78) Alkaline Phosphatase 82 U/L (45-117) Total Creatine Kinase 139 U/L (26-192) Creatine Kinase MB 3.3 ng/ml (0.5-3.6) Creatine Kinase MB Ratio 2.4 (0-3.0) Troponin I 0.056 ng/ml (0-0.045) Total Protein 7.2 gm/dl (6.4-8.2) Albumin 3.6 gm/dl (3.4-5.0) Globulin 3.6 gm/dl (2.5-4.0) Albumin/Globulin Ratio 1.0 (0.9-2) Lipase 177 U/L (73-393) Thyroid Stimulating Hormone (TSH) 1.820 uIu/ml (0.300-4.500) Free Thyroxine 0.93 ng/dl (0.80-1.60) Laboratory results reviewed by me. Medications Administered Medications (Trade) Dose Ordered Sig/Randi Route Start Time Stop Time Status Last Admin Dose Admin Sodium Chloride 500 ml @ 999 mls/hr Q31M STAT IV 06/17/17 12:10 06/17/17 12:40 DC 06/17/17 12:10 999 MLS/HR Morphine Sulfate (MoRPHine SULFATE INJ) 4 mg Q15M PRN IV 06/17/17 12:15 07/01/17 12:14 06/17/17 12:38 4 MG Promethazine HCl 12.5 mg/Sodium Chloride 50.5 ml @ 204 mls/hr NOW STAT IV 06/17/17 12:10 06/17/17 12:24 DC 06/17/17 12:39 204 MLS/HR Labetalol HCl (Normodyne IV) 20 mg NOW STAT IV 06/17/17 12:10 06/17/17 12:14 DC 06/17/17 12:42 20 MG Morphine Sulfate (MoRPHine SULFATE INJ) 4 mg STK-MED ONCE .ROUTE 06/17/17 13:22 06/17/17 13:23 DC 06/17/17 13:27 4 MG ECG Indication: chest pain Rate (beats per minute): 87 Rhythm: normal sinus Findings: T-wave inversion (inferior and lateral leads), prolonged QT, other ( old septal infarct) Comparison ECG Date: Jun 10, 2017 Change: no significant change ED Course 1209: The patient was evaluated in room C11B. A complete history and physical exam was performed. 1210: Ordered Normodyne 20 mg IV, Promethazine HCl 12.5 mg/Sodium Chloride 50.5 ml @ 204 mls/hr IV, Sodium Chloride 5009 ml @ 999 mls/hr IV. 1215: Ordered Morphine Sulfate 4 mg IV. 1335: I reassessed the patient. She is feeling much better. 1420: Reevaluated the patient. Discussed results and discharge instructions: she verbalized understanding and agreement. The patient is ready for discharge. Medical Decision The patient is a 32 year old female who presents to the ED with complaints of chest pain. Differential diagnoses considered include cardiac ischemia, NV, uncontrolled hypertension, aortic dissection, PE, pneumothorax, pneumonia, renal failure, and anemia. There is a mild leukocytosis, this has been present in the past and is about baseline. No concerning anemia. There is renal insufficiency but this is baseline. No significant electrolyte abnormality requiring correction. There is no hepatitis. EKG shows a normal sinus rhythm with T-wave changes but these appear chronic. There is a mild troponin elevation but this also is chronic. Chest x-ray shows cardiomegaly which has been well documented in the past. There was no heart failure or mediastinal widening. The patient appeared to be in a euthyroid state. The patient was given IV morphine, IV Zofran, IV saline and IV labetalol. She feels markedly better. Her blood pressure is now nicely controlled. I did speak with cardiology on-call. The patient is being discharged with outpatient follow-up. This presentation today is very similar to her presentation for which she did stay in the hospital. The cause for her chest pain is unclear but may be related to her hypertension. The pain may be musculoskeletal. The patient was advised to take an extra hydralazine for high blood pressure readings. She was encouraged to return here for worsening symptoms. Medication Reconcilliation Current Medication List: was personally reviewed by me Blood Pressure Screening Patient's blood pressure: Elevated blood pressure Blood pressure disposition: Referred to PCP Consults Time Called: 1355 Consulting Physician: Dr. Ferris -Cardiology Returned Call: 1400 Discussed the patient's case. Dr. Ferris feels that the patient would be safe for discharge with outpatient follow up. Impression Primary Impression: Precordial chest pain Additional Impressions: SOB (shortness of breath) HTN (hypertension) Scribe Attestation The scribe's documentation has been prepared under my direction and personally reviewed by me in its entirety. I confirm that the note above accurately reflects all work, treatment, procedures, and medical decision making performed by me. Departure Information Dispostion Home / Self-Care Referrals Dyan Shaver DO (PCP) Forms HOME CARE DOCUMENTATION FORM, IMPORTANT VISIT INFORMATION Patient Instructions My [facility] Additional Instructions meds as before testing here was all ok as discussed return for worsening symptoms follow with cardiology and fam md next week may use extra hydralazine tab if needed for higher blood pressure readings as we discussed off work today Problem Qualifiers
--- NOTE | 2017-06-17 12:50 | DIAGNOSTIC IMAGING REPORT ---
CHEST ONE VIEW PORTABLE CLINICAL HISTORY: Chest pain, nausea and dizziness. COMPARISON STUDY: Chest CT January 30, 2017 and chest radiograph June 08, 2017. FINDINGS: There is no pneumothorax or pleural effusion. Pulmonary vascularity is normal. No consolidation is identified. Apparent left lower lung opacity is likely artifactual. Moderate to marked cardiomegaly is unchanged. IMPRESSION: 1. No acute cardiopulmonary findings. 2. No change in moderate to marked cardiomegaly. Electronically signed by: Pancho Altman M.D. 06/17/2017 12:48 PM Dictated Date/Time: 06/17/2017 12:48 PM
[2017-06-17 13:03] LABS: BUN/CREATININE RATIO 11.3 (10-20); CALCIUM 8.8 mg/dl (8.5-10.1); CREATININE 1.7 mg/dl (0.60-1.20); MAGNESIUM 2.3 mg/dl (1.8-2.4); POTASSIUM 3.8 mmol/L (3.5-5.1)
[2017-06-17 13:15] LABS: CKMB/CK RATIO 2.4 (0-3.0); THYROID STIMULATING HORMONE 1.82 uIu/ml (0.300-4.500)
[2017-06-17] MEDS ORDERED: MoRPHine SULFATE 4 MG/ML 1 ML CARP\\VIAL ONE (13:22)
[2017-06-17 14:31] VITALS: BP 134/84; PULSE 80; O2SAT 95
== END 2017-06-17 14:34 | disposition home or self-care (01) ==
LOC: C.EDB 11:59 → C.EDC 14:34
DX: R07.2 Precordial pain (principal); R06.02 Shortness of breath; I10 Essential (primary) hypertension; E78.5 Hyperlipidemia, unspecified; E03.9 Hypothyroidism, unspecified; K58.9 Irritable bowel syndrome, unspecified; F41.8 Other specified anxiety disorders; K21.9 Gastro-esophageal reflux disease without esophagitis; G47.33 Obstructive sleep apnea (adult) (pediatric); E28.2 Polycystic ovarian syndrome; I25.10 Atherosclerotic heart disease of native coronary artery without angina pectoris; F32.9 Major depressive disorder, single episode, unspecified; Z90.710 Acquired absence of both cervix and uterus; Z98.890 Other specified postprocedural states; Z90.49 Acquired absence of other specified parts of digestive tract; Z79.899 Other long term (current) drug therapy; Z88.2 Allergy status to sulfonamides; Z88.5 Allergy status to narcotic agent; Z88.8 Allergy status to other drugs, medicaments and biological substances; Z80.9 Family history of malignant neoplasm, unspecified; Z83.3 Family history of diabetes mellitus; Z82.49 Family history of ischemic heart disease and other diseases of the circulatory system; Z83.79 Family history of other diseases of the digestive system; Z84.1 Family history of disorders of kidney and ureter

== ENCOUNTER → 2017-06-29 | Outpatient (CLI) | payer OTHER ==
[~2017-06-29] MED LIST changes: -ABL/5 PO; +AMOX1TAB43 PO; +AMOX875T PO; +APR25 PO; +APR50 PO; +BUSP-8 PO; +CZR25 PO; +KLN1X PO; -KLN5X PO; +LBT/200 PO; +LBT200 PO; -LEVO150T9 PO; +LOSA1TAB PO; +LOSA50TA6 PO; +NRN600 PO; +SERT-234 PO; +TIZA4CAP PO; +VNTHFA/IN INH
[2017-06-29 12:42] LABS: URINE APPEARANCE CLEAR (CLEAR); URINE BILIRUBIN NEG (NEG); URINE COLOR YELLOW; URINE EPITHELIAL CELL AUTO >30 /lpf (0-5); URINE NITRITE NEG (NEG); URINE PH 5.5 (4.5-7.5); URINE SPECIFIC GRAVITY 1.024 (1.000-1.030); UROBILINOGEN NEG (NEG)
[2017-06-29 12:48] LABS: MANUAL MICROSCOPIC REQUIRED? NO; REVIEW REQ? NO
[2017-06-29 13:01] LABS: URINE PROTIEN/CREAT RATIO 0.7 (0-0.2); URINE TOTAL PROTEIN 183.9 mg/dl (0-11.9)
[2017-06-29 13:15] LABS: BLOOD UREA NITROGEN 22 mg/dl (7-18); BUN/CREATININE RATIO 12.9 (10-20); CALCIUM 8.6 mg/dl (8.5-10.1); CARBON DIOXIDE 30 mmol/L (21-32); CHLORIDE 101 mmol/L (98-107); GLUCOSE 114 mg/dl (70-99); PHOSPHORUS 3.7 mg/dl (2.5-4.9); POTASSIUM 3.5 mmol/L (3.5-5.1); SODIUM 138 mmol/L (136-145); URIC ACID 6.5 mg/dl (2.6-7.2)
== END | disposition home or self-care (01) ==
LOC: C.LAB1850 11:30
PROVIDERS: ATTEND Internal Medicine Nephrology
DX: N18.3 Chronic kidney disease, stage 3 (moderate) (principal); I12.9 Hypertensive chronic kidney disease with stage 1 through stage 4 chronic kidney disease, or unspecified chronic kidney disease; E55.9 Vitamin D deficiency, unspecified

== ENCOUNTER → 2017-07-01 | Day surgery (SDC) | payer OTHER ==
[2017-06-24 08:13] VITALS: Ht 157.5 cm; Wt 108.2 kg
[~2017-07-01] VITALS: Ht 157.5 cm; Wt 108.2 kg
[~2017-07-01] MED LIST changes: -AMOX1TAB43 PO; -AMOX875T PO; -APR50 PO; -CZR25 PO; +KETAMINE HCL INJ 50 MG/ML 10 ML VIAL ONE; -LBT/200 PO; -LBT200 PO; +LIDOCAINE HCL 2% 2 ML VIAL (20MG/ML) ONE; -LOSA1TAB PO; +MIDAZOLAM HCL 1 MG/ML 2ML VIAL ONE; +PROPOFOL IV EMULSION 10 MG/ML 20 ML VIAL IV ONE; +SODIUM CHLORIDE 0.9% 500ML 500 ML IV ONE; -VNTHFA/IN INH
--- NOTE | 2017-07-01 12:52 | Endo History and Physical ---
History & Physical Date of Service: Jul 01, 2017. Chief Complaint: RECTAL BLEDING Referring Physician: DR. FAJARDO History of Present Illness 32 yo CF who presents for colonoscopy secondary to rectal bleeding. Past Medical History Anxiety, Reflux, Sleep Apnea, Hypertension, Thyroid Disease, Depression Past Surgical History Hx Cardiac Surgery: No Hx Internal Defibrillator: No Hx Pacemaker: No Hx Abdominal Surgery: Yes (APPENDECTOMY, HYSTERECTOMY, CHOLECYSTECTOMY, C SECTION X 2) Hx of Implantable Prosthesis: No Hx Post-Op Nausea and Vomiting: No Hx Cancer Surgery: No Hx Thoracic Surgery: No Hx Orthopedic: Yes (CARPAL TUNNEL, ARTHROSCOPIC KNEE SURGERY, DECOMPRESSIVE LUMBAR LAMINECTOMY) Hx Urinary Tract Surgery: No Family History IBD Social History Smoking Status: Never Smoker Hx Substance Use: No Hx Alcohol Use: No Allergies Coded Allergies: Lisinopril (Verified Allergy, Severe, renal failure, 07/01/17) Sulfa Antibiotics (Verified Allergy, Severe, RASH, DIFFICULTY BREATHING, HAD LASIX OK PREV.ADM., 06/24/17) NSAIDs (Verified Adverse Reaction, Unknown, KIDNEY FAILURE, 06/24/17) PATIENT REPORTS BLINTZE ROLLER TOLD PATIENT TO STAY AWAY FROM DUE TO KIDNEY FUNCTION Tramadol (Verified Adverse Reaction, Unknown, "MAKES ME DIZZY", 06/24/17) Current Medications Reported Home Medications Medications Dose Route/Sig Max Daily Dose Days Date Category Zoloft (Sertraline HCl) 100 Mg Tab 100 Mg PO BID 06/24/17 Reported Clonazepam 1 Mg Tab 1 Mg PO BID PRN 06/24/17 Reported Apresoline (Hydralazine Hcl) 25 Mg Tab 25 Mg PO TID 05/14/17 Reported Gabapentin 600 Mg Tab 600 Mg PO TID 04/24/17 Reported Zanaflex (Tizanidine HCl) 4 Mg Cap 4 Mg PO TID PRN 01/30/17 Reported Buspirone Hcl 10 Mg Tab 10 Mg PO TID 01/30/17 Reported Labetalol Hcl 200 Mg Tab 200 Mg PO TID 10/10/16 Reported Vital Signs Weight (Kilograms): 108.18 Height (Feet): 5 Height (Inches): 2 Date Time Temp Pulse Resp B/P (MAP) Pulse Ox O2 Delivery O2 Flow Rate FiO2 07/01/17 12:31 175/108 (130) 07/01/17 12:14 193/130 (151) 07/01/17 12:11 199/129 (152) 07/01/17 12:10 37.0 78 16 189/106 (133) 96 Room Air Physical Exam General Appearance: WD/WN, no apparent distress Respiratory/Chest: Auscultation: breath sounds normal Cardiovascular: Heart Auscultation: RRR Abdomen: Bowel Sounds: normal Inspection & Palpation: soft, non-distended, no tenderness, guarding & rebound Assessment and Plan Assessment: 32 yo CF who presents for colonoscopy secondary to rectal bleeding. Plan: Proceed with colonoscopy
--- NOTE | 2017-07-01 13:41 | Discharge Instructions ---
Endoscopy Patient Instructions Date / Procedure(s) Performed Jul 01, 2017. Colonoscopy Allergy Information Coded Allergies: Lisinopril (Verified Allergy, Severe, renal failure, 07/01/17) Sulfa Antibiotics (Verified Allergy, Severe, RASH, DIFFICULTY BREATHING, HAD LASIX OK PREV.ADM., 06/24/17) NSAIDs (Verified Adverse Reaction, Unknown, KIDNEY FAILURE, 06/24/17) PATIENT REPORTS TRANSFER AND LINE UP WORKER TOLD PATIENT TO STAY AWAY FROM DUE TO KIDNEY FUNCTION Tramadol (Verified Adverse Reaction, Unknown, "MAKES ME DIZZY", 06/24/17) Discharge Date / Findings Jul 01, 2017. Internal hemorrhoids Medication Instructions OK to resume all medications today as prescribed Reported Home Medications Medications Dose Route/Sig Max Daily Dose Days Date Category Zoloft (Sertraline HCl) 100 Mg Tab 100 Mg PO BID 06/24/17 Reported Clonazepam 1 Mg Tab 1 Mg PO BID PRN 06/24/17 Reported Apresoline (Hydralazine Hcl) 25 Mg Tab 25 Mg PO TID 05/14/17 Reported Gabapentin 600 Mg Tab 600 Mg PO TID 04/24/17 Reported Zanaflex (Tizanidine HCl) 4 Mg Cap 4 Mg PO TID PRN 01/30/17 Reported Buspirone Hcl 10 Mg Tab 10 Mg PO TID 01/30/17 Reported Labetalol Hcl 200 Mg Tab 200 Mg PO TID 10/10/16 Reported Provider Instructions Activity Restrictions - No exercising or heavy lifting for 24 hours. - Do not drink alcohol the day of the procedure. - Do not drive a car or operate machinery until the day after the procedure. - Do not make any important decisions or sign important papers in 24 hours after the procedure. Following Day: - Return to full activity which may include returning to work/school. Diet Start your diet with liquids and light foods (jello, soup, juice, toast). Then eat your usual diet if not nauseated. Treatment For Common After Affects For mild abdominal pain, bloating, or excessive gas: - Rest - Eat lightly - Lie on right side Follow-Up Information Follow-up with DR. FAJARDO as scheduled Anesthesia Information What You Should Know You have had a procedure that required some medicine to reduce anxiety and discomfort. This treatment is called moderate sedation. After receiving the treatment, you may be sleepy, but you will be able to breathe on your own. The effects of the treatment may last for several hours. Follow these instructions along with Activity/Diet recommendations noted above: * Do NOT do anything where dizziness or clumsiness would be dangerous. * Rest quietly at home today, then you can be up and about tomorrow. * Have a responsible person stay with you the rest of today. * You may have had an I.V. today. If so, you may take the dressing off later today. Recommendations Call your doctor if: * Trouble breathing * Continuous vomiting for more than 24 hours * Temperature above 101 degrees * Severe abdominal pain or bloating * Pain not relieved by pain medicine ordered * There is increased drainage or redness from any incision * A large amount of rectal bleeding greater than 2-3 tablespoons. (If you had a polyp/s removed or have hemorrhoids, a small amount of blood - from the rectum is to be expected.) * You have any unanswered questions or concerns. IN THE EVENT OF A SERIOUS EMERGENCY, GO TO THE NEAREST EMERGENCY ROOM Your discharge instructions were prepared by provider Gilbert Berkowitz. Patient Instructions Signature Page [address] Patient (or Guardian) Signature/Date: I have read and understand the instructions given to me by my caregivers. Caregiver/RN/Doctor Signature/Date: The above-named patient and/or guardian has received patient instructions on this date. + Original Patient Signature Page (only) stays with chart. Please make copy for patient.
--- NOTE | 2017-07-01 13:45 | GI REPORT ---
Procedure Date: 07/01/2017 1:12 PM Procedure: Colonoscopy Indications: Rectal bleeding Medicines: Monitored Anesthesia Care Complications: No immediate complications. Estimated Blood Loss: Estimated blood loss: none. Procedure: Pre-Anesthesia Assessment: - Prior to the procedure, a History and Physical was performed, and patient medications and allergies were reviewed. The patient's tolerance of previous anesthesia was also reviewed. The risks and benefits of the procedure and the sedation options and risks were discussed with the patient. All questions were answered, and informed consent was obtained. Prior Anticoagulants: The patient has taken no previous anticoagulant or antiplatelet agents. ASA Grade Assessment: III - A patient with severe systemic disease. After reviewing the risks and benefits, the patient was deemed in satisfactory condition to undergo the procedure. After I obtained informed consent, the scope was passed under direct vision. Throughout the procedure, the patient's blood pressure, pulse, and oxygen saturations were monitored continuously. The scope was introduced through the anus and advanced to the cecum, identified by appendiceal orifice and ileocecal valve. The colonoscopy was performed without difficulty. The patient tolerated the procedure well. The quality of the bowel preparation was fair. The ileocecal valve, appendiceal orifice, and rectum were photographed. Findings: Non-bleeding internal hemorrhoids were found during retroflexion. The hemorrhoids were small. Impression: - Non-bleeding internal hemorrhoids. - No specimens collected. Recommendation: - Resume previous diet. - Continue present medications. - Repeat colonoscopy in 3 years for surveillance. - Return to primary care physician as previously scheduled. Gilbert Berkowitz DO 07/01/2017 1:44:18 PM This report has been signed electronically. Note Initiated On: 07/01/2017 1:12 PM I attest to the content of the Intraoperative Record and orders documented therein, exceptions below
[2017-07-01 14:14] VITALS: BP 193/117; PULSE 79; O2SAT 95
--- NOTE | 2017-07-01 14:19 | Anesthesiology Progress Note ---
Anesthesia Post Op Note Date & Time Jul 01, 2017 at 14:18 Vital Signs Pain Intensity: 4 Vital Signs Past 12 Hours Date Time Temp Pulse Resp B/P (MAP) Pulse Ox O2 Delivery O2 Flow Rate FiO2 07/01/17 13:55 84 20 183/103 (129) 96 Room Air 07/01/17 13:39 20 176/82 (113) 96 Room Air 07/01/17 12:31 175/108 (130) 07/01/17 12:14 193/130 (151) 07/01/17 12:11 199/129 (152) 07/01/17 12:10 37.0 78 16 189/106 (133) 96 Room Air Notes Mental Status: alert / awake / arousable, participated in evaluation Pt Amnestic to Procedure: Yes Nausea / Vomiting: adequately controlled Pain: adequately controlled Airway Patency, RR, SpO2: stable & adequate BP & HR: stable & adequate Hydration State: stable & adequate Anesthetic Complications: no major complications apparent Patient hypertensive postop at similar diastolics to post op. She has no red flag symptoms and has recently been Rx'd norvasc in addition to her current antihypertensives. She is scheduled to picker feeder the Norvasc and start this medicine today. She will return to the ER if she has any red flag symptoms but may be discharged to follow up on her BP with her primary care doctor
== END | disposition home or self-care (01) ==
LOC: C.GI 11:00
PROVIDERS: ATTEND Internal Medicine
DX: K62.5 Hemorrhage of anus and rectum (principal); K64.8 Other hemorrhoids; N18.9 Chronic kidney disease, unspecified; Z12.9 Encounter for screening for malignant neoplasm, site unspecified; G47.33 Obstructive sleep apnea (adult) (pediatric); Z88.2 Allergy status to sulfonamides; I10 Essential (primary) hypertension; F32.9 Major depressive disorder, single episode, unspecified; Z90.89 Acquired absence of other organs; Z90.710 Acquired absence of both cervix and uterus; Z90.49 Acquired absence of other specified parts of digestive tract; Z98.890 Other specified postprocedural states; Z79.899 Other long term (current) drug therapy; Z68.41 Body mass index [BMI] 40.0-44.9, adult

== ENCOUNTER 2017-07-04 15:11 | Inpatient (IN) | payer OTHER ==
[~2017-07-04] VITALS: Ht 157.5 cm; Wt 117.5 kg
[~2017-07-04 15:11] MED LIST changes: -AMLO-110 PO; -APR25 PO; -BUSP-8 PO; -KETAMINE HCL INJ 50 MG/ML 10 ML VIAL ONE; -KLN1X PO; -LIDOCAINE HCL 2% 2 ML VIAL (20MG/ML) ONE; -LOSA50TA6 PO; -MIDAZOLAM HCL 1 MG/ML 2ML VIAL ONE; -NRN600 PO; -PROPOFOL IV EMULSION 10 MG/ML 20 ML VIAL IV ONE; -SERT-234 PO; -SODIUM CHLORIDE 0.9% 500ML 500 ML IV ONE; -TIZA4CAP PO
[2017-07-04] MEDS ORDERED: METOCLOPRAMIDE HCL INJ 5 MG/ML 2 ML VIAL IV STA (15:28)
[2017-07-04] MEDS ORDERED: DiphenhydrAMINE HCL 50 MG/ML VIAL IV STA (15:28)
[2017-07-04] MEDS ORDERED: ASPIRIN 324 MG CHEW PO STA (15:28)
[2017-07-04] MEDS ORDERED: LABETALOL HCL IV 5 MG/ML 20ML IV STA (15:28)
[2017-07-04] MEDS ORDERED: HYDROmorphone INJ 0.5 MG/0.5 ML SYR IV STA (15:28)
--- NOTE | 2017-07-04 15:41 | EMERGENCY ROOM VISIT NOTE ---
History Report prepared by Gabriele: Junior Wayne Under the Supervision of: Dr. Timothy Kemp M.D. First contact with patient: 15:12 Stated Complaint: HYPERTENSION, MIGRAINE, DOCTOR REFERRED History of Present Illness The patient is a 32 year old white female with a past medical history of sleep apnea, and kidney failure who presents to the ED with a cc of a constant shortness of breath beginning a couple of days ago. She states that her SOB is worsened with exertion. The patient states that she went to see Dr. Ross for her symptoms who ran EKGs that were abnormal. She states that the EKGs showed the there was not enough oxygen getting to her heart. The patient also reports that the doctor was concerned about her shortness of breath and hypertension and told her to report to the ED. She admits that she has also been experiencing chest pressure, that she admits started here in the ED, and a constant headache. The patient states that she was recently given Lisinopril for her history of kidney failure. She states that she has been taking her normal medications daily and admits her last dose was at 1015 this morning. The patient admits that her grandma had a heart attack and her dad had a defibrillator, but is unsure if it was due to a stroke or [place] in his late 40s. Positive chest pressure, shortness of breath with exertion. Negative swelling in lower extremities, abdominal pain, nausea, vomiting, cough, fevers, chills, blood clot history, alcohol or drug use. Source of History: patient Onset: a couple of days ago Position: other (global) Timing: constant Modifying Factors (Worsening): exertion Associated Symptoms: + headache, + chest pain, No fevers, No chills, No cough, No nausea, No vomiting, No abdominal pain Review of Systems See HPI for pertinent positives and negatives. A total of ten systems were reviewed and were otherwise negative. Past Medical & Surgical Medical Problems: (1) Abdominal pain (2) Anxiety (3) Anxiety and depression (4) Borderline personality disorder (5) C. difficile colitis (6) Chest pain (7) Depression (8) Depression (9) Drug overdose, intentional (10) GERD (gastroesophageal reflux disease) (11) GERD (gastroesophageal reflux disease) (12) Headache (13) HTN (hypertension) (14) Hyperlipidemia (15) Hypertension (16) Hypertensive emergency (17) Hypothyroidism (18) Hypothyroidism (19) IBS (irritable bowel syndrome) (20) Left ventricular hypertrophy (21) Lumbago (22) Lumbar disc disorder (23) Migraine (24) Migraine (25) Morbid Obesity (26) Non-occlusive coronary artery disease (27) Noncompliance with medications (28) Obesity (29) IGNACIO (obstructive sleep apnea) (30) IGNACIO (obstructive sleep apnea) (31) Overdose (32) Past Psych Med (33) Polycystic ovarian syndrome Surgical Problems: (1) Adrenal tumor removed (2) H/O arthroscopic knee surgery (3) H/O arthroscopic knee surgery (4) H/O hemorrhoidectomy (5) H/O: hysterectomy (6) History of carpal tunnel surgery (7) History of carpal tunnel surgery (8) History of hysterectomy (9) Hx of appendectomy (10) Hx of cholecystectomy (11) Hx of decompressive lumbar laminectomy (12) Hx of hemorrhoidectomy (13) Hx of partial thyroidectomy (14) S/P appendectomy (15) S/P cholecystectomy (16) S/p removal adrenal gland tumor (17) S/P tonsillectomy and adenoidectomy (18) S/P tonsillectomy and adenoidectomy Family History Cancer Diabetes mellitus FHx: IN FHx: blood clots FHx: heart disease Gallbladder disease Heart disease Hypertension Kidney disease Lung disease Social History Smoking Status: Never Smoker Alcohol Use: none Drug Use: none Marital Status: single, in relationship Housing Status: lives with family Occupation Status: disabled Current/Historical Medications Scheduled Buspirone Hcl (Buspirone Hcl), 10 MG PO TID Gabapentin (Gabapentin), 600 MG PO TID Hydralazine Hcl (Apresoline), 25 MG PO TID Labetalol Hcl (Labetalol Hcl), 200 MG PO TID Losartan Potassium (Cozaar), 50 MG PO DAILY Sertraline (Zoloft), 100 MG PO BID Scheduled PRN Clonazepam (Clonazepam), 1 MG PO BID PRN for Anxiety Tizanidine (Zanaflex), 4 MG PO TID PRN for Muscle Spasms Allergies Coded Allergies: Sulfa Antibiotics (Verified Allergy, Severe, RASH, DIFFICULTY BREATHING, HAD LASIX OK PREV.ADM., 06/24/17) Lisinopril (Verified Adverse Reaction, Severe, renal failure, 07/04/17) NSAIDs (Verified Adverse Reaction, Unknown, KIDNEY FAILURE, 06/24/17) PATIENT REPORTS STEEL DETAILER TOLD PATIENT TO STAY AWAY FROM DUE TO KIDNEY FUNCTION Tramadol (Verified Adverse Reaction, Unknown, "MAKES ME DIZZY", 06/24/17) Physical Exam Vital Signs Date Time Temp Pulse Resp B/P (MAP) Pulse Ox O2 Delivery O2 Flow Rate FiO2 07/04/17 21:10 77 22 218/141 95 Room Air 07/04/17 20:45 75 22 214/155 93 Room Air 07/04/17 20:42 78 217/155 07/04/17 19:32 84 22 188/133 95 Room Air 07/04/17 18:55 89 22 207/141 99 Nasal Cannula 2.0 07/04/17 18:30 80 16 234/148 99 Nasal Cannula 2.0 07/04/17 18:15 78 18 205/137 96 Nasal Cannula 2.0 07/04/17 18:00 76 18 188/149 99 Nasal Cannula 2.0 07/04/17 17:30 81 18 213/143 99 Nasal Cannula 2.0 07/04/17 17:15 78 16 204/150 99 Nasal Cannula 2.0 07/04/17 17:00 82 14 206/141 97 Nasal Cannula 2.0 07/04/17 16:58 80 18 205/144 99 Nasal Cannula 2.0 07/04/17 16:45 79 18 204/192 98 Nasal Cannula 07/04/17 16:34 80 16 230/146 98 Nasal Cannula 2.0 07/04/17 16:30 82 16 233/157 96 Nasal Cannula 2.0 07/04/17 16:27 81 18 219/161 98 Nasal Cannula 2.0 07/04/17 16:27 97 Nasal Cannula 2.0 07/04/17 16:26 88 Room Air 07/04/17 16:21 85 18 260/174 97 Room Air 07/04/17 16:14 84 18 241/168 98 Room Air 07/04/17 15:38 93 Room Air 07/04/17 15:29 87 07/04/17 15:19 96 Room Air 07/04/17 15:15 36.6 86 18 230/167 93 Room Air Physical Exam GENERAL: Awake, alert, well-appearing, NAD HENT: Normocephalic, atraumatic. EYES: Normal conjunctiva. Sclera non-icteric. NECK: Supple. No nuchal rigidity. FROM. RESPIRATORY: CTAB, no rhonchi, wheezing, crackles CARDIAC: RRR, no MRG ABDOMEN: Soft, NTND, BS+ MSK: No chest wall TTP, 2+ pitting edema in lower extremities. NEURO: GCS 15, CN 2-12 intact, moves all 4s on command, no sensory deficit. SKIN: No rash or jaundice noted. Medical Decision & Procedures ER Provider Diagnostic Interpretation: Radiology results as stated below per my review and radiologist interpretation: CT OF THE HEAD WITHOUT CONTRAST CLINICAL HISTORY: Severe headache. Hypertension. COMPARISON STUDY: Head CT January 31, 2017 and MRI of the brain October 12, 2016. CT DOSE: 537.48 mGy.cm TECHNIQUE: Helical axial images of the head were obtained without IV contrast. Automated exposure control was utilized for the study. A dose lowering technique was utilized adhering to the principles of ALARA. FINDINGS: No acute intracranial hemorrhage, midline shift or mass effect is present. Ventricular system is normal. Basilar cisterns are patent. There are no extra-axial collections. Periventricular white matter hypodensity is noted within the right parietal lobe shown best on axial images 17 and 18 of 28. This was not evident on MRI October 12, 2016. There are no significant calvarial abnormalities. The right frontal and anterior right ethmoid sinuses are opacified. This is new since CT of January 31, 2017. There is mild mucosal thickening of the right maxillary sinus. IMPRESSION: 1. No acute intracranial hemorrhage or mass effect. 2. Periventricular white matter hypodensity within the right parietal lobe which was not evident on MRI of October 12, 2016. This is nonspecific and if symptoms persist, an MRI of the brain could be obtained. 3. Right frontal, ethmoid and maxillary sinus opacification which has significantly increased since head CT of January 31, 2017. Electronically signed by: Pancho Altman M.D. 07/04/2017 4:19 PM Dictated Date/Time: 07/04/2017 4:08 PM CHEST ONE VIEW PORTABLE CLINICAL HISTORY: Chest pain. COMPARISON STUDY: Chest radiograph June 17, 2017. FINDINGS: There is no pneumothorax or pleural effusion. Moderate to marked cardiomegaly is unchanged. There is no evidence of pulmonary edema. Bibasilar opacities are noted, left greater than right. IMPRESSION: 1. Bibasilar opacities, left greater than right. The findings could reflect atelectasis or consolidation. 2. Moderate to marked cardiomegaly. No evidence of pulmonary edema. Electronically signed by: Pancho Altman M.D. 07/04/2017 4:03 PM Dictated Date/Time: 07/04/2017 4:01 PM Laboratory Results 07/04/17 15:45 Red Blood Count 4.42, Mean Corpuscular Volume 83.9, Mean Corpuscular Hemoglobin 28.1, Mean Corpuscular Hemoglobin Concent 33.4, Mean Platelet Volume 10.7, Neutrophils (%) (Auto) 65.0, Lymphocytes (%) (Auto) 19.1, Monocytes (%) (Auto) 6.1, Eosinophils (%) (Auto) 9.2, Basophils (%) (Auto) 0.3, Neutrophils # (Auto) 6.83, Lymphocytes # (Auto) 2.00, Monocytes # (Auto) 0.64, Eosinophils # (Auto) 0.96, Basophils # (Auto) 0.03 07/04/17 15:45 Test 07/04/17 15:45 07/04/17 15:50 07/04/17 20:26 White Blood Count 10.49 K/uL (4.8-10.8) Red Blood Count 4.42 M/uL (4.2-5.4) Hemoglobin 12.4 g/dL (12.0-16.0) Hematocrit 37.1 % (37-47) Mean Corpuscular Volume 83.9 fL (80-100) Mean Corpuscular Hemoglobin 28.1 pg (25-34) Mean Corpuscular Hemoglobin Concent 33.4 g/dl (32-36) Platelet Count 189 K/uL (130-400) Mean Platelet Volume 10.7 fL (7.4-10.4) Neutrophils (%) (Auto) 65.0 % Lymphocytes (%) (Auto) 19.1 % Monocytes (%) (Auto) 6.1 % Eosinophils (%) (Auto) 9.2 % Basophils (%) (Auto) 0.3 % Neutrophils # (Auto) 6.83 K/uL (1.4-6.5) Lymphocytes # (Auto) 2.00 K/uL (1.2-3.4) Monocytes # (Auto) 0.64 K/uL (0.11-0.59) Eosinophils # (Auto) 0.96 K/uL (0-0.5) Basophils # (Auto) 0.03 K/uL (0-0.2) RDW Standard Deviation 46.2 fL (36.4-46.3) RDW Coefficient of Variation 15.0 % (11.5-14.5) Immature Granulocyte % (Auto) 0.3 % Immature Granulocyte # (Auto) 0.03 K/uL (0.00-0.02) Prothrombin Time 11.0 SECONDS (9.0-12.0) Prothromb Time International Ratio 1.0 (0.9-1.1) Activated Partial Thromboplast Time 24.7 SECONDS (21.0-31.0) Partial Thromboplastin Ratio 1.0 Anion Gap 7.0 mmol/L (3-11) Est Creatinine Clear Calc Drug Dose 68.2 ml/min Estimated GFR () 56.7 Estimated GFR (Non- 48.9 BUN/Creatinine Ratio 9.4 (10-20) Calcium Level 9.1 mg/dl (8.5-10.1) Phosphorus Level 3.3 mg/dl (2.5-4.9) Magnesium Level 2.1 mg/dl (1.8-2.4) Total Bilirubin 0.7 mg/dl (0.2-1) Direct Bilirubin 0.2 mg/dl (0-0.2) Aspartate Amino Transf (AST/SGOT) 18 U/L (15-37) Alanine Aminotransferase (ALT/SGPT) 30 U/L (12-78) Alkaline Phosphatase 65 U/L (45-117) Pro-B-Type Natriuretic Peptide 9957 pg/ml (0-450) Total Protein 6.4 gm/dl (6.4-8.2) Albumin 3.2 gm/dl (3.4-5.0) Lipase 155 U/L (73-393) Bedside Troponin I 0.030 ng/ml (0-0.045) Laboratory results reviewed by me Medications Administered Medications (Trade) Dose Ordered Sig/Randi Route Start Time Stop Time Status Last Admin Dose Admin Labetalol HCl (Normodyne IV) 20 mg NOW STAT IV 07/04/17 15:28 07/04/17 15:32 DC 07/04/17 16:28 20 MG Nitroglycerin (Nitrostat Tab) 0.4 mg PRN PRN SL 07/04/17 15:30 08/03/17 15:29 07/04/17 16:58 0.4 MG Aspirin (Aspirin Chew) 324 mg NOW STAT PO 07/04/17 15:28 07/04/17 15:32 DC 07/04/17 16:12 324 MG Metoclopramide HCl (Reglan Inj) 10 mg NOW STAT IV 07/04/17 15:28 07/04/17 15:32 DC 07/04/17 16:19 10 MG Diphenhydramine HCl (Benadryl Inj) 50 mg NOW STAT IV 07/04/17 15:28 07/04/17 15:32 DC 07/04/17 16:18 50 MG Hydromorphone HCl (Dilaudid Inj) 0.5 mg NOW STAT IV 07/04/17 15:28 07/04/17 15:32 DC 07/04/17 16:22 0.5 MG Hydralazine HCl (Apresoline Tab) 25 mg ONE STAT PO 07/04/17 16:37 07/04/17 16:39 DC 07/04/17 17:00 25 MG Hydralazine HCl (Apresoline Tab) 50 mg TID PO 07/04/17 21:00 08/03/17 20:59 07/04/17 21:06 50 MG Labetalol HCl (Normodyne Tab) 400 mg TID PO 07/04/17 21:00 08/03/17 20:59 07/04/17 21:07 400 MG Metoprolol Tartrate (Lopressor Iv) 5 mg Q4 PRN IV 07/04/17 20:15 08/03/17 20:14 07/04/17 20:42 5 MG Nitroglycerin (Nitroglycerin 2% Oint) 1 inch Q6H EXT 07/04/17 21:00 08/03/17 20:14 07/04/17 21:06 1 INCH Lorazepam (Ativan Inj) 1 mg Q6H PRN IV 07/04/17 20:45 08/03/17 20:44 07/04/17 21:06 1 MG ECG Indication: chest pain Rate (beats per minute): 83 Rhythm: normal sinus Findings: T-wave inversion (Inferior, V1,V3,V5, AVL), other (Normal intervals) Comparison ECG Date: 2012 Change: no significant change ED Course 1522: The patient was evaluated in room B11A. A complete history and physical exam was performed. 1528: Ordered Dilaudid Injection 0.5 mg IV, Benadryl Injection 50 mg IV, Reglan Injection 10 mg IV, Aspirin 324 mg PO, Normodyne IV 20 mg IV. 1530: Ordered Nitrostat Tab 0.4 mg SL.' 1623: I reevaluated the patient and updated her on her results. I discussed her treatment plan and she agrees. 1628: I discussed the patient's case with Dr. Patel [facility] Hospitalist. He understands the patient's condition and agrees to accept the patient. The patient will be further evaluated. Medical Decision Differential diagnosis: Etiologies such as infections, reactive airway disease, pneumonia, pneumothorax , COPD, CHF, cardiac ischemia, pulmonary embolism, musculoskeletal, gastrointestinal, as well as others were entertained. Patient was seen and evaluated the bedside. Patient was referred from PCP office concerning for EKG as well as shortness of breath and headache. Patient did not have any neurologic deficits. Patient did have maybe some trace elevations on outside EKG. Patient's repeat EKG was performed here she did have T-wave inversions but no elevations anteriorly. Patient states she's been compliant with her medications. I did review prior notes which stated otherwise. Patient was given nitroglycerin, aspirin, labetalol, and hydralazine. Patient was also given a headache cocktail. Patient's headache was mildly improved. Patient did have a CT which was negative. Patient troponin 0.03. She does have a history of chronic migraines. Patient's blood pressure did improve; however, given the patient's hypertensive urgency and potentially related symptoms of headache and/or chest pain and/or shortness of breath I did speak with the hospitalist who agreed with the patient would benefit from further blood pressure control and treatment. Medication Reconcilliation Current Medication List: was personally reviewed by me Blood Pressure Screening Patient's blood pressure: Elevated blood pressure Referred to Hospitalist Consults Time Called: 1628 Consulting Physician: Dr. Alexandre, [facility] Hospitalist Returned Call: 1628 I discussed the patient's case with Dr. Patel, [facility] Hospitalist. He understands the patient's condition and agrees to accept the patient. The patient will be further evaluated. Impression Primary Impression: Hypertensive urgency Additional Impressions: SOB (shortness of breath) Chest pain Headache Scribe Attestation The scribe's documentation has been prepared under my direction and personally reviewed by me in its entirety. I confirm that the note above accurately reflects all work, treatment, procedures, and medical decision making performed by me. Departure Information Dispostion Being Evaluated By Hospitalist Referrals No Doctor, Assigned (PCP) Problem Qualifiers Additional Impressions: Chest pain Chest pain type: unspecified Qualified Codes: R07.9 - Chest pain, unspecified Headache Headache type: unspecified Headache chronicity pattern: unspecified pattern Intractability: not intractable Qualified Codes: R51 - Headache
[2017-07-04 15:59] LABS: BASO % 0.3 %; BASO ABS # 0.03 K/uL (0-0.2); COMPLETE YES; EOS % 9.2 %; HEMATOCRIT 37.1 % (37-47); IG% 0.3 %; LYMPH % 19.1 %; MEAN CELL VOLUME 83.9 fL (80-100); MEAN CORPUSCULAR HEMOGLOBIN 28.1 pg (25-34); MEAN CORPUSCULAR HGB CONC 33.4 g/dl (32-36); MEAN PLATELET VOLUME 10.7 fL (7.4-10.4); MONO % 6.1 %; PLATELET COUNT 189 K/uL (130-400); RED BLOOD COUNT 4.42 M/uL (4.2-5.4); WHITE BLOOD COUNT 10.49 K/uL (4.8-10.8)
--- NOTE | 2017-07-04 16:04 | DIAGNOSTIC IMAGING REPORT ---
CHEST ONE VIEW PORTABLE CLINICAL HISTORY: Chest pain. COMPARISON STUDY: Chest radiograph June 17, 2017. FINDINGS: There is no pneumothorax or pleural effusion. Moderate to marked cardiomegaly is unchanged. There is no evidence of pulmonary edema. Bibasilar opacities are noted, left greater than right. IMPRESSION: 1. Bibasilar opacities, left greater than right. The findings could reflect atelectasis or consolidation. 2. Moderate to marked cardiomegaly. No evidence of pulmonary edema. Electronically signed by: Pancho Altman M.D. 07/04/2017 4:03 PM Dictated Date/Time: 07/04/2017 4:01 PM
[2017-07-04] MEDS: NITROGLYCERIN 0.4 MG SL PER TAB CHARGE SL PRN ×3 (16:15→16:58)
[2017-07-04 16:16] LABS: BUN/CREATININE RATIO 9.4 (10-20); CALCIUM 9.1 mg/dl (8.5-10.1); CREATININE 1.4 mg/dl (0.60-1.20); MAGNESIUM 2.1 mg/dl (1.8-2.4); POTASSIUM 3.9 mmol/L (3.5-5.1)
[2017-07-04 16:19] LABS: PHOSPHORUS 3.3 mg/dl (2.5-4.9)
--- NOTE | 2017-07-04 16:20 | DIAGNOSTIC IMAGING REPORT ---
CT OF THE HEAD WITHOUT CONTRAST CLINICAL HISTORY: Severe headache. Hypertension. COMPARISON STUDY: Head CT January 31, 2017 and MRI of the brain October 12, 2016. CT DOSE: 537.48 mGy.cm TECHNIQUE: Helical axial images of the head were obtained without IV contrast. Automated exposure control was utilized for the study. A dose lowering technique was utilized adhering to the principles of ALARA. FINDINGS: No acute intracranial hemorrhage, midline shift or mass effect is present. Ventricular system is normal. Basilar cisterns are patent. There are no extra-axial collections. Periventricular white matter hypodensity is noted within the right parietal lobe shown best on axial images 17 and 18 of . This was not evident on MRI October 12, 2016. There are no significant calvarial abnormalities. The right frontal and anterior right ethmoid sinuses are opacified. This is new since CT of January 31, 2017. There is mild mucosal thickening of the right maxillary sinus. IMPRESSION: 1. No acute intracranial hemorrhage or mass effect. 2. Periventricular white matter hypodensity within the right parietal lobe which was not evident on MRI of October 12, 2016. This is nonspecific and if symptoms persist, an MRI of the brain could be obtained. 3. Right frontal, ethmoid and maxillary sinus opacification which has significantly increased since head CT of January 31, 2017. Electronically signed by: Pancho Altman M.D. 07/04/2017 4:19 PM Dictated Date/Time: 07/04/2017 4:08 PM
[2017-07-04] MEDS ORDERED: LOSA50TA6 PO (18:12)
[2017-07-04] MEDS ORDERED: LABETALOL HCL IV 5 MG/ML 20ML IV ONE (19:30)
[2017-07-04] MEDS ORDERED: DEXTROSE 5% IV PRN (19:30)
[2017-07-04] MEDS ORDERED: LABETALOL HCL IV PRN (19:30)
[2017-07-04] MEDS ORDERED: METOPROLOL TARTRATE 1 MG/ML VIAL IV PRN (20:15)
[2017-07-04] MEDS ORDERED: MoRPHine SULFATE 4 MG/ML 1 ML CARP\\VIAL IV PRN (20:45)
[2017-07-04] MEDS ORDERED: LORAZEPAM 2 MG/ML 1 ML VIAL IV PRN (20:45)
[2017-07-04] MEDS ORDERED: NITROGLYCERIN OINT 2% 1GM PACKET ONE (21:02)
[2017-07-04] MEDS ORDERED: LABETALOL HCL 100 MG TAB ONE (21:05)
[2017-07-04] MEDS: NITROGLYCERIN OINT 2% 1GM PACKET EXT SCH (21:06)
[2017-07-04] MEDS: LABETALOL HCL 200 MG TAB PO SCH (21:07)
--- NOTE | 2017-07-04 21:48 | History and Physical ---
History & Physical Date & Time of Service: Jul 04, 2017 at 21:48 Chief Complaint: Hypertension, Migraine, Doctor Referred Primary Care Physician: No Doctor, Assigned History of Present Illness Source: patient The patient is a 32-year-old female who presented to her outpatient physician Dr. Ross today due to symptoms of shortness of breath, in particular with exertion that began a couple days ago and more recently with development of chest pressure and a constant headache. She had an EKG performed today, and which she reports she was getting inadequate oxygen to her heart, and along with her elevated blood pressure, was advised to come to emergency department for assessment. She also reports being told by others that she has had on and off swelling in her lower extremities. Past Medical/Surgical History Medical Problems: (1) Anxiety Status: Chronic (2) Anxiety and depression Status: Chronic (3) Depression Status: Chronic (4) Depression Status: Chronic (5) GERD (gastroesophageal reflux disease) Status: Chronic (6) GERD (gastroesophageal reflux disease) Status: Chronic (7) HTN (hypertension) Status: Chronic (8) Hypertension Status: Chronic (9) Hypothyroidism Status: Chronic (10) Hypothyroidism Status: Chronic (11) IBS (irritable bowel syndrome) Status: Chronic (12) Left ventricular hypertrophy Permanent Comment: severe concentric LVH, IVSd 2.3 cm 06/18/16 Status: Chronic (13) Lumbago Status: Chronic (14) Lumbar disc disorder Status: Chronic (15) Migraine Status: Chronic (16) Migraine Status: Chronic (17) Morbid Obesity Status: Chronic (18) Non-occlusive coronary artery disease Status: Chronic (19) Noncompliance with medications Status: Chronic (20) Obesity Status: Chronic (21) IGNACIO (obstructive sleep apnea) Status: Chronic (22) IGNACIO (obstructive sleep apnea) Status: Chronic (23) Polycystic ovarian syndrome Status: Chronic Surgical Problems: (1) Adrenal tumor removed Status: Chronic (2) H/O arthroscopic knee surgery Status: Chronic (3) H/O arthroscopic knee surgery Status: Chronic (4) H/O hemorrhoidectomy Status: Chronic (5) H/O: hysterectomy Status: Chronic (6) History of carpal tunnel surgery Status: Chronic (7) History of carpal tunnel surgery Status: Chronic (8) History of hysterectomy Status: Chronic (9) Hx of appendectomy Status: Chronic (10) Hx of cholecystectomy Status: Chronic (11) Hx of decompressive lumbar laminectomy Status: Chronic (12) Hx of hemorrhoidectomy Status: Chronic (13) Hx of partial thyroidectomy Status: Chronic (14) S/P appendectomy Status: Chronic (15) S/P cholecystectomy Status: Chronic (16) S/p removal adrenal gland tumor Status: Chronic (17) S/P tonsillectomy and adenoidectomy Status: Chronic (18) S/P tonsillectomy and adenoidectomy Status: Chronic Family History Cancer Diabetes mellitus FHx: AL FHx: blood clots FHx: heart disease Gallbladder disease Heart disease Hypertension Kidney disease Lung disease Social History Smoking Status: Never Smoker Smokeless Tobacco Use: No Alcohol Use: none Drug Use: none Marital Status: single, in relationship Housing status: lives with significant other Occupational Status: disabled Immunizations History of Influenza Vaccine: Yes History of Tetanus Vaccine?: Unknown History of Pneumococcal: Unknown History of Hepatitis B Vaccine: Unknown Multi-Drug Resistant Organisms History of MDRO: No Allergies Coded Allergies: Sulfa Antibiotics (Verified Allergy, Severe, RASH, DIFFICULTY BREATHING, HAD LASIX OK PREV.ADM., 06/24/17) Lisinopril (Verified Adverse Reaction, Severe, renal failure, 07/04/17) NSAIDs (Verified Adverse Reaction, Unknown, KIDNEY FAILURE, 06/24/17) PATIENT REPORTS MEDICAL LEADER TOLD PATIENT TO STAY AWAY FROM DUE TO KIDNEY FUNCTION Tramadol (Verified Adverse Reaction, Unknown, "MAKES ME DIZZY", 06/24/17) Home Medications Scheduled Buspirone Hcl (Buspirone Hcl), 10 MG PO TID Gabapentin (Gabapentin), 600 MG PO TID Hydralazine Hcl (Apresoline), 25 MG PO TID Labetalol Hcl (Labetalol Hcl), 200 MG PO TID Losartan Potassium (Cozaar), 50 MG PO DAILY Sertraline (Zoloft), 100 MG PO BID Scheduled PRN Clonazepam (Clonazepam), 1 MG PO BID PRN for Anxiety Tizanidine (Zanaflex), 4 MG PO TID PRN for Muscle Spasms Review of Systems The patient denies palpitations,cough, vision change, hearing change, sore throat, fevers, chills, sweats, weight change, fatigue, nausea, vomiting, diarrhea or constipation, abdominal pain, pelvic pain, blood in urine or stool, dysuria, urinary frequency or urgency, lightheadedness , dizziness, memory loss, rash, abnormal bruising or bleeding, imbalance, focal or generalized weakness, numbness or tingling in arms or legs, generalized arthralgias or myalgias, back or neck pain, or night sweats. The review of systems is otherwise negative other than for that already noted above, and at least 10 systems have been reviewed. Physical Exam Vital Signs Date Time Temp Pulse Resp B/P (MAP) Pulse Ox O2 Delivery O2 Flow Rate FiO2 07/04/17 21:10 77 22 218/141 95 Room Air 07/04/17 20:45 75 22 214/155 93 Room Air 07/04/17 20:42 78 217/155 07/04/17 19:32 84 22 188/133 95 Room Air 07/04/17 18:55 89 22 207/141 99 Nasal Cannula 2.0 07/04/17 18:30 80 16 234/148 99 Nasal Cannula 2.0 07/04/17 18:15 78 18 205/137 96 Nasal Cannula 2.0 07/04/17 18:00 76 18 188/149 99 Nasal Cannula 2.0 07/04/17 17:30 81 18 213/143 99 Nasal Cannula 2.0 07/04/17 17:15 78 16 204/150 99 Nasal Cannula 2.0 07/04/17 17:00 82 14 206/141 97 Nasal Cannula 2.0 07/04/17 16:58 80 18 205/144 99 Nasal Cannula 2.0 07/04/17 16:45 79 18 204/192 98 Nasal Cannula 07/04/17 16:34 80 16 230/146 98 Nasal Cannula 2.0 07/04/17 16:30 82 16 233/157 96 Nasal Cannula 2.0 07/04/17 16:27 81 18 219/161 98 Nasal Cannula 2.0 07/04/17 16:27 97 Nasal Cannula 2.0 07/04/17 16:26 88 Room Air 07/04/17 16:21 85 18 260/174 97 Room Air 07/04/17 16:14 84 18 241/168 98 Room Air 07/04/17 15:38 93 Room Air 07/04/17 15:29 87 07/04/17 15:19 96 Room Air 07/04/17 15:15 36.6 86 18 230/167 93 Room Air The patient is awake, alert and oriented 3, normocephalic and atraumatic, lying in bed and in no acute distress. HEENT--PERRL, EOMI, mucous membranes and oropharynx dry. Neck--supple, no JVD or bruits, thyroid normal, trachea midline, no adenopathy. Heart--normal S1 and S2, no extra beats, no murmurs, rubs or gallops. Lungs--clear bilaterally but diminished throughout no respiratory distress, no accessory muscle use. Abdomen--normal bowel sounds and soft, nontender and nondistended, no hernias or masses, no organomegaly and obese. Extremities--no cyanosis, clubbing. There is bilaterally pretibial 2+ pitting edema. There are good distal pulses b/l. Dermatologic--normal skin turgor, normal color, warm and dry, no abnormal lymph nodes, no rash. Neurologic--cranial nerves II through XII grossly intact, motor and sensory examination normal. Rheumatologic--normal range of motion, nontender, muscles and joints. Psychiatric--normal affect. Diagnostics Laboratory Results Results Past 24 Hours Test 07/04/17 15:45 07/04/17 15:50 07/04/17 20:26 Range/Units White Blood Count 10.49 4.8-10.8 K/uL Red Blood Count 4.42 4.2-5.4 M/uL Hemoglobin 12.4 12.0-16.0 g/dL Hematocrit 37.1 37-47 % Mean Corpuscular Volume 83.9 80-100 fL Mean Corpuscular Hemoglobin 28.1 25-34 pg Mean Corpuscular Hemoglobin Concent 33.4 32-36 g/dl Platelet Count 189 130-400 K/uL Mean Platelet Volume 10.7 7.4-10.4 fL Neutrophils (%) (Auto) 65.0 % Lymphocytes (%) (Auto) 19.1 % Monocytes (%) (Auto) 6.1 % Eosinophils (%) (Auto) 9.2 % Basophils (%) (Auto) 0.3 % Neutrophils # (Auto) 6.83 1.4-6.5 K/uL Lymphocytes # (Auto) 2.00 1.2-3.4 K/uL Monocytes # (Auto) 0.64 0.11-0.59 K/uL Eosinophils # (Auto) 0.96 0-0.5 K/uL Basophils # (Auto) 0.03 0-0.2 K/uL RDW Standard Deviation 46.2 36.4-46.3 fL RDW Coefficient of Variation 15.0 11.5-14.5 % Immature Granulocyte % (Auto) 0.3 % Immature Granulocyte # (Auto) 0.03 0.00-0.02 K/uL Prothrombin Time 11.0 9.0-12.0 SECONDS Prothromb Time International Ratio 1.0 0.9-1.1 Activated Partial Thromboplast Time 24.7 21.0-31.0 SECONDS Partial Thromboplastin Ratio 1.0 Sodium Level 142 136-145 mmol/L Potassium Level 3.9 3.5-5.1 mmol/L Chloride Level 106 98-107 mmol/L Carbon Dioxide Level 29 21-32 mmol/L Anion Gap 7.0 3-11 mmol/L Blood Urea Nitrogen 13 7-18 mg/dl Creatinine 1.40 0.60-1.20 mg/dl Est Creatinine Clear Calc Drug Dose 68.2 ml/min Estimated GFR () 56.7 Estimated GFR (Non- 48.9 BUN/Creatinine Ratio 9.4 10-20 Random Glucose 97 70-99 mg/dl Calcium Level 9.1 8.5-10.1 mg/dl Phosphorus Level 3.3 2.5-4.9 mg/dl Magnesium Level 2.1 1.8-2.4 mg/dl Total Bilirubin 0.7 0.2-1 mg/dl Direct Bilirubin 0.2 0-0.2 mg/dl Aspartate Amino Transf (AST/SGOT) 18 15-37 U/L Alanine Aminotransferase (ALT/SGPT) 30 12-78 U/L Alkaline Phosphatase 65 45-117 U/L Pro-B-Type Natriuretic Peptide 9957 0-450 pg/ml Total Protein 6.4 6.4-8.2 gm/dl Albumin 3.2 3.4-5.0 gm/dl Lipase 155 73-393 U/L Bedside Troponin I 0.030 0-0.045 ng/ml Diagnostic Radiology Patient Name: YANA CUBA Unit Number: [id number] Dictated: 07/04/171607 Transcribed: 07/04/171607 GEOVANNA Printed Date/Time: [~ rep prt dt]/[~ rep prt tm] [~ rep ct labl] - [~ rep ct ivnm] [facility] [place] [address] Dictated: 07/04/171607 Transcribed: 07/04/171607 JA Printed Date/Time: [~ rep prt dt]/[~ rep prt tm] [~ rep ct labl] - [~ rep ct ivnm] [~ rep ct add3]] CT OF THE HEAD WITHOUT CONTRAST CLINICAL HISTORY: Severe headache. Hypertension. COMPARISON STUDY: Head CT January 31, 2017 and MRI of the brain October 12, 2016. CT DOSE: 537.48 mGy.cm TECHNIQUE: Helical axial images of the head were obtained without IV contrast. Automated exposure control was utilized for the study. A dose lowering technique was utilized adhering to the principles of ALARA. FINDINGS: No acute intracranial hemorrhage, midline shift or mass effect is present. Ventricular system is normal. Basilar cisterns are patent. There are no extra-axial collections. Periventricular white matter hypodensity is noted within the right parietal lobe shown best on axial images and 18 of . This was not evident on MRI October 12, 2016. There are no significant calvarial abnormalities. The right frontal and anterior right ethmoid sinuses are opacified. This is new since CT of January 31, 2017. There is mild mucosal thickening of the right maxillary sinus. IMPRESSION: 1. No acute intracranial hemorrhage or mass effect. 2. Periventricular white matter hypodensity within the right parietal lobe which was not evident on MRI of October 12, 2016. This is nonspecific and if symptoms persist, an MRI of the brain could be obtained. 3. Right frontal, ethmoid and maxillary sinus opacification which has significantly increased since head CT of January 31, 2017. Electronically signed by: Pancho Altman M.D. 07/04/2017 4:19 PM Dictated Date/Time: 07/04/2017 4:08 PM The status of this report is Signed. Draft = Not yet reviewed or approved by Radiologist. Signed = Reviewed and approved by Radiologist. <AttendingPhy></AttendingPhy> <FamilyPhy>No Doctor, Assigned</FamilyPhy> < PrimaryPhy>No Doctor, Assigned</PrimaryPhy> <UnitNumber>[id number]</UnitNumber> <VisitNumber>[id number]</VisitNumber> <PatientName>YANA CUBA</ PatientName> <DateOfBirth>1985</DateOfBirth> <Location>C.[facility]B</Location> < ServiceDate>07/04/17</ServiceDate> <MNE>ESINDI</MNE> <OrderingPhy>Timothy Kemp M.D.</OrderingPhy> <OrderingPhyMNE>f rep ord dr michelle</OrderingPhyMNE> < DictatingPhyMNE>f rep dict dr michelle</DictatingPhyMNE> <CCListMNE>f rep ct mne</ CCListMNE> <AdmittingPhyMNE>f pt admit dr michelle</AdmittingPhyMNE> <AttendingPhyMNE >f pt attend dr michelle</AttendingPhyMNE> <ConsultingPhyMNE>f pt consult dr michelle</ConsultingPhyMNE> <FamilyPhyMNE>f pt fam dr michelle</FamilyPhyMNE> <OtherPhyMNE>f pt other dr michelle</OtherPhyMNE> < PrimaryPhyMNE>f pt prim care dr michelle</PrimaryPhyMNE> <ReferringPhyMNE>f pt referring dr michelle</ReferringPhyMNE> Patient Name: YANA CUBA Unit Number: [id number] Dictated: 07/04/171600 Transcribed: 07/04/171600 GEOVANNA Printed Date/Time: [~ rep prt dt]/[~ rep prt tm] [~ rep ct labl] - [~ rep ct ivnm] [facility] [place] [address] Dictated: 07/04/171600 Transcribed: 07/04/171600 GEOVANNA Printed Date/Time: [~ rep prt dt]/[~ rep prt tm] [~ rep ct labl] - [~ rep ct ivnm] [~ rep ct add3]] CHEST ONE VIEW PORTABLE CLINICAL HISTORY: Chest pain. COMPARISON STUDY: Chest radiograph June 17, 2017. FINDINGS: There is no pneumothorax or pleural effusion. Moderate to marked cardiomegaly is unchanged. There is no evidence of pulmonary edema. Bibasilar opacities are noted, left greater than right. IMPRESSION: 1. Bibasilar opacities, left greater than right. The findings could reflect atelectasis or consolidation. 2. Moderate to marked cardiomegaly. No evidence of pulmonary edema. Electronically signed by: Pancho Altamn M.D. 07/04/2017 4:03 PM Dictated Date/Time: 07/04/2017 4:01 PM The status of this report is Signed. Draft = Not yet reviewed or approved by Radiologist. Signed = Reviewed and approved by Radiologist. <AttendingPhy></AttendingPhy> <FamilyPhy>No Doctor, Assigned</FamilyPhy> < PrimaryPhy>No Doctor, Assigned</PrimaryPhy> <UnitNumber>[id number]</UnitNumber> <VisitNumber>[id number]</VisitNumber> <PatientName>YANA CUBA</ PatientName> <DateOfBirth>1985</DateOfBirth> <Location>C.EDB</Location> < ServiceDate>07/04/17</ServiceDate> <MNE>ESINDI</MNE> <OrderingPhy>Timothy Kemp M.D.</OrderingPhy> <OrderingPhyMNE>f rep ord dr michelle</OrderingPhyMNE> < DictatingPhyMNE>f rep dict dr michelle</DictatingPhyMNE> <CCListMNE>f rep ct miguel angel</ CCListMNE> <AdmittingPhyMNE>f pt admit dr michelle</AdmittingPhyMNE> <AttendingPhyMNE >f pt attend dr michelle</AttendingPhyMNE> <ConsultingPhyMNE>f pt consult dr michelle</ConsultingPhyMNE> <FamilyPhyMNE>f pt fam dr michelle</FamilyPhyMNE> <OtherPhyMNE>f pt other dr michelle</OtherPhyMNE> < PrimaryPhyMNE>f pt prim care dr michelle</PrimaryPhyMNE> <ReferringPhyMNE>f pt referring dr michelle</ReferringPhyMNE> EKG EKG shows normal sinus rhythm at 83 bpm, septal AL, ST and T wave changes consistent with inferior lateral ischemia. Impression Assessment and Plan Hypertensive urgency/chest pressure with shortness of breath-- The patient will be admitted to telemetry for serial cardiac enzymes, cardiac rhythm monitoring and a 2-D echocardiogram with Dopplers. EKG suggestive of inferolateral ischemia. Increase labetalol from 200 mg 3 times a day to 400 mg 3 times a day. Increase hydralazine from 25 mg 3 times a day to 50 mg 3 times a day, monitoring for worsening lower extremity edema. Add Nitropaste 1 inch anterior chest wall every 6 hours. Aspirin 81 mg by mouth every morning. Headache/multifactorial/secondary to hypertension/abnormal CT scan compared MRI 10/19/severe right frontal/ethmoidalis/maxillary sinusitis-- Controlled hypertension. Order MRI of brain combination to assess for new possible lesion. Ceftriaxone 1 g IV daily Levofloxacin 750 mg IV daily, Flagyl 500 mg by mouth 2 times a day to the history of C. difficile colitis Morphine sulfate 4 mg IV every 4 hours when necessary Anxiety with depression/borderline personality disorder-- Buspirone 10 mg by mouth 3 times a day Gabapentin 600 mg by mouth 3 times a day Sertraline 100 mg by mouth twice a day Clonazepam 1 mg by mouth twice a day when necessary Lorazepam 1 mg IV every 6 hours when necessary. Muscle spasm-- Zanaflex 4 mg by mouth 3 times a day when necessary. GERD history-- Famotidine 20 mg IV every 12 hours. Level of Care Telemetry Advanced Directives Existing Advance Directive: No Existing Living Will: No Existing Power of Senior Research Consultant: No Resuscitation Status FULL RESUSCITATION VTE Prophylaxis VTE Risk Assessment Done? Y/N: Yes Risk Level: Moderate Given or contraindicated: SCD's
[2017-07-04] MEDS ORDERED: METRONIDAZOLE 500 MG TAB PO ONE (22:05)
[2017-07-04] MEDS ORDERED: GADAVIST IV PRN (23:00)
[2017-07-04 23:10] VITALS: BP 161/106; PULSE 78; TEMP 36.9; O2SAT 95; Ht 157.5 cm; Wt 117.5 kg
[2017-07-04] MEDS: ACETAMINOPHEN 325 MG TAB PO PRN (23:24)
[2017-07-04] MEDS: CLONAZEPAM 1 MG TAB PO PRN (23:24)
[2017-07-04] MEDS ORDERED: CEFTRIAXONE SOD INJ 1 GM in DEXTROSE 5% ADD-VANTAGE 50ML 50 ML IV SCH (23:30)
--- NOTE | 2017-07-04 23:31 | DIAGNOSTIC IMAGING REPORT ---
MRI OF THE BRAIN WITHOUT AND WITH IV CONTRAST CLINICAL HISTORY: Hypertension, headache. Abnormal CT scan. COMPARISON STUDY: MRI of the brain August 07, 2016 and October 12, [address] performed earlier today. TECHNIQUE: Utilizing a 1.5 Mirtha magnet and dedicated coil, multiplanar, multiecho imaging of the brain was performed pre and postcontrast administration. IV administration of 11.5 mL of Gadavist contrast was uneventful. FINDINGS: There are no areas of restricted diffusion to suggest acute infarct. No acute intracranial hemorrhage, midline shift or mass effect is present. Ventricular system is normal. Basilar cisterns are patent. No extra-axial collections are present. Flow-voids for the major intracranial vessels are present. There has been interval development of a 1.9 x 1.6 cm periventricular white matter T2 hyperintense focus within the right parietal lobe. This is new since MRI of October 12, 2016. Of note, similar appearing but more severe findings were noted on MRI of August 07, 2016 which nearly completely resolved on MRI of October 12, 2016. Several additional white matter T2 hyperintense foci on this exam are similar to prior study of October 12, 2016. No associated parenchymal enhancement is noted. The anterior right ethmoid sinuses and right frontal sinuses are opacified. There is mild mucosal thickening of the right maxillary sinus. IMPRESSION: 1. No evidence for acute infarction. No acute intracranial hemorrhage. 2. Interval development of a 1.9 x 1.6 cm periventricular T2 hyperintense focus within the right parietal lobe since MRI of October 12, 2016. Of note, similar appearing but more severe findings were noted on MRI of August 07, 2016 which nearly completely resolved on MRI of October 12, 2016. This suggests a recurrent/relapsing process. No abnormal enhancement. The findings remain nonspecific and differential considerations include a demyelinating process such as multiple sclerosis, ADEM and Lyme disease. Other infectious etiologies could have a similar imaging appearance. 3. Right frontal and right anterior ethmoid sinus opacification. Electronically signed by: Pancho Altman M.D. 07/04/2017 11:29 PM Dictated Date/Time: 07/04/2017 11:06 PM
[2017-07-04] MEDS: NSS + 20MEQ KCL 1000ML 1,000 ML IV SCH (23:36)
[2017-07-04] MEDS: GABAPENTIN 600 MG TAB PO SCH (23:40)
[2017-07-04] MEDS: SERTRALINE HCL 100 MG TAB PO SCH (23:41)
[2017-07-05] VITALS (11 sets, daily range): BP systolic 110–179; BP diastolic 59–97; PULSE 67–86; TEMP 36.3–37.2; O2SAT 92–100
[2017-07-05] MEDS ORDERED: FAMOTIDINE IV INJ 20 MG in DEXTROSE 5% 100ML 100 ML IV SCH ×2
[2017-07-05 00:27] LABS: LYME DISEASE AB IGG NEG (NEG)
[2017-07-05 00:30] LABS: LYME DISEASE AB IGM POS (NEG)
[2017-07-05] MEDS: LEVOFLOXACIN / D5W 750 MG in PREMIXED IN D5W 150 ML IV SCH ×2 (01:12→23:27)
[2017-07-05] MEDS ORDERED: CEFTRIAXONE SOD INJ 1000 MG in DEXTROSE 5% 50ML IV STA (01:13)
--- NOTE | 2017-07-05 01:18 | Progress Note ---
Progress Note Date of Service Jul 05, 2017. (Jagdeep Torres MD) Progress Note Reviewed MRI suggesting findings of possible demyelination. In the setting of positive Lyme IgM, considering etiology of neurological Lyme Would also consider MS as possible etiology Have ordered 2 g IV Ceftriaxone Will consult ID for recommendations as treatment for neurological lyme requires 28 days of IV Ceftriaxone which would require a PICC line placement Steinberg start 1 g Solu-Medrol daily Will consult neurology for further recommendations (Jagdeep Torres MD)
[2017-07-05] MEDS: NITROGLYCERIN OINT 2% 1GM PACKET EXT SCH (02:22)
[2017-07-05 07:12] LABS: BASO % 0.3 %; BASO ABS # 0.02 K/uL (0-0.2); COMPLETE YES; EOS % 10.6 %; HEMATOCRIT 35.2 % (37-47); IG% 0.1 %; LYMPH % 18.5 %; LYMPH ABS # 1.47 K/uL (1.2-3.4); MEAN CELL VOLUME 87.1 fL (80-100); MEAN CORPUSCULAR HEMOGLOBIN 27.5 pg (25-34); MEAN CORPUSCULAR HGB CONC 31.5 g/dl (32-36); MEAN PLATELET VOLUME 10.2 fL (7.4-10.4); MONO % 5.8 %; NEUT % 64.7 %; PLATELET COUNT 185 K/uL (130-400); RED BLOOD COUNT 4.04 M/uL (4.2-5.4); WHITE BLOOD COUNT 7.94 K/uL (4.8-10.8)
[2017-07-05 07:20] LABS: INR 1.1 (0.9-1.1); PARTIAL THROMBOPLASTIN RATIO 0.9; PROTHROMBIN TIME (PATIENT) 11.8 SECONDS (9.0-12.0)
[2017-07-05 07:50] LABS: BUN/CREATININE RATIO 10.1 (10-20); CALCIUM 8.4 mg/dl (8.5-10.1); CREATININE 1.5 mg/dl (0.60-1.20); POTASSIUM 4.3 mmol/L (3.5-5.1)
[2017-07-05] MEDS: SERTRALINE HCL 100 MG TAB PO SCH ×2 (08:07→21:21)
[2017-07-05] MEDS: ACETAMINOPHEN 325 MG TAB PO PRN ×3 (08:07→20:05)
[2017-07-05] MEDS: LABETALOL HCL 200 MG TAB PO SCH ×3 (08:08→21:22)
[2017-07-05] MEDS: METRONIDAZOLE 500 MG TAB PO SCH ×2 (08:09→21:20)
[2017-07-05] MEDS ORDERED: ALBUT/IPRATROP 3MG/0.5MG NEB 3 ML VIAL INH STA (08:09)
[2017-07-05] MEDS: GABAPENTIN 600 MG TAB PO SCH ×3 (08:09→21:21)
--- NOTE | 2017-07-05 08:29 | Clinical Documentation Query ---
[place] [facility] [place] query to them. Thanks. David Jose CLINICAL DOCUMENTATION QUERY QUERY 1 OF 3 A 32-year-old female who presented to her outpatient physician Dr. Ross today due to symptoms of shortness of breath, in particular with exertion that began a couple days ago and more recently with development of chest pressure and a constant headache. In your clinical opinion is this patient being managed for: ( ) CKD stage III ( ) Not Agree ( ) Other explanation of clinical findings (Please Explain) ( ) Unable to determine (Please Define) ( ) Need to Discuss The medical record reflects the following clinical findings, treatment, and risk factors. Clinical Indicators: GFR 48.9, Creat 1.40, hypertensive urgency, hx of kidney failure Treatment:IV therapy, serial PRPS Risk Factors: severe HTN, hx of kidney failure, morbid obesity QUERY 2 OF 3 In your clinical opinion is this patient being managed for: ( ) Acute diastolic (congestive) heart failure ( ) Not Agree ( ) Other explanation of clinical findings (Please Explain) ( ) Unable to determine (Please Define) ( ) Need to Discuss The medical record reflects the following clinical findings, treatment, and risk factors. Clinical Indicators: Pro-BNP 9957, pitting edema, SOB, echo 06/19 documents diastolic dysfunction, HTN, pulse ox 88% RA Treatment: Telemetry, I&O, O2, morphine Risk Factors: HTN urgency, kidney failure, morbid obesity QUERY 3 OF 3 Hypertensive urgency is defined as a blood pressure greater than 180/120 mm Hg in the absence of progressive target organ dysfunction. These patients are often [id number] or inadequately treated. Unfortunately, the term `urgency' has led to overly aggressive management of many patients with severe, uncomplicated hypertension. The [employer] ([employer]) 2013 policy statement chooses the phrase asymptomatic elevated blood pressure rather than hypertensive urgency. No evidence exists that specific treatment for hypertensive urgency is warranted. Patients likely will need to have their medications adjusted or reinitiated in the presence of non-adherence A hypertensive crisis occurs when blood pressure elevates rapidly and severely enough to potentially cause organ damage. Patients may present with symptoms of: *acute headache, *shortness of breath, *epistaxis, *marked anxiety/confusion, *nausea/vomiting In your clinical opinion is this patient being managed for: ( ) Hypertensive crisis ( ) Not Agree ( ) Other explanation of clinical findings (Please Explain) ( ) Unable to determine (Please Define) ( ) Need to Discuss The medical record reflects the following clinical findings, treatment, and risk factors. Clinical Indicators: Severe HTN, acute headache, chest pressure, SOB, anxiety Treatment: Telemetry, labetalol, nitroglycerin oint, lopressor, O2, serial lab monitoring Risk Factors: Severe HTN, morbid obesity, kidney failure Please clarify and document your clinical opinion in the progress notes and discharge summary. Terms such as "probable", "suspected", "likely", "questionable", "possible", or "still to be ruled out" are acceptable. IF IN AGREEMENT, YOU MUST DOCUMENT ABOVE DIAGNOSTIC STATEMENT IN DAILY PROGRESS NOTES AND DISCHARGE SUMMARY. This document is not part of the patient's record. Thank You, Diane Lainez RN [phone]
[2017-07-05] MEDS ORDERED: PANTOprazole SOD 40 MG TAB PO SCH (09:00)
[2017-07-05] MEDS ORDERED: METHYLPREDNISOLONE IV 1,000 MG in DEXTROSE 5% 250ML 250 ML IV SCH (09:00)
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
--- NOTE | 2017-07-05 09:42 | Medical Student: [facility] ---
Consultation Date of Consultation: Jul 05, 2017. Requesting Physician: Dr. Joshua Araujo Attending Physician: Dr. Te Santa Reason for Consultation: migraine headache and muscle spasms History of Present Illness Cassandra St is a 32 yo female with significant PMHx for HTN, migraines, IGNACIO , and chronic kidney disease (stage 3) was consulted to the neurology service for changes on her MRI and current complaints of 9/10 headache. Cassandra has extensive headache history dating back to her teens, where she had a full headache work-up, ruled out seizures, and diagnosed with migraines. In the past year, patient has had 3 MRIs. August 07, 2016 her MRI showed multiple hypodensities, and BP at admission was 116/118 and climbed to 236/154 during admission. She had an LP during that admission which was negative for high WBC and protein, but no special studies were done. In October 2016, her hypodensities previously noted on MRI had resolved. MRI on 07/04/2017 during this in-patient hospital stay showed 1 periventricular hypodensity of the white matter in the right parietal lobe with BP reading as high as of 230/167. Patient states that she has a headache almost every day, but for the past two months they have been worsening (staying for longer duration). She reports a "migraine" headache 1-2x a week, describing it as starting in the back of her head near the base of her skull then wrapping around to the forehead and down the back of her neck. She states associated symptoms of photophobia and nausea. She notes taking Tylenol for pain (without relief) and trying to " sleep it off," but when she gets Dilaudid/morphine in the ED the pain finally subsides. She received Dilaudid/morphine in the ED yesterday followed by cessation of the headache, but upon waking this morning her dull headache has become worse as the day progresses. She denies vomiting (but notes vomiting with previous headaches), blurry vision, sensitivity to noise, history of taking Topamax or other migraine prophylactic medication, and history of kidney stones. Patient has a history of spinal fusion surgery of L5-S1 in 2013, states her symptoms have resolved, but notes she continues to take Zanaflex 4mg 1-3x daily for muscle spasms. She also reports a left knee sensation of "locking up," and needing to "pop it" to relieve the pain. She has a history of anxiety and depression. She describes her mood as good and at her baseline. She notes she is followed by Dr. Mckeon and has been seen at [facility]. She reports chronic kidney disease and HTN, which she is followed by Dr. Wood. She states she was on labetalol and hydralazine historically, had losartan added since following with Dr. Wood. She notes that taking lisinopril had pushed her into renal failure. She reports taking her blood pressure at home regularly with consistent readings around 140/90. Past Medical/Surgical History Medical History: HTN (urgency, emergency, poorly controlled), headache (migraine), morbid obesity , obstructive sleep apnea, white matter abnormality on MRI of brain, CKD stage III, anxiety, depression, cervical strain, GERD, CAD, PCOS, hypothyroidism, dyslipidemia Surgical History: right knee surgery (2012, 2015), lumbar spine surgery (most recent fusion of L5- S1), right carpal tunnel surgery (2011), hemorrhoidectomy (2014), hysterectomy, cholecystectomy (2000), appendectomy, tonsillectomy/adenoidectomy Family History Mother: age 58, history of migraine, irritable bowel syndrome, and back surgery Father: age 60, history of DM2, back pain, defibrillator Social History Smoking Status: Never Smoker History of Alcohol Use: No Drug Use: none Marital Status: single, in relationship Housing Status: lives with significant other (boyfriend in [place]) Occupation Status: 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), 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 Review of Systems Constitutional: + fatigue, No fever, No chills Eyes: No worsening of vision (has glasses), No redness, No discharge, No diplopia ENT: + problem reported (numbness over cheeks bilaterally, associated with headache), No hearing loss, No sore throat, No trouble swallowing Respiratory: No cough, No dyspnea at rest Cardiac: + edema (bilateral), No chest pain (resolved) Abdomen: + nausea, No pain, No vomiting Musculoskeletal: + joint pain (left knee "locking") Female : No dysuria, No incontinence Neurologic: + numbness/tingling (bilateral cheeks), No memory loss, No weakness , No balance problems Psychiatric: No depression symptoms (at baseline), No anxiety (at baseline), No substance abuse Heme: No abnormal bleeding/bruising, No swollen lymph nodes Endo: + fatigue, No excessive thirst, No excessive urination Skin: No rash, No itch Allergies Coded Allergies: Sulfa Antibiotics (Verified Allergy, Severe, RASH, DIFFICULTY BREATHING, HAD LASIX OK PREV.ADM., 06/24/17) Lisinopril (Verified Adverse Reaction, Severe, renal failure, 07/04/17) NSAIDs (Verified Adverse Reaction, Unknown, KIDNEY FAILURE, 06/24/17) 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 STAY AWAY FROM DUE TO KIDNEY FUNCTION Tramadol (Verified Adverse Reaction, Unknown, "MAKES ME DIZZY", 06/24/17) Medications Current Inpatient Medications Medications (Trade) Dose Ordered Sig/Randi Route Start Time Stop Time Status Last Admin Dose Admin Clonazepam (Klonopin Tab) 1 mg BID PRN PO 07/04/17 20:00 08/03/17 19:59 07/04/17 23:24 1 MG Gabapentin (Neurontin Tab) 600 mg TID PO 07/04/17 21:00 08/03/17 20:59 07/05/17 08:09 600 MG Hydralazine HCl (Apresoline Tab) 50 mg TID PO 07/04/17 21:00 08/03/17 20:59 07/05/17 08:08 50 MG Labetalol HCl (Normodyne Tab) 400 mg TID PO 07/04/17 21:00 08/03/17 20:59 07/05/17 08:08 400 MG Sertraline HCl (Zoloft Tab) 100 mg BID PO 07/04/17 21:00 08/03/17 20:59 07/05/17 08:07 100 MG Buspirone HCl (Buspar Tab) 10 mg TID PO 07/04/17 21:00 08/03/17 20:59 07/05/17 08:09 10 MG Tizanidine HCl (Zanaflex Tab) 4 mg TID PRN PO 07/04/17 20:00 08/03/17 19:59 07/04/17 23:41 4 MG Metoprolol Tartrate (Lopressor Iv) 5 mg Q4 PRN IV 07/04/17 20:15 08/03/17 20:14 07/04/17 20:42 5 MG Potassium Chloride/Sodium Chloride 1,000 ml @ 75 mls/hr [id number] IV 07/04/17 23:30 08/03/17 23:29 07/04/17 23:36 75 MLS/HR Acetaminophen (Tylenol Tab) 650 mg Q4H PRN PO 07/04/17 20:15 08/03/17 20:14 07/05/17 08:07 650 MG Levofloxacin 750 mg/Prmx 150 ml @ 100 mls/hr Q24H IV 07/05/17 00:00 07/12/17 00:00 07/05/17 01:12 100 MLS/HR Lorazepam (Ativan Inj) 1 mg Q6H PRN IV 07/04/17 20:45 08/03/17 20:44 07/04/17 21:06 1 MG Morphine Sulfate (MoRPHine SULFATE INJ) 4 mg Q2H PRN IV 07/04/17 20:45 07/18/17 20:44 Famotidine 20 mg/ Dextrose 102 ml @ 200 mls/hr Q12H IV 07/05/17 00:00 08/04/17 00:00 07/05/17 00:29 200 MLS/HR Metronidazole (Flagyl Tab) 500 mg BID PO 07/05/17 09:00 07/19/17 08:59 07/05/17 08:09 500 MG Gadobutrol (Gadavist) 11.5 mmol UD PRN IV 07/04/17 23:00 07/08/17 22:59 Ondansetron HCl (Zofran Inj) 4 mg Q6H PRN IV 07/04/17 23:00 08/03/17 22:59 Ceftriaxone Sodium 2000 mg/ Dextrose 70 ml @ 100 mls/hr Q24H IV 07/06/17 00:00 07/14/17 00:41 Physical Exam Date Time Temp Pulse Resp B/P (MAP) Pulse Ox O2 Delivery O2 Flow Rate FiO2 07/05/17 08:27 86 20 95 Room Air 07/05/17 08:00 Room Air 07/05/17 07:38 36.9 79 18 141/89 (106) 93 Room Air 07/05/17 04:28 36.6 81 20 113/74 (87) 99 Nasal Cannula 1.0 07/05/17 04:00 Nasal Cannula 2.0 07/05/17 01:02 70 16 130/84 (99) 99 Nasal Cannula 2.0 07/05/17 00:01 Nasal Cannula 2.0 07/04/17 23:10 36.9 78 20 161/106 95 Room Air 07/04/17 21:10 77 22 218/141 95 Room Air 07/04/17 20:45 75 22 214/155 93 Room Air 07/04/17 20:42 78 217/155 07/04/17 19:32 84 22 188/133 95 Room Air 07/04/17 18:55 89 22 207/141 99 Nasal Cannula 2.0 07/04/17 18:30 80 16 234/148 99 Nasal Cannula 2.0 07/04/17 18:15 78 18 205/137 96 Nasal Cannula 2.0 07/04/17 18:00 76 18 188/149 99 Nasal Cannula 2.0 07/04/17 17:30 81 18 213/143 99 Nasal Cannula 2.0 07/04/17 17:15 78 16 204/150 99 Nasal Cannula 2.0 07/04/17 17:00 82 14 206/141 97 Nasal Cannula 2.0 07/04/17 16:58 80 18 205/144 99 Nasal Cannula 2.0 07/04/17 16:45 79 18 204/192 98 Nasal Cannula 07/04/17 16:34 80 16 230/146 98 Nasal Cannula 2.0 07/04/17 16:30 82 16 233/157 96 Nasal Cannula 2.0 07/04/17 16:27 81 18 219/161 98 Nasal Cannula 2.0 07/04/17 16:27 97 Nasal Cannula 2.0 07/04/17 16:26 88 Room Air 07/04/17 16:21 85 18 260/174 97 Room Air 07/04/17 16:14 84 18 241/168 98 Room Air 07/04/17 15:38 93 Room Air 07/04/17 15:29 87 07/04/17 15:19 96 Room Air 07/04/17 15:15 36.6 86 18 230/167 93 Room Air General Appearance: WD/WN, + mild distress, + obese Eyes: bilateral eyes normal inspection, bilateral eyes PERRL, bilateral eyes EOMI, bilateral eyes photophobia General: Alert and oriented to person, place, and time. Patient speaks in coherent sentences and is able to recall many details from her past medical history. Right handed female. Cranial nerves: I: not tested II: visual acuity tested 20/20 in each eye, funduscopic exam of each eye showed vessel changes consistent with HTN III, IV, : eyelid opening intact, extraocular movements intact, direct and consensual pupillary light reflexes intact. V: facial sensation intact bilaterally in 3 locations (V1, V2, V3) VII: eyelid closing and eyebrow raise intact to resistance, smile symmetric VIII: auditory acuity of each ear was intact grossly IX, X: palate elevation intact, no difficulty swallowing, speech phonation intact XI: lateral head rotation, neck flexion, shoulder shrug intact bilaterally to resistance XII: tongue protrusion and strength on lateral deviation intact to resistance Sensation: grossly intact bilaterally. Left lower extremity has some tingling in L5 distribution unchanged since spinal fusion surgery in 2013. Strength: 5/5 on bilateral elbow extension and elbow flexion. 5/5 strength on grasp and finger spread. 5/5 strength on hip flexion, knee flexion, knee extension, ankle flexion, and ankle extension. Reflexes: Achilles reflex absent (0/4) bilaterally, unchanged since back surgery (spinal fusion x2014), 2/4 patellar reflex bilaterally, 2/4 brachioradialis reflex bilaterally Cerebellum: [id number] testing intact bilaterally, rapid alternating hand movements intact bilaterally Gait: able to walk two steps forwards and backwards, somewhat complicated by pain in right knee ("locking") and lightheadedness upon standing. Laboratory Results Last 24 Hours Test 07/04/17 15:45 07/04/17 15:50 07/04/17 20:26 07/05/17 06:50 White Blood Count 10.49 K/uL 7.94 K/uL Red Blood Count 4.42 M/uL 4.04 M/uL Hemoglobin 12.4 g/dL 11.1 g/dL Hematocrit 37.1 % 35.2 % Mean Corpuscular Volume 83.9 fL 87.1 fL Mean Corpuscular Hemoglobin 28.1 pg 27.5 pg Mean Corpuscular Hemoglobin Concent 33.4 g/dl 31.5 g/dl Platelet Count 189 K/uL 185 K/uL Mean Platelet Volume 10.7 fL 10.2 fL Neutrophils (%) (Auto) 65.0 % 64.7 % Lymphocytes (%) (Auto) 19.1 % 18.5 % Monocytes (%) (Auto) 6.1 % 5.8 % Eosinophils (%) (Auto) 9.2 % 10.6 % Basophils (%) (Auto) 0.3 % 0.3 % Neutrophils # (Auto) 6.83 K/uL 5.14 K/uL Lymphocytes # (Auto) 2.00 K/uL 1.47 K/uL Monocytes # (Auto) 0.64 K/uL 0.46 K/uL Eosinophils # (Auto) 0.96 K/uL 0.84 K/uL Basophils # (Auto) 0.03 K/uL 0.02 K/uL RDW Standard Deviation 46.2 fL 48.9 fL RDW Coefficient of Variation 15.0 % 15.3 % Immature Granulocyte % (Auto) 0.3 % 0.1 % Immature Granulocyte # (Auto) 0.03 K/uL 0.01 K/uL Prothrombin Time 11.0 SECONDS 11.8 SECONDS Prothromb Time International Ratio 1.0 1.1 Activated Partial Thromboplast Time 24.7 SECONDS 24.3 SECONDS Partial Thromboplastin Ratio 1.0 0.9 Sodium Level 142 mmol/L 140 mmol/L Potassium Level 3.9 mmol/L 4.3 mmol/L Chloride Level 106 mmol/L 106 mmol/L Carbon Dioxide Level 29 mmol/L 27 mmol/L Anion Gap 7.0 mmol/L 7.0 mmol/L Blood Urea Nitrogen 13 mg/dl 15 mg/dl Creatinine 1.40 mg/dl 1.50 mg/dl Est Creatinine Clear Calc Drug Dose 68.2 ml/min 64.3 ml/min Estimated GFR () 56.7 52.1 Estimated GFR (Non- 48.9 45.0 BUN/Creatinine Ratio 9.4 10.1 Random Glucose 97 mg/dl 91 mg/dl Calcium Level 9.1 mg/dl 8.4 mg/dl Phosphorus Level 3.3 mg/dl Magnesium Level 2.1 mg/dl 2.0 mg/dl Total Bilirubin 0.7 mg/dl Direct Bilirubin 0.2 mg/dl Aspartate Amino Transf (AST/SGOT) 18 U/L Alanine Aminotransferase (ALT/SGPT) 30 U/L Alkaline Phosphatase 65 U/L Pro-B-Type Natriuretic Peptide 9957 pg/ml Total Protein 6.4 gm/dl Albumin 3.2 gm/dl Lipase 155 U/L Lyme Disease IgG Antibody NEG Lyme Disease IgM Antibody POS Bedside Troponin I 0.030 ng/ml Total Creatine Kinase 85 U/L Creatine Kinase MB 1.7 ng/ml Creatine Kinase MB Ratio 2.0 Troponin I 0.051 ng/ml Test 07/05/17 08:05 Assessment & Plan Assessment: Cassandra St is a 32 yo female with significant PMHx of migraine headaches, HTN, IGNACIO, and chronic kidney disease, presented to the ED with worsening migraine. Her MRI from August 2016 showed hypodense areas, but her October 2016 showed resolution of hypodensities, and her 07/04/2017 MRI showed only one hypodense area. These waxing and waning MRI findings make a diagnosis of multiple sclerosis and Lyme disease less likely. MS lesions would not resolve and Lyme would become progressively worse without adequate treatment. Lyme titers from this admission were IgM positive but IgG negative, further ruling out chronic Lyme as a diagnosis. A more likely diagnosis is chronic hypertension with episodes of hypertensive urgency/emergency causing ischemic changes throughout the brain, which resolved intermittently with hypertension management. Plan: 1) Migraine headache, with some tension headache characteristics - Lumbar puncture, note opening pressure. Order glucose, protein, WBC, lyme, MS profile looking for signs of inflammation - Discontinue antibiotics (ceftriaxone, levofloxacin, and metronidazole) until lumbar puncture is done, then consider restarting ceftriaxone and metronidazole for her sinus infection. - Hypertension and sinusitis may be contributory to chronic headaches. - Encourage patient to use CPAP machine for IGNACIO, as IGNACIO can also cause edi specialist headaches. 2) Hypertension, chronic with episodes of urgency/emergency - Control blood pressure with hydralazine, labetalol, and losartan 3) Obstructive sleep apnea - Use CPAP 4) Muscle spasms, from spinal fusion surgery of L5-S1 in 2013 - Continue Zanaflex 4mg PRN
--- NOTE | 2017-07-05 09:44 | CARDIOLOGY CONSULTATION ---
DATE OF CONSULTATION: 07/05/2017 CONSULTATION REQUESTED BY: Dr. Wade. REASON FOR CONSULTATION: Hypertensive urgency. HISTORY OF PRESENT ILLNESS: Ms. St is a complex 32-year-old with a cardiac history which includes severe hypertension and hypertensive heart disease, for whom we were asked to see in the setting of chest pain and minimally elevated troponin. The patient has had longstanding severe hypertension with issues with medical compliance. She has previously been followed by [facility] and is followed by nephrology in part for management of hypertension and her chronic kidney disease. She has had multiple prior hospitalizations in the setting of hypertensive urgency, most recently in the beginning of June. She has previously had cardiac catheterization in 11/2015, at which time she had minimal nonobstructive disease. Currently, she presents after 4-5 days, she states, of substernal chest pain. She states that this pain is similar to what she has had in the past, although different in that it seems to be more exacerbated with exertion than prior. Denies significant shortness of breath, palpitations or presyncope. Denies any lower extremity swelling. She was seen by her primary care physician Dr. Ross yesterday where she was noted to be hypertensive and had questionable new EKG changes and as a result was referred to the ED. Upon arrival to the ED, the patient had blood pressures that were in the 200s and trended up into the 260s. Her initial EKG showed sinus rhythm with inferolateral T-wave inversions, not significantly changed from prior EKGs. Initial troponin was negative, subsequent troponins up to 0.51. The patient was restarted on her home blood pressure medications including hydralazine and labetalol, was also placed on a nitro patch. This morning the patient states that she continues to have migraine headache, states that the chest pain is somewhat improved, although still there when she gets up. PAST MEDICAL HISTORY: 1. Severe hypertension. 2. Hypertensive heart disease. 3. Stage III chronic kidney disease. 4. Minimal nonobstructive coronary disease. 5. Obstructive sleep apnea. 6. Anxiety and depression. 7. GERD. 8. Hypothyroidism. 9. Irritable bowel syndrome. 10. Lumbar disc disease. 11. Migraine headaches. 12. Morbid obesity. 13. Charted history of noncompliance with medications. 14. Questionable history of substance abuse. 15. Polycystic ovarian syndrome. 16. Prior adrenal tumor removal. SURGICAL HISTORY: 1. Arthroscopic right knee surgery. 2. Hemorrhoidectomy. 3. Hysterectomy. 4. Bilateral carpal tunnel surgery. 5. Appendectomy. 6. Cholecystectomy. 7. Partial thyroidectomy. 8. Tonsillectomy and adenoidectomy. 9. x2. FAMILY HISTORY: Father had coronary artery disease and had an ICD placed. Mother without cardiac issues. SOCIAL HISTORY: She currently lives with her boyfriend. She previously smoked, quit in 2001. Denies alcohol or illegal drug use. She is disabled secondary to anxiety and depression. She has 2 kids who live with her mother. REVIEW OF SYSTEMS: Otherwise negative unless stated in HPI. ALLERGIES: INCLUDE SULFA DRUGS, NSAIDS AND TRAMADOL. HOME MEDICATIONS: Include buspirone, clonazepam, gabapentin, hydralazine 25 mg t.i.d., labetalol 200 mg t.i.d., losartan 50 mg daily, sertraline and tizanidine. PHYSICAL EXAMINATION: VITAL SIGNS: Temperature 36.9, pulse 79, blood pressure is 141/89, she is satting 93% on room air. GENERAL: The patient appears comfortable, in no acute distress. HEENT: Sclerae are anicteric. Oropharynx is clear. NECK: Supple. She has no appreciable JVD. She has no carotid bruits. LUNGS: Clear to auscultation bilaterally. CARDIAC: She is regular. She has no murmurs, rubs or gallops. ABDOMEN: Soft, obese, but nontender. EXTREMITIES: Warm. She has mild edema in her upper extremities bilaterally. No dependent lower extremity edema. She has intact distal pulses. SKIN: Shows no rashes or lesions. NEUROLOGIC: Grossly nonfocal. PSYCHIATRIC: She is alert and appropriate. DATA: Sodium 140, potassium 4.3, BUN 15, creatinine 1.5. LFTs within normal limits. ProBNP elevated at 9900. Initial [id number] troponin was negative. Subsequent troponin this morning 0.051. Hemoglobin 11.1. INR of 0.9. IMAGING: Head CT showed periventricular white matter hypodensity on the right parietal lobe. Chest x-ray showed evidence of bilateral atelectasis versus consolidation, marked cardiomegaly with no evidence of pulmonary edema. Brain MRI showed no evidence of CVA. There was a 1.9 x 1.6 periventricular focus in the right parietal lobe, new since 10/2016. EKG shows sinus rhythm with LVH and repolarization abnormality, likely with T-wave inversions in II, III, aVF and in V5 and V6. Telemetry reviewed, no events overnight. IMPRESSION AND PLAN: 1. Hypertensive urgency. 2. Hypertensive heart disease. 3. Minimally elevated troponin. 4. Questionable medication adherence. 5. Persistent headache with history of migraines/recurrent abnormality on MRI. 6. Morbid obesity. 7. Obstructive sleep apnea, noncompliant with CPAP. 8. History of noncardiac chest pain. Ms. St is here with hypertensive urgency with systolic blood pressures up into the 260s overnight. The patient's blood pressure has improved with return of home blood pressure medications. In the setting of hypertension, she has had chest pain and headaches. Chest pain is typical of multiple prior hospitalizations and suspicion that this represents new acute coronary syndrome is relatively low. The patient has had cardiac cath last year which was largely unremarkable and EKG abnormalities have been noted on serial EKGs over the last year. Do not feel that further risk stratification is necessary at this time. Would continue home blood pressure medications as doing, can resume losartan per nephrology, can discontinue nitro patch in the setting of headaches. Thank you for allowing us to participate in the care of this patient. VENTURA
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
[2017-07-05] MEDS ORDERED: LOSARTAN POTASSIUM 50 MG TAB PO ONE (11:27)
--- NOTE | 2017-07-05 11:39 | Family Medicine Progress Note ---
Progress Note Date of Service Jul 05, 2017. Subjective Pt evaluation today including: conversation w/ patient, physical exam, chart review, lab review, review of studies, review of inpatient medication list Pain: 7 headache Voiding: no voiding problems Admission for hypertensive urgency, headche, chest pain and shortness of breath on exertion. T2 hyperintense focus within the right parietal lobe found on MRI with positive IgM for lyme disease Currently complaining of 04/11 "migraine" headache - feels like a pressure over all of her head. Improved last night but woke up with the No vision, speech or hearing impairment. Asking for Dilaudid for pain. No extremity weakness of change in sensation. She has previously had all her workup with [facility] but wishes to transition her care to [facility]. Also complaining of left knee pain with some catching and locking at times. She reportedly does not take her medications if her sBP runs around 120 as she also has hypertensive episodes. She was not tolerant to CPAP for her IGNACIO after taking it for 1 year but apparently only tried one mask. Constitutional: No fever, No chills All Other Systems: Reviewed and Negative Medications Current Inpatient Medications Medications (Trade) Dose Ordered Sig/Randi Route Start Time Stop Time Status Last Admin Dose Admin Clonazepam (Klonopin Tab) 1 mg BID PRN PO 07/04/17 20:00 08/03/17 19:59 07/04/17 23:24 1 MG Gabapentin (Neurontin Tab) 600 mg TID PO 07/04/17 21:00 08/03/17 20:59 07/05/17 08:09 600 MG Hydralazine HCl (Apresoline Tab) 50 mg TID PO 07/04/17 21:00 08/03/17 20:59 07/05/17 08:08 50 MG Labetalol HCl (Normodyne Tab) 400 mg TID PO 07/04/17 21:00 08/03/17 20:59 07/05/17 08:08 400 MG Sertraline HCl (Zoloft Tab) 100 mg BID PO 07/04/17 21:00 08/03/17 20:59 07/05/17 08:07 100 MG Buspirone HCl (Buspar Tab) 10 mg TID PO 07/04/17 21:00 08/03/17 20:59 07/05/17 08:09 10 MG Tizanidine HCl (Zanaflex Tab) 4 mg TID PRN PO 07/04/17 20:00 08/03/17 19:59 07/04/17 23:41 4 MG Metoprolol Tartrate (Lopressor Iv) 5 mg Q4 PRN IV 07/04/17 20:15 08/03/17 20:14 07/04/17 20:42 5 MG Potassium Chloride/Sodium Chloride 1,000 ml @ 75 mls/hr [id number] IV 07/04/17 23:30 08/03/17 23:29 07/04/17 23:36 75 MLS/HR Acetaminophen (Tylenol Tab) 650 mg Q4H PRN PO 07/04/17 20:15 08/03/17 20:14 07/05/17 08:07 650 MG Levofloxacin 750 mg/Prmx 150 ml @ 100 mls/hr Q24H IV 07/05/17 00:00 07/12/17 00:00 07/05/17 01:12 100 MLS/HR Lorazepam (Ativan Inj) 1 mg Q6H PRN IV 07/04/17 20:45 08/03/17 20:44 07/04/17 21:06 1 MG Morphine Sulfate (MoRPHine SULFATE INJ) 4 mg Q2H PRN IV 07/04/17 20:45 07/18/17 20:44 Metronidazole (Flagyl Tab) 500 mg BID PO 07/05/17 09:00 07/19/17 08:59 07/05/17 08:09 500 MG Gadobutrol (Gadavist) 11.5 mmol UD PRN IV 07/04/17 23:00 07/08/17 22:59 Ondansetron HCl (Zofran Inj) 4 mg Q6H PRN IV 07/04/17 23:00 08/03/17 22:59 Ceftriaxone Sodium 2000 mg/ Dextrose 70 ml @ 100 mls/hr Q24H IV 07/06/17 00:00 07/14/17 00:41 Famotidine (Pepcid Tab) 20 mg BID PO 07/05/17 12:00 08/04/17 11:59 Objective Vital Signs Date Time Temp Pulse Resp B/P (MAP) Pulse Ox O2 Delivery O2 Flow Rate FiO2 07/05/17 08:27 86 20 95 Room Air 07/05/17 08:00 Room Air 07/05/17 07:38 36.9 79 18 141/89 (106) 93 Room Air 07/05/17 04:28 36.6 81 20 113/74 (87) 99 Nasal Cannula 1.0 07/05/17 04:00 Nasal Cannula 2.0 07/05/17 01:02 70 16 130/84 (99) 99 Nasal Cannula 2.0 07/05/17 00:01 Nasal Cannula 2.0 07/04/17 23:10 36.9 78 20 161/106 95 Room Air 07/04/17 21:10 77 22 218/141 95 Room Air 07/04/17 20:45 75 22 214/155 93 Room Air 07/04/17 20:42 78 217/155 07/04/17 19:32 84 22 188/133 95 Room Air 07/04/17 18:55 89 22 207/141 99 Nasal Cannula 2.0 07/04/17 18:30 80 16 234/148 99 Nasal Cannula 2.0 07/04/17 18:15 78 18 205/137 96 Nasal Cannula 2.0 07/04/17 18:00 76 18 188/149 99 Nasal Cannula 2.0 07/04/17 17:30 81 18 213/143 99 Nasal Cannula 2.0 07/04/17 17:15 78 16 204/150 99 Nasal Cannula 2.0 07/04/17 17:00 82 14 206/141 97 Nasal Cannula 2.0 07/04/17 16:58 80 18 205/144 99 Nasal Cannula 2.0 07/04/17 16:45 79 18 204/192 98 Nasal Cannula 07/04/17 16:34 80 16 230/146 98 Nasal Cannula 2.0 07/04/17 16:30 82 16 233/157 96 Nasal Cannula 2.0 07/04/17 16:27 81 18 219/161 98 Nasal Cannula 2.0 07/04/17 16:27 97 Nasal Cannula 2.0 07/04/17 16:26 88 Room Air 07/04/17 16:21 85 18 260/174 97 Room Air 07/04/17 16:14 84 18 241/168 98 Room Air 07/04/17 15:38 93 Room Air 07/04/17 15:29 87 07/04/17 15:19 96 Room Air 07/04/17 15:15 36.6 86 18 230/167 93 Room Air Physical Exam General Appearance: + mild distress (from headache), + obese Eyes: normal inspection, PERRL, EOMI ENT: normal ENT inspection (exteranally) Neck: supple, no JVD, no carotid bruits, trachea midline Respiratory/Chest: chest non-tender, no respiratory distress, no accessory muscle use, + decreased breath sounds (poor respiratory effort, no crackles or wheezing) Cardiovascular: regular rate, rhythm, no murmur Extremities: normal range of motion (left knee), non-tender (left knee), normal inspection, no calf tenderness, normal capillary refill, + pedal edema (1 + to knees b/l) Neurologic/Psychiatric: metal loader II-XII nml as tested, no motor/sensory deficits, alert, oriented x 3 Skin: normal color, warm/dry, no rash Laboratory Results 07/05/17 06:50 Red Blood Count 4.04, Mean Corpuscular Volume 87.1, Mean Corpuscular Hemoglobin 27.5, Mean Corpuscular Hemoglobin Concent 31.5, Mean Platelet Volume 10.2, Neutrophils (%) (Auto) 64.7, Lymphocytes (%) (Auto) 18.5, Monocytes (%) (Auto) 5.8, Eosinophils (%) (Auto) 10.6, Basophils (%) (Auto) 0.3, Neutrophils # (Auto ) 5.14, Lymphocytes # (Auto) 1.47, Monocytes # (Auto) 0.46, Eosinophils # (Auto ) 0.84, Basophils # (Auto) 0.02 07/05/17 06:50 Test 07/04/17 15:45 07/04/17 15:50 07/04/17 20:26 07/05/17 06:50 Phosphorus Level 3.3 mg/dl (2.5-4.9) Total Bilirubin 0.7 mg/dl (0.2-1) Direct Bilirubin 0.2 mg/dl (0-0.2) Aspartate Amino Transf (AST/SGOT) 18 U/L (15-37) Alanine Aminotransferase (ALT/SGPT) 30 U/L (12-78) Alkaline Phosphatase 65 U/L (45-117) Pro-B-Type Natriuretic Peptide 9957 pg/ml (0-450) Total Protein 6.4 gm/dl (6.4-8.2) Albumin 3.2 gm/dl (3.4-5.0) Lipase 155 U/L (73-393) Lyme Disease IgG Antibody NEG (NEG) Bedside Troponin I 0.030 ng/ml (0-0.045) White Blood Count 7.94 K/uL (4.8-10.8) Red Blood Count 4.04 M/uL (4.2-5.4) Hemoglobin 11.1 g/dL (12.0-16.0) Hematocrit 35.2 % (37-47) Mean Corpuscular Volume 87.1 fL (80-100) Mean Corpuscular Hemoglobin 27.5 pg (25-34) Mean Corpuscular Hemoglobin Concent 31.5 g/dl (32-36) Platelet Count 185 K/uL (130-400) Mean Platelet Volume 10.2 fL (7.4-10.4) Neutrophils (%) (Auto) 64.7 % Lymphocytes (%) (Auto) 18.5 % Monocytes (%) (Auto) 5.8 % Eosinophils (%) (Auto) 10.6 % Basophils (%) (Auto) 0.3 % Neutrophils # (Auto) 5.14 K/uL (1.4-6.5) Lymphocytes # (Auto) 1.47 K/uL (1.2-3.4) Monocytes # (Auto) 0.46 K/uL (0.11-0.59) Eosinophils # (Auto) 0.84 K/uL (0-0.5) Basophils # (Auto) 0.02 K/uL (0-0.2) RDW Standard Deviation 48.9 fL (36.4-46.3) RDW Coefficient of Variation 15.3 % (11.5-14.5) Immature Granulocyte % (Auto) 0.1 % Immature Granulocyte # (Auto) 0.01 K/uL (0.00-0.02) Prothrombin Time 11.8 SECONDS (9.0-12.0) Prothromb Time International Ratio 1.1 (0.9-1.1) Activated Partial Thromboplast Time 24.3 SECONDS (21.0-31.0) Partial Thromboplastin Ratio 0.9 Anion Gap 7.0 mmol/L (3-11) Est Creatinine Clear Calc Drug Dose 64.3 ml/min Estimated GFR () 52.1 Estimated GFR (Non- 45.0 BUN/Creatinine Ratio 10.1 (10-20) Calcium Level 8.4 mg/dl (8.5-10.1) Magnesium Level 2.0 mg/dl (1.8-2.4) Total Creatine Kinase 85 U/L (26-192) Creatine Kinase MB 1.7 ng/ml (0.5-3.6) Creatine Kinase MB Ratio 2.0 (0-3.0) Troponin I 0.051 ng/ml (0-0.045) Test 07/05/17 08:05 Date/Time Source Procedure Growth Status 07/05/17 00:50 Nasal MRSA DNA Surveillance Screen - Final Specimen Negative for MRSA by DNA Probe Complete Assessment and Plan Hypertensive urgency/chest pressure with shortness of breath-- 32 year old female with complex medical history previously cared for by [facility] with headache, hypertensive urgency, shortness of breath and chest pain on exertion Hypertensive urgency - appears to have improved with nitro paste, hydralazine and labetalol - restart losartan as below Periventricular T2 hyperintense focus within the right parietal lobe - concern for lyme vs. MS. Given relapsing appearance and lack of focal neurology appears most likely related to her hypertension. - Consult neurology - Consult ID placed given concern for lyme disease with positive IgM. - lumbar puncture today. Elevated troponin with inferolateral TWI changes - consult cardiology - continue serial troponin - echocardiogram Headache - likely multifactorial with nitro paste, migraine, severe IGNACIO (occurs in the mornings), severe right frontal/ethmoidalis/maxillary sinusitis - trial CPAP at night - stop nitro paste - not for NSAIDs due to CKD - acetaminophen - hold off opiates given chronic problem - continue IVF for gentle hydration Community acquired pneumonia - Bibasilar opacities, left greater than right. The findings could reflect atelectasis or consolidation - Continue ceftriaxone (covering for lyme) Chest pain and shortness of breath on exertion - trial duoneb to see if this helps given lack of CAD on cardiac cath in Nov 2015 - consult cardiology - aspirin daily Hx of c. diff colitis - continue metronidazole 500mg TID Anxiety with depression/borderline personality disorder - Buspirone 10 mg by mouth 3 times a day - Gabapentin 600 mg by mouth 3 times a day - Sertraline 100 mg by mouth twice a day - Clonazepam 1 mg by mouth twice a day when necessary - Lorazepam 1 mg IV every 6 hours when necessary. Muscle spasm - Zanaflex 4 mg by mouth 3 times a day when necessary. Severe IGNACIO - trial of CPAP again at night as likely contributing towards CKD stage 3 - at baseline therfore will restart her O/P losartan GERD Famotidine 20 mg IV every 12 hours VTE Prophylaxis - defer due to LP this afternoon, young and ambulatory Code - Full Disposition - can transfer to med/surg once seen by cardiology Resident Physician Supervision Note: I interviewed and examined the patient. Discussed with Dr. Araujo and agree with findings and plan as documented in the note. Any exceptions or clarifications are listed here: None Documented By: Te Santa headache. no other current sx. asks for pain meds. discussed dc nitro. claims total compliance w BP meds but then notes that she'll take BP and then hold off on meds if she sees readings like 120/80, but then check later and if numbers are going higher she'll take meds then notes she's tried CPAP for about a year and can't get used to it - but also notes that she's only ever tried one mask and didn't have home health company work with her on other masks/devices. is going to see an ENT about a UPPP vitals noted nad breathing unlabored no pallor or icterus hypertensive urgency - suspect headache, MRI findings, troponin all related to uncontrolled BP. uncontrolled BP probably relates to renal disease, untreated IGNACIO, adherence, weight. work on all risk factors otherwise as above Resident Tracking Resident Involvement: Resident Care Provided Care Provided: Adult Hospital Medicine
[2017-07-05] MEDS: CLONAZEPAM 1 MG TAB PO PRN ×2 (11:57→21:42)
[2017-07-05] MEDS: FAMOTIDINE 20 MG TAB PO SCH ×2 (12:00→21:00)
--- NOTE | 2017-07-05 13:06 | Clinical Documentation Query ---
CLINICAL DOCUMENTATION QUERY Hypertensive urgency is defined as a blood pressure greater than 180/120 mm Hg in the absence of progressive target organ dysfunction. These patients are often [id number] or inadequately treated. Unfortunately, the term `urgency' has led to overly aggressive management of many patients with severe, uncomplicated hypertension. The [employer] (ACE[employer]) 2013 policy statement chooses the phrase asymptomatic elevated blood pressure rather than hypertensive urgency. No evidence exists that specific treatment for hypertensive urgency is warranted. Patients likely will need to have their medications adjusted or reinitiated in the presence of non-adherence A hypertensive crisis occurs when blood pressure elevates rapidly and severely enough to potentially cause organ damage. Patients may present with symptoms of: *acute headache, *shortness of breath, *epistaxis, *marked anxiety/confusion, *nausea/vomiting In your clinical opinion is this patient being managed for: ( ) Hypertensive crisis ( ) Not Agree ( ) Other explanation of clinical findings (Please Explain) ( ) Unable to determine (Please Define) ( ) Need to Discuss The medical record reflects the following clinical findings, treatment, and risk factors. Clinical Indicators: Severe HTN, acute headache, chest pressure, SOB, anxiety Treatment: Telemetry, labetalol, nitroglycerin oint, lopressor, O2, serial lab monitoring Risk Factors: Severe HTN, morbid obesity, kidney failure Please clarify and document your clinical opinion in the progress notes and discharge summary. Terms such as "probable", "suspected", "likely", "questionable", "possible", or "still to be ruled out" are acceptable. IF IN AGREEMENT, YOU MUST DOCUMENT ABOVE DIAGNOSTIC STATEMENT IN DAILY PROGRESS NOTES AND DISCHARGE SUMMARY. This document is not part of the patient's record. Thank You, Diane Lainez RN [phone]
--- NOTE | 2017-07-05 13:50 | DIAGNOSTIC IMAGING REPORT ---
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 PROCEDURE: The procedure, risks and benefits were discussed with the patient including the risk of spinal headache, bleeding and infection. The patient agreed to the procedure and informed written consent was obtained. The procedure was performed by Dr. Altman following a timeout. Laminectomy site at the L4-L5 level was targeted. Skin overlying the space was prepped and draped in sterile fashion and local anesthesia was achieved with 1% lidocaine. Under intermittent fluoroscopic guidance, a 5 inch, 22-gauge spinal needle was directed into the thecal sac. There was immediate return of cerebrospinal fluid. A total of 8 cc of CSF was collected in 4 vials and sent to the laboratory as ordered. The fluid was slightly blood-tinged. The needle was removed. The patient tolerated the procedure well and no immediate complications were evident. IMPRESSION: Fluoroscopically guided lumbar puncture with collection of 8 cc of cerebrospinal fluid which was slightly blood-tinged. Fluid sent to the laboratory for analysis as ordered. Electronically signed by: Pancho Altman M.D. 07/05/2017 1:48 PM Dictated Date/Time: 07/05/2017 1:46 PM
[2017-07-05 14:06] LABS: CSF TOTAL PROTEIN 35.7 mg/dl (15.0-45.0)
[2017-07-05 14:10] LABS: CSF CHEMISTRY TUBE # 1
[2017-07-05 14:12] LABS: CSF LACTATE** 1.4 mmol/L (0.6-2.2)
[2017-07-05] MEDS: NSS + 20MEQ KCL 1000ML 1,000 ML IV SCH (15:00)
[2017-07-05 15:26] LABS: CSF APPEARANCE CLEAR; CSF COLOR COLORLESS; CSF XANTHOCHROMIC NO XANTHOCHROMIA
[2017-07-05 16:00] LABS: CKMB/CK RATIO 2.1 (0-3.0)
[2017-07-05] MEDS ORDERED: TAPENTADOL HCL 50 MG TAB PO ONE (17:31)
[2017-07-05] MEDS ORDERED: ONDANSETRON 4MG OD TAB PO STA (17:31)
[2017-07-06] MEDS ORDERED: CEFTRIAXONE SOD INJ 2,000 MG in DEXTROSE 5% 50ML 50 ML IV SCH ×2
[2017-07-06] MEDS: TAPENTADOL HCL 50 MG TAB PO PRN ×2 (01:44→07:39)
[2017-07-06] MEDS: NSS + 20MEQ KCL 1000ML 1,000 ML IV SCH (01:44)
[2017-07-06] MEDS ORDERED: PROMETHAZINE HCL INJ 25 MG/ML 1 ML VIAL IM STA (03:20)
[2017-07-06] MEDS ORDERED: DEXAMETHASONE INJ 10 MG in SYRINGE 0 ML IV STA (03:25)
[2017-07-06] MEDS: FAMOTIDINE 20 MG TAB PO SCH ×2 (07:37→21:39)
[2017-07-06] MEDS: GABAPENTIN 600 MG TAB PO SCH ×3 (07:38→21:39)
[2017-07-06] MEDS: SERTRALINE HCL 100 MG TAB PO SCH ×2 (07:38→21:39)
[2017-07-06] MEDS: LABETALOL HCL 200 MG TAB PO SCH ×3 (07:38→21:39)
[2017-07-06] MEDS: METRONIDAZOLE 500 MG TAB PO SCH ×2 (07:38→21:39)
[2017-07-06] MEDS: ONDANSETRON INJ 2 MG/ML 2 ML VIAL IV PRN (07:39)
[2017-07-06 07:45] VITALS: BP_SYST 153; BP_SYST 155; BP_SYST 157; BP_DIAS 80; BP_DIAS 91; BP_DIAS 94; PULSE 83
[2017-07-06] MEDS ORDERED: DiphenhydrAMINE INJ 25 MG in SYRINGE 0 ML IV STA (08:14)
[2017-07-06] MEDS ORDERED: METOCLOPRAMIDE HCL INJ 5 MG/ML 2 ML VIAL IM STA (08:14)
[2017-07-06] MEDS ORDERED: TAPENTADOL HCL 50 MG TAB PO PRN (08:30)
[2017-07-06] MEDS ORDERED: DiphenhydrAMINE HCL 50 MG/ML VIAL IV STA (08:55)
[2017-07-06] MEDS ORDERED: DEXAMETHASONE INJ 10 MG in SYRINGE 0 ML IV ONE (09:15)
[2017-07-06 10:50] LABS: HEMATOCRIT 39.5 % (37-47); MEAN CELL VOLUME 90.8 fL (80-100); MEAN CORPUSCULAR HEMOGLOBIN 27.1 pg (25-34); MEAN CORPUSCULAR HGB CONC 29.9 g/dl (32-36); MEAN PLATELET VOLUME 11.3 fL (7.4-10.4); PLATELET COUNT 321 K/uL (130-400); RED BLOOD COUNT 4.35 M/uL (4.2-5.4); WHITE BLOOD COUNT 13.09 K/uL (4.8-10.8)
[2017-07-06 10:51] LABS: BASO % 0.2 %; BASO ABS # 0.03 K/uL (0-0.2); COMPLETE YES; EOS % 1.3 %; IG% 0.2 %; LYMPH % 12.7 %; LYMPH ABS # 1.66 K/uL (1.2-3.4); MONO % 4.4 %; NEUT % 81.2 %; PLT ESTIMATE NORMAL
[2017-07-06 11:19] LABS: BUN/CREATININE RATIO 11.7 (10-20); CALCIUM 8.6 mg/dl (8.5-10.1); CREATININE 1.8 mg/dl (0.60-1.20); POTASSIUM 5.7 mmol/L (3.5-5.1)
--- NOTE | 2017-07-06 11:29 | Neurology Progress Notes ---
Neurology Progress Note Date of Service Jul 06, 2017. Subjective Patient had a lumbar puncture yesterday. Since that time, she feels her headache is been a little worse. The headache is worse when she sits up in a bandlike pressure sensation and a little better when she lays down. According to the nurses, she has been requesting Dilaudid and morphine Lyme Western blot IgM is still pending Lumbar puncture showed 4 white cells and a protein of 35. Glucose was 52 and Gram stain was negative. Special protein studies and final cultures are pending Objective Date Time Temp Pulse Resp B/P (MAP) Pulse Ox O2 Delivery O2 Flow Rate FiO2 07/06/17 08:00 Room Air 07/06/17 07:45 83 153/80 (104) 155/91 (112) 157/94 (115) 07/06/17 00:00 Room Air 07/05/17 23:58 36.8 76 20 114/76 (89) 92 Room Air 07/05/17 21:23 84 122/77 (92) 07/05/17 18:30 100 Room Air 07/05/17 18:30 36.3 85 18 110/59 (76) 97 Room Air 07/05/17 18:08 36.5 67 22 100 07/05/17 16:00 100 Room Air 07/05/17 15:05 36.5 67 22 179/97 (124) 100 Room Air 07/05/17 12:00 Room Air Last 24 Hours Test 07/05/17 13:27 07/05/17 15:09 07/06/17 09:38 CSF Color COLORLESS CSF Appearance CLEAR CSF WBC 4 /uL CSF RBC 139 /uL CSF Xanthrochromic NO XANTHOCHROMIA CSF Cell Count Tube # 3 CSF Chemistry Tube # 1 CSF Glucose 52 mg/dl CSF Lactic Acid 1.4 mmol/L CSF Total Protein 35.7 mg/dl Total Creatine Kinase 96 U/L Creatine Kinase MB 2.0 ng/ml Creatine Kinase MB Ratio 2.1 Troponin I 0.044 ng/ml White Blood Count 13.09 K/uL Red Blood Count 4.35 M/uL Hemoglobin 11.8 g/dL Hematocrit 39.5 % Mean Corpuscular Volume 90.8 fL Mean Corpuscular Hemoglobin 27.1 pg Mean Corpuscular Hemoglobin Concent 29.9 g/dl Platelet Count 321 K/uL Mean Platelet Volume 11.3 fL Neutrophils (%) (Auto) 81.2 % Lymphocytes (%) (Auto) 12.7 % Monocytes (%) (Auto) 4.4 % Eosinophils (%) (Auto) 1.3 % Basophils (%) (Auto) 0.2 % Neutrophils # (Auto) 10.63 K/uL Lymphocytes # (Auto) 1.66 K/uL Monocytes # (Auto) 0.57 K/uL Eosinophils # (Auto) 0.17 K/uL Basophils # (Auto) 0.03 K/uL RDW Standard Deviation 52.3 fL RDW Coefficient of Variation 15.8 % Immature Granulocyte % (Auto) 0.2 % Immature Granulocyte # (Auto) 0.03 K/uL Platelet Estimate NORMAL Sodium Level 139 mmol/L Potassium Level 5.7 mmol/L Chloride Level 106 mmol/L Carbon Dioxide Level 27 mmol/L Anion Gap 6.0 mmol/L Blood Urea Nitrogen 21 mg/dl Creatinine 1.80 mg/dl Est Creatinine Clear Calc Drug Dose 53.6 ml/min Estimated GFR () 41.8 Estimated GFR (Non- 36.1 BUN/Creatinine Ratio 11.7 Random Glucose 147 mg/dl Calcium Level 8.6 mg/dl Exam: She is very sleepy but easily aroused with voice. She follows one-step commands well. Extraocular eye muscles are intact without nystagmus. There is no facial droop. Neck is supple. Stance is normal sitting up. Coordination is normal in the limbs. Strength is symmetrical in the limbs. There are no abnormal involuntary movements seen. Current Inpatient Medications Medications (Trade) Dose Ordered Sig/Randi Route Start Time Stop Time Status Last Admin Dose Admin Clonazepam (Klonopin Tab) 1 mg BID PRN PO 07/04/17 20:00 08/03/17 19:59 07/05/17 21:42 1 MG Gabapentin (Neurontin Tab) 600 mg TID PO 07/04/17 21:00 08/03/17 20:59 07/06/17 07:38 600 MG Labetalol HCl (Normodyne Tab) 400 mg TID PO 07/04/17 21:00 08/03/17 20:59 07/06/17 07:38 400 MG Sertraline HCl (Zoloft Tab) 100 mg BID PO 07/04/17 21:00 08/03/17 20:59 07/06/17 07:38 100 MG Buspirone HCl (Buspar Tab) 10 mg TID PO 07/04/17 21:00 08/03/17 20:59 07/06/17 07:38 10 MG Tizanidine HCl (Zanaflex Tab) 4 mg TID PRN PO 07/04/17 20:00 08/03/17 19:59 07/04/17 23:41 4 MG Metoprolol Tartrate (Lopressor Iv) 5 mg Q4 PRN IV 07/04/17 20:15 08/03/17 20:14 07/04/17 20:42 5 MG Potassium Chloride/Sodium Chloride 1,000 ml @ 75 mls/hr [id number] IV 07/04/17 23:30 08/03/17 23:29 07/06/17 01:44 75 MLS/HR Acetaminophen (Tylenol Tab) 650 mg Q4H PRN PO 07/04/17 20:15 08/03/17 20:14 07/05/17 20:05 650 MG Levofloxacin 750 mg/Prmx 150 ml @ 100 mls/hr Q24H IV 07/05/17 00:00 07/12/17 00:00 07/05/17 23:27 100 MLS/HR Metronidazole (Flagyl Tab) 500 mg BID PO 07/05/17 09:00 07/19/17 08:59 07/06/17 07:38 500 MG Gadobutrol (Gadavist) 11.5 mmol UD PRN IV 07/04/17 23:00 07/08/17 22:59 Ondansetron HCl (Zofran Inj) 4 mg Q6H PRN IV 07/04/17 23:00 08/03/17 22:59 07/06/17 07:39 4 MG Ceftriaxone Sodium 2000 mg/ Dextrose 70 ml @ 100 mls/hr Q24H IV 07/06/17 00:00 07/14/17 00:41 07/05/17 23:28 100 MLS/HR Famotidine (Pepcid Tab) 20 mg BID PO 07/05/17 12:00 08/04/17 11:59 Losartan Potassium (coZAAR TAB) 50 mg DAILY PO 07/06/17 09:00 08/05/17 08:59 Hydralazine HCl (Apresoline Tab) 25 mg TID PO 07/06/17 09:00 08/03/17 20:59 Impression 1. Headaches. These are mixed type with migrainous and non migrainous features. Currently she has a typical post LP headache (generalized pressure headache with sitting up, relieved some with laying down) Neurologic examination is nonfocal with no encephalopathy, meningeal signs, or objective deficits. She does have a longstanding history of migrainous and non migrainous headaches. Hypertension will drive these headaches and exacerbate them. She does have a history of cervical spine pain in the past. Any neck issues could drive headaches as well. Also, she has significant sinusitis seen. Sinusitis can give chronic headaches as well. Untreated obstructive sleep apnea will lead to chronic headaches and possibly stroke. She is on no medication for headache prophylaxis. 2. Abnormal MRI of the brain with right parietal white matter spot. This was not present in October of 2016. However the MRI from August of 2016 showed a large number of patchy white matter spots diffusely bilaterally. This current spot was seen as an abnormal spot back in August of 2016. Patient has no old small vessel ischemic disease. I have reviewed all of the MRIs of the brain from May [address] Hamlin, radiologist The fluctuating nature of these MRI changes is interesting but most likely related to hypertension. Vasculitis is possible but MR angiography in the past was unremarkable. I would not expect MS lesions or Lyme lesions (untreated Lyme) to fluctuate or disappeared reappear like this. She is clearly not having stroke or ischemic disease. She really did not have any evidence of viral encephalitis clinically and her LP showed no increase in protein or white cells in August of 2016 or yesterday. 3. Hypertension, malignant, somewhat improved today. 4. Obstructive sleep apnea, noncompliant with CPAP 5. Generalized anxiety disorder and major depression, fairly well controlled currently. 6. Extensive sinusitis seen on MRI 7. Congestive heart failure Plan 1. Await final Lyme Western blot results before committing to 1 month of Rocephin IV. 2. Control blood pressure shooting for a mean arterial pressure of about 100. After control blood pressure it may take a day or so headaches do respond. 3. Encourage CPAP usage for obstructive sleep apnea. 4. Consider initiating topiramate 25 mg twice a day and titrating as needed. However, this could be done as an outpatient. 5. Follow up with Dr. Wood as an outpatient I spent a total of 75 minutes discussing this case with the patient at bedside as well as with doctors Kiet Araujo, andYajaira Hamlin, regarding test results , film review, differential diagnosis, and treatment options.
[2017-07-06 13:33] VITALS: BP 125/73; PULSE 85
[2017-07-06] MEDS: LOSARTAN POTASSIUM 50 MG TAB PO SCH (14:08)
[2017-07-06 15:00] VITALS: BP 168/104; PULSE 82; TEMP 36.5; O2SAT 97
--- NOTE | 2017-07-06 15:37 | Infectious Disease Progress Nt ---
Progress Note Date of Service Jul 06, 2017. Subjective Pt evaluation today including: conversation w/ patient, physical exam, chart review, lab review, review of studies, conversation w/ health management consultant, review of inpatient medication list Patient is status post lumbar puncture. Findings relatively unremarkable with only 4 cells seen. Protein is normal. Special studies are pending. Headache slightly worse, worse upon sitting up or standing. No fever. All Other Systems: Reviewed and Negative Medications Current Inpatient Medications Medications (Trade) Dose Ordered Sig/Randi Route Start Time Stop Time Status Last Admin Dose Admin Clonazepam (Klonopin Tab) 1 mg BID PRN PO 07/04/17 20:00 08/03/17 19:59 07/05/17 21:42 1 MG Gabapentin (Neurontin Tab) 600 mg TID PO 07/04/17 21:00 08/03/17 20:59 07/06/17 14:09 600 MG Labetalol HCl (Normodyne Tab) 400 mg TID PO 07/04/17 21:00 08/03/17 20:59 07/06/17 14:09 400 MG Sertraline HCl (Zoloft Tab) 100 mg BID PO 07/04/17 21:00 08/03/17 20:59 07/06/17 07:38 100 MG Buspirone HCl (Buspar Tab) 10 mg TID PO 07/04/17 21:00 08/03/17 20:59 07/06/17 14:09 10 MG Tizanidine HCl (Zanaflex Tab) 4 mg TID PRN PO 07/04/17 20:00 08/03/17 19:59 07/04/17 23:41 4 MG Metoprolol Tartrate (Lopressor Iv) 5 mg Q4 PRN IV 07/04/17 20:15 08/03/17 20:14 07/04/17 20:42 5 MG Acetaminophen (Tylenol Tab) 650 mg Q4H PRN PO 07/04/17 20:15 08/03/17 20:14 07/05/17 20:05 650 MG Levofloxacin 750 mg/Prmx 150 ml @ 100 mls/hr Q24H IV 07/05/17 00:00 07/12/17 00:00 07/05/17 23:27 100 MLS/HR Metronidazole (Flagyl Tab) 500 mg BID PO 07/05/17 09:00 07/19/17 08:59 07/06/17 07:38 500 MG Gadobutrol (Gadavist) 11.5 mmol UD PRN IV 07/04/17 23:00 07/08/17 22:59 Ondansetron HCl (Zofran Inj) 4 mg Q6H PRN IV 07/04/17 23:00 08/03/17 22:59 07/06/17 07:39 4 MG Ceftriaxone Sodium 2000 mg/ Dextrose 70 ml @ 100 mls/hr Q24H IV 07/06/17 00:00 07/14/17 00:41 07/05/17 23:28 100 MLS/HR Famotidine (Pepcid Tab) 20 mg BID PO 07/05/17 12:00 08/04/17 11:59 Losartan Potassium (coZAAR TAB) 50 mg DAILY PO 07/06/17 09:00 08/05/17 08:59 07/06/17 14:08 50 MG Hydralazine HCl (Apresoline Tab) 25 mg TID PO 07/06/17 09:00 08/03/17 20:59 07/06/17 14:08 25 MG Objective Vital Signs Date Time Temp Pulse Resp B/P (MAP) Pulse Ox O2 Delivery O2 Flow Rate FiO2 07/06/17 15:00 36.5 82 20 168/104 (125) 97 Nasal Cannula 4.0 07/06/17 13:33 85 125/73 (90) 07/06/17 08:00 Room Air 07/06/17 07:45 83 153/80 (104) 155/91 (112) 157/94 (115) 07/06/17 00:00 Room Air 07/05/17 23:58 36.8 76 20 114/76 (89) 92 Room Air 07/05/17 21:23 84 122/77 (92) 07/05/17 18:30 100 Room Air 07/05/17 18:30 36.3 85 18 110/59 (76) 97 Room Air 07/05/17 18:08 36.5 67 22 100 07/05/17 16:00 100 Room Air Physical Exam General Appearance: WD/WN, + mild distress, + obese Eyes: normal inspection, EOMI, sclerae normal ENT: normal ENT inspection, pharynx normal Neck: supple, no adenopathy, thyroid normal, trachea midline Respiratory/Chest: chest non-tender, lungs clear, normal breath sounds, no respiratory distress Cardiovascular: regular rate, rhythm, no gallop, no murmur Abdomen: normal bowel sounds, non tender, soft, no organomegaly Extremities: non-tender, no calf tenderness Neurologic/Psychiatric: alert, oriented x 3 Skin: normal color, no rash Lymphatic: no adenopathy Laboratory Results RUN DATE: 07/06/17 [facility] LAB PAGE 1 RUN TIME: 1228 Specimen Inquiry PATIENT: YANA CUBA LOC: C.MS2W U # : [id number] AGE/SX: 32/F ROOM: [facility] REG : 07/04/[address]: Te Santa D.O. : 1985 BED: 2 DIS : STATUS: ADM IN TLOC: SPEC #: [id number] PRITESH: 07/05/17 STATUS: RES REQ #: [id number] RECD: 07/05/[address] [facility] [address]: Te Santa D.O. SOURCE: CSF ENTR: 07/05/[address] [facility] [address]: Jim Clinton MD [facility]: David Garcia M.D. Henry, Sheldon D., M.D. McDougall, Leslie S D.O. No Doctor, Rey Ramirez M.D., Alexander W., MD ORDERED: CSF CULT/SMR Procedure Result Verified Site GRAM STAIN Final 07/05/17145 RESULT NO ORGANISMS SEEN NO WBCs SEEN CSF CULTURE Preliminary 07/06/17 NO GROWTH TO DATE. Last 24 Hours Test 07/06/17 09:38 07/06/17 12:23 07/06/17 13:06 White Blood Count 13.09 K/uL Red Blood Count 4.35 M/uL Hemoglobin 11.8 g/dL Hematocrit 39.5 % Mean Corpuscular Volume 90.8 fL Mean Corpuscular Hemoglobin 27.1 pg Mean Corpuscular Hemoglobin Concent 29.9 g/dl Platelet Count 321 K/uL Mean Platelet Volume 11.3 fL Neutrophils (%) (Auto) 81.2 % Lymphocytes (%) (Auto) 12.7 % Monocytes (%) (Auto) 4.4 % Eosinophils (%) (Auto) 1.3 % Basophils (%) (Auto) 0.2 % Neutrophils # (Auto) 10.63 K/uL Lymphocytes # (Auto) 1.66 K/uL Monocytes # (Auto) 0.57 K/uL Eosinophils # (Auto) 0.17 K/uL Basophils # (Auto) 0.03 K/uL RDW Standard Deviation 52.3 fL RDW Coefficient of Variation 15.8 % Immature Granulocyte % (Auto) 0.2 % Immature Granulocyte # (Auto) 0.03 K/uL Platelet Estimate NORMAL Sodium Level 139 mmol/L Potassium Level 5.7 mmol/L Chloride Level 106 mmol/L Carbon Dioxide Level 27 mmol/L Anion Gap 6.0 mmol/L Blood Urea Nitrogen 21 mg/dl Creatinine 1.80 mg/dl Est Creatinine Clear Calc Drug Dose 53.6 ml/min Estimated GFR () 41.8 Estimated GFR (Non- 36.1 BUN/Creatinine Ratio 11.7 Random Glucose 147 mg/dl Calcium Level 8.6 mg/dl Assessment and Plan 32-year-old female with severe headaches and positive Lyme serology with abnormal MRI. It is unlikely that MRI findings are from Lyme disease given that they have not been progressive since for seen, and I would expect her IgG serology to be positive consistent with later stage disease. findings on lumbar puncture not suggestive of Lyme disease but will await specific studies. Will discuss with all involved and follow.
[2017-07-06 16:00] VITALS: O2SAT 97
[2017-07-06] MEDS: SODIUM CHLORIDE 0.45% 1000ML 1,000 ML IV SCH (16:45)
--- NOTE | 2017-07-06 16:52 | Family Medicine Progress Note ---
Progress Note Date of Service Jul 06, 2017. Subjective Pt evaluation today including: conversation w/ patient, physical exam, chart review, lab review, review of studies, conversation w/ operations consultant (Dr Wynne), review of inpatient medication list Pain: 04/11 headache Voiding: no voiding problems Continues to have constant headache. Denies difference between day or night. Nucynta not helping. Pressure feeling, pulsating all over her head. Feels like her previous migraines. Asking for Dilaudid as this is what they have given her in the ER previously. On review of her previous notes she has had Dilaudid on multiple previous admissions in the past but not on her most recent ER visits and I explained opiates snf are not the best medication for her chronic headaches and possibly can make her headaches worse longer term as likely some element of medication overuse. Discussed CPAP and she is still declining and does not wish to use this. She also requested a left knee XR due to intermittent locking and we discussed in some detail (similar conversation to the previous day) and does not appear to remember my reasoning of not getting an XR given no trauma and her main issue is locking rather than pain. Recommended orthopedic outpatient follow up and she appeared to understand this. Constitutional: No fever, No chills All Other Systems: Reviewed and Negative Medications Current Inpatient Medications Medications (Trade) Dose Ordered Sig/Randi Route Start Time Stop Time Status Last Admin Dose Admin Clonazepam (Klonopin Tab) 1 mg BID PRN PO 07/04/17 20:00 08/03/17 19:59 07/05/17 21:42 1 MG Gabapentin (Neurontin Tab) 600 mg TID PO 07/04/17 21:00 08/03/17 20:59 07/05/17 21:21 600 MG Hydralazine HCl (Apresoline Tab) 50 mg TID PO 07/04/17 21:00 08/03/17 20:59 07/05/17 21:20 50 MG Labetalol HCl (Normodyne Tab) 400 mg TID PO 07/04/17 21:00 08/03/17 20:59 07/05/17 21:22 400 MG Sertraline HCl (Zoloft Tab) 100 mg BID PO 07/04/17 21:00 08/03/17 20:59 07/05/17 21:21 100 MG Buspirone HCl (Buspar Tab) 10 mg TID PO 07/04/17 21:00 08/03/17 20:59 07/05/17 21:21 10 MG Tizanidine HCl (Zanaflex Tab) 4 mg TID PRN PO 07/04/17 20:00 08/03/17 19:59 07/04/17 23:41 4 MG Metoprolol Tartrate (Lopressor Iv) 5 mg Q4 PRN IV 07/04/17 20:15 08/03/17 20:14 07/04/17 20:42 5 MG Potassium Chloride/Sodium Chloride 1,000 ml @ 75 mls/hr [id number] IV 07/04/17 23:30 08/03/17 23:29 07/06/17 01:44 75 MLS/HR Acetaminophen (Tylenol Tab) 650 mg Q4H PRN PO 07/04/17 20:15 08/03/17 20:14 07/05/17 20:05 650 MG Levofloxacin 750 mg/Prmx 150 ml @ 100 mls/hr Q24H IV 07/05/17 00:00 07/12/17 00:00 07/05/17 23:27 100 MLS/HR Metronidazole (Flagyl Tab) 500 mg BID PO 07/05/17 09:00 07/19/17 08:59 07/05/17 21:20 500 MG Gadobutrol (Gadavist) 11.5 mmol UD PRN IV 07/04/17 23:00 07/08/17 22:59 Ondansetron HCl (Zofran Inj) 4 mg Q6H PRN IV 07/04/17 23:00 08/03/17 22:59 Ceftriaxone Sodium 2000 mg/ Dextrose 70 ml @ 100 mls/hr Q24H IV 07/06/17 00:00 07/14/17 00:41 07/05/17 23:28 100 MLS/HR Famotidine (Pepcid Tab) 20 mg BID PO 07/05/17 12:00 08/04/17 11:59 Losartan Potassium (coZAAR TAB) 50 mg DAILY PO 07/06/17 09:00 08/05/17 08:59 Tapentadol (Nucynta Tab) 50 mg Q6 PRN PO 07/05/17 17:45 08/04/17 17:44 07/06/17 01:44 50 MG Objective Vital Signs Date Time Temp Pulse Resp B/P (MAP) Pulse Ox O2 Delivery O2 Flow Rate FiO2 07/06/17 00:00 Room Air 07/05/17 23:58 36.8 76 20 114/76 (89) 92 Room Air 07/05/17 21:23 84 122/77 (92) 07/05/17 18:30 100 Room Air 07/05/17 18:30 36.3 85 18 110/59 (76) 97 Room Air 07/05/17 18:08 36.5 67 22 100 07/05/17 16:00 100 Room Air 07/05/17 15:05 36.5 67 22 179/97 (124) 100 Room Air 07/05/17 12:00 Room Air 07/05/17 10:55 37.2 75 18 145/90 (108) 93 Room Air 07/05/17 08:27 86 20 95 Room Air 07/05/17 08:00 Room Air 07/05/17 07:38 36.9 79 18 141/89 (106) 93 Room Air Physical Exam General Appearance: + mild distress (from headache) Eyes: normal inspection (pupils equal) Neck: supple Respiratory/Chest: chest non-tender, no respiratory distress, no accessory muscle use, + decreased breath sounds (poor inspiratory effort but equal chest expansion and air entry b/l, no wheezing, crackles or rhonchi) Cardiovascular: regular rate, rhythm, no murmur Abdomen: normal bowel sounds, non tender, soft Extremities: normal range of motion (left knee without pain on palpation), no calf tenderness, + pedal edema (2+ edema up to knees) Neurologic/Psychiatric: flakeboard line tender II-XII nml as tested, no motor/sensory deficits, alert, oriented x 3 Skin: normal color, warm/dry, no rash Laboratory Results Test 07/05/17 13:27 07/05/17 15:09 07/06/17 04:44 CSF Color COLORLESS CSF Appearance CLEAR CSF WBC 4 /uL (0-5) CSF RBC 139 /uL (0) CSF Xanthrochromic NO XANTHOCHROMIA CSF Cell Count Tube # 3 CSF Chemistry Tube # 1 CSF Glucose 52 mg/dl (40-70) CSF Lactic Acid 1.4 mmol/L (0.6-2.2) CSF Total Protein 35.7 mg/dl (15.0-45.0) Total Creatine Kinase 96 U/L (26-192) Creatine Kinase MB 2.0 ng/ml (0.5-3.6) Creatine Kinase MB Ratio 2.1 (0-3.0) Troponin I 0.044 ng/ml (0-0.045) Assessment and Plan 32 year old female with complex medical history previously cared for by [facility] with headache, hypertensive urgency, shortness of breath and chest pain on exertion Hypertensive urgency - Continue increased dose labetalol - Reduced hydralazine back to 25 mg TID to aim for MAP around 100 as per neurology recommendations - Continue home dose of losartan - orthostatics - will defer further workup to the outpatient setting as 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 Gram stain - no organisms - Appreciate neurology recommendations- hold steroidss no indication for steroids at this time. Multiple sclerosis profile on LP. Antibiotics for sinusitis. Await final Lyme Western blot results before committing to 1 month of Rocephin IV. Aim MAP around 100. Encourage CPAP usage for obstructive sleep apnea. Consider initiating topiramate 25 mg twice a day and titrating as needed as O/P. Follow up with Dr. Wood as an outpatient. - Appreciate ID recommendations - stop ceftriaxone as unlikely lyme disease, if serology positive will start treatment again then Elevated troponin with inferolateral TWI changes - appreciate cardiology recommendations - hypertensive heart disease, longstanding changes Headache - likely multifactorial with neck muscle spasm, migraine, severe IGNACIO ( occurs in the mornings), severe right frontal/ethmoidalis/maxillary sinusitis - refused CPAP - not for NSAIDs due to CKD - acetaminophen - stop IVF - gave additional tapentadol 100 mg PO this morning which caused her to be very sleepy therefore will stop this and avoid opiates - Can give Decadron +/- metoclopramide +/- Benadryl (as long as she isn't too sleepy) overnight if required. - Start Augmentin to cover for sinusitis Community acquired pneumonia - Bibasilar opacities, left greater than right. The findings could reflect atelectasis or consolidation - switch ceftriaxone to Augmentin PO to additionally cover for sinusitis Chest pain and shortness of breath on exertion - trial duoneb appears to have helped slightly however most likely diagnosis of restrictive lung disease from obesity hypoventilation as she doesn't have prolonged attacks. - Duoneb PRN for shortness of breath - appreciate cardiology recommendations Hx of c. diff colitis - continue metronidazole 500mg TID while on augmentin - ID consult Anxiety with depression/borderline personality disorder - Buspirone 10 mg by mouth 3 times a day - Gabapentin 600 mg by mouth 3 times a day - Sertraline 100 mg by mouth twice a day - Clonazepam 1 mg by mouth twice a day PRN Muscle spasm - Zanaflex 4 mg by mouth 3 times a day PRN Severe IGNACIO - refused CPAP. Encouraged strongly to use CPAP at night given increased risk of strokes, high blood pressure etc... however she still does not wish to try this in hospital. CKD stage 3 - bump in Cr to 1.8 from 1.5. therefore will monitor with PM labs. - continue losartan GERD - pt refusing famotidine VTE Prophylaxis - TEDs + SCDs - given continued stay will start heparin prophylaxis 5000 units Q12H Code - Full Disposition - plan for home later today as long as orthostatics and BP stable. Resident Physician Supervision Note: I interviewed and examined the patient. Discussed with Dr. Araujo and agree with findings and plan as documented in the note. Any exceptions or clarifications are listed here: None Documented By: Te Santa headache persists. nursing gave nucynta, then she was asleep for hours, but she notes that she still had headache when she was asleep/anytime she woke up. neck pain as part of headache. asks for morphine notes that ER gives it to her for headaches and she goes home and sleeps it off adn then headache is gone. also then when it's clear we don't plan on escalating to morphine (especially since she had fairly significant sleep//near-sedation w nucynta) she asks for benadryl. vitals noted sitting up in bed fatigued appearing but no true distress. nc/at mmm. ost - L>R suboccipitals high tone/tender/decreased ROM - inhibitory pressure - improved in tissue tone, pt tolerated well labs noted a/p headaches - mixed but appearing heavily tension component at this point. previously did appear HTN urgency related as well somatic dysfunction cervical - OMT as above chest tightness/SOB - earlier seemed more HTN urgency related but she notes now that it's constant (despite BP fluctuations) and also she notes that it feels different than her anxiety related CP. ?all OHS/IGNACIO related and deconditioning. would want PFTs as outpt otherwise as above Resident Tracking Resident Involvement: Resident Care Provided Care Provided: Adult Hospital Medicine
[2017-07-06] MEDS: AMOXICILLIN/CLAVULANATE TAB 875 MG TAB PO SCH (17:00)
[2017-07-06] MEDS: CLONAZEPAM 1 MG TAB PO PRN (17:03)
[2017-07-06 17:09] VITALS: BP 150/77; PULSE 82; O2SAT 98
[2017-07-06] MEDS: ACETAMINOPHEN 325 MG TAB PO PRN (17:43)
[2017-07-06] MEDS: HEPARIN SOD 5000 UNIT/0.5 ML CARP SQ SCH (21:00)
[2017-07-06 21:15] LABS: BENZODIAZEPINE, URINE POS (NEG); COCAINE,URINE NEG (NEG); PHENCYCLIDINE, URINE NEG (NEG)
[2017-07-06 22:49] VITALS: BP 120/65; PULSE 87; TEMP 36.8; O2SAT 91
[2017-07-07 00:09] VITALS: BP 113/66; PULSE 89; O2SAT 96
[2017-07-07] MEDS: ONDANSETRON INJ 2 MG/ML 2 ML VIAL IV PRN ×2 (00:15→08:33)
[2017-07-07] MEDS: ACETAMINOPHEN 325 MG TAB PO PRN ×2 (00:37→04:59)
[2017-07-07] MEDS: SODIUM CHLORIDE 0.45% 1000ML 1,000 ML IV SCH (04:58)
[2017-07-07 07:07] VITALS: BP 122/69; PULSE 82; TEMP 36.8; O2SAT 92
[2017-07-07 07:56] LABS: BASO % 0.1 %; BASO ABS # 0.02 K/uL (0-0.2); COMPLETE YES; HEMATOCRIT 38.6 % (37-47); IG% 0.8 %; LYMPH % 10.4 %; MEAN CORPUSCULAR HEMOGLOBIN 27.6 pg (25-34); MEAN CORPUSCULAR HGB CONC 30.3 g/dl (32-36); MEAN PLATELET VOLUME 11.3 fL (7.4-10.4); NEUT % 80.7 %; PLATELET COUNT 286 K/uL (130-400); RED BLOOD COUNT 4.24 M/uL (4.2-5.4); WHITE BLOOD COUNT 13.43 K/uL (4.8-10.8)
[2017-07-07] MEDS ORDERED: SERT-234 PO (08:13)
[2017-07-07] MEDS ORDERED: KLN1X PO (08:13)
[2017-07-07 08:22] LABS: BUN/CREATININE RATIO 14.1 (10-20); CALCIUM 8.7 mg/dl (8.5-10.1); CREATININE 1.9 mg/dl (0.60-1.20); POTASSIUM 4.9 mmol/L (3.5-5.1)
[2017-07-07] MEDS ORDERED: APR25 PO (08:31)
[2017-07-07] MEDS: LABETALOL HCL 200 MG TAB PO SCH ×2 (08:32→13:06)
[2017-07-07] MEDS: AMOXICILLIN/CLAVULANATE TAB 875 MG TAB PO SCH (08:32)
[2017-07-07] MEDS: GABAPENTIN 600 MG TAB PO SCH ×2 (08:32→13:06)
[2017-07-07] MEDS: LOSARTAN POTASSIUM 50 MG TAB PO SCH (08:32)
[2017-07-07] MEDS: METRONIDAZOLE 500 MG TAB PO SCH (08:32)
[2017-07-07] MEDS: SERTRALINE HCL 100 MG TAB PO SCH (08:32)
[2017-07-07] MEDS: FAMOTIDINE 20 MG TAB PO SCH (08:32)
[2017-07-07] MEDS: HEPARIN SOD 5000 UNIT/0.5 ML CARP SQ SCH (08:33)
[2017-07-07] MEDS ORDERED: SODIUM CHLORIDE 0.65% NA SOLN 45 ML (OCEAN) ONE (08:39)
[2017-07-07] MEDS ORDERED: SODIUM CHLORIDE 0.65% NA SOLN 45 ML (OCEAN) PRN (09:00)
[2017-07-07] MEDS ORDERED: NURSING VERBAL MED ORDER ONE (09:00)
[2017-07-07] MEDS ORDERED: ALBUT/IPRATROP 3MG/0.5MG NEB 3 ML VIAL INH PRN (10:45)
[2017-07-07] MEDS ORDERED: SODIUM CHLORIDE 0.9% 1000ML 1,000 ML IV ONE (11:05)
[2017-07-07] MEDS ORDERED: ALBUTEROL HFA 8 GM INHALER INH ONE (11:45)
[2017-07-07] MEDS: CLONAZEPAM 1 MG TAB PO PRN (13:05)
--- NOTE | 2017-07-07 14:01 | Discharge Instructions ---
Discharge Instructions Date of Service Jul 07, 2017. Admission Reason for Admission: Headache, Hypertensive Urgency Discharge Discharge Diagnosis / Problem: High blood pressure & headache Discharge Goals Goal(s): Decrease discomfort, Improve function Activity Recommendations Activity Limitations: resume your previous activity . Instructions / Follow-Up Instructions / Follow-Up You were admitted to [facility] because of a headache and high blood pressure readings. Below are the medical problems that were addressed during your visit: 1) headache - likely multifactorial, with an element of sinusitis, neck muscle spasms, and sleep apnea. Continue your acetaminophen as needed, and finish your course of augmentin to help eradicate your sinusitis 2) high blood pressure - we increased the dose of your labetalol and kept the losartan dose the same 3) pneumonia - will also be treated by the augmentin 4) chest tightness and shortness of breath - inhalers to use as needed. It can be hard to coordinate inhaling while using your inhaler, and so we recommend purchasing a device called a "spacer" which makes it easier to inhale all of the medication. This is much cheaper to buy online rather than us prescribing it for you, if you decide you would like to try it. We recommend you follow up with your primary care provider for pulmonary function tests once your pneumonia has resolved, to fully determine the cause of your difficulty breathing. The sleep apnea is definitely a big contributor to this as well, so definitely follow through with getting it treated, and as we discussed, until you do have it treated, you can at least "blunt" how bad it is by sleeping propped up more so gravity plays less of a role 5) with the elevated blood pressure and not eating/drinking as well, your kidney numbers were up a little bit, we wanted to repeat labs this afternoon, but since you really needed to get out of the hospital sooner, it's reasonable to have Dr Ross repeat labs in the office (preferably by the end of this week - just what's called a "basic metabolic panel") -- and stay well hydrated (at least 60oz of non-caffeine, non-alcoholic fluids) You can continue all your other home medications as prescribed. Current Hospital Diet Patient's current hospital diet: AHA Diet (Heart Healthy) Discharge Diet Recommended Diet: AHA Diet (Heart Healthy) Pending Studies Studies pending at discharge: no Medical Emergencies . Who to Call and When: Medical Emergencies: If at any time you feel your situation is an emergency, please call 911 immediately. . Non-Emergent Contact Non-Emergency issues call your: Primary Care Provider . . "Provider Documentation" section prepared by Petar Gold. . VTE Core Measure Inpt VTE Proph given/why not?: SCD's
[2017-07-07] MEDS ORDERED: LBT200 PO (14:06)
[2017-07-07] MEDS ORDERED: CZR25 PO (14:06)
[2017-07-07] MEDS ORDERED: AMOX1TAB43 PO (14:06)
[2017-07-07] MEDS ORDERED: VNTHFA/IN INH (14:06)
[2017-07-07 14:10] VITALS: BP 122/69; PULSE 82; TEMP 36.8; O2SAT 92
[2017-07-07] MEDS ORDERED: NRN600 PO (16:57)
--- NOTE | 2017-07-07 17:12 | Discharge Summary ---
Discharge Summary Date of Service Jul 07, 2017. (Petar Gold M.D.) Discharge Summary Admission Date: Jul 04, 2017 at 20:38 Discharge Date: Jul 07, 2017 Discharge Disposition: Home Principal Diagnosis: Hypertensive urgency/headache/pneumonia Problems/Secondary Diagnoses: (1) Adrenal tumor removed Status: Chronic (2) Anxiety and depression Status: Chronic (3) Depression Status: Chronic (4) GERD (gastroesophageal reflux disease) Status: Chronic (5) H/O arthroscopic knee surgery Status: Chronic (6) History of carpal tunnel surgery Status: Chronic (7) History of hysterectomy Status: Chronic (8) HTN (hypertension) Status: Chronic (9) Hx of appendectomy Status: Chronic (10) Hx of cholecystectomy Status: Chronic (11) Hx of decompressive lumbar laminectomy Status: Chronic (12) Hx of hemorrhoidectomy Status: Chronic (13) Hypothyroidism Status: Chronic (14) Lumbago Status: Chronic (15) Migraine Status: Chronic (16) Morbid Obesity Status: Chronic (17) Noncompliance with medications Status: Chronic (18) IGNACIO (obstructive sleep apnea) Status: Chronic (19) S/P tonsillectomy and adenoidectomy Status: Chronic Immunizations: Have You Had Influenza Vaccine: Yes History of Tetanus Vaccine?: Unknown History of Pneumococcal: Unknown History of Hepatitis B Vaccine: Unknown (Petar Gold M.D.) Medication Reconciliation New Medications: Albuterol Hfa (Ventolin Hfa) 200 Puffs/48051 Mcg Aers 2-4 PUFFS INH Q6H PRN for SOB/Wheezing, #1 INHALER Amoxicillin & Pot Clavulanate (Amoxicillin/Clavulanate P) 1 Tab Tab 875 MG PO BIDM, #6 TAB Labetalol HCl (Labetalol HCl) 200 Mg Tab 400 MG PO TID, #90 TAB Losartan Potassium (Losartan Potassium) 25 Mg Tab 25 MG PO DAILY, #30 TAB Continued Medications: Buspirone Hcl (Buspirone Hcl) 10 Mg Tab 10 MG PO TID for Anxiety, TAB Clonazepam (Clonazepam) 1 Mg Tab 1 MG PO BID PRN for Anxiety Gabapentin (Gabapentin) 600 Mg Tab 600 MG PO TID Hydralazine Hcl (Apresoline) 25 Mg Tab 25 MG PO TID Sertraline (Zoloft) 100 Mg Tab 100 MG PO BID, TAB Tizanidine (Zanaflex) 4 Mg Cap 4 MG PO TID PRN for Muscle Spasms, CAP Discontinued Medications: Labetalol Hcl (Labetalol Hcl) 200 Mg Tab 200 MG PO TID, TAB Losartan Potassium (Cozaar) 50 Mg Tab 50 MG PO DAILY, TAB Discharge Exam Ms. St reported that she felt well today. Her headache had decreased down to a 3/10, and her main concern was her chest tightness and shortness of breath on exertion. Otherwise, she denied cough, SOB at rest and chest pain. Review of Systems: Constitutional: No fever, No chills, No sweats, No weakness Respiratory: + dyspnea on exertion, No cough, No sputum Cardiovascular: No chest pain, No palpitations Abdomen: No pain, No nausea, No vomiting Physical Exam: General Appearance: WD/WN, no apparent distress Respiratory/Chest: chest non-tender, lungs clear, no respiratory distress, no accessory muscle use, + decreased breath sounds Cardiovascular: regular rate, rhythm, no gallop, no JVD, no murmur, normal peripheral pulses Abdomen / GI: normal bowel sounds, non tender, soft, no organomegaly (Petar Gold M.D.) Hospital Course Ms. St was admitted to [facility] due to hypertensive urgency & a headache. Below are the problems that were addressed: 1) headache - likely multifactorial, with an element of sinusitis, neck muscle spasms, and obstructive sleep apnea 2) hypertension - Her dose of labetalol was increased to 400mg TID and losartan was decreased to 25mg daily. Her hydralazine dose was not altered. 3) pneumonia - She was also noted to have pneumonia on chest xray - this was treated with augmentin to cover her sinusitis as well She has 3 days left of her augmentin 4) chest tightness and shortness of breath - likely due to a combination of her pneumonia, IGNACIO and possibly OHS. We prescribed albuterol inhalers to use as needed, and recommended the use of a spacer. We recommend follow up with her primary care provider for pulmonary function tests once her pneumonia has resolved, to fully determine the cause of her SOB. 5) Elevated creatinine - her creatinine in the hospital was 1.9 - we recommend repeating a BMP by the end of the week to ensure this has decreased Total Time Spent: Less than 30 minutes This includes examination of the patient, discharge planning, medication reconciliation, and communication with other providers. (Petar Gold M.D.) Resident Physician Supervision Note: I interviewed and examined the patient. Discussed with Dr. Gold and agree with findings and plan as documented in the note. Any exceptions or clarifications are listed here: None Documented By: Te Santa feeling better. would like to go home. headache improved. discussed OHS/IGNACIO and getting PFTs as well as getting IGNACIO treated. feels OK w going home, notes neb helped some would like to go home with inhaler similarly. no new complaints otherwise. discussed Cr still up from baseline - likely due to poor fluid intake --> increased IVF and planning on checking BMP ~5p --> later Dr Gold notified (~2p) that pt was nearly demanding to leave at that time. rather than having her leave AMA pending f/u BMP (and therefore risk not having medical conditions still under treatment) decision was made to discharge wiht appropriate treatment and f/u. vitlas noted nad fatigued but no distress breathing unlabored no pallor or icterus hypertensive urgency - improved. BP still somewhat variable but much better than before. safe/stable on current regimen for outpt f/u IGNACIO possible OHS - for PFTs as outpt (considered doing as inpt but with current small pneumonia would skew results) continue towards treatment for IGNACIO ( discussed before re CPAP and pt noted she can't tolerate and is pursuing UPPP) - appears at current baseline with this. between now and either UPPP or possibly retry of CPAP, d/w pt that IGNACIO does tend to be blunted by less effect of gravity - so to sleep more upright. pneumonia/sinusitis - improving. augmentin set up for PCP next week, to have BMP later this week since she left prior to our intended conclusion of current treatment (Te Santa D.O.) Discharge Instructions Please refer to the electronic Patient Visit Report (Discharge Instructions) for additional information. (Petar Gold M.D.) Additional Copies To Solis Ross D.O.
[2017-07-07] MEDS ORDERED: BUSP-8 PO (19:23)
[2017-07-07] MEDS ORDERED: TIZA4CAP PO (19:26)
[2017-07-08] MEDS ORDERED: LOSARTAN POTASSIUM 25 MG TAB PO SCH (09:00)
[2017-07-09 08:33] LABS: 18KDIGG BAND NONREACTIVE (NONREACTIVE); 23KDIGG BAND NONREACTIVE (NONREACTIVE); 28KDIGG BAND NONREACTIVE (NONREACTIVE); 30KDIGG BAND NONREACTIVE (NONREACTIVE); 39KDIGG BAND NONREACTIVE (NONREACTIVE); 41KDIGG BAND REACTIVE (NONREACTIVE); 45KDIGG BAND NONREACTIVE (NONREACTIVE); 58KDIGG BAND REACTIVE (NONREACTIVE); 66KDIGG BAND NONREACTIVE (NONREACTIVE); 93KDIGG BAND NONREACTIVE (NONREACTIVE)
[2017-07-11 10:38] LABS: COD UR NEGATIVE NG/ML (CUTOFF=50); HYDROCOD UR NEGATIVE NG/ML (CUTOFF=50); HYDROMOR UR NEGATIVE NG/ML (CUTOFF=50); HYDROXYETHYLFLURAZEPAM CONF NEGATIVE NG/ML (CUTOFF=50); HYDROXYMIDAZOLAM NEGATIVE NG/ML (CUTOFF=50); HYDROXYTRIAZOLAM CONF NEGATIVE NG/ML (CUTOFF=50); MORPHINE UR 525 NG/ML (CUTOFF=50); NORHYDROCODONE CONF UR NEGATIVE NG/ML (CUTOFF=50); OXYMORPH UR NEGATIVE NG/ML (CUTOFF=50); TEMAZEPAM CONF NEGATIVE NG/ML (CUTOFF=50)
[2017-07-12 06:30] LABS: ALBUMIN 3.3 g/dL (3.7-5.1); IGG CSF 2.1 mg/dL (0.8-7.7); IGG SERUM 625 mg/dL (694-1618); LYME IGG CSF NO BANDS DETECTED; LYME IGM CSF NO BANDS DETECTED; MYELIN BASIC PROTEIN 663 <2.0 mcg/L (0.0-4.0); VARICELLA ZOSTER DNA PCR QUAL Not Detected (Not Detected); VZ DNA SOURCE CSF
== END 2017-07-07 14:43 | disposition home or self-care (01) | DRG 305 ==
LOC: EDBD 15:11 → C.EDB 15:12 → CANRESERV 19:27 → ENRESERV 19:27 → CANBEDREQ 20:23 → C.2T 20:38 → EEVIPCON 20:38 → ENRESERV 20:47 → C.MS2W 07-05 18:25
PROVIDERS: ADMIT Hospitalist; ATTEND Family Medicine
DX: I16.0 Hypertensive urgency (principal); A69.20 Lyme disease, unspecified; Z68.42 Body mass index [BMI] 45.0-49.9, adult; F41.1 Generalized anxiety disorder; N18.3 Chronic kidney disease, stage 3 (moderate); I13.0 Hypertensive heart and chronic kidney disease with heart failure and stage 1 through stage 4 chronic kidney disease, or unspecified chronic kidney disease; F60.3 Borderline personality disorder; K21.9 Gastro-esophageal reflux disease without esophagitis; E03.9 Hypothyroidism, unspecified; E66.01 Morbid (severe) obesity due to excess calories; K58.9 Irritable bowel syndrome, unspecified; Z91.19 Patient's noncompliance with other medical treatment and regimen; G47.33 Obstructive sleep apnea (adult) (pediatric); G43.809 Other migraine, not intractable, without status migrainosus; I50.9 Heart failure, unspecified

== ENCOUNTER 2017-07-07 17:17 | Observation (INO) | payer OTHER ==
[~2017-07-07] VITALS: Ht 157.5 cm; Wt 118.9 kg
[~2017-07-07 17:17] MED LIST changes: +AMOX1TAB43 PO; +APR25 PO; +CZR25 PO; +KLN1X PO; +LBT200 PO; +LOSA50TA6 PO; +NRN600 PO; +SERT-234 PO; +VNTHFA/IN INH
--- NOTE | 2017-07-07 17:54 | DIAGNOSTIC IMAGING REPORT ---
CHEST ONE VIEW PORTABLE HISTORY: 32 years-old Female EVALUATE WEAKNESS acute weakness with headache COMPARISON: Chest radiograph 07/04/2017 TECHNIQUE: Portable upright AP view of the chest FINDINGS: Cardiac silhouette is moderately enlarged. Pulmonary vascular congestion redemonstrated without overt pulmonary edema. No pneumothorax. There is improved aeration of the right lung base from comparison. Hazy left basilar opacity is present with probable small left pleural effusion. Bones are grossly intact. IMPRESSION: 1. Moderate cardiomegaly without overt pulmonary edema. 2. Improved aeration of the right lung base from comparison. Persistent hazy left basilar opacity suggesting atelectasis or pneumonia with possible small pleural effusion. The above report was generated using voice recognition software. It may contain grammatical, syntax or spelling errors. Electronically signed by: Damian Allen M.D. 07/07/2017 5:52 PM Dictated Date/Time: 07/07/2017 5:51 PM
--- NOTE | 2017-07-07 18:15 | EMERGENCY ROOM VISIT NOTE ---
History First contact with patient: 17:29 Chief Complaint: WEAKNESS Stated Complaint: HEADACHE, POSSIBLY PASSED OUT History of Present Illness The patient is a 32 year old female with a past medical history of IGNACIO, HTN, and Anxiety who presents to the Emergency Room with complaints of shortness of breath and syncope. The patient was recently discharged this afternoon from the ED and an hour after discharge went to [facility]. While shopping she was experiencing shortness of breath and unstable balance. When she arrived home afterwards she sat down due to lightheadedness and passed out in the chair. Her father found her and brought her to the emergency department. She also is complaining of a pounding headache that has continued throughout the day. In addition to her shortness of breath she is also complaining right sided rib pain with deep breaths. During her admission her hypoxia was mostly attributed to her IGNACIO and body habitus. Review of Systems See HPI for pertinent positives and negatives. A total of ten systems were reviewed and were otherwise negative. Past Medical/Surgical History Medical Problems: (1) Abdominal pain (2) Anxiety (3) Anxiety and depression (4) Borderline personality disorder (5) C. difficile colitis (6) Chest pain (7) Depression (8) Depression (9) Drug overdose, intentional (10) GERD (gastroesophageal reflux disease) (11) GERD (gastroesophageal reflux disease) (12) Headache (13) HTN (hypertension) (14) Hyperlipidemia (15) Hypertension (16) Hypertensive emergency (17) Hypothyroidism (18) Hypothyroidism (19) IBS (irritable bowel syndrome) (20) Left ventricular hypertrophy (21) Lumbago (22) Lumbar disc disorder (23) Migraine (24) Migraine (25) Morbid Obesity (26) Non-occlusive coronary artery disease (27) Noncompliance with medications (28) Obesity (29) IGNACIO (obstructive sleep apnea) (30) IGNACIO (obstructive sleep apnea) (31) Overdose (32) Past Psych Med (33) Polycystic ovarian syndrome Surgical Problems: (1) Adrenal tumor removed (2) H/O arthroscopic knee surgery (3) H/O arthroscopic knee surgery (4) H/O hemorrhoidectomy (5) H/O: hysterectomy (6) History of carpal tunnel surgery (7) History of carpal tunnel surgery (8) History of hysterectomy (9) Hx of appendectomy (10) Hx of cholecystectomy (11) Hx of decompressive lumbar laminectomy (12) Hx of hemorrhoidectomy (13) Hx of partial thyroidectomy (14) S/P appendectomy (15) S/P cholecystectomy (16) S/p removal adrenal gland tumor (17) S/P tonsillectomy and adenoidectomy (18) S/P tonsillectomy and adenoidectomy Family History Cancer Diabetes mellitus FHx: AL FHx: blood clots FHx: heart disease Gallbladder disease Heart disease Hypertension Kidney disease Lung disease Social History Smoking Status: Never Smoker Alcohol Use: none Drug Use: none Marital Status: single, in relationship Housing Status: lives with family Occupation Status: employed, disabled Current/Historical Medications Scheduled Amoxicillin & Pot Clavulanate (Amoxicillin/Clavulanate P), 875 MG PO BIDM Buspirone Hcl (Buspirone Hcl), 10 MG PO TID Gabapentin (Gabapentin), 600 MG PO TID Hydralazine Hcl (Apresoline), 25 MG PO TID Labetalol HCl (Labetalol HCl), 400 MG PO TID Losartan Potassium (Losartan Potassium), 25 MG PO DAILY Sertraline (Zoloft), 100 MG PO BID Scheduled PRN Albuterol Hfa (Ventolin Hfa), 2-4 PUFFS INH Q6H PRN for SOB/Wheezing Clonazepam (Clonazepam), 1 MG PO BID PRN for Anxiety Tizanidine (Zanaflex), 4 MG PO TID PRN for Muscle Spasm Physical Exam Vital Signs Date Time Temp Pulse Resp B/P (MAP) Pulse Ox O2 Delivery O2 Flow Rate FiO2 07/07/17 18:47 71 16 100 07/07/17 18:08 73 07/07/17 18:02 72 18 90 07/07/17 17:50 91 Room Air 07/07/17 17:20 37.1 74 22 106/63 88 Room Air Physical Exam GENERAL: Awake, tired appearing, morbidly obese HENT: Normocephalic, atraumatic. EYES: Normal conjunctiva. Sclera non-icteric. NECK: Supple. No nuchal rigidity. RESPIRATORY: Decreased breath sounds due to body habitus. Right sided pleuritic pain with deep inspiration CARDIAC: Regular rate, normal rhythm. Extremities warm and well perfused. Pulses equal. ABDOMEN: Soft, non-distended. No tenderness to palpation. No rebound or guarding. No masses. RECTAL: Deferred. MUSCULOSKELETAL: Chest examination reveals no tenderness. The back is symmetrical on inspection without obvious abnormality. There is no CVA tenderness to palpation. No joint edema. LOWER EXTREMITIES: Calves are equal size bilaterally and non-tender. No edema. No discoloration. NEURO: Normal sensorium. No sensory or motor deficits noted. SKIN: No rash or jaundice noted. Medical Decision & Procedures Laboratory Results 07/07/17 17:55 Red Blood Count 4.09, Mean Corpuscular Volume 89.7, Mean Corpuscular Hemoglobin 27.6, Mean Corpuscular Hemoglobin Concent 30.8, Mean Platelet Volume 10.7, Neutrophils (%) (Auto) 73.2, Lymphocytes (%) (Auto) 16.4, Monocytes (%) (Auto) 8.9, Eosinophils (%) (Auto) 0.7, Basophils (%) (Auto) 0.2, Neutrophils # (Auto) 9.30, Lymphocytes # (Auto) 2.08, Monocytes # (Auto) 1.13, Eosinophils # (Auto) 0.09, Basophils # (Auto) 0.02 07/07/17 17:55 Test 07/07/17 17:55 07/07/17 18:59 White Blood Count 12.69 K/uL (4.8-10.8) Red Blood Count 4.09 M/uL (4.2-5.4) Hemoglobin 11.3 g/dL (12.0-16.0) Hematocrit 36.7 % (37-47) Mean Corpuscular Volume 89.7 fL (80-100) Mean Corpuscular Hemoglobin 27.6 pg (25-34) Mean Corpuscular Hemoglobin Concent 30.8 g/dl (32-36) Platelet Count 241 K/uL (130-400) Mean Platelet Volume 10.7 fL (7.4-10.4) Neutrophils (%) (Auto) 73.2 % Lymphocytes (%) (Auto) 16.4 % Monocytes (%) (Auto) 8.9 % Eosinophils (%) (Auto) 0.7 % Basophils (%) (Auto) 0.2 % Neutrophils # (Auto) 9.30 K/uL (1.4-6.5) Lymphocytes # (Auto) 2.08 K/uL (1.2-3.4) Monocytes # (Auto) 1.13 K/uL (0.11-0.59) Eosinophils # (Auto) 0.09 K/uL (0-0.5) Basophils # (Auto) 0.02 K/uL (0-0.2) RDW Standard Deviation 50.3 fL (36.4-46.3) RDW Coefficient of Variation 15.6 % (11.5-14.5) Immature Granulocyte % (Auto) 0.6 % Immature Granulocyte # (Auto) 0.07 K/uL (0.00-0.02) Anion Gap 8.0 mmol/L (3-11) Est Creatinine Clear Calc Drug Dose 44.9 ml/min Estimated GFR () 34.7 Estimated GFR (Non- 30.0 BUN/Creatinine Ratio 14.5 (10-20) Calcium Level 8.5 mg/dl (8.5-10.1) Magnesium Level 2.2 mg/dl (1.8-2.4) Total Bilirubin 0.2 mg/dl (0.2-1) Direct Bilirubin mg/dl (0-0.2) Aspartate Amino Transf (AST/SGOT) 63 U/L (15-37) Alanine Aminotransferase (ALT/SGPT) 59 U/L (12-78) Alkaline Phosphatase 66 U/L (45-117) Troponin I 1.270 ng/ml (0-0.045) Total Protein 5.9 gm/dl (6.4-8.2) Albumin 3.0 gm/dl (3.4-5.0) Lipase 166 U/L (73-393) Thyroid Stimulating Hormone (TSH) 1.380 uIu/ml (0.300-4.500) Human Chorionic Gonadotropin, Qual NEG (NEG) Chemistry Specimen Hemolysis Bedside Lactic Acid Venous 1.55 mmol/L (0.90-1.70) ED Course Patient is a 32 year old female that presents to the ED with syncope and hypoxia 1730: Patient evaluated - Patient complains of headache, right sided inspiratory chest pain, shortness of breath - Labwork ordered: CBC, BMP, Coags - EKG: NSR, Rate 72 bpm, No ST changes, T wave inversions over inferolateral leads stable when compared to EKG from early this morning (0020 on 07/07/17) - CXR: Improved aeration at right lung base and unchanged left basilar opacity 1830: Re-evaluated patient - Patient continues to complain of headache and shortness of breath 190: Placed call to counseling case manager to contact [facility] admitting physician ' 1912: Notified about elevated Troponin - 1.27 1929: Spoke with patient who requested to leave. Discussed the significant of her elevated troponin and her recent syncope. Was agreeable for admission Medical Decision Patient is a 32 year old female that presents to the ED with syncope and hypoxia Etiologies such as pneumonia, COPD, reactive airway disease, CHF, cardiac ischemia, pulmonary embolism, pneumothorax, musculoskeletal, infections, gastrointestinal, as well as others were entertained. Patient was evaluated and found to have hypoxia and worsening SOB on admission. The patient was routinely hypoxic during her admission secondary to obesity hypoventilation. This in combination with her hypotension especially relative to her baseline elevated blood pressure and recent change in medication raised concern for admission. The patient was also found to have a recently elevated Troponin of 1.27 despite Impression Primary Impression: Syncope Additional Impressions: Chest pain Hypoxia Departure Information Dispostion Admitted as an inpatient Condition FAIR Referrals No Doctor, Assigned (PCP) Patient Instructions Count Includes [facility] Resident Tracking Resident Involvement: Resident Care Provided Care Provided: Adult ED Problem Qualifiers Primary Impression: Syncope Syncope type: unspecified Qualified Codes: R55 - Syncope and collapse Additional Impressions: Chest pain Chest pain type: chest pain on breathing Qualified Codes: R07.1 - Chest pain on breathing
[2017-07-07 18:17] LABS: BASO % 0.2 %; BASO ABS # 0.02 K/uL (0-0.2); COMPLETE YES; EOS % 0.7 %; HEMATOCRIT 36.7 % (37-47); IG% 0.6 %; LYMPH % 16.4 %; LYMPH ABS # 2.08 K/uL (1.2-3.4); MEAN CELL VOLUME 89.7 fL (80-100); MEAN CORPUSCULAR HEMOGLOBIN 27.6 pg (25-34); MEAN CORPUSCULAR HGB CONC 30.8 g/dl (32-36); MEAN PLATELET VOLUME 10.7 fL (7.4-10.4); MONO % 8.9 %; NEUT % 73.2 %; PLATELET COUNT 241 K/uL (130-400); RED BLOOD COUNT 4.09 M/uL (4.2-5.4); WHITE BLOOD COUNT 12.69 K/uL (4.8-10.8)
[2017-07-07 18:58] LABS: ALKALINE PHOSPHATASE 66 U/L (45-117); ALT/SGPT 59 U/L (12-78); AST/SGOT 63 U/L (15-37); BLOOD UREA NITROGEN 30 mg/dl (7-18); BUN/CREATININE RATIO 14.5 (10-20); CALCIUM 8.5 mg/dl (8.5-10.1); CARBON DIOXIDE 23 mmol/L (21-32); CHLORIDE 109 mmol/L (98-107); GLUCOSE 96 mg/dl (70-99); MAGNESIUM 2.2 mg/dl (1.8-2.4); POTASSIUM 4.6 mmol/L (3.5-5.1); SODIUM 141 mmol/L (136-145)
[2017-07-07 19:05] LABS: PREG INTERNAL NEGATIVE QC NEG CLEAR BACKGROUND; PREG INTERNAL POSITIVE QC POS CONTROL LINE
[2017-07-07] MEDS ORDERED: BUSP-8 PO (19:23)
[2017-07-07] MEDS ORDERED: TIZA4CAP PO (19:26)
[2017-07-07] MEDS ORDERED: ONDANSETRON INJ 2 MG/ML 2 ML VIAL IV PRN (19:45)
[2017-07-07] MEDS ORDERED: ALBUTEROL HFA 8 GM INHALER INH PRN (19:45)
[2017-07-07] MEDS ORDERED: ALUMINUM/MAGNESIUM/SIMETH (MAALOX MAX) 30 ML UDC PO PRN (19:45)
[2017-07-07] MEDS ORDERED: CLONAZEPAM 1 MG TAB PO PRN (19:45)
[2017-07-07] MEDS ORDERED: MAGNESIUM HYDROXIDE SUSP 30 ML UDC PO PRN (19:45)
[2017-07-07] MEDS ORDERED: POLYETHYLENE (MIRALAX) 17 GM PACK PO PRN (19:45)
[2017-07-07] MEDS ORDERED: NITROGLYCERIN 0.4 MG SL PER TAB CHARGE ONE (19:49)
[2017-07-07] MEDS ORDERED: ASPIRIN 324 MG CHEW ONE (19:58)
[2017-07-07] MEDS ORDERED: IV FLUIDS COMPLETED PRN (20:00)
--- NOTE | 2017-07-07 20:03 | History and Physical ---
History & Physical Date & Time of Service: Jul 07, 2017 at 19:46 Chief Complaint: Headache, Possibly Passed Out Primary Care Physician: No Doctor, Assigned History of Present Illness Source: patient, hospital records This is a 32 year old female who was just discharged 3 hour ago from [facility] following an admission for severe hypertension, pneumonia with sinusitis. She was discharged home with modifications to her antihypertensive regimen and amoxicillin to treat a residual pneumonia/sinusitis. She was not home 3 hours and she went straight from the hospital to the grocery store. She states that coming home from the grocery store, she felt short of breath as she entered the doorway and passed out. She notes bilateral leg cramping while on the ground. She is uncertain how long she was down for or whether she hit her head. She was brought back to the ED for further evaluation. Of note, she has noted IGNACIO, and does take CPAP as she is suppose to. She states she does not have CPAP at this time. In the ED she was noted to have an elevated troponin, warranting admission for further evaluation. Past Medical/Surgical History Medical Problems: (1) Anxiety Status: Chronic (2) Anxiety and depression Status: Chronic (3) Depression Status: Chronic (4) Depression Status: Chronic (5) GERD (gastroesophageal reflux disease) Status: Chronic (6) GERD (gastroesophageal reflux disease) Status: Chronic (7) HTN (hypertension) Status: Chronic (8) Hypertension Status: Chronic (9) Hypothyroidism Status: Chronic (10) Hypothyroidism Status: Chronic (11) IBS (irritable bowel syndrome) Status: Chronic (12) Left ventricular hypertrophy Permanent Comment: severe concentric LVH, IVSd 2.3 cm 06/18/16 Status: Chronic (13) Lumbago Status: Chronic (14) Lumbar disc disorder Status: Chronic (15) Migraine Status: Chronic (16) Migraine Status: Chronic (17) Morbid Obesity Status: Chronic (18) Non-occlusive coronary artery disease Status: Chronic (19) Noncompliance with medications Status: Chronic (20) Obesity Status: Chronic (21) IGNACIO (obstructive sleep apnea) Status: Chronic (22) IGNACIO (obstructive sleep apnea) Status: Chronic (23) Polycystic ovarian syndrome Status: Chronic Surgical Problems: (1) Adrenal tumor removed Status: Chronic (2) H/O arthroscopic knee surgery Status: Chronic (3) H/O arthroscopic knee surgery Status: Chronic (4) H/O hemorrhoidectomy Status: Chronic (5) H/O: hysterectomy Status: Chronic (6) History of carpal tunnel surgery Status: Chronic (7) History of carpal tunnel surgery Status: Chronic (8) History of hysterectomy Status: Chronic (9) Hx of appendectomy Status: Chronic (10) Hx of cholecystectomy Status: Chronic (11) Hx of decompressive lumbar laminectomy Status: Chronic (12) Hx of hemorrhoidectomy Status: Chronic (13) Hx of partial thyroidectomy Status: Chronic (14) S/P appendectomy Status: Chronic (15) S/P cholecystectomy Status: Chronic (16) S/p removal adrenal gland tumor Status: Chronic (17) S/P tonsillectomy and adenoidectomy Status: Chronic (18) S/P tonsillectomy and adenoidectomy Status: Chronic Family History Cancer Diabetes mellitus FHx: NC FHx: blood clots FHx: heart disease Gallbladder disease Heart disease Hypertension Kidney disease Lung disease Social History Smoking Status: Never Smoker Smokeless Tobacco Use: No Alcohol Use: none Drug Use: none Marital Status: single, in relationship Housing status: lives with significant other Occupational Status: employed, disabled Immunizations History of Influenza Vaccine: Yes History of Tetanus Vaccine?: Unknown History of Pneumococcal: Unknown History of Hepatitis B Vaccine: Unknown Multi-Drug Resistant Organisms History of MDRO: No Allergies Coded Allergies: Sulfa Antibiotics (Verified Allergy, Severe, RASH, DIFFICULTY BREATHING, HAD LASIX OK PREV.ADM., 07/07/17) Lisinopril (Verified Adverse Reaction, Severe, renal failure, 07/07/17) NSAIDs (Verified Adverse Reaction, Unknown, KIDNEY FAILURE, 07/07/17) PATIENT REPORTS BLOCK LAYER TOLD PATIENT TO STAY AWAY FROM DUE TO KIDNEY FUNCTION Tramadol (Verified Adverse Reaction, Unknown, "MAKES ME DIZZY", 07/07/17) Home Medications Scheduled Amoxicillin & Pot Clavulanate (Amoxicillin/Clavulanate P), 875 MG PO BIDM Buspirone Hcl (Buspirone Hcl), 10 MG PO TID Gabapentin (Gabapentin), 600 MG PO TID Hydralazine Hcl (Apresoline), 25 MG PO TID Labetalol HCl (Labetalol HCl), 400 MG PO TID Losartan Potassium (Losartan Potassium), 25 MG PO DAILY Sertraline (Zoloft), 100 MG PO BID Scheduled PRN Albuterol Hfa (Ventolin Hfa), 2-4 PUFFS INH Q6H PRN for SOB/Wheezing Clonazepam (Clonazepam), 1 MG PO BID PRN for Anxiety Tizanidine (Zanaflex), 4 MG PO TID PRN for Muscle Spasm Review of Systems A 10 point review of systems was negative unless stated above. Physical Exam Vital Signs Date Time Temp Pulse Resp B/P (MAP) Pulse Ox O2 Delivery O2 Flow Rate FiO2 07/07/17 18:47 71 16 100 07/07/17 18:08 73 07/07/17 18:02 72 18 90 07/07/17 17:50 91 Room Air 07/07/17 17:20 37.1 74 22 106/63 88 Room Air General Appearance: WD/WN, no apparent distress, + mild distress, + obese Head: normocephalic, atraumatic Eyes: normal inspection, EOMI ENT: hearing grossly normal, pharynx normal Neck: supple, no adenopathy, + pertinent finding (large neck circumference) Respiratory/Chest: lungs clear, no respiratory distress, + decreased breath sounds (bilaterally decreased breath sounds due to obesity) Cardiovascular: regular rate, rhythm, no gallop, no murmur Abdomen/GI: normal bowel sounds, non tender, soft Back: no CVA tenderness, no muscle spasm Extremities/Musculoskelatal: no calf tenderness, no pedal edema Neurologic/Psych: alert, oriented x 3, + depressed affect Skin: normal color, warm/dry, no rash Lymphatic: no adenopathy Diagnostics Laboratory Results Results Past 24 Hours Test 07/07/17 17:55 07/07/17 18:59 Range/Units White Blood Count 12.69 4.8-10.8 K/uL Red Blood Count 4.09 4.2-5.4 M/uL Hemoglobin 11.3 12.0-16.0 g/dL Hematocrit 36.7 37-47 % Mean Corpuscular Volume 89.7 80-100 fL Mean Corpuscular Hemoglobin 27.6 25-34 pg Mean Corpuscular Hemoglobin Concent 30.8 32-36 g/dl Platelet Count 241 130-400 K/uL Mean Platelet Volume 10.7 7.4-10.4 fL Neutrophils (%) (Auto) 73.2 % Lymphocytes (%) (Auto) 16.4 % Monocytes (%) (Auto) 8.9 % Eosinophils (%) (Auto) 0.7 % Basophils (%) (Auto) 0.2 % Neutrophils # (Auto) 9.30 1.4-6.5 K/uL Lymphocytes # (Auto) 2.08 1.2-3.4 K/uL Monocytes # (Auto) 1.13 0.11-0.59 K/uL Eosinophils # (Auto) 0.09 0-0.5 K/uL Basophils # (Auto) 0.02 0-0.2 K/uL RDW Standard Deviation 50.3 36.4-46.3 fL RDW Coefficient of Variation 15.6 11.5-14.5 % Immature Granulocyte % (Auto) 0.6 % Immature Granulocyte # (Auto) 0.07 0.00-0.02 K/uL Sodium Level 141 136-145 mmol/L Potassium Level 4.6 3.5-5.1 mmol/L Chloride Level 109 98-107 mmol/L Carbon Dioxide Level 23 21-32 mmol/L Anion Gap 8.0 3-11 mmol/L Blood Urea Nitrogen 30 7-18 mg/dl Creatinine 2.10 0.60-1.20 mg/dl Est Creatinine Clear Calc Drug Dose 44.9 ml/min Estimated GFR () 34.7 Estimated GFR (Non- 30.0 BUN/Creatinine Ratio 14.5 10-20 Random Glucose 96 70-99 mg/dl Calcium Level 8.5 8.5-10.1 mg/dl Magnesium Level 2.2 1.8-2.4 mg/dl Total Bilirubin 0.2 0.2-1 mg/dl Direct Bilirubin 0-0.2 mg/dl Aspartate Amino Transf (AST/SGOT) 63 15-37 U/L Alanine Aminotransferase (ALT/SGPT) 59 12-78 U/L Alkaline Phosphatase 66 45-117 U/L Troponin I 1.270 0-0.045 ng/ml Total Protein 5.9 6.4-8.2 gm/dl Albumin 3.0 3.4-5.0 gm/dl Lipase 166 73-393 U/L Thyroid Stimulating Hormone (TSH) 1.380 0.300-4.500 uIu/ml Human Chorionic Gonadotropin, Qual NEG NEG Chemistry Specimen Hemolysis Bedside Lactic Acid Venous 1.55 0.90-1.70 mmol/L Microbiology Results 07/07/17 Blood Culture, Received Pending 07/07/17 Blood Culture, Received Pending Diagnostic Radiology [~ rep ct add3]] CHEST ONE VIEW PORTABLE HISTORY: 32 years-old Female EVALUATE WEAKNESS acute weakness with headache COMPARISON: Chest radiograph 07/04/2017 TECHNIQUE: Portable upright AP view of the chest FINDINGS: Cardiac silhouette is moderately enlarged. Pulmonary vascular congestion redemonstrated without overt pulmonary edema. No pneumothorax. There is improved aeration of the right lung base from comparison. Hazy left basilar opacity is present with probable small left pleural effusion. Bones are grossly intact. IMPRESSION: 1. Moderate cardiomegaly without overt pulmonary edema. 2. Improved aeration of the right lung base from comparison. Persistent hazy left basilar opacity suggesting atelectasis or pneumonia with possible small pleural effusion. The above report was generated using voice recognition software. It may contain grammatical, syntax or spelling errors. Electronically signed by: Damian Allen M.D. 07/07/2017 5:52 PM Dictated Date/Time: 07/07/2017 5:51 PM EKG Normal sinus rhythm Possible Left atrial enlargement ST & T wave abnormality, consider lateral ischemia Abnormal ECG When compared with ECG of 07-JUL-2017 00:20, T wave inversion less evident in Inferior leads Confirmed by SALVATORE EVANS ([id number]) on 07/07/2017 9:31:20 PM Impression Assessment and Plan 32-year-old female, recently discharged for severe hypertension with pneumonia and sinusitis, repeat presents to the emergency department for acute on chronic shortness of breath. The patient has multiple risk factors for her to be dyspneic at rest and with exertion. These would include morbid obesity, known obstructive sleep apnea, noncompliance with commended CPAP, and deconditioning from likely poor ambulatory status. Interestingly she had an elevated troponin the emergency department which is new compared to her troponin on departure. Our plan for her is as follows: Elevated Troponin - EKG review; some inferolateral ST depression/T wave inversion but these are chronic - Telemetry - EKG with chest pain; nitro SL - ASA 324 given has patient had chest pain in the ED - Trend cardiac enzymes q 8 h; enzymes are to be trending up, and patient when of chest pain (though she has chronic episodes of chest pain which are thought to be secondary to opiate seeking behavior) - Heparin infusion has been started - Nitroglycerin patch - May be multifactorial ultimately: obesity hypoventilation, IGNACIO, fall, all causing demand on myocardium - Echocardiogram in the morning Acute on Chronic SOB - Multifactorial: 2/2 IGNACIO, obesity, non-adherence to CPAP machine - CPAP as inpatient - Continue Albuterol inhalers - Will order inpatient pulmonary function testing Hypertension - Medications adjustments made on discharged will be continued - Continue Hydralazine - Continue Losartan - Continue Labetalol Residual PNA/Sinusitis - Continue 6 day course of Amoxicillin Depression/Anxiety - Continue Sertraline - Continue Clonazepam Leg Cramping - Continue Tinazidine DVT Prophylaxis - SCD Knee, BALDEMAR Hose - Heparin infusion Code Status - Level I Full Code Disposition - Telemetry - OT and PT evaluations Attending Addendum: I have physically seen and examined this patient, have directed the resident's medical activities, and agree with the H&P as noted above with the following exceptions as noted. The patient is awake, alert and oriented 3, normocephalic and atraumatic, lying in bed and in no acute distress. HEENT--PERRL, EOMI, mucous membranes and oropharynx dry. Neck--supple, no JVD or bruits, thyroid normal, trachea midline, no adenopathy. Heart--normal S1 and S2, no extra beats, no murmurs, rubs or gallops. Lungs--clear bilaterally with decreased breath sounds throughout, no respiratory distress, no accessory muscle use. Abdomen--normal bowel sounds and soft, nontender and nondistended, no hernias or masses, no organomegaly. Extremities--no cyanosis, clubbing or edema. There are good distal pulses b/l. Dermatologic--normal skin turgor, normal color, warm and dry, no abnormal lymph nodes, no rash. Neurologic--cranial nerves II through XII grossly intact. Rheumatologic--normal range of motion, nontender, muscles and joints. Psychiatric--depressed affect. Assessment and Plan: Elevated troponin/dyspnea on exertion/hypertension-- The patient will be admitted to telemetry for serial cardiac enzymes, cardiac rhythm monitoring and a 2-D echocardiogram with Dopplers. Patient has continual complaints of chest pain over time, which makes it difficult to differentiate between opiate seeking behavior and what appears to be a true cardiac process. Heparin drip. Continue hydralazine, losartan and labetalol. Nitropaste 1 inch to the anterior chest wall every 6 hours. Consult cardiology. Obesity hypoventilation syndrome/sleep apnea-- Complicated by nonadherence to CPAP as an outpatient, but would use at bedtime. Continue albuterol inhalers. Depression/anxiety-- Continue sertraline and clonazepam Level of Care Telemetry Advanced Directives Existing Advance Directive: No Existing Living Will: No Existing Power of District Customs Director: No Resuscitation Status FULL RESUSCITATION VTE Prophylaxis VTE Risk Assessment Done? Y/N: Yes Risk Level: Moderate Given or contraindicated: Other Anticoagulation, SCD's
[2017-07-07 20:45] VITALS: BP 103/59; TEMP 36.6; O2SAT 94; Ht 157.5 cm; Wt 118.9 kg
[2017-07-07 20:51] VITALS: BP 103/59; PULSE 79; TEMP 36.6; O2SAT 94
[2017-07-07] MEDS ORDERED: ENOXAPARIN 40 MG/0.4 ML SYR SC SCH (21:00)
[2017-07-07 21:21] LABS: URINE APPEARANCE CLOUDY (CLEAR); URINE BILIRUBIN NEG (NEG); URINE COLOR DK YELLOW; URINE EPITHELIAL CELL AUTO >30 /lpf (0-5); URINE NITRITE NEG (NEG); URINE PH 5.5 (4.5-7.5); URINE SPECIFIC GRAVITY 1.031 (1.000-1.030); UROBILINOGEN NEG (NEG)
[2017-07-07 21:25] LABS: MANUAL MICROSCOPIC REQUIRED? NO; REVIEW REQ? YES
[2017-07-07] MEDS: SERTRALINE HCL 100 MG TAB PO SCH (22:21)
[2017-07-07] MEDS: GABAPENTIN 600 MG TAB PO SCH (22:21)
[2017-07-07] MEDS: LABETALOL HCL 200 MG TAB PO SCH (22:22)
[2017-07-07] MEDS: ACETAMINOPHEN 325 MG TAB PO PRN (22:27)
[2017-07-07 23:20] VITALS: BP 150/88; PULSE 67; TEMP 36.6; O2SAT 95
[2017-07-07] MEDS ORDERED: NSS + 20MEQ KCL 1000ML 1,000 ML IV SCH (23:46)
[2017-07-07] MEDS ORDERED: ALBUMIN HUMAN 25% 12.5 GM/50 ML VIAL IV STA (23:48)
[2017-07-08] VITALS (9 sets, daily range): BP systolic 94–154; BP diastolic 57–91; PULSE 66–88; TEMP 36.3–36.9; O2SAT 91–99
[2017-07-08] MEDS: SODIUM CHLORIDE 0.9% 1000ML 1,000 ML IV SCH ×2 (00:08→10:38)
[2017-07-08 00:32] LABS: INR 1.1 (0.9-1.1); PARTIAL THROMBOPLASTIN RATIO 0.9
[2017-07-08] MEDS ORDERED: NITROGLYCERIN 2% OINTMENT 30GM TUBE ONE ×2 (00:39→01:49)
[2017-07-08] MEDS: NITROGLYCERIN 0.4 MG SL PER TAB CHARGE SL PRN ×3 (00:44→00:54)
[2017-07-08] MEDS ORDERED: HEPARIN IV BOLUS 6,000 UNIT in SYRINGE 0 ML IV ONE (01:00)
[2017-07-08] MEDS: HEPARIN 25,000 UNIT/500ML D5W 500 ML IV PRN ×2 (01:11→09:13)
[2017-07-08] MEDS ORDERED: NURSING VERBAL MED ORDER ONE ×2 (01:30→01:45)
[2017-07-08 01:32] LABS: CKMB/CK RATIO 5.7 (0-3.0)
--- NOTE | 2017-07-08 01:34 | EMERGENCY ROOM VISIT NOTE ---
History Report prepared by Gabriele: [place] Under the Supervision of: Dr. David Herrera M.D. First contact with patient: 17:29 Chief Complaint: SYNCOPE (NEAR SYNCOPE) Stated Complaint: HEADACHE, POSSIBLY PASSED OUT Nursing Triage Summary: patient states she was discharged from the hospital today at 1500 states she then went to the [employer] and had a near syncopal episode. Patient also c/o headache. History of Present Illness The patient is a 32 year old female who presents to the Emergency Room after a near syncopal episode that occurred prior to arrival. The patient states she was in the ED earlier for similar symptoms and was discharged. She reports an hour after discharge, she developed lightheadedness, shortness of breath, and trouble walking. The patient notes she went home and sat in her chair. She states she was still short of breath, and she ended up fainting. The patient reports her dad woke her up and said she needed to come back to the hospital. She notes she currently has a headache, and her discomfort has moved to the right side when she breaths in deeply. Her CT and MRI of the head earlier was normal. Pt denies fevers, chills, diaphoresis, visual changes, neck pain, chest pain, nausea, vomiting, abdominal pain, back pain, melena, hematochezia, urinary symptoms, numbness, weakness, lymphadenopathy, rash, or other complaints. Source of History: patient Onset: prior to arrival Position: other (global) Quality: other (near syncopal) Timing: resolved Associated Symptoms: + LOC, + SOB Note: Associated symptoms: lightheadedness and trouble walking. Review of Systems See HPI for pertinent positives and negatives. A total of ten systems were reviewed and were otherwise negative. Past Medical & Surgical Medical Problems: (1) Abdominal pain (2) Anxiety (3) Anxiety and depression (4) Borderline personality disorder (5) C. difficile colitis (6) Chest pain (7) Depression (8) Depression (9) Drug overdose, intentional (10) GERD (gastroesophageal reflux disease) (11) GERD (gastroesophageal reflux disease) (12) Headache (13) HTN (hypertension) (14) Hyperlipidemia (15) Hypertension (16) Hypertensive emergency (17) Hypothyroidism (18) Hypothyroidism (19) IBS (irritable bowel syndrome) (20) Left ventricular hypertrophy (21) Lumbago (22) Lumbar disc disorder (23) Migraine (24) Migraine (25) Morbid Obesity (26) Non-occlusive coronary artery disease (27) Noncompliance with medications (28) Obesity (29) IGNACIO (obstructive sleep apnea) (30) IGNACIO (obstructive sleep apnea) (31) Overdose (32) Past Psych Med (33) Polycystic ovarian syndrome (34) Shortness of breath (35) Syncope Surgical Problems: (1) Adrenal tumor removed (2) H/O arthroscopic knee surgery (3) H/O arthroscopic knee surgery (4) H/O hemorrhoidectomy (5) H/O: hysterectomy (6) History of carpal tunnel surgery (7) History of carpal tunnel surgery (8) History of hysterectomy (9) Hx of appendectomy (10) Hx of cholecystectomy (11) Hx of decompressive lumbar laminectomy (12) Hx of hemorrhoidectomy (13) Hx of partial thyroidectomy (14) S/P appendectomy (15) S/P cholecystectomy (16) S/p removal adrenal gland tumor (17) S/P tonsillectomy and adenoidectomy (18) S/P tonsillectomy and adenoidectomy Family History Cancer Diabetes mellitus FHx: CA FHx: blood clots FHx: heart disease Gallbladder disease Heart disease Hypertension Kidney disease Lung disease Social History Smoking Status: Never Smoker Alcohol Use: none Drug Use: none Marital Status: single, in relationship Housing Status: lives with family Occupation Status: employed, disabled Current/Historical Medications Scheduled Amoxicillin & Pot Clavulanate (Amoxicillin/Clavulanate P), 875 MG PO BIDM Buspirone Hcl (Buspirone Hcl), 10 MG PO TID Gabapentin (Gabapentin), 600 MG PO TID Hydralazine Hcl (Apresoline), 25 MG PO TID Labetalol HCl (Labetalol HCl), 400 MG PO TID Losartan Potassium (Losartan Potassium), 25 MG PO DAILY Sertraline (Zoloft), 100 MG PO BID Scheduled PRN Albuterol Hfa (Ventolin Hfa), 2-4 PUFFS INH Q6H PRN for SOB/Wheezing Clonazepam (Clonazepam), 1 MG PO BID PRN for Anxiety Tizanidine (Zanaflex), 4 MG PO TID PRN for Muscle Spasm Allergies Coded Allergies: Sulfa Antibiotics (Verified Allergy, Severe, RASH, DIFFICULTY BREATHING, HAD LASIX OK PREV.ADM., 07/07/17) Lisinopril (Verified Adverse Reaction, Severe, renal failure, 07/07/17) NSAIDs (Verified Adverse Reaction, Unknown, KIDNEY FAILURE, 07/07/17) PATIENT REPORTS PRESALES ENGINEER TOLD PATIENT TO STAY AWAY FROM DUE TO KIDNEY FUNCTION Tramadol (Verified Adverse Reaction, Unknown, "MAKES ME DIZZY", 07/07/17) Physical Exam Vital Signs Date Time Temp Pulse Resp B/P (MAP) Pulse Ox O2 Delivery O2 Flow Rate FiO2 07/07/17 18:52 73 16 100 07/07/17 18:47 71 16 100 07/07/17 18:08 73 07/07/17 18:02 72 18 90 07/07/17 17:50 91 Room Air 07/07/17 17:20 37.1 74 22 106/63 88 Room Air Physical Exam GENERAL: Awake, alert, tired-appearing, in no distress HENT: Normocephalic, atraumatic. Oropharynx unremarkable. EYES: Normal conjunctiva. Sclera non-icteric. NECK: Supple. No nuchal rigidity. FROM. No JVD. RESPIRATORY: Diminished breath sounds bilaterally. CARDIAC: Regular rate, normal rhythm. Extremities warm and well perfused. Pulses equal. ABDOMEN: Soft, non-distended. No tenderness to palpation. No rebound or guarding. No masses. RECTAL: Deferred. MUSCULOSKELETAL: Chest examination reveals no tenderness. The back is symmetrical on inspection without obvious abnormality. There is no CVA tenderness to palpation. No joint edema. LOWER EXTREMITIES: Calves are equal size bilaterally and non-tender. 1+ bilateral edema. No discoloration. NEURO: Normal sensorium. No sensory or motor deficits noted. SKIN: No rash or jaundice noted. Medical Decision & Procedures ER Provider Diagnostic Interpretation: X-ray: Per my interpretation, radiologist review. CHEST ONE VIEW PORTABLE HISTORY: 32 years-old Female EVALUATE WEAKNESS acute weakness with headache COMPARISON: Chest radiograph 07/04/2017 TECHNIQUE: Portable upright AP view of the chest FINDINGS: Cardiac silhouette is moderately enlarged. Pulmonary vascular congestion redemonstrated without overt pulmonary edema. No pneumothorax. There is improved aeration of the right lung base from comparison. Hazy left basilar opacity is present with probable small left pleural effusion. Bones are grossly intact. IMPRESSION: 1. Moderate cardiomegaly without overt pulmonary edema. 2. Improved aeration of the right lung base from comparison. Persistent hazy left basilar opacity suggesting atelectasis or pneumonia with possible small pleural effusion. The above report was generated using voice recognition software. It may contain grammatical, syntax or spelling errors. Electronically signed by: Damian Allen M.D. 07/07/2017 5:52 PM Dictated Date/Time: 07/07/2017 5:51 PM Laboratory Results 07/07/17 17:55 Red Blood Count 4.09, Mean Corpuscular Volume 89.7, Mean Corpuscular Hemoglobin 27.6, Mean Corpuscular Hemoglobin Concent 30.8, Mean Platelet Volume 10.7, Neutrophils (%) (Auto) 73.2, Lymphocytes (%) (Auto) 16.4, Monocytes (%) (Auto) 8.9, Eosinophils (%) (Auto) 0.7, Basophils (%) (Auto) 0.2, Neutrophils # (Auto) 9.30, Lymphocytes # (Auto) 2.08, Monocytes # (Auto) 1.13, Eosinophils # (Auto) 0.09, Basophils # (Auto) 0.02 07/07/17 17:55 Test 07/07/17 17:55 07/07/17 18:59 White Blood Count 12.69 K/uL (4.8-10.8) Red Blood Count 4.09 M/uL (4.2-5.4) Hemoglobin 11.3 g/dL (12.0-16.0) Hematocrit 36.7 % (37-47) Mean Corpuscular Volume 89.7 fL (80-100) Mean Corpuscular Hemoglobin 27.6 pg (25-34) Mean Corpuscular Hemoglobin Concent 30.8 g/dl (32-36) Platelet Count 241 K/uL (130-400) Mean Platelet Volume 10.7 fL (7.4-10.4) Neutrophils (%) (Auto) 73.2 % Lymphocytes (%) (Auto) 16.4 % Monocytes (%) (Auto) 8.9 % Eosinophils (%) (Auto) 0.7 % Basophils (%) (Auto) 0.2 % Neutrophils # (Auto) 9.30 K/uL (1.4-6.5) Lymphocytes # (Auto) 2.08 K/uL (1.2-3.4) Monocytes # (Auto) 1.13 K/uL (0.11-0.59) Eosinophils # (Auto) 0.09 K/uL (0-0.5) Basophils # (Auto) 0.02 K/uL (0-0.2) RDW Standard Deviation 50.3 fL (36.4-46.3) RDW Coefficient of Variation 15.6 % (11.5-14.5) Immature Granulocyte % (Auto) 0.6 % Immature Granulocyte # (Auto) 0.07 K/uL (0.00-0.02) Anion Gap 8.0 mmol/L (3-11) Est Creatinine Clear Calc Drug Dose 44.9 ml/min Estimated GFR () 34.7 Estimated GFR (Non- 30.0 BUN/Creatinine Ratio 14.5 (10-20) Calcium Level 8.5 mg/dl (8.5-10.1) Magnesium Level 2.2 mg/dl (1.8-2.4) Total Bilirubin 0.2 mg/dl (0.2-1) Direct Bilirubin mg/dl (0-0.2) Aspartate Amino Transf (AST/SGOT) 63 U/L (15-37) Alanine Aminotransferase (ALT/SGPT) 59 U/L (12-78) Alkaline Phosphatase 66 U/L (45-117) Total Protein 5.9 gm/dl (6.4-8.2) Albumin 3.0 gm/dl (3.4-5.0) Lipase 166 U/L (73-393) Thyroid Stimulating Hormone (TSH) 1.380 uIu/ml (0.300-4.500) Human Chorionic Gonadotropin, Qual NEG (NEG) Chemistry Specimen Hemolysis Bedside Lactic Acid Venous 1.55 mmol/L (0.90-1.70) Laboratory results reviewed by me Medications Administered ECG Indication: syncope Rate (beats per minute): 72 Rhythm: normal sinus Findings: T-wave inversion (Inferior and lateral), prolonged QT Comparison ECG Date: 07/07/17 Change: no significant change ED Course 1738: The patient was evaluated in room C03 by the resident under my supervision. A complete history and physical exam was performed. 1836: The patient was evaluated by me. A complete history and physical exam was performed. 9: I discussed the current exam findings and lab results with the patient. 1923: The nurse informed me the patient would like to go home. 1925: Upon reexamination, the patient was resting. The resident discussed the test results and treatment plan with her. He stressed the need for further evaluation. She agreed to the plan. The patient will be evaluated for further management. 1926: I discussed the patient's case with the Dr. Wade [facility] Hospitalist. The patient will be evaluated for further treatment and management. Medical Decision Triage Nursing notes reviewed. The patient's presentation and history were concerning for syncope and hypoxia. Etiologies such as vasovagal event, infection, hypoglycemia, electrolyte abnormalities, cardiac sources, intracerebral event, toxicologic, neurologic, PE , as well as others were entertained. The patient was evaluated. She was just discharged from the hospital. Her blood pressure was noted to be lower than her previous trends. This does raise some concern about possible orthostasis. The patient does note some right- sided chest pain. She has a left-sided pneumonia. Chest x-ray as above. Blood work as above. The patient has an elevated troponin. The patient's creatinine is elevated and therefore a CT PE study is not an option at this moment. Currently she is hemodynamically stable but these issues are very concerning. The patient will need to be admitted to the hospital. Consultation was made with the hospitalist service. The patient was evaluated in the Emergency Room for further management. The patient was seen and examined with Dr. Adan, resident physician. We discussed the case and treatments ordered, reviewed the results, and determine the disposition. Please refer to the resident's note for additional details. I have been directly involved with the management and disposition as well as independently evaluated the patient as documented in this note. Consults Time Called: 1921 Consulting Physician: Dr. Wade [facility] Hospitalist Returned Call: 1926 I discussed the patient's case with the Dr. Wade [facility] Hospitalist. The patient will be evaluated for further treatment and management. Impression Primary Impression: Syncope Additional Impressions: Hypoxia Elevated troponin I level Scribe Attestation The scribe's documentation has been prepared under my direction and personally reviewed by me in its entirety. I confirm that the note above accurately reflects all work, treatment, procedures, and medical decision making performed by me. Departure Information Dispostion Being Evaluated By Hospitalist Referrals No Doctor, Assigned (PCP) Patient Instructions My [facility] Problem Qualifiers Primary Impression: Syncope Syncope type: unspecified Qualified Codes: R55 - Syncope and collapse
[2017-07-08] MEDS ORDERED: NITROGLYCERIN OINT 2% 1GM PACKET EXT SCH ×3 (02:00→06:00)
[2017-07-08] MEDS ORDERED: AMOXICILLIN/CLAVULANATE TAB 875 MG TAB PO SCH (07:30)
[2017-07-08 07:43] LABS: BASO % 0.3 %; BASO ABS # 0.03 K/uL (0-0.2); COMPLETE YES; EOS % 1.9 %; IG% 0.3 %; LYMPH % 21.3 %; LYMPH ABS # 2.25 K/uL (1.2-3.4); MEAN CELL VOLUME 90.9 fL (80-100); MEAN CORPUSCULAR HEMOGLOBIN 27.8 pg (25-34); MEAN CORPUSCULAR HGB CONC 30.6 g/dl (32-36); MEAN PLATELET VOLUME 10.9 fL (7.4-10.4); MONO % 7.7 %; NEUT % 68.5 %; PLATELET COUNT 208 K/uL (130-400); RED BLOOD COUNT 3.96 M/uL (4.2-5.4); WHITE BLOOD COUNT 10.57 K/uL (4.8-10.8)
[2017-07-08 08:02] LABS: PARTIAL THROMBOPLASTIN RATIO 1.8
[2017-07-08 08:15] LABS: BUN/CREATININE RATIO 15.8 (10-20); CALCIUM 8.4 mg/dl (8.5-10.1); CREATININE 2.1 mg/dl (0.60-1.20); POTASSIUM 4.7 mmol/L (3.5-5.1)
[2017-07-08] MEDS ORDERED: METOCLOPRAMIDE HCL 10 MG TAB PO PRN (08:30)
[2017-07-08] MEDS ORDERED: HEPARIN IV BOLUS 3,000 UNIT in SYRINGE 0 ML IV ONE (08:30)
[2017-07-08] MEDS ORDERED: LOSARTAN POTASSIUM 25 MG TAB PO SCH (09:00)
[2017-07-08] MEDS: LABETALOL HCL 200 MG TAB PO SCH ×2 (09:07→14:34)
[2017-07-08] MEDS: GABAPENTIN 600 MG TAB PO SCH ×2 (09:07→14:32)
[2017-07-08] MEDS: SERTRALINE HCL 100 MG TAB PO SCH (09:08)
[2017-07-08] MEDS ORDERED: SODIUM CHLORIDE 0.9% 1000ML 1,000 ML IV SCH (15:00)
[2017-07-08] MEDS ORDERED: SODIUM CHLORIDE 0.45% 1000ML 1,000 ML IV SCH (15:00)
[2017-07-08] MEDS: ACETAMINOPHEN 325 MG TAB PO PRN (15:15)
[2017-07-08 15:53] LABS: PARTIAL THROMBOPLASTIN RATIO 1.5
--- NOTE | 2017-07-08 16:33 | Discharge Instructions ---
Discharge Instructions Date of Service Jul 08, 2017. Admission Reason for Admission: Shortness Of Breath, Syncope Discharge Discharge Diagnosis / Problem: Fainting Discharge Goals Goal(s): Decrease discomfort Activity Recommendations Activity Limitations: resume your previous activity . Instructions / Follow-Up Instructions / Follow-Up You presented to [facility] for a repeat admission due to an episode of fainting. This was likely caused by a constellation of things, including low blood pressure, dehydration, and the difficulty breathing you have been experiencing. Our goal was to rehydrate you in order to improve your blood pressure and kidney function, lower your blood pressure medications slightly, and advise you to begin wearing your CPAP as that would greatly improve your symptoms. Current Hospital Diet Patient's current hospital diet: AHA Diet (Heart Healthy) Discharge Diet Recommended Diet: AHA Diet (Heart Healthy) Pending Studies Studies pending at discharge: no Laboratory Results Hemoglobin A1c Test 07/08/17 15:32 Range/Units Medical Emergencies . Who to Call and When: Medical Emergencies: If at any time you feel your situation is an emergency, please call 911 immediately. . Non-Emergent Contact Non-Emergency issues call your: Primary Care Provider . . "Provider Documentation" section prepared by Petar Gold. . VTE Core Measure Inpt VTE Proph given/why not?: Other Anticoagulation, SCD's
--- NOTE | 2017-07-08 16:42 | Discharge Summary ---
Discharge Summary Date of Service Jul 08, 2017. Discharge Summary Admission Date: Jul 07, 2017 at 19:38 Discharge Date: Jul 08, 2017 Discharge Disposition: Home Principal Diagnosis: Syncope Problems/Secondary Diagnoses: (1) Adrenal tumor removed Status: Chronic (2) Anxiety and depression Status: Chronic (3) Depression Status: Chronic (4) GERD (gastroesophageal reflux disease) Status: Chronic (5) H/O arthroscopic knee surgery Status: Chronic (6) History of carpal tunnel surgery Status: Chronic (7) History of hysterectomy Status: Chronic (8) HTN (hypertension) Status: Chronic (9) Hx of appendectomy Status: Chronic (10) Hx of cholecystectomy Status: Chronic (11) Hx of decompressive lumbar laminectomy Status: Chronic (12) Hx of hemorrhoidectomy Status: Chronic (13) Hypothyroidism Status: Chronic (14) Lumbago Status: Chronic (15) Migraine Status: Chronic (16) Morbid Obesity Status: Chronic (17) Noncompliance with medications Status: Chronic (18) IGNACIO (obstructive sleep apnea) Status: Chronic (19) S/P tonsillectomy and adenoidectomy Status: Chronic Immunizations: Have You Had Influenza Vaccine: Yes History of Tetanus Vaccine?: Unknown History of Pneumococcal: Unknown History of Hepatitis B Vaccine: Unknown Medication Reconciliation Continued Medications: Albuterol Hfa (Ventolin Hfa) 200 Puffs/96476 Mcg Aers 2-4 PUFFS INH Q6H PRN for SOB/Wheezing, #1 INHALER Amoxicillin & Pot Clavulanate (Amoxicillin/Clavulanate P) 1 Tab Tab 875 MG PO BIDM, #6 TAB Buspirone Hcl (Buspirone Hcl) 10 Mg Tab 10 MG PO TID, TAB Clonazepam (Clonazepam) 1 Mg Tab 1 MG PO BID PRN for Anxiety Gabapentin (Gabapentin) 600 Mg Tab 600 MG PO TID Hydralazine Hcl (Apresoline) 25 Mg Tab 25 MG PO TID Labetalol HCl (Labetalol HCl) 200 Mg Tab 400 MG PO TID, #90 TAB Losartan Potassium (Losartan Potassium) 25 Mg Tab 25 MG PO DAILY, #30 TAB Sertraline (Zoloft) 100 Mg Tab 100 MG PO BID, TAB Tizanidine (Zanaflex) 4 Mg Cap 4 MG PO TID PRN for Muscle Spasm, CAP Discharge Exam Ms. St stated that she did not wish to remain in the hospital, but wanted to go home. Review of Systems: Constitutional: + weakness, + fatigue, No fever, No chills, No sweats Respiratory: + dyspnea on exertion, No cough Cardiovascular: + chest pain Neurologic: + problem reported (Headache) Physical Exam: General Appearance: + obese Respiratory/Chest: chest non-tender, lungs clear, no respiratory distress, no accessory muscle use, + decreased breath sounds Cardiovascular: regular rate, rhythm, no edema, no gallop, no JVD, no murmur Hospital Course Ms. St presented to [facility] as a repeat admission from yesterday with a syncopal episode upon arriving home. This was likely due to hypotension, dehydration and hypoxia. She also had a small bump in troponin, however her troponins have nearly always been elevated. This is likely due to her cardiac hypertrophy as well as her chronic hypoxia and hypertension causing strain on her myocardium. She was counselled yesterday on remaining in the hospital until we were able to hydrate her and recheck her BMP, but insisted on leaving, and therefore was discharged with her updated medication list. She returned today and her creatinine level remained high at 2.1. We attempted to rehydrate her today and make adjustments to her BP medication, however she stated she would rather leave. The risks of leaving against medical advise were explained to her, however she signed out AMA. During her time here, Dr. Cifuentes also saw her, and tried to explain how necessary wearing her CPAP was to improve her breathing, and the different types of masks available, however she stated that she did not wish to try CPAP again. Total Time Spent: Less than 30 minutes This includes examination of the patient, discharge planning, medication reconciliation, and communication with other providers. Discharge Instructions Please refer to the electronic Patient Visit Report (Discharge Instructions) for additional information.
[2017-07-08] MEDS ORDERED: LABETALOL HCL 200 MG TAB PO SCH (21:00)
== END 2017-07-08 15:56 | disposition left against medical advice (07) ==
LOC: C.EDB 17:18 → C.2T 19:38 → ENRESERV 20:03
PROVIDERS: ADMIT Student in an Organized Health Care Education/Training Program; ATTEND Family Medicine
DX: R55 Syncope and collapse (principal); R06.02 Shortness of breath; F32.9 Major depressive disorder, single episode, unspecified; I10 Essential (primary) hypertension; E03.9 Hypothyroidism, unspecified; K58.9 Irritable bowel syndrome, unspecified; E78.5 Hyperlipidemia, unspecified; G47.33 Obstructive sleep apnea (adult) (pediatric); E66.01 Morbid (severe) obesity due to excess calories; K21.9 Gastro-esophageal reflux disease without esophagitis; Z90.710 Acquired absence of both cervix and uterus; Z90.49 Acquired absence of other specified parts of digestive tract; Z83.3 Family history of diabetes mellitus; Z82.49 Family history of ischemic heart disease and other diseases of the circulatory system; Z84.1 Family history of disorders of kidney and ureter; Z83.6 Family history of other diseases of the respiratory system

== ENCOUNTER 2017-07-10 22:56 | Observation (INO) | payer OTHER ==
[~2017-07-10] VITALS: Ht 157.5 cm; Wt 118.7 kg
[~2017-07-10 22:56] MED LIST changes: +BUSP-8 PO; -LABE200T24 PO; -LOSA50TA6 PO; +TIZA4CAP PO
[2017-07-10] MEDS ORDERED: LABETALOL HCL IV 5 MG/ML 20ML IV STA (23:22)
[2017-07-10 23:52] LABS: INR 1.1 (0.9-1.1); PARTIAL THROMBOPLASTIN RATIO 0.9
[2017-07-10 23:56] LABS: BASO % 0.2 %; BASO ABS # 0.02 K/uL (0-0.2); COMPLETE YES; EOS % 11.9 %; HEMATOCRIT 38.1 % (37-47); IG% 0.3 %; LYMPH % 20.2 %; LYMPH ABS # 2.12 K/uL (1.2-3.4); MEAN CELL VOLUME 85.2 fL (80-100); MEAN CORPUSCULAR HEMOGLOBIN 27.1 pg (25-34); MEAN CORPUSCULAR HGB CONC 31.8 g/dl (32-36); MEAN PLATELET VOLUME 10.1 fL (7.4-10.4); MONO % 6.5 %; NEUT % 60.9 %; PLATELET COUNT 197 K/uL (130-400); RED BLOOD COUNT 4.47 M/uL (4.2-5.4)
[2017-07-11] VITALS (8 sets, daily range): BP systolic 103–184; BP diastolic 69–135; PULSE 58–100; TEMP 36.5–36.9; O2SAT 91–95; Ht 157.5 cm; Wt 118.7 kg
[2017-07-11] MEDS ORDERED: LABETALOL HCL IV 5 MG/ML 20ML IV STA (00:04)
--- NOTE | 2017-07-11 00:11 | EMERGENCY ROOM VISIT NOTE ---
History Report prepared by Gabriele: Ely Rangel Under the Supervision of: Dr. Arben Gutiérrez M.D. First contact with patient: 23:18 Chief Complaint: CARDIAC ASSESSMENT Stated Complaint: HEADACHE LT SIDE, CHEST PAINS, FLUID RT LEG Nursing Triage Summary: pt states she signed out AMA from up stairs a few days ago, pt states she had been dx with pneumonia. pt comes back c/o right sided h/a, swelling to right foot, chest pain to left side of chest, tightness in center of chest and left arm numbness. 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 The patient signed out from the hospital AMA several days ago. She was being treated for pneumonia. She was on Augmentin. She finished her last dose today. She is still coughing. She presents to the ED today because she has developed stabbing left sided chest pain and tightness in the middle of her chest. She has a headache on the right side of her head. Her right leg started swelling this morning. She feels like there is fluid in her stomach. She denies any dysuria or diarrhea. She denies any fall or injury. She has been taking her medications as directed. 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 Review of Systems See HPI for pertinent positives & negatives. A total of 10 systems reviewed and were otherwise negative. Past Medical & Surgical Medical Problems: (1) Abdominal pain (2) Anxiety (3) Anxiety and depression (4) Borderline personality disorder (5) C. difficile colitis (6) Chest pain (7) Depression (8) Depression (9) Drug overdose, intentional (10) GERD (gastroesophageal reflux disease) (11) GERD (gastroesophageal reflux disease) (12) Headache (13) HTN (hypertension) (14) Hyperlipidemia (15) Hypertension (16) Hypertensive emergency (17) Hypothyroidism (18) Hypothyroidism (19) IBS (irritable bowel syndrome) (20) Left ventricular hypertrophy (21) Lumbago (22) Lumbar disc disorder (23) Migraine (24) Migraine (25) Morbid Obesity (26) Non-occlusive coronary artery disease (27) Noncompliance with medications (28) Obesity (29) IGNACIO (obstructive sleep apnea) (30) IGNACIO (obstructive sleep apnea) (31) Overdose (32) Past Psych Med (33) Polycystic ovarian syndrome (34) Shortness of breath (35) Syncope Surgical Problems: (1) Adrenal tumor removed (2) H/O arthroscopic knee surgery (3) H/O arthroscopic knee surgery (4) H/O hemorrhoidectomy (5) H/O: hysterectomy (6) History of carpal tunnel surgery (7) History of carpal tunnel surgery (8) History of hysterectomy (9) Hx of appendectomy (10) Hx of cholecystectomy (11) Hx of decompressive lumbar laminectomy (12) Hx of hemorrhoidectomy (13) Hx of partial thyroidectomy (14) S/P appendectomy (15) S/P cholecystectomy (16) S/p removal adrenal gland tumor (17) S/P tonsillectomy and adenoidectomy (18) S/P tonsillectomy and adenoidectomy Family History Cancer Diabetes mellitus FHx: [place] FHx: blood clots FHx: heart disease Gallbladder disease Heart disease Hypertension Kidney disease Lung disease Social History Smoking Status: Never Smoker Alcohol Use: none Drug Use: none Marital Status: single, in relationship Housing Status: lives with family Occupation Status: employed, disabled Current/Historical Medications Scheduled Amoxicillin & Pot Clavulanate (Augmentin 875-125 mg), 1 TAB PO BIDM Gabapentin (Gabapentin), 600 MG PO TID Hydralazine Hcl (Apresoline), 25 MG PO TID Labetalol Hcl (Normodyne), 200 MG PO TID Losartan Potassium (Cozaar), 25 MG PO DAILY Sertraline (Zoloft), 100 MG PO BID Scheduled PRN Albuterol Hfa (Ventolin Hfa), 2-4 PUFFS INH Q6H PRN for SOB/Wheezing Buspirone Hcl (Buspirone Hcl), 10 MG PO TID PRN for PRN PER PT. 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 TO STAY AWAY FROM DUE TO KIDNEY FUNCTION Tramadol (Verified Adverse Reaction, Unknown, "MAKES ME DIZZY", 07/11/17) Physical Exam Vital Signs Date Time Temp Pulse Resp B/P (MAP) Pulse Ox O2 Delivery O2 Flow Rate FiO2 07/11/17 01:33 104 142/61 92 Room Air 07/11/17 01:14 105 191/100 94 Room Air 07/11/17 01:00 172/126 07/11/17 00:51 105 21 184/109 94 Room Air 07/11/17 00:22 107 19 257/172 96 Room Air 07/10/17 23:38 109 24 242/167 96 Room Air 07/10/17 23:15 112 07/10/17 23:14 96 Room Air 07/10/17 23:01 37.1 111 20 217/145 97 Room Air Physical Exam GENERAL: Patient is chronically unwell appearing and in mild distress, periodically coughing to the point of dry heaving. HEENT: No acute trauma, normocephalic atraumatic, mucous membranes moist, no nasal congestion, no scleral icterus. NECK: No stridor, no adenopathy, no meningismus, trachea is midline. LUNGS: No dyspnea. Clear to auscultation and equal bilaterally. No wheeze, no rhonchi. HEART: Regular rate and rhythm. No murmurs, rubs, gallops appreciated. ABDOMEN: Soft, nontender, bowel sounds positive, no masses appreciated, no peritonitis. BACK: No midline tenderness, no CVA tenderness EXTREMITIES: Normal motion all extremities, no cyanosis. Swollen right lower leg with tenderness over the calf. NEUROLOGIC: Alert and oriented, no acute motor or sensory deficits, no focal weakness, cranial nerves grossly intact. SKIN: No rash, no jaundice, no diaphoresis. Medical Decision & Procedures ER Provider Diagnostic Interpretation: X ray results are stated below per my interpretation: Chest: 1 view: Large heart, mild congestion, similar to previous. No infiltrate. Radiology results and stated below per my review and [facility] radiologist interpretation: CT Head: No acute intracranial process. Sinus disease. US Venous Right Lower Extremity: No DVT. Soft tissue edema. Laboratory Results 07/10/17 23:27 Red Blood Count 4.47, Mean Corpuscular Volume 85.2, Mean Corpuscular Hemoglobin 27.1, Mean Corpuscular Hemoglobin Concent 31.8, Mean Platelet Volume 10.1, Neutrophils (%) (Auto) 60.9, Lymphocytes (%) (Auto) 20.2, Monocytes (%) (Auto) 6.5, Eosinophils (%) (Auto) 11.9, Basophils (%) (Auto) 0.2, Neutrophils # (Auto ) 6.40, Lymphocytes # (Auto) 2.12, Monocytes # (Auto) 0.68, Eosinophils # (Auto ) 1.25, Basophils # (Auto) 0.02 07/10/17 23:27 Test 07/10/17 23:27 White Blood Count 10.50 K/uL (4.8-10.8) Red Blood Count 4.47 M/uL (4.2-5.4) Hemoglobin 12.1 g/dL (12.0-16.0) Hematocrit 38.1 % (37-47) Mean Corpuscular Volume 85.2 fL (80-100) Mean Corpuscular Hemoglobin 27.1 pg (25-34) Mean Corpuscular Hemoglobin Concent 31.8 g/dl (32-36) Platelet Count 197 K/uL (130-400) Mean Platelet Volume 10.1 fL (7.4-10.4) Neutrophils (%) (Auto) 60.9 % Lymphocytes (%) (Auto) 20.2 % Monocytes (%) (Auto) 6.5 % Eosinophils (%) (Auto) 11.9 % Basophils (%) (Auto) 0.2 % Neutrophils # (Auto) 6.40 K/uL (1.4-6.5) Lymphocytes # (Auto) 2.12 K/uL (1.2-3.4) Monocytes # (Auto) 0.68 K/uL (0.11-0.59) Eosinophils # (Auto) 1.25 K/uL (0-0.5) Basophils # (Auto) 0.02 K/uL (0-0.2) RDW Standard Deviation 46.7 fL (36.4-46.3) RDW Coefficient of Variation 15.1 % (11.5-14.5) Immature Granulocyte % (Auto) 0.3 % Immature Granulocyte # (Auto) 0.03 K/uL (0.00-0.02) Prothrombin Time 12.0 SECONDS (9.0-12.0) Prothromb Time International Ratio 1.1 (0.9-1.1) Activated Partial Thromboplast Time 24.5 SECONDS (21.0-31.0) Partial Thromboplastin Ratio 0.9 Anion Gap 8.0 mmol/L (3-11) Est Creatinine Clear Calc Drug Dose 56.0 ml/min Estimated GFR () 44.8 Estimated GFR (Non- 38.7 BUN/Creatinine Ratio 13.6 (10-20) Calcium Level 8.4 mg/dl (8.5-10.1) Magnesium Level 1.9 mg/dl (1.8-2.4) Total Creatine Kinase 82 U/L (26-192) Creatine Kinase MB 3.0 ng/ml (0.5-3.6) Creatine Kinase MB Ratio 3.7 (0-3.0) Troponin I 2.330 ng/ml (0-0.045) Laboratory results as reviewed by me. Medications Administered Medications (Trade) Dose Ordered Sig/Randi Route Start Time Stop Time Status Last Admin Dose Admin Labetalol HCl (Normodyne IV) 20 mg NOW STAT IV 07/10/17 23:22 07/10/17 23:25 DC 07/10/17 23:34 20 MG Labetalol HCl (Normodyne IV) 20 mg NOW STAT IV 07/11/17 00:04 07/11/17 00:05 DC 07/11/17 00:25 20 MG Hydralazine HCl (HydrALAZINE INJ) 10 mg NOW STAT IV. 07/11/17 00:37 07/11/17 00:39 DC 07/11/17 00:43 10 MG Nitroglycerin (Nitrostat Tab) 0.4 mg NOW STAT SL 07/11/17 00:37 07/11/17 00:39 DC 07/11/17 00:43 0.4 MG Ondansetron HCl (Zofran Inj) 4 mg NOW STAT IV 07/11/17 00:37 07/11/17 00:39 DC 07/11/17 00:43 4 MG Nicardipine HCl 25 mg/Sodium Chloride 250 ml @ 0 mls/hr Q0M STAT IV 07/11/17 00:40 07/11/17 00:42 DC 07/11/17 01:01 25 MLS/HR Acetaminophen (Tylenol Tab) 1,000 mg NOW STAT PO 07/11/17 01:10 07/11/17 01:11 DC 07/11/17 01:17 1,000 MG Ondansetron HCl (Zofran Inj) 4 mg Q6H PRN IV 07/11/17 01:45 08/10/17 01:44 07/11/17 03:45 4 MG ECG Indication: chest pain Rate (beats per minute): 114 Rhythm: sinus tachycardia Findings: ST depression (Lateral), ST elevation (mild in aVR and V1), other ( intraventricular block) Comparison ECG Date: 07-Jul-2017 Change: ST depression are new. ST elevation old. ED Course 2318: The patient was evaluated in room A3. A complete history and physical exam was performed. 2322: Labetalol HCl 20 mg IV. 0004: Labetalol HCl 20 mg IV. 0037: Zofran Inj 4 mg IV, Nitroglycerin 0.4 mg SL, Hydralazine HCl 10 mg IV. 0040: Nicardipine HCl 25 mg/Sodium Chloride 250 ml @ 0 mls/hr IV. 0105: Upon reevaluation, the patient is stable. I discussed results and treatment plan with the patient. She verbalized understanding and agreement with the treatment plan. The patient will be evaluated for further management. 0110: Acetaminophen 1000 mg PO. 0120: I discussed the patient's case with Dr. Wade, [facility] [place]. The patient will be evaluated for further treatment and disposition. He requests that the nicardipine drip be turned off. Medical Decision Differential: Cardiac Ischemia (STEMI, NSTEMI, Unstable Angina, etc), Aortic Dissection, Arrhythmia, Pulmonary Embolism, Pneumonia, Pneumothorax, MSK, Infectious, Pericarditis/Myocarditis, Esophageal Rupture, Gastrointestinal, amongst other pathologies entertained. 32 yr old female arrives for evaluation of HTN, headache, chest pain and right leg pain/swelling. This is similar to two recent admissions over the last 4 days for which she left AMA. She states she is taking her BP medications though this seems very unlikely. After multiple rounds IV meds and then cardizem gtt her BP much improved and she is stable. CT head negative. Right leg US negative for clot. Unclear why swelling right leg but n/v intact. Labs with modest bump in Trop from baseline. Cr improving. EKG with diffuse ST depressions similar to several previous EKGs with tachycardia factored in. Pt with CXR unremarkable. I suspect this is all hypertensive emergency causing renal issues and trop elevation. There seems to be long history of drug seeking behavior as well thus I felt it inappropriate to treat her with narcotics. Medication Reconcilliation Current Medication List: was personally reviewed by me Blood Pressure Screening Patient's blood pressure: Elevated blood pressure Will be monitored by hospitalist. Consults Time Called: 0115 Consulting Physician: Dr. Wade, [facility] [place] Returned Call: 0120 I discussed the patient's case with him. The patient will be evaluated for further treatment and disposition. He requests that the nicardipine drip be turned off. Impression Primary Impression: Hypertensive emergency Additional Impression: Elevated troponin Critical Care I have personally spent greater than 45 minutes of critical care time in the direct management of this patient. This was a life/limb threatening event. This includes time spent evaluating patient, direct bedside care, chart review, placing orders, interpretation of diagnostic studies, discussion with consultants, patient, and family members, as well as other required patient management activities. This 45 minutes is in excess of all separately billable procedures. Scribe Attestation The scribe's documentation has been prepared under my direction and personally reviewed by me in its entirety. I confirm that the note above accurately reflects all work, treatment, procedures, and medical decision making performed by me. Departure Information Dispostion Being Evaluated By Hospitalist Referrals No Doctor, Assigned (PCP) Patient Instructions My [facility] Problem Qualifiers
[2017-07-11 00:33] LABS: BUN/CREATININE RATIO 13.6 (10-20); CALCIUM 8.4 mg/dl (8.5-10.1); CKMB/CK RATIO 3.7 (0-3.0); CREATININE 1.7 mg/dl (0.60-1.20); MAGNESIUM 1.9 mg/dl (1.8-2.4); POTASSIUM 3.6 mmol/L (3.5-5.1)
[2017-07-11] MEDS ORDERED: NITROGLYCERIN 0.4 MG SL PER TAB CHARGE SL STA (00:37)
[2017-07-11] MEDS ORDERED: HydrALAZINE HCL 20 MG/ML VIAL IV. STA (00:37)
[2017-07-11] MEDS ORDERED: ONDANSETRON INJ 2 MG/ML 2 ML VIAL IV STA (00:37)
[2017-07-11] MEDS ORDERED: AMOX875T PO (00:38)
[2017-07-11] MEDS ORDERED: LOSA1TAB PO (00:38)
[2017-07-11] MEDS ORDERED: LBT/200 PO (00:38)
[2017-07-11] MEDS ORDERED: VNTHFA/IN INH (00:38)
[2017-07-11] MEDS ORDERED: NiCARDipine IV 25 MG in SODIUM CHLORIDE 0.9% 250ML 240 ML IV STA (00:40)
[2017-07-11] MEDS ORDERED: ACETAMINOPHEN 500 MG TAB PO STA (01:10)
[2017-07-11] MEDS ORDERED: ALBUTEROL HFA 8 GM INHALER INH PRN (01:45)
[2017-07-11] MEDS ORDERED: ALUMINUM/MAGNESIUM/SIMETH (MAALOX MAX) 30 ML UDC PO PRN (01:45)
[2017-07-11] MEDS ORDERED: MAGNESIUM HYDROXIDE SUSP 30 ML UDC PO PRN (01:45)
[2017-07-11] MEDS ORDERED: CLONAZEPAM 1 MG TAB PO PRN (01:45)
[2017-07-11] MEDS ORDERED: HydrALAZINE HCL 20 MG/ML VIAL IV. PRN ×2 (01:45→12:15)
[2017-07-11] MEDS ORDERED: ZOLPIDEM TARTRATE 5 MG TAB PO PRN (01:45)
[2017-07-11] MEDS ORDERED: POLYETHYLENE (MIRALAX) 17 GM PACK PO PRN (01:45)
--- NOTE | 2017-07-11 01:52 | History and Physical ---
History & Physical Date & Time of Service: Jul 11, 2017 at 01:51 Chief Complaint: Headache Lt Side, Chest Pains, Fluid Rt Leg Primary Care Physician: No Doctor, Assigned History of Present Illness Source: patient 32 yo F, hypertension and hypertensive cardiomyopathy, obesity, multiple other co-morbidities who presents after recent DC with R leg swelling and headache. She reports she has not eaten well since being discharged home. She returned to the ED for evaluation of this headache. Her BP was found to be elevated, SBP > 200, and was responsive to her normal home dose of medications. Her troponin is always slightly elevated but went even higher, and she also reported some precordial chest tightness initially. She has come the hospital monthly over the last 2 years, and moreso over the last week. She was in the hospital 07/04 - 07/07, then left AMA, returned 07/07 - 07/08, and now returned today. She reports she has been compliant with her blood pressure medications. Past Medical/Surgical History PAST MEDICAL HISTORY: 1. Severe hypertension. 2. Hypertensive heart disease. 3. Stage III chronic kidney disease. 4. Minimal nonobstructive coronary disease. 5. Obstructive sleep apnea. 6. Anxiety and depression. 7. GERD. 8. Hypothyroidism. 9. Irritable bowel syndrome. 10. Lumbar disc disease. 11. Migraine headaches. 12. Morbid obesity. 13. Charted history of noncompliance with medications. 14. Questionable history of substance abuse. 15. Polycystic ovarian syndrome. 16. Prior adrenal tumor removal. SURGICAL HISTORY: 1. Arthroscopic right knee surgery. 2. Hemorrhoidectomy. 3. Hysterectomy. 4. Bilateral carpal tunnel surgery. 5. Appendectomy. 6. Cholecystectomy. 7. Partial thyroidectomy. 8. Tonsillectomy and adenoidectomy. 9. x2. Family History Cancer Diabetes mellitus FHx: [place] FHx: blood clots FHx: heart disease Gallbladder disease Heart disease Hypertension Kidney disease Lung disease Social History Smoking Status: Never Smoker Smokeless Tobacco Use: No Drug Use: none Marital Status: in relationship Housing status: lives with significant other Occupational Status: employed, disabled Immunizations History of Influenza Vaccine: Yes History of Tetanus Vaccine?: Unknown History of Pneumococcal: Unknown History of Hepatitis B Vaccine: Unknown Multi-Drug Resistant Organisms History of MDRO: No Allergies Coded Allergies: Sulfa Antibiotics (Verified Allergy, Severe, RASH, DIFFICULTY BREATHING, HAD LASIX OK PREV.ADM., 07/11/17) Lisinopril (Verified Adverse Reaction, Severe, renal failure, 07/11/17) NSAIDs (Verified Adverse Reaction, Unknown, KIDNEY FAILURE, 07/11/17) 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 Clonazepam (Clonazepam), 1 MG PO BID PRN for Anxiety Tizanidine (Zanaflex), 4 MG PO TID PRN for Muscle Spasm Review of Systems See HPI for pertinent positives & negatives. A total of 10 systems reviewed and were otherwise negative. Physical Exam Vital Signs Date Time Temp Pulse Resp B/P (MAP) Pulse Ox O2 Delivery O2 Flow Rate FiO2 07/11/17 01:33 104 142/61 92 Room Air 07/11/17 01:14 105 191/100 94 Room Air 07/11/17 01:00 172/126 07/11/17 00:51 105 21 184/109 94 Room Air 07/11/17 00:22 107 19 257/172 96 Room Air 07/10/17 23:38 109 24 242/167 96 Room Air 07/10/17 23:15 112 07/10/17 23:14 96 Room Air 07/10/17 23:01 37.1 111 20 217/145 97 Room Air General Appearance: WD/WN, no apparent distress, + obese Head: normocephalic, atraumatic Eyes: normal inspection, PERRL ENT: hearing grossly normal, + pertinent finding (large neck circumference) Neck: supple, no JVD Respiratory/Chest: lungs clear, normal breath sounds, no respiratory distress Cardiovascular: regular rate, rhythm, no murmur, normal peripheral pulses Abdomen/GI: normal bowel sounds, non tender, soft Back: no CVA tenderness, no muscle spasm Extremities/Musculoskelatal: normal inspection, no pedal edema Neurologic/Psych: alert, normal mood/affect, oriented x 3 Skin: no rash Diagnostics Laboratory Results Results Past 24 Hours Test 07/10/17 23:27 Range/Units White Blood Count 10.50 4.8-10.8 K/uL Red Blood Count 4.47 4.2-5.4 M/uL Hemoglobin 12.1 12.0-16.0 g/dL Hematocrit 38.1 37-47 % Mean Corpuscular Volume 85.2 80-100 fL Mean Corpuscular Hemoglobin 27.1 25-34 pg Mean Corpuscular Hemoglobin Concent 31.8 32-36 g/dl Platelet Count 197 130-400 K/uL Mean Platelet Volume 10.1 7.4-10.4 fL Neutrophils (%) (Auto) 60.9 % Lymphocytes (%) (Auto) 20.2 % Monocytes (%) (Auto) 6.5 % Eosinophils (%) (Auto) 11.9 % Basophils (%) (Auto) 0.2 % Neutrophils # (Auto) 6.40 1.4-6.5 K/uL Lymphocytes # (Auto) 2.12 1.2-3.4 K/uL Monocytes # (Auto) 0.68 0.11-0.59 K/uL Eosinophils # (Auto) 1.25 0-0.5 K/uL Basophils # (Auto) 0.02 0-0.2 K/uL RDW Standard Deviation 46.7 36.4-46.3 fL RDW Coefficient of Variation 15.1 11.5-14.5 % Immature Granulocyte % (Auto) 0.3 % Immature Granulocyte # (Auto) 0.03 0.00-0.02 K/uL Prothrombin Time 12.0 9.0-12.0 SECONDS Prothromb Time International Ratio 1.1 0.9-1.1 Activated Partial Thromboplast Time 24.5 21.0-31.0 SECONDS Partial Thromboplastin Ratio 0.9 Sodium Level 144 136-145 mmol/L Potassium Level 3.6 3.5-5.1 mmol/L Chloride Level 107 98-107 mmol/L Carbon Dioxide Level 29 21-32 mmol/L Anion Gap 8.0 3-11 mmol/L Blood Urea Nitrogen 23 7-18 mg/dl Creatinine 1.70 0.60-1.20 mg/dl Est Creatinine Clear Calc Drug Dose 56.0 ml/min Estimated GFR () 44.8 Estimated GFR (Non- 38.7 BUN/Creatinine Ratio 13.6 10-20 Random Glucose 90 70-99 mg/dl Calcium Level 8.4 8.5-10.1 mg/dl Magnesium Level 1.9 1.8-2.4 mg/dl Total Creatine Kinase 82 26-192 U/L Creatine Kinase MB 3.0 0.5-3.6 ng/ml Creatine Kinase MB Ratio 3.7 0-3.0 Troponin I 2.330 0-0.045 ng/ml Diagnostic Radiology Unable to import imaging reports at this time. CXR normal EKG New T wave inversion in inferior leads compared to prior EKG, though was present on EKGs in past. Left ventricular hypertrophy. No ST elevation. Impression Assessment and Plan 32 yo F with known labile hypertension, poor compliance, and multiple re- admissions presents with hypertensive urgency and headache. Pt is high risk for leaving AMA, and I have concerns for substance misuse potential - No Narcotics HTN - Restart home medications, including Labetalol 200mg TID (gave extra 200mg dose in ED) - Continue Losartan and Hydralazine IGNACIO - ?Attempt BiPAP / CPAP if pt will tolerate - this seemed to be a trigger for her leaving AMA last week Anxiety / Depression - Continue home Klonopin - no further to be given - Continue home Sertraline and Buspar Neuropathy - Continue home gabapentin VTE: Heparin Tele Full Code Attending Addendum: I have physically seen and examined this patient, have directed the resident's medical activities, and agree with the H&P as noted above with the following exceptions as noted. The patient is awake, alert and oriented 3, looks unkempt, normocephalic and atraumatic, lying in bed and in no acute distress. HEENT--PERRL, EOMI, mucous membranes and oropharynx normal. Neck--supple, no JVD or bruits, thyroid normal, trachea midline, no adenopathy. Heart--normal S1 and S2, no extra beats, no murmurs, rubs or gallops. Lungs--clear bilaterally with good air movement, no respiratory distress, no accessory muscle use. Abdomen--normal bowel sounds and soft, nontender and nondistended, no hernias or masses, no organomegaly. Extremities--no cyanosis, clubbing. There is bilateral pretibial/pedal 1+ pitting Edema. There are good distal pulses b/l. Dermatologic--normal skin turgor, normal color, warm and dry, no abnormal lymph nodes, no rash. Neurologic--cranial nerves II through XII grossly intact. Rheumatologic--normal range of motion, nontender, muscles and joints. Psychiatric--normal affect. Assessment and Plan: Hypertension/medical noncompliance-- The patient was discharged on labetalol 400 mg by mouth 3 times a day, and appears to only be taking 200 mg 3 times a day.. If she is taking that at all. Admit on labetalol 400 mg by mouth 3 times a day, and hydralazine 25 mg by mouth 3 times a day. Would discontinue losartan. Lopressor 5 mg IV every 4 hours when necessary systolic blood pressure greater than 160. Chronic pain syndrome/Peripheral neuropathy-- Continue gabapentin 600 mg by mouth 3 times a day. Continue Zanaflex 4 mg by mouth 3 times a day when necessary muscle spasm. NO NARCOTIC USE. Depression/history of leaving AMA-- Continue sertraline 100 mg by mouth twice a day. If she has not had a trial in the past, she would be a good candidate for Cymbalta to address mood and pain symptoms. The patient uses buspirone on a PRN basis, of which it is not effective that way , and should be on 10 mg by mouth 3 times a day scheduled. Continue clonazepam 1 mg by mouth twice a day when necessary. Would consider a psychiatry consult. Level of Care Telemetry Advanced Directives Existing Advance Directive: No Existing Living Will: No Existing Power of Multiple Games Dealer: No Resuscitation Status FULL RESUSCITATION VTE Prophylaxis VTE Risk Assessment Done? Y/N: Yes Risk Level: Moderate Given or contraindicated: SCD's Resident Tracking Resident Involvement: Resident Care Provided Care Provided: Adult [facility] Medicine
[2017-07-11] MEDS ORDERED: LABETALOL HCL 200 MG TAB PO ONE (03:30)
[2017-07-11] MEDS ORDERED: IV FLUIDS COMPLETED PRN (03:45)
[2017-07-11] MEDS: ONDANSETRON INJ 2 MG/ML 2 ML VIAL IV PRN ×2 (03:45→10:33)
[2017-07-11] MEDS ORDERED: METOPROLOL TARTRATE 1 MG/ML VIAL IV PRN (05:00)
[2017-07-11] MEDS: ACETAMINOPHEN 325 MG TAB PO PRN ×3 (05:17→18:29)
[2017-07-11] MEDS: HEPARIN SOD 5000 UNIT/0.5 ML CARP SQ SCH ×4 (05:17→21:50)
--- NOTE | 2017-07-11 06:37 | DIAGNOSTIC IMAGING REPORT ---
RIGHT LOWER EXTREMITY VENOUS DOPPLER CLINICAL HISTORY: Right leg pain and swelling. COMPARISON STUDY: Bilateral lower extremity venous Doppler June 08, 2017. TECHNIQUE: Sonography of the deep venous system of the right lower extremity was performed. Compression and augmentation were evaluated. FINDINGS: The right common femoral, superficial femoral and popliteal veins were compressible. Augmentation was normal. Flow was shown within the deep calf vessels. Note was made of subcutaneous edema of the right calf. IMPRESSION: No evidence of deep venous thrombus within the right lower extremity. Electronically signed by: Pancho Altman M.D. 07/11/2017 6:36 AM Dictated Date/Time: 07/11/2017 6:35 AM
--- NOTE | 2017-07-11 07:02 | DIAGNOSTIC IMAGING REPORT ---
CT SCAN OF THE BRAIN WITHOUT IV CONTRAST CLINICAL HISTORY: Headache. COMPARISON STUDY: CT an MRI of the brain dated 07/04/2017. TECHNIQUE: Unenhanced axial CT scan of the brain is performed from the vertex to the skull base. A dose lowering technique was utilized adhering to the principles of ALARA. CT DOSE: 537.48 mGy.cm FINDINGS: Brain parenchyma: The brain parenchyma is normal in appearance. There is no hemorrhage, mass effect, or evidence of acute territorial ischemia by CT criteria. Peter-white matter is preserved. No extra-axial fluid collection is seen. Ventricles, sulci, cisterns: Normal in configuration. Intracranial vasculature: The visualized intracranial vasculature at the skull base is normal in appearance. Calvarium: Unremarkable. Sinuses and mastoids: Mucosal thickening is seen within the right maxillary antrum and the ethmoid sinuses. Trace fluid is noted in the right sphenoid sinus. The mastoid air cells are well pneumatized. Orbits: The bony orbits are grossly intact. IMPRESSION: There is no hemorrhage, mass effect, or evidence of acute territorial ischemia by CT criteria. Electronically signed by: Bashir Brand M.D. 07/11/2017 7:01 AM Dictated Date/Time: 07/11/2017 6:59 AM
--- NOTE | 2017-07-11 07:08 | DIAGNOSTIC IMAGING REPORT ---
CHEST ONE VIEW PORTABLE CLINICAL HISTORY: Chest Pain COMPARISON STUDY: 07/07/2017 FINDINGS: The heart is markedly enlarged. There is central vascular prominence. There is no focal pulmonary consolidation. No pleural effusions are visualized.[ IMPRESSION: Cardiomegaly with possible mild central pulmonary vascular congestion. No evidence of focal pulmonary consolidation. Evaluation limited due to patient's body habitus. Electronically signed by: Romain Valencia M.D. 07/11/2017 7:07 AM Dictated Date/Time: 07/11/2017 7:06 AM
[2017-07-11] MEDS: SERTRALINE HCL 100 MG TAB PO SCH ×2 (08:18→19:29)
[2017-07-11] MEDS: GABAPENTIN 600 MG TAB PO SCH ×3 (08:18→19:29)
[2017-07-11] MEDS: LABETALOL HCL 200 MG TAB PO SCH ×3 (08:18→19:29)
[2017-07-11] MEDS ORDERED: LABETALOL HCL 200 MG TAB PO SCH (09:00)
[2017-07-11] MEDS ORDERED: LOSARTAN POTASSIUM 25 MG TAB PO SCH (09:00)
[2017-07-11 09:39] LABS: BLOOD UREA NITROGEN 19 mg/dl (7-18); BUN/CREATININE RATIO 12.9 (10-20); CALCIUM 8.6 mg/dl (8.5-10.1); CARBON DIOXIDE 31 mmol/L (21-32); CHLORIDE 107 mmol/L (98-107); GLUCOSE 98 mg/dl (70-99); SODIUM 143 mmol/L (136-145)
--- NOTE | 2017-07-11 12:25 | Hospitalist Progress Note ---
Hospitalist Progress Note Date of Service Jul 11, 2017. (Ximena Gillespie .MARY) Subjective Pt evaluation today including: conversation w/ patient, physical exam, chart review, lab review, review of inpatient medication list Ms. St continues to have a headache with 10/10 pain. She also complains of chest tightness. Her right leg continues to be edematous but is not painful. Respiratory: No cough, No shortness of breath Cardiovascular: + see HPI, No palpitations Abdomen: + nausea, No pain, No vomiting All Other Systems: Reviewed and Negative (Ximena Gillespie CRNP) Medications Medications (Trade) Dose Ordered Sig/Randi Route Start Time Stop Time Status Last Admin Dose Admin Labetalol HCl (Normodyne IV) 20 mg NOW STAT IV 07/10/17 23:22 07/10/17 23:25 DC 07/10/17 23:34 20 MG Labetalol HCl (Normodyne IV) 20 mg NOW STAT IV 07/11/17 00:04 07/11/17 00:05 DC 07/11/17 00:25 20 MG Hydralazine HCl (HydrALAZINE INJ) 10 mg NOW STAT IV. 07/11/17 00:37 07/11/17 00:39 DC 07/11/17 00:43 10 MG Nitroglycerin (Nitrostat Tab) 0.4 mg NOW STAT SL 07/11/17 00:37 07/11/17 00:39 DC 07/11/17 00:43 0.4 MG Ondansetron HCl (Zofran Inj) 4 mg NOW STAT IV 07/11/17 00:37 07/11/17 00:39 DC 07/11/17 00:43 4 MG Nicardipine HCl 25 mg/Sodium Chloride 250 ml @ 0 mls/hr Q0M STAT IV 07/11/17 00:40 07/11/17 00:42 DC 07/11/17 01:01 25 MLS/HR Acetaminophen (Tylenol Tab) 1,000 mg NOW STAT PO 07/11/17 01:10 07/11/17 01:11 DC 07/11/17 01:17 1,000 MG Acetaminophen (Tylenol Tab) 650 mg Q4H PRN PO 07/11/17 01:45 08/10/17 01:44 07/11/17 11:23 650 MG Ondansetron HCl (Zofran Inj) 4 mg Q6H PRN IV 07/11/17 01:45 08/10/17 01:44 07/11/17 10:33 4 MG Gabapentin (Neurontin Tab) 600 mg TID PO 07/11/17 09:00 08/10/17 08:59 07/11/17 08:18 600 MG Hydralazine HCl (Apresoline Tab) 25 mg TID PO 07/11/17 09:00 08/10/17 08:59 07/11/17 08:19 25 MG Sertraline HCl (Zoloft Tab) 100 mg BID PO 07/11/17 09:00 08/10/17 08:59 07/11/17 08:18 100 MG Labetalol HCl (Normodyne Tab) 200 mg ONE ONCE PO 07/11/17 03:30 07/11/17 03:33 DC 07/11/17 04:32 200 MG Labetalol HCl (Normodyne Tab) 400 mg TID PO 07/11/17 09:00 08/10/17 08:59 07/11/17 08:18 400 MG Metoprolol Tartrate (Lopressor Iv) 5 mg Q4 PRN IV 07/11/17 05:00 08/10/17 04:59 07/11/17 11:27 5 MG (Ximena Gillespie, MARY) Objective Vital Signs Date Time Temp Pulse Resp B/P (MAP) Pulse Ox O2 Delivery O2 Flow Rate FiO2 07/11/17 11:59 157/118 (131) 07/11/17 11:27 90 173/135 07/11/17 11:15 36.8 88 22 173/135 (148) 91 Room Air 07/11/17 08:00 Room Air 07/11/17 06:48 36.5 93 22 184/118 (140) 92 Room Air 07/11/17 04:35 Room Air 07/11/17 04:10 36.5 96 22 179/110 (133) 91 Room Air 07/11/17 02:30 36.8 100 159/92 93 Room Air 07/11/17 02:20 102 20 146/101 94 07/11/17 01:33 104 142/61 92 Room Air 07/11/17 01:14 105 191/100 94 Room Air 07/11/17 01:00 172/126 07/11/17 00:51 105 21 184/109 94 Room Air 07/11/17 00:22 107 19 257/172 96 Room Air 07/10/17 23:38 109 24 242/167 96 Room Air 07/10/17 23:15 112 07/10/17 23:14 96 Room Air 07/10/17 23:01 37.1 111 20 217/145 97 Room Air (Ximena Gillespie CRNP) Physical Exam Notes: General: no distress Eyes: normal inspection, PERLL Respiratory: chest non tender, clear to auscultation, normal breath sounds, no respiratory distress, no accessory muscle use Cardiac: regular rate and rhythm, no rub or gallop, no murmur, no edema, no jvd GI/: active bowel sounds, no abd pain or tenderness, soft, non distended Extremities: normal range of motion, normal strength, non tender, right lower extremity +1 pitting edema Neuro/Psych: alert and oriented x 3, normal mood and affect Skin: normal color, dry (Ximena Gillespie CRNP) Laboratory Results Last 24 Hours Test 07/10/17 23:27 07/11/17 08:32 07/11/17 08:37 White Blood Count 10.50 K/uL Red Blood Count 4.47 M/uL Hemoglobin 12.1 g/dL Hematocrit 38.1 % Mean Corpuscular Volume 85.2 fL Mean Corpuscular Hemoglobin 27.1 pg Mean Corpuscular Hemoglobin Concent 31.8 g/dl Platelet Count 197 K/uL Mean Platelet Volume 10.1 fL Neutrophils (%) (Auto) 60.9 % Lymphocytes (%) (Auto) 20.2 % Monocytes (%) (Auto) 6.5 % Eosinophils (%) (Auto) 11.9 % Basophils (%) (Auto) 0.2 % Neutrophils # (Auto) 6.40 K/uL Lymphocytes # (Auto) 2.12 K/uL Monocytes # (Auto) 0.68 K/uL Eosinophils # (Auto) 1.25 K/uL Basophils # (Auto) 0.02 K/uL RDW Standard Deviation 46.7 fL RDW Coefficient of Variation 15.1 % Immature Granulocyte % (Auto) 0.3 % Immature Granulocyte # (Auto) 0.03 K/uL Prothrombin Time 12.0 SECONDS Prothromb Time International Ratio 1.1 Activated Partial Thromboplast Time 24.5 SECONDS Partial Thromboplastin Ratio 0.9 Sodium Level 144 mmol/L 143 mmol/L Potassium Level 3.6 mmol/L mmol/L 3.8 mmol/L Chloride Level 107 mmol/L 107 mmol/L Carbon Dioxide Level 29 mmol/L 31 mmol/L Anion Gap 8.0 mmol/L 5.0 mmol/L Blood Urea Nitrogen 23 mg/dl 19 mg/dl Creatinine 1.70 mg/dl 1.50 mg/dl Est Creatinine Clear Calc Drug Dose 56.0 ml/min 64.4 ml/min Estimated GFR () 44.8 52.1 Estimated GFR (Non- 38.7 45.0 BUN/Creatinine Ratio 13.6 12.9 Random Glucose 90 mg/dl 98 mg/dl Calcium Level 8.4 mg/dl 8.6 mg/dl Magnesium Level 1.9 mg/dl Total Creatine Kinase 82 U/L Creatine Kinase MB 3.0 ng/ml Creatine Kinase MB Ratio 3.7 Troponin I 2.330 ng/ml 1.950 ng/ml (Ximena Gillespie CRNP) Assessment and Plan 32 yo F with known labile hypertension, poor compliance, and multiple re- admissions presents with hypertensive urgency and headache. Pt is high risk for leaving AMA, and I have concerns for substance misuse potential - No Narcotics HTN - Restart home medications, Labetalol increased to 400 mg TID - Continue Losartan and Hydralazine - Hydralazine, labetalol IV prn for elevated pressures Headache - dilaudid x1 dose. Chest pain - EKG - continues to show inferolateral ischemia which has been shown on EKGs in the past. 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 Discussed with Hien Gillespie NP and agree with findings and plan as documented in the note. Any exceptions or clarifications are listed here: None Patient is here with intractable headache and hypertension concern about lower extremity edema no DVTs present Headache is described as bifrontal radiating to her back consistent with a tension headache. The patient has many drug allergies and intolerances. The patient will be given 1 dose of intravenous hydromorphone and 1 g of magnesium IV increasing her Lamictal. Neurologically she is awake alert appropriate. Strength and sensation upper or lower extremities are intact Intractable headache and hypertension exacerbated by pain attempt to control her headache with adjunctive measures not using opiates that she's had difficulties in the past with them and dose was given today to try to break the cycle may consider steroid use Documented By: Fidencio Patel (Fidencio Patel M.D.)
[2017-07-11] MEDS ORDERED: HYDROmorphone INJ 1 MG/ML SYR IV STA (13:25)
[2017-07-11] MEDS ORDERED: LABETALOL HCL IV 5 MG/ML 20ML IV PRN (14:00)
[2017-07-11] MEDS ORDERED: MAGNESIUM SULFATE 1GM / D5W 1 GM in PREMIXED IN D5W 100 ML IV ONE (18:00)
[2017-07-12] VITALS (9 sets, daily range): BP systolic 92–182; BP diastolic 58–120; PULSE 79–102; TEMP 36.5–37; O2SAT 91–100
[2017-07-12] MEDS: ACETAMINOPHEN 325 MG TAB PO PRN (00:30)
[2017-07-12] MEDS: ONDANSETRON INJ 2 MG/ML 2 ML VIAL IV PRN (00:32)
[2017-07-12] MEDS ORDERED: CLONAZEPAM 1 MG TAB PO ONE (01:00)
[2017-07-12] MEDS ORDERED: NURSING VERBAL MED ORDER ONE (01:15)
[2017-07-12] MEDS: HEPARIN SOD 5000 UNIT/0.5 ML CARP SQ SCH ×2 (06:00→14:00)
[2017-07-12] MEDS: GABAPENTIN 600 MG TAB PO SCH ×2 (08:59→14:39)
[2017-07-12] MEDS: LABETALOL HCL 200 MG TAB PO SCH ×2 (08:59→14:00)
[2017-07-12] MEDS: SERTRALINE HCL 100 MG TAB PO SCH (09:00)
[2017-07-12] MEDS ORDERED: APR50 PO (15:52)
[2017-07-12] MEDS ORDERED: LBT200 PO (15:52)
--- NOTE | 2017-07-12 15:57 | Discharge Instructions ---
Discharge Instructions Date of Service Jul 12, 2017. Admission Reason for Admission: Hypertenstion Discharge Discharge Diagnosis / Problem: hypertension Discharge Goals Goal(s): Improve disease control Activity Recommendations Activity Limitations: resume your previous activity . Instructions / Follow-Up Instructions / Follow-Up Please take your blood pressure every day and record a log of your readings to take with you to your follow up appointment on Tuesday. It is very important that you take your blood pressure medications as prescribed. Current Hospital Diet Patient's current hospital diet: AHA Diet (Heart Healthy), Low Sodium Diet (2gm Na), Diabetes Type 2 Diet Discharge Diet Recommended Diet: AHA Diet (Heart Healthy) Procedures Procedures Performed: CXR Head CT Lower extremity ultrasound Pending Studies Studies pending at discharge: no Laboratory Results Hemoglobin A1c Test 07/08/17 15:32 Range/Units Estimated Average Glucose 91 mg/dl Hemoglobin A1c 4.8 4.5-5.6 % Medical Emergencies . Who to Call and When: Medical Emergencies: If at any time you feel your situation is an emergency, please call 911 immediately. . Non-Emergent Contact Non-Emergency issues call your: Primary Care Provider Call Non-Emergent contact if: your pain is not controlled, your pain is worsening, your pain is unusual for you, your pain is concerning you, you have any medication questions . Past History Medical & Surgical History: (1) Hypertensive emergency (2) Elevated troponin . "Provider Documentation" section prepared by Ximena Gillespie. . VTE Core Measure Inpt VTE Proph given/why not?: SCD's
--- NOTE | 2017-07-12 16:10 | Discharge Summary ---
Discharge Summary Date of Service Jul 12, 2017. (Ximena Gillespie CRNP) Discharge Summary Admission Date: Jul 11, 2017 at 01:50 Discharge Date: Jul 12, 2017 Discharge Disposition: Home Principal Diagnosis: hypertension Problems/Secondary Diagnoses: (1) Adrenal tumor removed Status: Chronic (2) Anxiety and depression Status: Chronic (3) Depression Status: Chronic (4) GERD (gastroesophageal reflux disease) Status: Chronic (5) H/O arthroscopic knee surgery Status: Chronic (6) History of carpal tunnel surgery Status: Chronic (7) History of hysterectomy Status: Chronic (8) HTN (hypertension) Status: Chronic (9) Hx of appendectomy Status: Chronic (10) Hx of cholecystectomy Status: Chronic (11) Hx of decompressive lumbar laminectomy Status: Chronic (12) Hx of hemorrhoidectomy Status: Chronic (13) Hypothyroidism Status: Chronic (14) Lumbago Status: Chronic (15) Migraine Status: Chronic (16) Morbid Obesity Status: Chronic (17) Noncompliance with medications Status: Chronic (18) IGNACIO (obstructive sleep apnea) Status: Chronic (19) S/P tonsillectomy and adenoidectomy Status: Chronic Immunizations: Have You Had Influenza Vaccine: Yes History of Tetanus Vaccine?: Unknown History of Pneumococcal: Unknown History of Hepatitis B Vaccine: Unknown Procedures: CXR IMPRESSION: Cardiomegaly with possible mild central pulmonary vascular congestion. No evidence of focal pulmonary consolidation. Evaluation limited due to patient's body habitus. Head CT IMPRESSION: There is no hemorrhage, mass effect, or evidence of acute territorial ischemia by CT criteria. LE US IMPRESSION: No evidence of deep venous thrombus within the right lower extremity. (Ximena Gillespie CRNP) Medication Reconciliation New Medications: Hydralazine HCl (Hydralazine HCl) 50 Mg Tab 50 MG PO BID for 30 Days, #60 TAB Labetalol HCl (Labetalol HCl) 200 Mg Tab 400 MG PO BID for 30 Days, #120 TAB Continued Medications: Albuterol Hfa (Ventolin Hfa) 200 Puffs/01315 Mcg Aers 2-4 PUFFS INH Q6H PRN for SOB/Wheezing, #1 INHALER Buspirone Hcl (Buspirone Hcl) 10 Mg Tab 10 MG PO TID PRN for PRN PER PT., TAB Clonazepam (Clonazepam) 1 Mg Tab 1 MG PO BID PRN for Anxiety Gabapentin (Gabapentin) 600 Mg Tab 600 MG PO TID Losartan Potassium (Cozaar) 25 Mg Tab 25 MG PO DAILY, TAB Sertraline (Zoloft) 100 Mg Tab 100 MG PO BID, TAB Tizanidine (Zanaflex) 4 Mg Cap 4 MG PO TID PRN for Muscle Spasm, CAP Discontinued Medications: Amoxicillin & Pot Clavulanate (Augmentin 875-125 mg) 1 Tab Tab 1 TAB PO BIDM, #14 TAB LAST DOSE 07/10/17 PM DOSE. Hydralazine Hcl (Apresoline) 25 Mg Tab 25 MG PO TID Labetalol Hcl (Normodyne) 200 Mg Tab 200 MG PO TID, TAB Discharge Exam Review of Systems: Respiratory: No shortness of breath Cardiovascular: No chest pain Abdomen: No pain, No nausea, No vomiting Neurologic: + problem reported (no headache), No vertigo Physical Exam: General Appearance: WD/WN, no apparent distress Eyes: normal inspection Respiratory/Chest: chest non-tender, lungs clear, normal breath sounds, no respiratory distress, no accessory muscle use Cardiovascular: regular rate, rhythm, no gallop, no murmur Abdomen / GI: normal bowel sounds, non tender, soft, no organomegaly Neurologic/Psychiatric: alert, normal reflexes, oriented x 3 Skin: normal color, warm/dry (Ximena Gillespie ., MARY) Hospital Course 32 yo F with known labile hypertension, poor compliance, and multiple re- admissions presents with hypertensive urgency and headache. Pt is high risk for leaving AMA, and I have concerns for substance misuse potential HTN - Restart home medications, Labetalol increased to 400 mg BID - Continue Losartan - Hydralazine increased to 50 BID - Hydralazine, labetalol IV prn for elevated pressures Headache - dilaudid x1 dose. - home dose Zanaflex Chest pain - EKG - continues to show inferolateral ischemia which has been shown on EKGs in the past. - chest pain resolved - troponins trended down IGNACIO/nocturnal hypoxia - discussed with patient that her oxygen saturation dropped into the 70s over the night. Discussed the pros and cons of improving sleep oxygenation especially in light of her blood pressure issues but she will not agree to CPAP or nocturnal pulse ox study. Anxiety / Depression - Continue home Klonopin - Continue home Sertraline and Buspar Neuropathy - Continue home gabapentin VTE: Heparin Tele Full Code Total Time Spent: Greater than 30 minutes This includes examination of the patient, discharge planning, medication reconciliation, and communication with other providers. 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 Discussed with Ximena Gillespie CATERING SALES MANAGER and agree with findings and plan as documented in the note. Any exceptions or clarifications are listed here: None This patient has had improvement of her hypertension with resumption of medications almost too much control. It's evident that the patient's compliance is a factor. Her headache has resolved Her blood pressure now is slightly low at 90/50 she is asymptomatic This morning she was awake alert her heart was regular lungs were clear It was noted overnight that she has some hypoxic episodes. The patient to stay another night to have nocturnal oxymetry and consideration of home oxygen which she refused. Told her that this could cause danger to her and also possibility of having of play and her hypertension and headaches still was not interested The patient be discharged on labetalol and hydralazine with close outpatient follow-up continuing to consider outpatient sleep study Documented By: Fidencio Patel (Fidencio Patel M.D.) Discharge Instructions Please refer to the electronic Patient Visit Report (Discharge Instructions) for additional information. (Ximena Gillespie CRNP)
== END 2017-07-12 16:20 | disposition home or self-care (01) ==
LOC: C.EDB 22:59 → C.2T 07-11 01:50 → ENRESERV 07-11 02:09
PROVIDERS: ADMIT Hospitalist; ATTEND Internal Medicine
DX: I12.9 Hypertensive chronic kidney disease with stage 1 through stage 4 chronic kidney disease, or unspecified chronic kidney disease (principal); N18.3 Chronic kidney disease, stage 3 (moderate); R79.89 Other specified abnormal findings of blood chemistry; F32.9 Major depressive disorder, single episode, unspecified; K21.9 Gastro-esophageal reflux disease without esophagitis; I25.10 Atherosclerotic heart disease of native coronary artery without angina pectoris; E03.9 Hypothyroidism, unspecified; G62.9 Polyneuropathy, unspecified; I42.9 Cardiomyopathy, unspecified; E66.01 Morbid (severe) obesity due to excess calories; G47.33 Obstructive sleep apnea (adult) (pediatric); Z91.14 Patient's other noncompliance with medication regimen; Z90.710 Acquired absence of both cervix and uterus; Z90.49 Acquired absence of other specified parts of digestive tract; Z83.3 Family history of diabetes mellitus; Z82.49 Family history of ischemic heart disease and other diseases of the circulatory system; Z84.1 Family history of disorders of kidney and ureter

== ENCOUNTER 2017-08-02 13:19 | Emergency (ER) | payer OTHER ==
[~2017-08-02] VITALS: Ht 157.5 cm; Wt 107.9 kg
[~2017-08-02 13:19] MED LIST changes: -AMOX1TAB43 PO; -APR25 PO; +APR50 PO; -CZR25 PO; +LOSA1TAB PO
[2017-08-02 13:23] VITALS: TEMP 36.6; Ht 157.5 cm; Wt 107.9 kg
[2017-08-02] MEDS ORDERED: DICY10CA12 PO (14:03)
[2017-08-02] MEDS ORDERED: LABE1TAB28 PO (14:03)
[2017-08-02 15:03] LABS: BASO % 0.2 %; BASO ABS # 0.03 K/uL (0-0.2); COMPLETE YES; EOS % 15.1 %; HEMATOCRIT 40.2 % (37-47); IG% 0.3 %; LYMPH ABS # 3.36 K/uL (1.2-3.4); MEAN CELL VOLUME 84.5 fL (80-100); MEAN CORPUSCULAR HEMOGLOBIN 27.7 pg (25-34); MEAN CORPUSCULAR HGB CONC 32.8 g/dl (32-36); MEAN PLATELET VOLUME 10.8 fL (7.4-10.4); MONO % 6.9 %; NEUT % 55.5 %; PLATELET COUNT 221 K/uL (130-400); RED BLOOD COUNT 4.76 M/uL (4.2-5.4); WHITE BLOOD COUNT 15.27 K/uL (4.8-10.8)
[2017-08-02 15:19] LABS: BLOOD UREA NITROGEN 21 mg/dl (7-18); BUN/CREATININE RATIO 14.1 (10-20); CALCIUM 8.2 mg/dl (8.5-10.1); CARBON DIOXIDE 30 mmol/L (21-32); CHLORIDE 105 mmol/L (98-107); CREATININE 1.49 mg/dl (0.60-1.20); GLUCOSE 99 mg/dl (70-99); POTASSIUM 4.5 mmol/L (3.5-5.1); SODIUM 139 mmol/L (136-145)
[2017-08-02 15:30] LABS: ALKALINE PHOSPHATASE 65 U/L (45-117); ALT/SGPT 19 U/L (12-78); AST/SGOT 11 U/L (15-37)
--- NOTE | 2017-08-02 15:40 | DIAGNOSTIC IMAGING REPORT ---
L KNEE 3 VIEWS CLINICAL HISTORY: Left knee pain COMPARISON: None. DISCUSSION: No acute fractures are visualized. There are mild osteoarthritic changes. No destructive lesions are delineated. IMPRESSION: 1. No acute fractures 2. Moderate osteoarthritic change. Electronically signed by: Romain Valencia M.D. 08/02/2017 3:38 PM Dictated Date/Time: 08/02/2017 3:38 PM
[2017-08-02 16:13] VITALS: BP 127/95; PULSE 95; O2SAT 98
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
== END 2017-08-02 16:15 | disposition home or self-care (01) ==
LOC: C.EDB 13:21 → C.EDA 16:15
DX: F41.9 Anxiety disorder, unspecified (principal); M25.562 Pain in left knee; I10 Essential (primary) hypertension; E78.5 Hyperlipidemia, unspecified; F32.9 Major depressive disorder, single episode, unspecified; K21.9 Gastro-esophageal reflux disease without esophagitis; E03.9 Hypothyroidism, unspecified; K58.9 Irritable bowel syndrome, unspecified; G47.33 Obstructive sleep apnea (adult) (pediatric); E28.2 Polycystic ovarian syndrome; I25.10 Atherosclerotic heart disease of native coronary artery without angina pectoris; Z86.19 Personal history of other infectious and parasitic diseases; Z79.899 Other long term (current) drug therapy; Z90.710 Acquired absence of both cervix and uterus; Z90.49 Acquired absence of other specified parts of digestive tract; Z98.890 Other specified postprocedural states; Z88.2 Allergy status to sulfonamides; Z88.8 Allergy status to other drugs, medicaments and biological substances; Z80.9 Family history of malignant neoplasm, unspecified; Z83.3 Family history of diabetes mellitus; Z82.49 Family history of ischemic heart disease and other diseases of the circulatory system; Z83.79 Family history of other diseases of the digestive system; Z84.1 Family history of disorders of kidney and ureter

== ENCOUNTER 2017-08-29 14:13 | Emergency (ER) | payer OTHER ==
[~2017-08-29] VITALS: Ht 157.5 cm; Wt 112.0 kg
[~2017-08-29 14:13] MED LIST changes: +DICY10CA12 PO; +LABE1TAB28 PO; -LBT200 PO
[2017-08-29 14:15] VITALS: BP 186/138; PULSE 112; TEMP 36.3; O2SAT 94; Ht 157.5 cm; Wt 112.0 kg
[2017-08-29] MEDS ORDERED: DICL1GEL12 TOP (14:36)
[2017-08-29] MEDS ORDERED: OXYC1TAB3 PO (14:36)
--- NOTE | 2017-08-29 14:38 | EMERGENCY ROOM VISIT NOTE ---
ED Visit Note First contact with patient: 14:19 CHIEF COMPLAINT: Left knee pain HISTORY OF PRESENT ILLNESS: This 32-year-old female patient presents to the emergency department complaining of acute flare up of pain in her left knee. The patient states she does have a history of chronic left knee pain, but over the past week, she is experiencing worsening pain and "locking up" of the left knee. She states the knee seems to be locking up, however she does continue to have full range of motion when this occurs. She states this may last a few minutes to a few hours and then it pops back into place. The patient is a patient of [facility], and did recently have an MRI of the same name several weeks ago. She was told at that time that they do not feel that she will need surgery or pain medication due to the MRI results only showing some arthritis. The patient states she has been taking 1000 mg Tylenol every 4- 6 hours, which does not help her pain. She is quick to tell me that she is unable to take tramadol or NSAIDs due to history of kidney failure. The pain is all throughout the knee, and she is unable to localize a specific spot. She states when the pain is severe, she is unable to tolerate bearing weight. She describes it as throbbing and sharp, and rates it greater than 10/10. The patient has a history of meniscus tear and arthritis in her right knee, and states this pain feels similar, but more intense than not did prior to her surgeries. The patient denies any other injuries besides their knee. The patient denies swelling or bruising. The patient states they are able to walk on it, but she has been using crutches and a brace which she has from previous injuries to help with ambulation. No numbness or tingling. No previous injuries to this knee. No ankle, foot or hip pain. REVIEW OF SYSTEMS: A 6 system review of systems was completed with positives and pertinent negatives listed in the HPI. ALLERGIES: Lisinopril, tramadol, NSAIDs, sulfa antibiotics MEDICATIONS: Hydralazine, Zanaflex, gabapentin, clonazepam, sertraline, losartan , labetalol, dicyclomine PMH: Anxiety, hypertension, panic depressive disorder, PCOS, spinal fusion SOCIAL HISTORY: The patient lives locally with family. She denies drug, alcohol , tobacco use. PHYSICAL EXAM: Vital Signs: Reviewed Nurse's notes, vital signs stable. GENERAL : This is a 32-year-old obese white female, no acute distress, but appears in pain, well-developed, well-nourished. MENTAL STATUS: Alert, oriented to person place and time, and uncooperative. MUSCULOSKELETAL: The left knee is not swollen. There is no ecchymosis. There is no joint effusion present. The patient is tender at the entire knee, and she is not willing to allow me to properly examine the knee. There is joint line tenderness. The patella does appropriately subluxate. Range of motion is significantly limited due to pain. Strength of the quads and hamstrings is 4/5. Andreia's is positive for significant discomfort. Mari's and Anterior Drawer tests are negative for laxity, but do cause significant discomfort. There is significant pain, but no laxity with varus and valgus stressing. The foot and toes are warm and well- perfused. Dorsalis pedis pulse 2+. Sensation to pain and light touch is intact. Capillary refill less than 2 seconds. EMERGENCY DEPARTMENT COURSE: I examined the patient. The patient did not have a recent injury to the knee, and states this seems to be a flareup of her chronic knee pain. The patient did recently have an MRI, and is currently under the care of [facility] regarding her The patient was placed in a knee immobilizer under my direction and the position was satisfactory. The patient was instructed on the use of crutches which she hard he had. The patient was discharged home in good condition. I attest that I have personally reviewed the patient's current medication list. Patient was found to have normal blood pressure on screening and does not require follow-up. DIFFERENTIAL DIAGNOSIS: Knee pain, meniscus tear, ligament tear, sprain, strain , fracture, malignancy, arthritis, cellulitis, and others DIAGNOSIS: Left knee pain Problem List Medical Problems: (1) Anxiety Status: Chronic (2) Anxiety and depression Status: Chronic (3) Depression Status: Chronic (4) Depression Status: Chronic (5) GERD (gastroesophageal reflux disease) Status: Chronic (6) GERD (gastroesophageal reflux disease) Status: Chronic (7) HTN (hypertension) Status: Chronic (8) Hypertension Status: Chronic (9) Hypothyroidism Status: Chronic (10) Hypothyroidism Status: Chronic (11) IBS (irritable bowel syndrome) Status: Chronic (12) Left ventricular hypertrophy Permanent Comment: severe concentric LVH, IVSd 2.3 cm 06/18/16 Status: Chronic (13) Lumbago Status: Chronic (14) Lumbar disc disorder Status: Chronic (15) Migraine Status: Chronic (16) Migraine Status: Chronic (17) Morbid Obesity Status: Chronic (18) Non-occlusive coronary artery disease Status: Chronic (19) Noncompliance with medications Status: Chronic (20) Obesity Status: Chronic (21) IGNACIO (obstructive sleep apnea) Status: Chronic (22) IGNACIO (obstructive sleep apnea) Status: Chronic (23) Polycystic ovarian syndrome Status: Chronic Surgical Problems: (1) Adrenal tumor removed Status: Chronic (2) H/O arthroscopic knee surgery Status: Chronic (3) H/O arthroscopic knee surgery Status: Chronic (4) H/O hemorrhoidectomy Status: Chronic (5) H/O: hysterectomy Status: Chronic (6) History of carpal tunnel surgery Status: Chronic (7) History of carpal tunnel surgery Status: Chronic (8) History of hysterectomy Status: Chronic (9) Hx of appendectomy Status: Chronic (10) Hx of cholecystectomy Status: Chronic (11) Hx of decompressive lumbar laminectomy Status: Chronic (12) Hx of hemorrhoidectomy Status: Chronic (13) Hx of partial thyroidectomy Status: Chronic (14) S/P appendectomy Status: Chronic (15) S/P cholecystectomy Status: Chronic (16) S/p removal adrenal gland tumor Status: Chronic (17) S/P tonsillectomy and adenoidectomy Status: Chronic (18) S/P tonsillectomy and adenoidectomy Status: Chronic Current/Historical Medications Scheduled Diclofenac Sodium (Topical) (Voltaren 1% Top Gel), 4 GM TOP QID Dicyclomine Hcl (Dicyclomine Hcl), 10 MG PO TID Gabapentin (Gabapentin), 600 MG PO TID Hydralazine HCl (Hydralazine HCl), 50 MG PO BID Labetalol (Normodyne), 400 MG PO TID Losartan Potassium (Cozaar), 25 MG PO DAILY Sertraline (Zoloft), 100 MG PO BID Scheduled PRN Albuterol Hfa (Ventolin Hfa), 2-4 PUFFS INH Q6H PRN for SOB/Wheezing Buspirone Hcl (Buspirone Hcl), 10 MG PO TID PRN for PRN PER PT. Clonazepam (Clonazepam), 1 MG PO TID PRN for Anxiety Oxycodone Ir (Roxicodone Ir), 1 TAB PO Q4H PRN for Pain Tizanidine (Zanaflex), 4 MG PO TID PRN for Muscle Spasm Allergies Coded Allergies: Sulfa Antibiotics (Verified Allergy, Severe, RASH, DIFFICULTY BREATHING, HAD LASIX OK PREV.ADM., 07/11/17) Lisinopril (Verified Adverse Reaction, Severe, renal failure, 07/11/17) NSAIDs (Verified Adverse Reaction, Unknown, KIDNEY FAILURE, 07/11/17) PATIENT REPORTS SCOOPING MACHINE TENDER TOLD PATIENT TO STAY AWAY FROM DUE TO KIDNEY FUNCTION Tramadol (Verified Adverse Reaction, Unknown, "MAKES ME DIZZY", 07/11/17) Vital Signs Date Time Temp Pulse Resp B/P (MAP) Pulse Ox O2 Delivery O2 Flow Rate FiO2 08/29/17 14:15 36.3 112 20 186/138 94 Room Air Departure Information Impression Primary Impression: Left knee pain Dispostion Home / Self-Care Condition GOOD Prescriptions Diclofenac Sodium (Topical) (VOLTAREN 1% TOP GEL) 1 % Gel 4 GM TOP QID, #1 TUBE Prov: Lissa Banegas PA-C 08/29/17 Oxycodone Ir (Roxicodone Ir) 5 Mg Tab 1 TAB PO Q4H Y for Pain, #6 TAB For Initial Treatment Prov: Lissa Banegas PA-C 08/29/17 Referrals No Doctor, Assigned (PCP) [facility] Patient Instructions ED Immobilizer Knee, ED Knee Pain [facility] Additional Instructions You have been treated in the Emergency Department for Knee Pain. You have been prescribed OxyIR to be used for pain control. This is a narcotic medication. You cannot drive or consume alcohol while on this medicine. This medicine should only be used for pain that cannot be controlled with over-the- counter pain medicines. For pain control, you can use the following [id number] medicines (if >12 yo): Ibuprofen(Motrin, Advil) may be used for fever or pain. Use 600mg every six hours as needed. Take with food. Avoid using more than 2400mg in a 24 hour period. Do not use 2400mg per day for more than three consecutive days without physician direction. Prolonged inappropriate use can lead to stomach upset or ulcers. (AND/OR) Acetaminophen(Tylenol) may be used for fever or pain. Use 1000mg every six hours as needed. Avoid using more than 3000mg in a 24 hour period. Use Voltaren gel as prescribed to help with pain in the knee. If this is a recent injury (<24 hrs), ice can be applied to the area of pain for the first 3 days to help decrease pain and inflammation. Ice massages can be performed by freezing water in a paper cup, peeling back the cup to expose the ice and then massaging over the affected area. Contact your orthopedic surgeon today to schedule an appointment for later this week. Keep the knee brace in place until cleared by Orthopedics. Use the crutches you have been provided to keep ALL weight off of the knee until weight bearing is tolerable. Return to the Emergency Department if your current symptoms worsen despite treatment course outlined above. Problem Qualifiers Primary Impression: Left knee pain Chronicity: acute Qualified Codes: M25.562 - Pain in left knee
== END 2017-08-29 14:51 | disposition home or self-care (01) ==
LOC: C.EDB 14:14 → C.EDD 14:51
DX: M25.562 Pain in left knee (principal); I10 Essential (primary) hypertension; E03.9 Hypothyroidism, unspecified; I25.10 Atherosclerotic heart disease of native coronary artery without angina pectoris; F41.9 Anxiety disorder, unspecified; F32.9 Major depressive disorder, single episode, unspecified; K21.9 Gastro-esophageal reflux disease without esophagitis; K58.9 Irritable bowel syndrome, unspecified; E28.2 Polycystic ovarian syndrome; G47.33 Obstructive sleep apnea (adult) (pediatric); Z98.1 Arthrodesis status; Z90.710 Acquired absence of both cervix and uterus; Z90.49 Acquired absence of other specified parts of digestive tract; Z96.659 Presence of unspecified artificial knee joint; Z98.890 Other specified postprocedural states; Z79.899 Other long term (current) drug therapy; Z88.2 Allergy status to sulfonamides; Z88.8 Allergy status to other drugs, medicaments and biological substances

== ENCOUNTER → 2017-09-09 | Outpatient (CLI) | payer OTHER ==
[~2017-09-09] MED LIST changes: +DICL1GEL12 TOP; +HYDR-4717 PO; +OXYC15TA89 PO; +OXYC1TAB3 PO
[2017-09-09 12:29] LABS: ALB/GLOB RATIO 0.9 (0.9-2); ALKALINE PHOSPHATASE 68 U/L (45-117); ALT/SGPT 23 U/L (12-78); AST/SGOT 8 U/L (15-37); BLOOD UREA NITROGEN 16 mg/dl (7-18); BUN/CREATININE RATIO 11.3 (10-20); CALCIUM 9.1 mg/dl (8.5-10.1); CARBON DIOXIDE 29 mmol/L (21-32); CHLORIDE 103 mmol/L (98-107); CHOLESTEROL 237 mg/dl (0-200); CHOLESTEROL/HDL RATIO 5.9; GLUCOSE 120 mg/dl (70-99); HDL CHOLESTEROL 40 mg/dl; LDL CHOLESTEROL CALCULATED 155 mg/dl; POTASSIUM 4.4 mmol/L (3.5-5.1); SODIUM 135 mmol/L (136-145); TRIGLYCERIDES 211 mg/dl (0-150); VERY LOW DENSITY LIPOPROT CALC 42 mg/dl
== END | disposition home or self-care (01) ==
LOC: C.LAB 10:15
PROVIDERS: ATTEND Neuromusculoskeletal Medicine & OMM
DX: N18.3 Chronic kidney disease, stage 3 (moderate) (principal); E78.5 Hyperlipidemia, unspecified; I12.9 Hypertensive chronic kidney disease with stage 1 through stage 4 chronic kidney disease, or unspecified chronic kidney disease; E66.9 Obesity, unspecified

== ENCOUNTER → 2017-09-15 | Outpatient (CLI) | payer OTHER | END | disposition home or self-care (01) | LOC: C.LAB1850 11:04 | PROVIDERS: ATTEND Neuromusculoskeletal Medicine & OMM | DX: I10 Essential (primary) hypertension (principal); R74.8 Abnormal levels of other serum enzymes ==

== ENCOUNTER → 2017-09-28 | Day surgery (SDC) | payer OTHER ==
[2017-09-09 10:48] VITALS: BMI 43.0
--- NOTE | 2017-09-09 11:32 | PAT Medication Instructions ---
Service Date Sep 09, 2017. Current Home Medication List Albuterol Hfa (Ventolin Hfa), 2-4 PUFFS INH Q6H PRN for SOB/Wheezing Dicyclomine Hcl (Dicyclomine Hcl), 10 MG PO TID Gabapentin (Gabapentin), 600 MG PO TID Hydralazine Hcl (Apresoline), 50 MG PO BID Labetalol (Normodyne), 400 MG PO TID Losartan Potassium (Cozaar), 50 MG PO QAM Oxycodone Hcl (Oxycontin), 5 MG PO BID Sertraline (Zoloft), 100 MG PO BID Tizanidine (Zanaflex), 4 MG PO TID PRN for Muscle Spasm Medication Instructions For Your Scheduled Surgery - Hold the following medications the morning of surgery: Dicyclomine Hcl (Dicyclomine Hcl), 10 MG PO TID Hydralazine Hcl (Apresoline), 50 MG PO BID Losartan Potassium (Cozaar), 50 MG PO QAM Tizanidine (Zanaflex), 4 MG PO TID PRN for Muscle Spasm - Take the following medications the morning of surgery with a sip of water: Sertraline (Zoloft), 100 MG PO BID Oxycodone Hcl (Oxycontin), 5 MG PO BID (okay to take up to 4 hours prior to surgery if needed) Labetalol (Normodyne), 400 MG PO TID Gabapentin (Gabapentin), 600 MG PO TID Albuterol Hfa (Ventolin Hfa), 2-4 PUFFS INH Q6H PRN for SOB/Wheezing (if needed) - Take the following medications as scheduled the night before surgery: Tizanidine (Zanaflex), 4 MG PO TID PRN for Muscle Spasm Sertraline (Zoloft), 100 MG PO BID Oxycodone Hcl (Oxycontin), 5 MG PO BID Labetalol (Normodyne), 400 MG PO TID Gabapentin (Gabapentin), 600 MG PO TID Dicyclomine Hcl (Dicyclomine Hcl), 10 MG PO TID Albuterol Hfa (Ventolin Hfa), 2-4 PUFFS INH Q6H PRN for SOB/Wheezing (if needed) If you have any questions please call us at [phone] or [phone] or [phone]
[2017-09-09 12:11] LABS: BASO % 0.3 %; BASO ABS # 0.04 K/uL (0-0.2); EOS % 7.9 %; EOS ABS # 0.99 K/uL (0-0.5); HEMATOCRIT 40.7 % (37-47); HEMOGLOBIN 13.3 g/dL (12.0-16.0); IG# 0.05 K/uL (0.00-0.02); LYMPH % 13.5 %; LYMPH ABS # 1.69 K/uL (1.2-3.4); MEAN CELL VOLUME 83.6 fL (80-100); MEAN CORPUSCULAR HEMOGLOBIN 27.3 pg (25-34); MEAN CORPUSCULAR HGB CONC 32.7 g/dl (32-36); MEAN PLATELET VOLUME 11.3 fL (7.4-10.4); MONO % 6.3 %; MONO ABS # 0.79 K/uL (0.11-0.59); NEUT % 71.6 %; NEUT ABS # 8.98 K/uL (1.4-6.5); PLATELET COUNT 230 K/uL (130-400); RED CELL DISTRIBUTION WIDTH CV 14.4 % (11.5-14.5); RED CELL DISTRIBUTION WIDTH SD 43.9 fL (36.4-46.3); WHITE BLOOD COUNT 12.54 K/uL (4.8-10.8)
[2017-09-09 12:17] LABS: PTT PATIENT 25.2 SECONDS (21.0-31.0)
[2017-09-09 12:24] LABS: HEMOGLOBIN A1C 5.4 % (4.5-5.6)
--- NOTE | 2017-09-27 12:48 | HISTORY & PHYSICAL EXAMINATION ---
DATE OF ADMISSION: 09/28/2017 CHIEF COMPLAINT: Chronic left knee pain. HISTORY OF PRESENT ILLNESS: A 32-year-old female patient of Dr. West complaining of chronic left knee pain. She has failed conservative treatment. MRI confirms chondromalacia and a lateral meniscal tear. She was to proceed with total left knee arthroscopic lateral meniscectomy with chondroplasty. PAST MEDICAL HISTORY: Angina, hypertension, recent pneumonia in July 2017, sleep apnea, anxiety, hypothyroidism, spine problems, neck problems, sciatica, obesity. SOCIAL HISTORY: Nonsmoker, nondrinker. PAST SURGICAL HISTORY: Tonsillectomy, adenoids, gallbladder, appendix, carpal tunnel, right knee surgery x2, spinal fusion and goiter removal. FAMILY HISTORY: Noncontributory. REVIEW OF SYSTEMS: The patient complains of chronic left knee pain, catching, and instability. Otherwise, denies any shortness of breath, chest pain, nausea, vomiting or any other joint complaints. MEDICATIONS: Klonopin 1 mg t.i.d., labetalol 200 mg t.i.d., Neurontin 600 mg t.i.d., hydralazine 50 mg t.i.d., losartan 50 mg daily. ALLERGIES: INCLUDE SULFA AND TRAMADOL. PHYSICAL EXAMINATION: GENERAL: A well-developed, well-nourished 32-year-old female in no acute distress. She is alert and oriented x3 and pleasant. HEENT: Normocephalic, atraumatic. Extraocular motions are intact. Pupils are equal and reactive to light. HEART: Regular rate and rhythm, no murmurs. LUNGS: Clear. ABDOMEN: Obese, soft and nontender. Bowel sounds present. EXTREMITIES: Left knee valgus deformity. She has a limited range of motion of negative 15 to 95 degrees. She has mild swelling with crepitation. She has medial and lateral joint line tenderness. She has a lateral sitting patella. NEUROLOGIC: Neurovascularly, she is intact in her left lower extremity. DIAGNOSES: Left knee lateral meniscus tear, chondromalacia. She also has a history of angina, hypertension, recent pneumonia in July 2017, sleep apnea, anxiety, hypothyroidism, spine problems, neck problems, sciatica, obesity. PLAN: The patient was advised of her diagnosis. Indications, risks, benefits, and postop course have all been reviewed. The patient wishes to proceed with a left arthroscopic partial lateral meniscectomy and chondroplasty. Necessary consent forms, preoperative testing and clearances will be obtained.
[~2017-09-28] VITALS: Ht 157.5 cm; Wt 106.7 kg
[~2017-09-28] MED LIST changes: -APR50 PO; +ATROPINE SULFATE 0.1 MG/ML 5ML SYR IV PRN; +BUPIVACAINE/EPINEPHRINE 0.5% MPF 1:200,000 30 ML VIAL ONE; -BUSP-8 PO; +CEFAZOLIN 2000MG IV PUSH 10 ML IV SCH; +CLON1TAB3 PO; -DICL1GEL12 TOP; +EpHEDrine SULFATE 50MG/5ML SYR ONE; +EpHEDrine SULFATE INJ 50 MG/ML AMP IV PRN; +FENTANYL CITRATE INJ 50 MCG/1 ML 2 ML VIAL ONE; +HYDROmorphone INJ 1 MG/ML SYR ONE; +HYDROmorphone INJ 2 MG/ML SYR/VIAL IV PRN; -KLN1X PO; +LACTATED RINGER'S 1000ML 1,000 ML IV SCH; +LACTATED RINGER'S 1000ML 500 ML IV ONE; +LARYING-O-JET KIT (LTA) ONE; +LIDOCAINE HCL 2% 2 ML VIAL (20MG/ML) ONE; +MIDAZOLAM HCL 1 MG/ML 2ML VIAL ONE; +ONDANSETRON INJ 2 MG/ML 2 ML VIAL IV PRN; +ONDANSETRON INJ 2 MG/ML 2 ML VIAL ONE; +OXYC-57 PO; -OXYC1TAB3 PO; +OXYCODONE/ACETAMINOPHEN 5-325 TAB PO PRN; +PHENYLEPHRINE 100MCG/ML 5ML SYR IV PRN; +PROPOFOL IV EMULSION 10 MG/ML 20 ML VIAL IV ONE; +SODIUM CHLORIDE 0.9% 1000ML 1,000 ML IV SCH; +SUCCINYLCHOLINE 100MG/5ML SYR IV ONE
[2017-09-28 09:56] VITALS: BP 116/87; PULSE 98; TEMP 36.7; O2SAT 97; Ht 157.5 cm; Wt 106.7 kg
--- NOTE | 2017-09-28 11:19 | History & Physical Bridge Note ---
H&P Re-Evaluation Bridge Note: I have examined the patient, reviewed the History & Physical and in the interval since the performance of the History & Physical I have noted the following changes of clinical significance: No changes noted
--- NOTE | 2017-09-28 16:04 | Discharge Instructions ---
Discharge Instructions Date of Service Sep 28, 2017. Admission Reason for Admission: Unilateral Primary Osteoarthritis, Left Knee Discharge Discharge Diagnosis / Problem: Left knee scope, partial lateral menisectomy, chondroplasty. Discharge Goals Goal(s): Improve function Activity Recommendations Activity Limitations: as noted below . Instructions / Follow-Up Instructions / Follow-Up Please see printed home instruction sheet in chart. Percocet as needed. Begin physical therapy 2-3 days post op or as scheduled. PT Rx in chart. Follow up with Dr. West's office 10-12 days post op, call [phone] to confirm appt. Current Hospital Diet Patient's current hospital diet: Discharge Diet Recommended Diet: Regular Diet Pending Studies Studies pending at discharge: no Laboratory Results Hemoglobin A1c Test 09/09/17 11:40 Range/Units Estimated Average Glucose 108 mg/dl Hemoglobin A1c 5.4 4.5-5.6 % Lipid Panel Test 09/09/17 11:40 Range/Units Triglycerides Level 211 H 0-150 mg/dl Cholesterol Level 237 H 0-200 mg/dl HDL Cholesterol 40 mg/dl Cholesterol/HDL Ratio 5.9 LDL Cholesterol, Calculated 155 mg/dl Medical Emergencies . Who to Call and When: Medical Emergencies: If at any time you feel your situation is an emergency, please call 911 immediately. . Non-Emergent Contact Non-Emergency issues call your: Primary Care Provider . "Provider Documentation" section prepared by Virgilio Longo. . VTE Core Measure Inpt VTE Proph given/why not?: Treatment not indicated [place] Drug Monitoring Program Search Results: patient reviewed within database, no issues identified
--- NOTE | 2017-09-28 16:29 | [facility] Post Operative Brief Note ---
Immediate Operative Summary Operative Date Sep 28, 2017. Pre-Operative Diagnosis Left knee lateral meniscus tear, chondromalacia patella ,patellofemoral malalignment,morbid obesity bmi 43 Post-Operative Diagnosis Left knee lateral meniscus tear(bucket handle tear), chondromalacia patellofemoral and lateral compartment grade 3,ganglion cyst anterior horn lateral meniscus Procedure(s) Performed Left Knee Arthroscopic Chondroplasty Patella femoral joint and lateral compartment, Lateral Release, Partial Lateral Menisctomy, Excision of ganglion cyst Surgeon Dr. West Relays Draftsperson Surgeon(s) none Estimated Blood Loss 10cc Findings as above Specimens None per surgeon Drains none Anesthesia general Complication(s) None Disposition Recovery Room / PACU
[2017-09-28 18:06] VITALS: BP 133/63; PULSE 76; TEMP 36.4; O2SAT 96
[2017-09-28 18:45] VITALS: BP 152/77; PULSE 80; O2SAT 96
[2017-09-28 19:15] VITALS: BP 157/73; PULSE 75; TEMP 36.4; O2SAT 94
--- NOTE | 2017-09-29 07:53 | OPERATIVE REPORT ---
DATE OF OPERATION: 09/28/2017 INDICATION FOR PROCEDURE: The patient is a 32-year-old female with left knee pain and locking. Radiographs demonstrate she has significant patellofemoral malalignment with lateral aligned patella. She has an MRI demonstrating significant knee effusion with chondromalacia patellofemoral joint and possible lateral meniscus tear. PREOPERATIVE DIAGNOSES: 1. Left knee chondromalacia patella, patellofemoral malalignment, knee locking, possible lateral meniscus tear or loose body. 2. Morbid obesity, BMI of 43. POSTOPERATIVE DIAGNOSES: Left knee bucket handle lateral meniscus tear, osteoarthritis of the knee with grade 3 chondromalacia patellofemoral joint, trochlea, lateral femoral condyle and patella and grade 3 lateral tibial plateau, osteoarthritis, grade 2 medial tibial plateau osteoarthritis. Patellofemoral malalignment and multilobulated ganglion cyst anterior horn of the lateral meniscus with degeneration of lateral meniscus. BMI of 43. PROCEDURE: Left knee arthroscopy with partial lateral meniscectomy and chondroplasty of the lateral compartment and patellofemoral joint and excision of ganglion cyst and arthroscopic lateral release including increased difficulty due to BMI of 43. SURGEON: Dr. West. [employer] MECH[employer]IC: None. ANESTHESIA: General and local. OPERATION AND FINDINGS: OPERATIVE PROCEDURE: The patient was taken to the operating room and anesthetized under general anesthetic. Left knee was examined under anesthesia. She has slightly flexed knee and unable to fully extend her consistent with a locked knee. She had a moderately large knee effusion, laterally aligned patella with lateral tracking of the patella and no instability with Mari exam or collateral ligaments. She had an obese leg. Pneumatic tourniquet was placed about her left upper thigh. Left lower extremity was prepped and draped in the usual sterile fashion using ChloraPrep. The leg was elevated, exsanguinated with Esmarch bandage. Pneumatic tourniquet was raised to 325 mmHg. Inferolateral portal was made and then we made inferior medial portal and accessory inferomedial portal more superior to the other portal so that we could achieve different angles to the lateral compartment to treat the pathology appropriately. Intra-articular findings demonstrated that she had significant grade 3 chondromalacia medial and lateral facet. The central groove and the trochlea was grade 3 with flattening flaps and this extended onto the lateral femoral condyle upper aspect mainly where more of the diseased articular cartilage was. I did not see any loose bodies in the suprapatellar pouch. She had very tight lateral retinaculum, lateral tracking patella. There was synovitis around the lateral edge of the patella. In the lateral compartment, she had a bucket handle lateral meniscus tear displaced anteriorly. She has some degeneration of the anterior horn. At the anterior horn attachment where there was some striated fibers extending to the bone at the normal attachment there was a large multilobulated ganglion cyst in that area. Bucket handle tear was at the very periphery of the meniscus. The tibial plateau had global grade 3 wear on the femoral condyle and some of the articular surface. Cruciate ligaments were still intact. In the medial compartment, there was grade 2 chondromalacia on the tibial plateau, stable intact medial meniscus, intact femoral condyle articular surface. I did not identify any loose bodies. Decision was made to do a partial lateral meniscectomy. I felt she was not a candidate for meniscus repair with her obesity and DJD of the knee. The posterior horn of the lateral meniscus was resected detaching the torn portion laterally and posterolaterally at the root attachment. I felt the posterior horn fragment could be removed with a grasper. Then the edges were smoothed down with a straight 4.5 resector blade, an angled 3.5 mm incisor blade so the remainder of the meniscus was probed and noted to be stable. Chondroplasty was performed of the grade 3 wear on the tibial plateau and in the trochlear groove and on the patella. I had to do a partial synovectomy. This was required for visualization of the patella and the pathology. I also excised the multiloculated ganglion cyst leaving the fibers of the anterior horn attachment intact but they were still striated. The lateral release was then performed using an Arthrocare lateral release probe releasing the lateral retinaculum from the muscle. The vastus lateralis which was left intact releasing down to the inferolateral portal. The tracking was better after the release was performed. The knee was copiously irrigated and inspected for any debris and all debris was removed at this time. Then, the portal sites were closed with nylon sutures. The knee was injected with 30 mL of Marcaine with epinephrine for postoperative analgesia. Placed a sterile dressings and an Jay wrap from the foot to the thigh. Tourniquet was let down. The patient had normal capillary refill of his extremity. The patient tolerated the procedure well. I attest to the content of the Intraoperative Record and any orders documented therein. Any exception s are noted below.
== END | disposition home or self-care (01) ==
LOC: C.ACU 09:12
PROVIDERS: ATTEND Orthopaedic Surgery Sports Medicine
DX: M22.42 Chondromalacia patellae, left knee (principal); M22.2X2 Patellofemoral disorders, left knee; S83.252A Bucket-handle tear of lateral meniscus, current injury, left knee, initial encounter; M17.12 Unilateral primary osteoarthritis, left knee; M67.462 Ganglion, left knee; X58.XXXA Exposure to other specified factors, initial encounter; I10 Essential (primary) hypertension; Z87.01 Personal history of pneumonia (recurrent); E03.9 Hypothyroidism, unspecified; E66.9 Obesity, unspecified; Z98.890 Other specified postprocedural states; Z90.89 Acquired absence of other organs; Z68.41 Body mass index [BMI] 40.0-44.9, adult